=== PATIENT | male | born 1975 | race African-American/Black ===

== ENCOUNTER 2020-11-25 22:20 | Inpatient (IN) ==
[2020-11-25] MEDS ORDERED: ZOFRAN INJ 4 MG VIAL IVP ONE (23:13)
[2020-11-25] MEDS ORDERED: ZOFRAN INJ 4 MG VIAL ONE (23:30)
[2020-11-25] MEDS ORDERED: NS 1000 ML 1,000 ML ONE (23:31)
[2020-11-25 23:39] LABS: BASOPHILS # (AUTO) 0.1 X10^3/uL (0.0-0.1); BASOPHILS % (AUTO) 0.4 % (0.2-1.0); HEMATOCRIT 33.8 % (42.0-54.0); LYMPHOCYTES # (AUTO) 1.9 X10^3/uL (1.3-2.9); LYMPHOCYTES % (AUTO) 16.3 % (21.0-51.0); MEAN CORPUSCULAR HEMOGLOBIN 29.9 pg (27.0-34.0); MEAN CORPUSCULAR HGB CONC 35.5 g/dL (33.0-35.0); MEAN PLATELET VOLUME 9.1 fL (7.4-11.0); MONOCYTES # (AUTO) 0.7 x10^3/uL (0.3-0.8); MONOCYTES % (AUTO) 5.7 % (0.0-13.0); NEUTROPHILS # (AUTO) 8.9 x10^3/uL (2.2-4.8); NEUTROPHILS % (AUTO) 77.6 % (42.0-75.0); PLATELET COUNT 267 X10^3/uL (150.0-450.0); RED BLOOD COUNT 4.03 X10^6/uL (4.7-6.0); RED CELL DISTRIBUTION WIDTH 12.6 % (11.6-16.5); WHITE BLOOD COUNT 11.4 X10^3/uL (3.6-10.0)
[2020-11-25] MEDS: NS 1000 ML 1,000 ML IV ONE ×2 (23:48→23:52)
[2020-11-26 00:18] LABS: ALBUMIN 3.1 g/dL (3.4-5.0); CALCIUM 9.3 mg/dL (8.5-10.1); CARBON DIOXIDE 33.3 mmol/L (21-32); CREATININE 2.42 mg/dL (0.70-1.30); TOTAL PROTEIN 7.8 g/dL (6.4-8.2)
[2020-11-26] MEDS ORDERED: NS 1000 ML 1,000 ML IV ONE (00:58)
[2020-11-26] MEDS ORDERED: NS 1000 ML 1,000 ML ONE (00:59)
--- NOTE | 2020-11-26 03:02 | DR.N/VMALE ---
HPI Time Seen Time Seen by Provider: 11/25/20 23:11 HPI Comment HPI Comment: Patient presents with the complaint of N/V. Notes that this has been an issue for over 6 months. Notes that he sees GI in [place] and has had workup including endoscopy that has been unrevealing. Patient denies any bad food or known sick contact exposure. Complaints Chief Complaint:: vomiting, since yesterday Source History Provided: Patient Timing Onset of Chief Complaint: 11/24/20 PMH PMH Past Medical History: Yes Past Medical History: Diabetes and Hypertension Past Surgical History: Yes Past Surgical History Comment: stent in Rt leg Family History History of Family Medical Conditions: Yes Family Medical History: Diabetes Mellitus Social History Alcohol Use: None Do you use any recreational Drugs:: No Lives With: Alone Lives Where: Home Infectious screening In the last 2 months have you had wt loss of >10#?: NO Have you had fever, night sweats or hemotysis?: No Have you traveled outside the country in the last 6 months?: No Isolation: Standard ROS Review of Systems Constitutional: See HPI and Malaise Gastrointestinal/Abdominal: See HPI, Abdominal Pain, Nausea and Vomiting All Other Systems: Reviewed and Negative PE Vital Signs Vitals: Temperature 98.9 F Pulse Rate [Apical] 102 Pulse Rate [Standing] 90 Pulse Rate [Sitting] 84 Pulse Rate [Lying] 85 Pulse Rate 100 Respiratory Rate 18 Blood Pressure [Left Arm] 117/76 Blood Pressure [Standing] 93/62 Blood Pressure [Sitting] 97/57 Blood Pressure [Lying] 105/67 Blood Pressure 162/95 O2 Sat by Pulse Oximetry 100 General Limitations: No Limitations General Appearance: Alert and In No Apparent Distress Head Head Exam: Normal Inspection, Atraumatic and Normocephalic Eyes Eye exam: Normal Appearance and EOMI ENT ENT Exam: Normal Exam Neck Neck Exam: Normal Inspection and Trachea Midline Chest Chest Inspection: Normal Inspection and Symmetric Chest Wall Rise Respiratory Respiratory Exam: Normal Lung Sounds Bilat Respiratory Exam: Bilateral: Clear to Auscultation Cardiovascular Cardiovascular Exam: Regular Rate, Normal Rhythm and Normal Heart Sounds Abdominal Exam Abdominal Exam: Normal Inspection, Normal Bowel Sounds and Soft Neurologic Neurological Exam: Alert and Oriented X3 Psychiatric Psychiatric Exam: Normal Affect and Normal Mood Skin Skin Exam: Warm, Dry and Intact COURSE Treatment Treatment: patient found to be orthostatic after 1st bolus of IVF. Will repeat and reassess. Patient continues to have nausea despite intervention in the ED Reevaluation 1st: Unchanged 2nd: Improved 3rd: Improved Consultation Called: 03:09 Consultation Comments: paged Dr. Wolf about admission. ROR Labs Reviewed Laboratory Results Reviewed?: Yes Result Diagrams: 11/25/20 23:25 11/25/20 23:25 Laboratory: WBC 11.4 X10^3/uL (3.6-10.0) H 11/25/20 23: RBC 4.03 X10^6/uL (4.7-6.0) L 11/25/20 23: Hgb 12.0 g/dL (13.5-18.0) L 11/25/20 23: Hct 33.8 % (42.0-54.0) L 11/25/20: MCV 84.0 fL (80.0-100.0) 11/25/20: MCH 29.9 pg (27.0-34.0) 11/25/20: MCHC 35.5 g/dL (33.0-35.0) H 11/25/20 23: RDW 12.6 % (11.6-16.5) 11/25/20: Plt Count 267 X10^3/uL (150.0-450.0) 11/25/20: MPV 9.1 fL (7.4-11.0) 11/25/20 23: Neut % (Auto) 77.6 % (42.0-75.0) H 11/25/20: Lymph % (Auto) 16.3 % (21.0-51.0) L 11/25/20: [place] % (Auto) 5.7 % (0.0-13.0) 11/25/20: Eos % (Auto) 0.0 % (0.9-2.9) L 11/25/20: Baso % (Auto) 0.4 % (0.2-1.0) 11/25/20 23: Neut # (Auto) 8.9 x10^3/uL (2.2-4.8) H 11/25/20 23: Lymph # (Auto) 1.9 X10^3/uL (1.3-2.9) 11/25/20 23:25 [place] # (Auto) 0.7 x10^3/uL (0.3-0.8) 11/25/20 23:25 Eos # (Auto) 0.0 x10^3/uL (0.0-0.2) 11/25/20 23:25 Baso # (Auto) 0.1 X10^3/uL (0.0-0.1) 11/25/20 23:25 Absolute Nucleated RBC 0.0 /100WBC 11/25/20 23:25 Sodium 144 mmol/L (136-145) 11/25/20 23:25 Corrected Sodium 147 mmol/L (136-145) H 11/25/20 23:25 Potassium 3.9 mmol/L (3.5-5.1) 11/25/20 23:25 Chloride 103 mmol/L (98-107) 11/25/20 23:25 Carbon Dioxide 33.3 mmol/L (21-32) H 11/25/20 23:25 BUN 30 mg/dL (7-18) H 11/25/20 23:25 Creatinine 2.42 mg/dL (0.70-1.30) H 11/25/20 23:25 Est GFR (MDRD) Af Amer 38 (>60) L 11/25/20 23:25 Est GFR (MDRD) Non-Af 31 (>60) L 11/25/20 23:25 Glucose 234 mg/dL (65-99) H 11/25/20 23:25 Calcium 9.3 mg/dL (8.5-10.1) 11/25/20 23:25 Corrected Calcium 10.0 mg/dL (8.5-10.1) 11/25/20 23:25 Total Bilirubin 0.30 mg/dL (0.2-1.0) 11/25/20 23:25 AST 25 Units/L (15-37) 11/25/20 23:25 ALT 22 Units/L (12-78) 11/25/20 23:25 Alkaline Phosphatase 128 Units/L (46-116) H 11/25/20 23:25 Total Protein 7.8 g/dL (6.4-8.2) 11/25/20 23:25 Albumin 3.1 g/dL (3.4-5.0) L 11/25/20 23:25 Globulin 4.7 g/dL (2.5-4.5) H 11/25/20 23:25 Albumin/Globulin Ratio 0.7 Ratio (1.1-2.1) L 11/25/20 23:25 Amylase 44 Units/L (25-115) 11/25/20 23:25 Lipase 117 Units/L (73-393) 11/25/20 23:25 Specimen Type Clean catch urine 11/26/20 05:00 Urine Color Dark yellow (YELLOW) 11/26/20 05:00 Urine Appearance Slightly hazy (CLEAR) 11/26/20 05:00 Urine pH 6.5 (5.0 - 8.0) 11/26/20 05:00 Ur Specific [place] 1.015 (1.000-1.030) 11/26/20 05:00 Urine Protein 4+ (NEGATIVE) 11/26/20 05:00 Urine Glucose (UA) 4+ (NEGATIVE) 11/26/20 05:00 Urine Ketones 1+ (NEGATIVE) 11/26/20 05:00 Urine Occult Blood 1+ (NEGATIVE) 11/26/20 05:00 Urine Nitrite Negative (NEGATIVE) 11/26/20 05:00 Urine Bilirubin Negative (NEGATIVE) 11/26/20 05:00 Urine Urobilinogen 1+ (NORMAL) 11/26/20 05:00 Ur Leukocyte Esterase Negative (NEGATIVE) 11/26/20 05:00 Urine RBC 3-5 /HPF (0-3) A 11/26/20 05:00 Urine WBC 0-2 /HPF (0-5) 11/26/20 05:00 Ur Squamous Epith Cells Few /HPF (NEGATIVE) 11/26/20 05:00 Urine Bacteria Trace /HPF (NEGATIVE) 11/26/20 05:00 Hyaline Casts Moderate /LPF (NEGATIVE) 11/26/20 05:00 Urine Mucus Few /HPF (NEGATIVE) 11/26/20 05:00 Ur Culture Indicated? No/not indicated 11/26/20 05:00 SARS-CoV-2 (PCR) Negative (NEGATIVE) 11/26/20 03:42 Influenza Type A (PCR) Negative (NEGATIVE) 11/26/20 03:42 Influenza Type B (PCR) Negative (NEGATIVE) 11/26/20 03:42 RSV (PCR) Negative (NEGATIVE) 11/26/20 03:42 XRAY X-ray Results: abd series: no acute infiltrate or effusion. no free air or air fluid level. Opioid Opioid Risk Tool Age (Ramiro box if 16-45): No History of Preadolescent Sexual Abuse: No Total: 0 Total Score Risk Category: Low Risk Copyright: Jace ROMEO predicting aberrant behaviors Diagnosis Discharge Problem: Nausea and vomiting in adult patient, Orthostatic hypotension Acute renal failure Qualifiers: Acute renal failure type: unspecified Qualified Code(s): N17.9 - Acute kidney failure, unspecified
[2020-11-26 05:20] LABS: BILIRUBIN,URINE NEGATIVE (NEGATIVE); BLOOD/HEMOGLOBIN,URINE 1+ (NEGATIVE); GLUCOSE, URINE 4+ (NEGATIVE); KETONES,URINE 1+ (NEGATIVE); LEUKOCYTE ESTERASE ,URINE NEGATIVE (NEGATIVE); NITRITES,URINE NEGATIVE (NEGATIVE); PH,URINE 6.5 (5.0 - 8.0); PROTEIN,URINE 4+ (NEGATIVE); UROBILINOGEN,URINE 1+ (NORMAL)
[2020-11-26 05:28] LABS: APPEARANCE,URINE SLIGHTLY HAZY (CLEAR); COLOR,URINE DARK YELLOW (YELLOW)
[2020-11-26 05:29] LABS: BACTERIA,URINE TRACE /HPF (NEGATIVE); HYALINE CASTS, URINE MODERATE /LPF (NEGATIVE); MUCUS,URINE FEW /HPF (NEGATIVE); SQUAMOUS EPITHELIAL CELL,UR FEW /HPF (NEGATIVE)
--- NOTE | 2020-11-26 06:30 | RAD ---
HISTORYabdominal pain DM, HTN, STENT IN RT LEGSTUDYACUTE ABDOMEN [id number]/21/2020FINDINGSThe trachea is midline. The cardiac silhouette is [unremarkable]. [The lungs are clear without focal mass or consolidation. There is no effusion or pneumothorax.] [The bony thorax is unremarkable].Flat plate and upright evaluation of the abdomen demonstrates a [normal bowel gas pattern]. There is a moderate amount of fecal material throughout the colon. There is no pneumoperitoneum. No pathological soft tissue mass or calcification can be observed. The bony structures are grossly intact. There is vascular graft overlying the right lumbosacral region.IMPRESSION1. [No acute cardiopulmonary disease.]2. [No evidence for acute abdominal pathology identified.]Electronically signed by: Michele Núñez (Nov 26, 2020 06:28:26)
[2020-11-26] MEDS ORDERED: ZOFRAN INJ 4 MG VIAL ONE (08:13)
[2020-11-26] MEDS: ZOFRAN INJ 4 MG VIAL IVP PRN ×2 (08:21→16:31)
[2020-11-26] MEDS: NS 1000 ML 1,000 ML IV SCH ×2 (08:50→16:36)
[2020-11-26] MEDS ORDERED: PROTONIX INJ 40 MG VIAL IVP SCH (09:00)
[2020-11-26 09:12] LABS: CARBON DIOXIDE 34.6 mmol/L (21-32); COR CA(FOR HYPOALB) 9.8 mg/dL (8.5-10.1); CREATININE 2.11 mg/dL (0.70-1.30); TOTAL PROTEIN 7.6 g/dL (6.4-8.2)
--- NOTE | 2020-11-26 11:05 | DR.H&P ---
H&P - History & Physical for Day of: H&P Date: 11/26/20 - Chief Complaint Chief Complaint: EPIGASTRIC PAIN, N/V - History of Present Illness History of Present Illness: PT IS 45 BM ER ADMISSION WITH CO EPIGASTRIC PAIN, N/V. PT STATES HE HAS BEEN SEEING GI AT [facility] FOR "STOMACH PROBLEMS" PT STATES HE RECENTLY HAD EGD. PT HAS PMH OF DM. PT ADMITTED FOR TREATMENT OF ACUTE ILLNESS, DEHYDRATION. - Past Medical History Past Medical History: Hypertension, Diabetes - Past Surgical History Surgical History: denies: Ortho Surgery - Family History Family Medical History: Diabetes Mellitus - Social History Does patient currently use any type of tobacco product: No Have you used tobacco products in the last 12 months: No Type of Tobacco Use: None Does any household member use tobacco: No Alcohol Use: None Risks, benefits, and alternatives of opioids discussed: No - Medications Home Medications: No Known Drug Allergies Allergy (Verified 01/23/18 21:59) CONTINUE taking the following medications cetirizine 10 mg PO DAILY 11/26/20 [History] clopidogrel [Plavix] 75 mg PO DAILY 11/26/20 [History] gabapentin 600 mg PO TID 11/26/20 [History] glimepiride 4 mg PO BID 11/26/20 [History] metoclopramide HCl 10 mg PO QID 11/26/20 [History] pantoprazole 40 mg PO DAILY 11/26/20 [History] - Review of Systems Constitutional: denies: Fever, Chills Eyes: No Symptoms Reported ENT: No Symptoms Reported Respiratory: denies: Cough, Shortness of Breath Cardiovascular: No Symptoms Reported Gastrointestinal: Nausea, Vomiting, Abdominal Pain, Diarrhea Genitourinary: No Symptoms Reported Musculoskeletal: No Symptoms Reported Skin: Wound Neurological: No Symptoms Reported - Physical Exam Vital Signs: Temperature 99.2 F Pulse Rate [Apical] 94 Pulse Rate [Standing] 90 Pulse Rate [Sitting] 84 Pulse Rate [Lying] 85 Pulse Rate 87 Respiratory Rate 18 Blood Pressure [Right Arm] 142/89 Blood Pressure [Left Arm] 117/76 Blood Pressure [Standing] 93/62 Blood Pressure [Sitting] 97/57 Blood Pressure [Lying] 105/67 Blood Pressure 167/100 O2 Sat by Pulse Oximetry 100 Oriented: Normal Eyes: Normal Ear: Normal Nose: Normal Throat: Normal Respiratory: Clear Throughout Cardiovascular: Normal : Normal Auscultation: Bowel Sounds: Normal Palpation: Normal Tenderness: RUQ, LUQ, Epigastric Skin: Decreased [place]urg[place], Wound (FEW SCATTERED LESIONS TO BILATERAL LOWER LEGS) Musculoskeletal: Normal Psychiatric: Normal Mood Description: Calm Speech Pattern: Clear, Appropriate - Assessment/Plan (1) Acute renal failure Qualifiers: Acute renal failure type: unspecified Qualified Code(s): N17.9 - Acute kidney failure, unspecified Status: Acute Plan: ADMIT, GENTLE IV HYDRATION. STRICT I&OS, BS CONTROL. NPO EXCEPT ICE CHIPS. CT ABD/PELVIS WITHOUT CONTRAST DUE TO RENAL FUNCTION. CONFIRM HOME MEDICATION. BP CONTROL, PPI THERAPY (2) Acute gastritis Status: Acute (3) Dehydration Status: Acute (4) Diabetes Status: Acute - Allergies Allergies/Adverse Reactions: Allergies Allergy/AdvReac Type Severity Reaction Status Date / Time No Known Drug Allergies Allergy Verified 01/23/18 21:59
[2020-11-26] MEDS: PHENERGAN INJ 25 MG IM PRN ×2 (13:32→19:50)
[2020-11-26 14:29] VITALS: BMI 23.1
[2020-11-26] MEDS: APRESOLINE INJ 20 MG VIAL IVP PRN (17:33)
[2020-11-26] MEDS: PROTONIX INJ 40 MG VIAL IVP SCH (21:15)
[2020-11-26] MEDS: CATAPRES TAB 0.1 MG PO PRN (23:28)
[2020-11-27] MEDS: NS 1000 ML 1,000 ML IV SCH ×5 (02:25→23:00)
[2020-11-27] MEDS: APRESOLINE INJ 20 MG VIAL IVP PRN ×3 (03:48→21:07)
[2020-11-27] MEDS: ZOFRAN INJ 4 MG VIAL IVP PRN ×3 (03:58→21:17)
[2020-11-27] MEDS ORDERED: GLUTOSE 15 GEL ORAL PO ONE ×2 (05:46→05:52)
[2020-11-27 06:19] LABS: BASOPHILS # (AUTO) 0.1 X10^3/uL (0.0-0.1); BASOPHILS % (AUTO) 0.5 % (0.2-1.0); EOSINOPHILS % (AUTO) 0.1 % (0.9-2.9); HEMATOCRIT 31.8 % (42.0-54.0); HEMOGLOBIN 11.3 g/dL (13.5-18.0); LYMPHOCYTES # (AUTO) 2.4 X10^3/uL (1.3-2.9); LYMPHOCYTES % (AUTO) 21.9 % (21.0-51.0); MEAN CORPUSCULAR HEMOGLOBIN 30.2 pg (27.0-34.0); MEAN CORPUSCULAR HGB CONC 35.5 g/dL (33.0-35.0); MEAN CORPUSCULAR VOLUME 85.1 fL (80.0-100.0); MONOCYTES # (AUTO) 0.5 x10^3/uL (0.3-0.8); MONOCYTES % (AUTO) 4.7 % (0.0-13.0); NEUTROPHILS % (AUTO) 72.8 % (42.0-75.0); PLATELET COUNT 240 X10^3/uL (150.0-450.0); RED BLOOD COUNT 3.73 X10^6/uL (4.7-6.0); RED CELL DISTRIBUTION WIDTH 12.9 % (11.6-16.5)
[2020-11-27 06:25] LABS: ALANINE AMINOTRANSFERASE 23 Units/L (12-78); ALBUMIN 2.9 g/dL (3.4-5.0); ALKALINE PHOSPHATASE 111 Units/L (46-116); ASPARTATE AMINO TRANSFERASE 37 Units/L (15-37); BLOOD UREA NITROGEN 27 mg/dL (7-18); CALCIUM 8.7 mg/dL (8.5-10.1); CHLORIDE 111 mmol/L (98-107); COR CA(FOR HYPOALB) 9.6 mg/dL (8.5-10.1); CREATININE 1.48 mg/dL (0.70-1.30); SODIUM 149 mmol/L (136-145); TOTAL PROTEIN 7.2 g/dL (6.4-8.2); eGFR NON BLACK RACES 55 (>60)
[2020-11-27] MEDS ORDERED: K-DUR TAB 20 MEQ PO PRN (06:54)
[2020-11-27] MEDS ORDERED: POTASSIUM CHL 60 MEQ/NS 0.45% 500 ML IV PRN (06:54)
[2020-11-27] MEDS ORDERED: POTASSIUM CHLORIDE LIQ 20 MEQ UDC PO PRN (06:54)
[2020-11-27] MEDS ORDERED: KLOR-CON PO PRN (06:54)
[2020-11-27] MEDS ORDERED: MICRO K EXTEN CAP 10 MEQ PO PRN (06:54)
[2020-11-27] MEDS ORDERED: POTASSIUM CHL 40 MEQ/NS 0.45% 500 ML IV PRN (06:54)
--- NOTE | 2020-11-27 07:44 | CT ---
HISTORYABD PAIN, NVSTUDYABDOMEN/PELVIS W/O CONCOMPARISONCT abdomen and pelvis 05/17/2020TECHNIQUEMultiple CT axial images of the abdomen and pelvis were obtained without IV contrast. Coronal and sagittal images were reconstructed. Dose reduction techniques included Automated Exposure Control (AEC) and adjustment of mA and kV.FINDINGSThe bowel is not dilated. There is no wall thickening in the bowel or edema around the bowel. The appendix is normal in size with no inflammation around it. No evidence of appendicitis.The kidneys have normal size and shape. No abnormal calcification is present. There is no hydronephrosis or significant perirenal edema. The ureters are not dilated. The bladder is normally distended. It has no wall thickening or perivesical edema.The lung bases are clear. Heart size is normal. Liver, gallbladder, spleen, adrenal glands, and pancreas are unremarkable.Vascular stent in the right iliac vein.IMPRESSION1. No acute findingElectronically signed by: Maksim Mauricio (Nov 27, 2020 07:42:06)
[2020-11-27] MEDS: PROTONIX INJ 40 MG VIAL IVP SCH ×2 (08:14→21:07)
[2020-11-27] MEDS: K-RIDER 10 MEQ/NS 100 ML 10 MEQ/100 ML BAG IV PRN ×2 (08:30→10:00)
[2020-11-27] MEDS: ZyrTEC TAB 10 MG PO SCH (11:02)
[2020-11-27] MEDS: PHENERGAN INJ 25 MG IM PRN (11:03)
[2020-11-27] MEDS ORDERED: REGLAN INJ 10 MG VIAL IVP ONE (13:39)
[2020-11-27] MEDS ORDERED: REGLAN INJ 10 MG VIAL ONE (13:39)
[2020-11-27] MEDS: ZESTRIL TAB 5 MG PO SCH (16:38)
[2020-11-28] MEDS: NS 1000 ML 1,000 ML IV SCH ×4 (00:19→16:29)
[2020-11-28] MEDS: APRESOLINE INJ 20 MG VIAL IVP PRN ×2 (00:38→17:45)
[2020-11-28] MEDS: ZOFRAN INJ 4 MG VIAL IVP PRN (09:20)
[2020-11-28 09:52] LABS: ALANINE AMINOTRANSFERASE 21 Units/L (12-78); ALBUMIN 2.9 g/dL (3.4-5.0); ALKALINE PHOSPHATASE 107 Units/L (46-116); ASPARTATE AMINO TRANSFERASE 45 Units/L (15-37); BLOOD UREA NITROGEN 25 mg/dL (7-18); CALCIUM 8.7 mg/dL (8.5-10.1); CARBON DIOXIDE 23.5 mmol/L (21-32); CHLORIDE 112 mmol/L (98-107); COR CA(FOR HYPOALB) 9.6 mg/dL (8.5-10.1); COR NA(FOR HYPERGLY) 148 mmol/L (136-145); CREATININE 1.45 mg/dL (0.70-1.30); SODIUM 146 mmol/L (136-145); TOTAL PROTEIN 7.1 g/dL (6.4-8.2); eGFR NON BLACK RACES 56 (>60)
[2020-11-28] MEDS: ZyrTEC TAB 10 MG PO SCH (09:58)
[2020-11-28] MEDS: PROTONIX INJ 40 MG VIAL IVP SCH ×2 (09:58→21:55)
[2020-11-28] MEDS: ZESTRIL TAB 5 MG PO SCH (09:58)
--- NOTE | 2020-11-28 10:33 | US ---
HISTORYNAUSEA, VOMITING GREENISH LIQUID, ACUTE RENAL FAILURESTUDYGALL BLADDERCOMPARISONNoneTECHNIQUEMultiple de la vega scale and color flow Doppler images of the right upper quadrant were obtained.FINDINGSThe liver is normal in echotexture and size . No focal intraparenchymal mass or intrahepatic biliary ductal dilatation can be observed. The gallbladder fails to demonstrate evidence for cholelithiasis or layering sludge . The common bile duct is unremarkable measuring 3 mm in with. No pericholecystic fluid or gallbladder wall thickening can be observed .The right kidney appears normal in size without focal parenchymal mass or nephrolithiasis. The right kidney measurers 11 cm in length no hydronephrosis or perirenal fluid can be observed. The pancreatic head and body are unremarkable. The pancreatic tail is largely obscured by overlying bowel gas.IMPRESSIONUnremarkable examination of the right upper quadrant.Electronically signed by: CLEMENTINE JEFF (Nov 28, 2020 10:31:20)
[2020-11-28 10:48] LABS: BASOPHILS # (AUTO) 0.1 X10^3/uL (0.0-0.1); BASOPHILS % (AUTO) 0.6 % (0.2-1.0); HEMATOCRIT 31.3 % (42.0-54.0); HEMOGLOBIN 10.8 g/dL (13.5-18.0); LYMPHOCYTES # (AUTO) 1.9 X10^3/uL (1.3-2.9); LYMPHOCYTES % (AUTO) 19.3 % (21.0-51.0); MEAN CORPUSCULAR HEMOGLOBIN 29.7 pg (27.0-34.0); MEAN CORPUSCULAR HGB CONC 34.7 g/dL (33.0-35.0); MEAN CORPUSCULAR VOLUME 85.7 fL (80.0-100.0); MEAN PLATELET VOLUME 8.8 fL (7.4-11.0); MONOCYTES # (AUTO) 0.4 x10^3/uL (0.3-0.8); MONOCYTES % (AUTO) 4.5 % (0.0-13.0); NEUTROPHILS # (AUTO) 7.3 x10^3/uL (2.2-4.8); NEUTROPHILS % (AUTO) 75.6 % (42.0-75.0); PLATELET COUNT 224 X10^3/uL (150.0-450.0); RED BLOOD COUNT 3.65 X10^6/uL (4.7-6.0); RED CELL DISTRIBUTION WIDTH 12.7 % (11.6-16.5); WHITE BLOOD COUNT 9.7 X10^3/uL (3.6-10.0)
[2020-11-28] MEDS: LEVSIN/MAALOX/LIDOC VISC PO PRN ×2 (12:50→17:49)
[2020-11-28] MEDS: PHENERGAN INJ 25 MG IM PRN (12:51)
[2020-11-28] MEDS: HumuLIN R SC PRN (17:45)
[2020-11-29] MEDS: PHENERGAN INJ 25 MG IM PRN (00:59)
[2020-11-29] MEDS: NS 1000 ML 1,000 ML IV SCH ×2 (05:01→08:43)
[2020-11-29 07:49] LABS: BASOPHILS # (AUTO) 0.1 X10^3/uL (0.0-0.1); BASOPHILS % (AUTO) 0.8 % (0.2-1.0); EOSINOPHILS % (AUTO) 0.1 % (0.9-2.9); HEMATOCRIT 31.4 % (42.0-54.0); LYMPHOCYTES # (AUTO) 1.6 X10^3/uL (1.3-2.9); LYMPHOCYTES % (AUTO) 19.4 % (21.0-51.0); MEAN CORPUSCULAR HEMOGLOBIN 30.5 pg (27.0-34.0); MEAN CORPUSCULAR HGB CONC 35.1 g/dL (33.0-35.0); MEAN CORPUSCULAR VOLUME 86.7 fL (80.0-100.0); MEAN PLATELET VOLUME 8.6 fL (7.4-11.0); MONOCYTES # (AUTO) 0.3 x10^3/uL (0.3-0.8); MONOCYTES % (AUTO) 4.2 % (0.0-13.0); NEUTROPHILS # (AUTO) 6.2 x10^3/uL (2.2-4.8); NEUTROPHILS % (AUTO) 75.5 % (42.0-75.0); PLATELET COUNT 210 X10^3/uL (150.0-450.0); RED BLOOD COUNT 3.62 X10^6/uL (4.7-6.0); RED CELL DISTRIBUTION WIDTH 12.9 % (11.6-16.5); WHITE BLOOD COUNT 8.2 X10^3/uL (3.6-10.0)
[2020-11-29 08:00] LABS: ALANINE AMINOTRANSFERASE 22 Units/L (12-78); ALBUMIN 2.8 g/dL (3.4-5.0); ALKALINE PHOSPHATASE 98 Units/L (46-116); ASPARTATE AMINO TRANSFERASE 29 Units/L (15-37); BLOOD UREA NITROGEN 22 mg/dL (7-18); CALCIUM 8.5 mg/dL (8.5-10.1); CARBON DIOXIDE 26.7 mmol/L (21-32); CHLORIDE 114 mmol/L (98-107); COR CA(FOR HYPOALB) 9.5 mg/dL (8.5-10.1); COR NA(FOR HYPERGLY) 150 mmol/L (136-145); CREATININE 1.42 mg/dL (0.70-1.30); SODIUM 148 mmol/L (136-145); TOTAL PROTEIN 6.6 g/dL (6.4-8.2); eGFR NON BLACK RACES 58 (>60)
[2020-11-29] MEDS: PROTONIX INJ 40 MG VIAL IVP SCH ×2 (08:43→20:53)
[2020-11-29] MEDS: ZOFRAN INJ 4 MG VIAL IVP PRN (08:53)
[2020-11-29] MEDS: ZyrTEC TAB 10 MG PO SCH (08:54)
[2020-11-29] MEDS: ZESTRIL TAB 5 MG PO SCH (08:54)
[2020-11-29] MEDS ORDERED: NS 1/2 1000 ML IV 1,000 ML IV ONE ×2 (10:47→19:52)
[2020-11-29] MEDS: NS 1/2 1000 ML IV 1,000 ML IV SCH ×2 (10:54→20:49)
[2020-11-29] MEDS: REGLAN INJ 10 MG VIAL IVP SCH ×3 (10:54→20:54)
[2020-11-29 11:04] LABS: CRYPTOSPORIDIUM PARVUM ANTIGEN NEGATIVE (NEGATIVE); GIARDIA LAMBLIA ANTIGEN NEGATIVE (NEGATIVE)
[2020-11-29] MEDS ORDERED: BENTYL I.M. INJ 10 MG IM ONE (11:12)
[2020-11-29] MEDS: BENADRYL INJ 50 MG VIAL IV SCH ×2 (11:49→20:54)
[2020-11-29] MEDS ORDERED: ZITHROMAX TAB 250 MG PO SCH (13:00)
[2020-11-29] MEDS ORDERED: CONSULT PHARMACY - ANTIBIOTIC XX SCH (13:00)
[2020-11-29] MEDS: ZITHROMAX INJ 500 MG VIAL 500 MG in NS 250 ML IV 250 ML IV SCH (13:45)
[2020-11-29] MEDS: HumuLIN R SC PRN (16:13)
[2020-11-30] MEDS: CATAPRES TAB 0.1 MG PO PRN ×3 (00:15→13:14)
[2020-11-30] MEDS: BENADRYL INJ 50 MG VIAL IV SCH (03:53)
[2020-11-30] MEDS: NS 1/2 1000 ML IV 1,000 ML IV SCH ×2 (03:55→11:09)
[2020-11-30 08:18] LABS: BASOPHILS # (AUTO) 0.1 X10^3/uL (0.0-0.1); BASOPHILS % (AUTO) 0.7 % (0.2-1.0); EOSINOPHILS # (AUTO) 0.1 x10^3/uL (0.0-0.2); EOSINOPHILS % (AUTO) 0.7 % (0.9-2.9); HEMATOCRIT 29.7 % (42.0-54.0); HEMOGLOBIN 10.8 g/dL (13.5-18.0); LYMPHOCYTES # (AUTO) 2.2 X10^3/uL (1.3-2.9); MEAN CORPUSCULAR HGB CONC 36.3 g/dL (33.0-35.0); MEAN CORPUSCULAR VOLUME 85.3 fL (80.0-100.0); MEAN PLATELET VOLUME 8.8 fL (7.4-11.0); MONOCYTES # (AUTO) 0.4 x10^3/uL (0.3-0.8); MONOCYTES % (AUTO) 5.3 % (0.0-13.0); NEUTROPHILS # (AUTO) 5.4 x10^3/uL (2.2-4.8); NEUTROPHILS % (AUTO) 66.3 % (42.0-75.0); PLATELET COUNT 193 X10^3/uL (150.0-450.0); RED BLOOD COUNT 3.48 X10^6/uL (4.7-6.0); RED CELL DISTRIBUTION WIDTH 12.8 % (11.6-16.5); WHITE BLOOD COUNT 8.1 X10^3/uL (3.6-10.0)
[2020-11-30] MEDS: ZESTRIL TAB 5 MG PO SCH (08:51)
[2020-11-30] MEDS: ZyrTEC TAB 10 MG PO SCH (08:51)
[2020-11-30] MEDS: ZITHROMAX INJ 500 MG VIAL 500 MG in NS 250 ML IV 250 ML IV SCH (08:52)
[2020-11-30] MEDS: PROTONIX INJ 40 MG VIAL IVP SCH (08:52)
[2020-11-30 09:15] LABS: ALANINE AMINOTRANSFERASE 23 Units/L (12-78); ALBUMIN 2.6 g/dL (3.4-5.0); ALKALINE PHOSPHATASE 88 Units/L (46-116); ASPARTATE AMINO TRANSFERASE 30 Units/L (15-37); BLOOD UREA NITROGEN 14 mg/dL (7-18); CALCIUM 8.3 mg/dL (8.5-10.1); CARBON DIOXIDE 27.9 mmol/L (21-32); CHLORIDE 110 mmol/L (98-107); COR CA(FOR HYPOALB) 9.4 mg/dL (8.5-10.1); COR NA(FOR HYPERGLY) 146 mmol/L (136-145); SODIUM 145 mmol/L (136-145); TOTAL PROTEIN 6.1 g/dL (6.4-8.2); eGFR NON BLACK RACES > 60 (>60)
--- NOTE | 2020-11-30 10:51 | RAD ---
HISTORYFEVER, CHEST CONGESTIONSTUDYCHEST x-ray, 1 VIEWCOMPARISONX-ray 11/25/2020FINDINGSThe trachea is midline. The cardiac silhouette is unremarkable .Several very tiny nodules seen in the right midlung that are not identified previously. These may be from granulomatous infection. Correlation with CT chest is recommended. No pneumothorax or pleural effusion is seen.No acute bony abnormality is seen.IMPRESSIONSeveral tiny nodules in the right midlung may be from granulomatous infection but do appear new since prior chest x-ray. Follow-up chest CT is recommended to document size and extent of nodules.Electronically signed by: Joseph Garces (Nov 30, 2020 10:48:46)
[2020-11-30] MEDS ORDERED: BENTYL I.M. INJ 10 MG IM ONE (11:22)
[2020-11-30] MEDS: APRESOLINE INJ 20 MG VIAL IVP PRN (12:04)
[2020-11-30] MEDS ORDERED: PEPTO-BISMOL ORAL SUSP BTL PO SCH (13:00)
[2020-11-30 14:20] VITALS: BP 159/92
[2020-11-30] MEDS ORDERED: FLAGYL TAB 500 MG PO SCH (17:00)
[2020-11-30] MEDS ORDERED: PATIENT'S HOME MEDICATION PO SCH (17:00)
== END 2020-11-30 16:20 | disposition home or self-care (01) | DRG 74 ==
LOC: ER 22:38 → MED/SURG 22:38
PROVIDERS: ADMIT Internal Medicine; ATTEND Internal Medicine
DX: I10 Essential (primary) hypertension; K29.00 Acute gastritis without bleeding; A04.5 Campylobacter enteritis; B96.81 Helicobacter pylori [H. pylori] as the cause of diseases classified elsewhere; N17.8 Other acute kidney failure; Z20.822 Contact with and (suspected) exposure to COVID-19; E86.0 Dehydration; R26.89 Other abnormalities of gait and mobility; R11.2 Nausea with vomiting, unspecified; E11.43 Type 2 diabetes mellitus with diabetic autonomic (poly)neuropathy; E11.65 Type 2 diabetes mellitus with hyperglycemia; R10.13 Epigastric pain; K31.84 Gastroparesis; E87.0 Hyperosmolality and hypernatremia

== ENCOUNTER 2021-03-17 12:39 | Observation (INO) ==
[2021-03-17 12:43] VITALS: BMI 23.1
[2021-03-17] MEDS ORDERED: ZOFRAN INJ 4 MG VIAL IVP ONE ×2 (12:49→15:12)
[2021-03-17] MEDS ORDERED: NS 1,000 ML IV 1,000 ML IV ONE (12:49)
[2021-03-17] MEDS ORDERED: NS 1,000 ML IV 1,000 ML ONE ×2 (13:02→19:17)
[2021-03-17] MEDS ORDERED: ZOFRAN INJ 4 MG VIAL ONE ×3 (13:02→19:31)
[2021-03-17 13:09] LABS: BASOPHILS # (AUTO) 0.1 X10^3/uL (0.0-0.1); BASOPHILS % (AUTO) 0.7 % (0.2-1.0); EOSINOPHILS % (AUTO) 0.1 % (0.9-2.9); HEMOGLOBIN 11.7 g/dL (13.5-18.0); LYMPHOCYTES # (AUTO) 1.8 X10^3/uL (1.3-2.9); LYMPHOCYTES % (AUTO) 14.4 % (21.0-51.0); MEAN CORPUSCULAR HEMOGLOBIN 29.2 pg (27.0-34.0); MEAN CORPUSCULAR HGB CONC 34.4 g/dL (33.0-35.0); MEAN CORPUSCULAR VOLUME 84.8 fL (80.0-100.0); MEAN PLATELET VOLUME 9.1 fL (7.4-11.0); MONOCYTES # (AUTO) 0.8 x10^3/uL (0.3-0.8); MONOCYTES % (AUTO) 6.3 % (0.0-13.0); NEUTROPHILS # (AUTO) 9.9 x10^3/uL (2.2-4.8); NEUTROPHILS % (AUTO) 78.5 % (42.0-75.0); PLATELET COUNT 244 X10^3/uL (150.0-450.0); RED BLOOD COUNT 4.01 X10^6/uL (4.7-6.0); RED CELL DISTRIBUTION WIDTH 12.8 % (11.6-16.5); WHITE BLOOD COUNT 12.6 X10^3/uL (3.6-10.0)
--- NOTE | 2021-03-17 13:11 | DR.N/VMALE ---
HPI Time Seen Time Seen by Provider: 03/17/21 12:49 Primary Care Physician Primary Care Physician: Ximena HPI Comment HPI Comment: PATIENT IS 45YR OLD MALE WITH HISTORY OF DM AND HTN IN ER COMPLAINING OF NAUSEA AND VOMITING TIMES 6 DAYS. NOT HOLDING DOWN FLUID, MEDICATION OR FOOD. DENIES DIARRHEA. LAST BM SATURDAY AND WAS OILY. FEEL WEAK AND FEVERISH. HE IS DIZZY TODAY. Complaints Chief Complaint Doctors Comments: NAUSEA AND VOMITING TIMES 6 DAYS. Chief Complaint:: Pt c/o nausea and vomiting x 6 days. He states he has been unable to eat and take daily meds. Pt reports last bm on Saturday and describes it as "real oily". COVID-19 Coronavirus risk:travel/contact w/high risk person: No Has patient experienced Coronavirus symptoms: No Reviewed Nurses Notes Reviewed: Yes Source History Provided: Patient Mode of Arrival Mode of Arrival: Wheelchair Timing Onset of Chief Complaint: 03/11/21 Context Onset: Spontaneous Recent: None History of: Diabetes Quality Quality: Food Particles Associated Signs and Symptoms Abdominal Pain Quality: Sharp Abdominal Pain Location: Diffuse Symptoms: Abdominal Pain, Anorexia and Fever Other History Other History: DM, HTN. PMH PMH Past Medical History: Yes Past Medical History: Diabetes and Hypertension Past Surgical History: Yes Surgical History: Angioplasty/Stents Family History History of Family Medical Conditions: Yes Family Medical History: Diabetes Mellitus, Cancer and Hypertension Social History Does patient currently use any type of tobacco product: No Have you used tobacco products in the last 12 months: No Type of Tobacco Use: None Does any household member use tobacco: No Alcohol Use: None Do you use any recreational Drugs:: Yes (marijuana) Lives With: Family Lives Where: Home Travel Risk Coronavirus risk:travel/contact w/high risk person: No Has patient experienced Coronavirus symptoms: No Infectious screening In the last 2 months have you had wt loss of >10#?: NO Have you had fever, night sweats or hemotysis?: No Have you traveled outside the country in the last 6 months?: No Isolation: Standard ROS Review of Systems Constitutional: See HPI, Fever, Weakness and Fatigue Eyes: No Symptoms Reported and See HPI ENTM: See HPI, Nose Discharge and Nose Congestion Respiratoy: No Symptoms Reported, See HPI, Moist Cough and Short of Breath; negative Wheezing Cardiovascular: No Symptoms Reported and See HPI; negative Chest Pain Gastrointestinal/Abdominal: See HPI, Abdominal Pain, Nausea and Vomiting Genitourinary: No Symptoms Reported and See HPI; negative Dysuria, Frequency and Hematuria Neurological: See HPI, Headache, Weakness and Dizziness Musculoskeletal: No Symptoms Reported, See HPI and Back Pain; negative Muscle Pain Integumentary: No Symptoms Reported and See HPI; negative Change in Color, Rash and Juandice Hematologic/Lymphatic: No Symptoms Reported and See HPI; negative Easy Bruising Endocrine: No Symptoms Reported and See HPI; negative Increased Thirst and Increased Urine Psychiatric: No Symptoms Reported and See HPI All Other Systems: Reviewed and Negative PE Vital Signs Vitals: Temperature 99.1 F Pulse Rate 94 Respiratory Rate 20 Blood Pressure [Right Arm] 135/91 Blood Pressure 157/88 O2 Sat by Pulse Oximetry 96 General Limitations: No Limitations General Appearance: Alert and In No Apparent Distress Head Head Exam: Normal Inspection Eyes Eye exam: Normal Appearance; negative Scleral Icterus and Conjunctival Injection ENT ENT Exam: Normal Exam, Normal Oropharynx, Normal External Ear Exam and TM's Normal Bilaterally Neck Neck Exam: Normal Inspection and Trachea Midline; negative Tenderness Chest Chest Inspection: Normal Inspection and Symmetric Chest Wall Rise; negative Tenderness Respiratory Respiratory Exam: Normal Lung Sounds Bilat; negative Accessory Muscle Use, Chest Wall Tenderness and Respiratory Distress Respiratory Exam: Bilateral: Rhonchi and Lower: Rhonchi Cardiovascular Cardiovascular Exam: Regular Rate, Normal Rhythm and Normal Heart Sounds; negative Systolic Murmur and Diastolic Murmur Abdominal Exam Abdominal Exam: Normal Bowel Sounds, Soft and Tenderness Rectal Rectal Exam: Deferred Exam: Male: Deferred Extremities Extremities Exam: Normal Inspection Back Back Exam: Normal Inspection Neurologic Neurological Exam: Alert and Oriented X3 Psychiatric Psychiatric Exam: Normal Affect and Normal Mood Skin Skin Exam: Warm, Dry, Intact and Normal Color ROR Labs Reviewed Result Diagrams: 03/17/21 12:54 03/17/21 12:54 Laboratory: WBC 12.6 X10^3/uL (3.6-10.0) H 03/17/21 12:54 RBC 4.01 X10^6/uL (4.7-6.0) L 03/17/21 12:54 Hgb 11.7 g/dL (13.5-18.0) L 03/17/21 12:54 Hct 34.0 % (42.0-54.0) L 03/17/21 12:54 MCV 84.8 fL (80.0-100.0) 03/17/21 12:54 MCH 29.2 pg (27.0-34.0) 03/17/21 12:54 MCHC 34.4 g/dL (33.0-35.0) 03/17/21 12:54 RDW 12.8 % (11.6-16.5) 03/17/21 12:54 Plt Count 244 X10^3/uL (150.0-450.0) 03/17/21 12:54 MPV 9.1 fL (7.4-11.0) 03/17/21 12:54 Neut % (Auto) 78.5 % (42.0-75.0) H 03/17/21 12:54 Lymph % (Auto) 14.4 % (21.0-51.0) L 03/17/21 12:54 [place] % (Auto) 6.3 % (0.0-13.0) 03/17/21 12:54 Eos % (Auto) 0.1 % (0.9-2.9) L 03/17/21 12:54 Baso % (Auto) 0.7 % (0.2-1.0) 03/17/21 12:54 Neut # (Auto) 9.9 x10^3/uL (2.2-4.8) H 03/17/21 12:54 Lymph # (Auto) 1.8 X10^3/uL (1.3-2.9) 03/17/21 12:54 [place] # (Auto) 0.8 x10^3/uL (0.3-0.8) 03/17/21 12:54 Eos # (Auto) 0.0 x10^3/uL (0.0-0.2) 03/17/21 12:54 Baso # (Auto) 0.1 X10^3/uL (0.0-0.1) 03/17/21 12:54 Absolute Nucleated RBC 0.0 /100WBC 03/17/21 12:54 Sodium 140 mmol/L (136-145) 03/17/21 12:54 Corrected Sodium 146 mmol/L (136-145) H 03/17/21 12:54 Potassium 2.9 mmol/L (3.5-5.1) L* 03/17/21 12:54 Chloride 97 mmol/L (98-107) L 03/17/21 12:54 Carbon Dioxide 36.3 mmol/L (21-32) H 03/17/21 12:54 BUN 19 mg/dL (7-18) H 03/17/21 12:54 Creatinine 1.64 mg/dL (0.70-1.30) H 03/17/21 12:54 Est GFR (MDRD) Af Amer 59 (>60) 03/17/21 12:54 Est GFR (MDRD) Non-Af 49 (>60) L 03/17/21 12:54 Glucose 341 mg/dL (65-99) H 03/17/21 12:54 Calcium 8.1 mg/dL (8.5-10.1) L 03/17/21 12:54 Corrected Calcium 9.5 mg/dL (8.5-10.1) 03/17/21 12:54 Total Bilirubin 0.50 mg/dL (0.2-1.0) 03/17/21 12:54 AST 39 Units/L (15-37) H 03/17/21 12:54 ALT 22 Units/L (12-78) 03/17/21 12:54 Alkaline Phosphatase 145 Units/L (46-116) H 03/17/21 12:54 Total Protein 6.4 g/dL (6.4-8.2) 03/17/21 12:54 Albumin 2.2 g/dL (3.4-5.0) L 03/17/21 12:54 Globulin 4.2 g/dL (2.5-4.5) 03/17/21 12:54 Albumin/Globulin Ratio 0.5 Ratio (1.1-2.1) L 03/17/21 12:54 Amylase 29 Units/L (25-115) 03/17/21 12:54 Lipase 110 Units/L (73-393) 03/17/21 12:54 Specimen Type Clean catch urine 03/17/21 14:55 Urine Color Yellow (YELLOW) 03/17/21 14:55 Urine Appearance Slightly hazy (CLEAR) 03/17/21 14:55 Urine pH 6.0 (5.0 - 8.0) 03/17/21 14:55 Ur Specific [place] 1.020 (1.000-1.030) 03/17/21 14:55 Urine Protein 4+ (NEGATIVE) 03/17/21 14:55 Urine Glucose (UA) 4+ (NEGATIVE) 03/17/21 14:55 Urine Ketones 3+ (NEGATIVE) 03/17/21 14:55 Urine Occult Blood 4+ (NEGATIVE) 03/17/21 14:55 Urine Nitrite Negative (NEGATIVE) 03/17/21 14:55 Urine Bilirubin Negative (NEGATIVE) 03/17/21 14:55 Urine Urobilinogen Normal (NORMAL) 03/17/21 14:55 Ur Leukocyte Esterase Negative (NEGATIVE) 03/17/21 14:55 Urine RBC 10-20 /HPF (0-3) A 03/17/21 14:55 Urine WBC 0-2 /HPF (0-5) 03/17/21 14:55 Ur Squamous Epith Cells Few /HPF (NEGATIVE) 03/17/21 14:55 Urine Bacteria Trace /HPF (NEGATIVE) 03/17/21 14:55 Hyaline Casts Moderate /LPF (NEGATIVE) 03/17/21 14:55 Fine Granular Casts Few /LPF (NEGATIVE) 03/17/21 14:55 Urine Mucus Few /HPF (NEGATIVE) 03/17/21 14:55 Ur Culture Indicated? No/not indicated 03/17/21 14:55 Acetone, Semi-Quant Small (NEGATIVE) H 03/17/21 12:54 SARS CoV-2 RNA Rapid SUE Negative (NEGATIVE) 03/17/21 16:41 Opioid Opioid Risk Tool Age (Ramiro box if 16-45): Yes History of Preadolescent Sexual Abuse: No Total: 1 Total Score Risk Category: Low Risk Copyright: Jace ROMEO predicting aberrant behaviors Instructions Forms: Precautions for COVID19 [facility] Portal Social Distancing
[2021-03-17 13:17] LABS: SERUM ACETONE SMALL (NEGATIVE)
[2021-03-17 13:23] LABS: ALANINE AMINOTRANSFERASE 22 Units/L (12-78); ALBUMIN 2.2 g/dL (3.4-5.0); ALKALINE PHOSPHATASE 145 Units/L (46-116); AMYLASE 29 Units/L (25-115); ASPARTATE AMINO TRANSFERASE 39 Units/L (15-37); BLOOD UREA NITROGEN 19 mg/dL (7-18); CALCIUM 8.1 mg/dL (8.5-10.1); CARBON DIOXIDE 36.3 mmol/L (21-32); CHLORIDE 97 mmol/L (98-107); COR CA(FOR HYPOALB) 9.5 mg/dL (8.5-10.1); COR NA(FOR HYPERGLY) 146 mmol/L (136-145); CREATININE 1.64 mg/dL (0.70-1.30); LIPASE 110 Units/L (73-393); SODIUM 140 mmol/L (136-145); TOTAL PROTEIN 6.4 g/dL (6.4-8.2); eGFR NON BLACK RACES 49 (>60)
--- NOTE | 2021-03-17 13:29 | CT ---
HISTORYABDOMINAL PAIN, VOMITING X 6 DAYSSTUDYABDOMEN/PELVIS W/O CONCOMPARISONCT stone protocol from 11/26/2020.TECHNIQUEMultiple axial images of the abdomen and pelvis were obtained from the lung bases to the pubic symphysis without the administration of IV contrast. Dose reduction techniques including Automated Exposure Control (AEC) and adjustment of mA and kV were utilized.FINDINGSLack of contrast limits evaluation.The lung bases are clear. The heart is normal in size. The liver, gallbladder, spleen, pancreas, and adrenal glands have a benign noncontrast appearance. Mild bilateral perinephric stranding. Otherwise the kidneys appear benign without calculus or hydronephrosis.The urinary bladder appears benign. The prostate is normal in size. Diverticulosis of the colon without evidence of diverticulitis. The appendix appears normal. Right iliac vein stent is present. Non-atherosclerotic normal caliber abdominal aorta. Mild mesenteric and body wall edema. 1.2 cm sclerotic lesion left iliac wing image [address] for benign sclerosis.IMPRESSIONNegative for bowel obstruction. Mild mesenteric and body wall edema. Mild perinephric stranding is nonspecific and can be idiopathic.Electronically signed by: Dewayne Taylor (Mar 17, 2021 13:27:30)
[2021-03-17] MEDS ORDERED: NS + KCL 20 MEQ/L 1,000 ML IV ONE (14:48)
[2021-03-17] MEDS ORDERED: NS + KCL 20 MEQ/L 1,000 ML IV SCH (15:00)
[2021-03-17] MEDS ORDERED: APRESOLINE INJ 20 MG VIAL IVP ONE (15:12)
[2021-03-17] MEDS ORDERED: APRESOLINE INJ 20 MG VIAL ONE (15:17)
[2021-03-17 16:58] LABS: BILIRUBIN,URINE NEGATIVE (NEGATIVE); BLOOD/HEMOGLOBIN,URINE 4+ (NEGATIVE); GLUCOSE, URINE 4+ (NEGATIVE); KETONES,URINE 3+ (NEGATIVE); LEUKOCYTE ESTERASE ,URINE NEGATIVE (NEGATIVE); NITRITES,URINE NEGATIVE (NEGATIVE); PROTEIN,URINE 4+ (NEGATIVE); UROBILINOGEN,URINE NORMAL (NORMAL)
[2021-03-17 16:59] LABS: APPEARANCE,URINE SLIGHTLY HAZY (CLEAR); COLOR,URINE YELLOW (YELLOW)
[2021-03-17 17:12] LABS: BACTERIA,URINE TRACE /HPF (NEGATIVE); FINE GRANULAR CASTS,URINE FEW /LPF (NEGATIVE); HYALINE CASTS, URINE MODERATE /LPF (NEGATIVE); MUCUS,URINE FEW /HPF (NEGATIVE); SQUAMOUS EPITHELIAL CELL,UR FEW /HPF (NEGATIVE)
[2021-03-17] MEDS ORDERED: PEPCID 20 MG IV PREMIX* 50 ML IV ONE (19:31)
[2021-03-17 19:35] LABS: CKMB % 0.9 % (<4); TROPONIN I 0.14 ng/mL (0-1.5)
[2021-03-17] MEDS ORDERED: CATAPRES-TTS-2 TD ONE (19:59)
[2021-03-17] MEDS ORDERED: CATAPRES-TTS-2 TD SCH (20:00)
[2021-03-17] MEDS: NS 1,000 ML IV 1,000 ML IV SCH (20:00)
[2021-03-17] MEDS: ZOFRAN INJ 4 MG VIAL IVP PRN (20:24)
[2021-03-17] MEDS: PEPCID 20 MG IV PREMIX* 20 MG/50 ML BAG IV PRN (20:25)
[2021-03-17] MEDS: HumuLIN R SUBCUT PRN (20:25)
[2021-03-17 20:35] LABS: TROPONIN I 0.16 ng/mL (0-1.5)
[2021-03-17] MEDS: SNACK - Diabetic Appropriate PO SCH (20:39)
[2021-03-17 21:17] LABS: CKMB % 0.8 % (<4)
[2021-03-17 21:21] LABS: CREATINE KINASE MB 7.8 ng/mL (0-4.0)
[2021-03-17] MEDS ORDERED: MAGNESIUM SULFATE 1 GRAM/100 mL PREMIX 2 G/200 ML BAG IV ONE (22:04)
[2021-03-17] MEDS ORDERED: K-DUR TAB 20 MEQ PO PRN (22:06)
[2021-03-17] MEDS: MAGNESIUM SULFATE 1 GRAM/100 mL PREMIX 1 G/100 ML BAG IV PRN ×2 (22:15→23:20)
[2021-03-18] MEDS ORDERED: K-DUR TAB 20 MEQ PO PRN (00:36)
[2021-03-18] MEDS ORDERED: K-RIDER 10 MEQ/NS 100 ML 40 MEQ/400 ML BAG IV ONE (00:37)
[2021-03-18] MEDS: K-RIDER 10 MEQ/NS 100 ML 10 MEQ/100 ML BAG IV PRN ×6 (01:01→23:42)
[2021-03-18] MEDS ORDERED: PHENERGAN INJ 25 MG IM ONE (01:31)
[2021-03-18] MEDS: PHENERGAN INJ 25 MG IM PRN ×3 (01:37→15:03)
[2021-03-18 02:01] LABS: CKMB % 0.7 % (<4); TROPONIN I 0.15 ng/mL (0-1.5)
[2021-03-18 02:06] LABS: CREATINE KINASE MB 6.3 ng/mL (0-4.0)
[2021-03-18] MEDS ORDERED: TOPROL XL PO ONE (04:15)
[2021-03-18] MEDS: TOPROL XL PO SCH ×2 (04:22→08:38)
[2021-03-18] MEDS: ZOFRAN INJ 4 MG VIAL IVP PRN ×4 (04:22→23:50)
[2021-03-18 05:12] LABS: BASOPHILS # (AUTO) 0.1 X10^3/uL (0.0-0.1); BASOPHILS % (AUTO) 0.5 % (0.2-1.0); EOSINOPHILS % (AUTO) 0.2 % (0.9-2.9); HEMATOCRIT 34.4 % (42.0-54.0); LYMPHOCYTES # (AUTO) 2.1 X10^3/uL (1.3-2.9); MEAN CORPUSCULAR HEMOGLOBIN 29.5 pg (27.0-34.0); MEAN CORPUSCULAR HGB CONC 34.9 g/dL (33.0-35.0); MEAN CORPUSCULAR VOLUME 84.5 fL (80.0-100.0); MEAN PLATELET VOLUME 8.9 fL (7.4-11.0); MONOCYTES # (AUTO) 0.8 x10^3/uL (0.3-0.8); MONOCYTES % (AUTO) 6.5 % (0.0-13.0); NEUTROPHILS % (AUTO) 76.8 % (42.0-75.0); PLATELET COUNT 230 X10^3/uL (150.0-450.0); RED BLOOD COUNT 4.07 X10^6/uL (4.7-6.0); RED CELL DISTRIBUTION WIDTH 12.5 % (11.6-16.5)
[2021-03-18 05:50] LABS: ALANINE AMINOTRANSFERASE 24 Units/L (12-78); ALBUMIN 2.1 g/dL (3.4-5.0); ALKALINE PHOSPHATASE 132 Units/L (46-116); ASPARTATE AMINO TRANSFERASE 44 Units/L (15-37); BLOOD UREA NITROGEN 19 mg/dL (7-18); CALCIUM 8.1 mg/dL (8.5-10.1); CARBON DIOXIDE 37.4 mmol/L (21-32); CHLORIDE 103 mmol/L (98-107); CKMB % 0.6 % (<4); COR CA(FOR HYPOALB) 9.6 mg/dL (8.5-10.1); CREATINE KINASE 999 Units/L (39-308); CREATININE 1.35 mg/dL (0.70-1.30); MAGNESIUM 2.5 mg/dL (1.7-2.9); SODIUM 144 mmol/L (136-145); TOTAL PROTEIN 6.1 g/dL (6.4-8.2); TROPONIN I 0.14 ng/mL (0-1.5); eGFR NON BLACK RACES > 60 (>60)
[2021-03-18] MEDS: PEPCID 20 MG IV PREMIX* 20 MG/50 ML BAG IV PRN ×2 (07:56→21:00)
[2021-03-18] MEDS: CHECK PATCH XX SCH ×2 (08:43→20:28)
[2021-03-18] MEDS ORDERED: TOPROL XL PO SCH (09:00)
[2021-03-18] MEDS ORDERED: PROTONIX TAB 40 MG PO SCH (09:00)
[2021-03-18] MEDS ORDERED: POTASSIUM CHL 40 MEQ/NS 0.45% 500 ML IV PRN (09:56)
[2021-03-18] MEDS ORDERED: POTASSIUM CHL 60 MEQ/NS 0.45% 500 ML IV PRN (09:56)
[2021-03-18] MEDS ORDERED: LOPRESSOR INJ 5 MG AMP IVP SCH (10:00)
[2021-03-18 10:08] LABS: ABG BASE EXCESS 16.7 mmol/L (-2.0-2.0)
[2021-03-18 10:10] LABS: ABG ALLEN TEST POS; ABG HCO3 42.7 mmol/L (22-26)
[2021-03-18 11:40] LABS: TROPONIN I 0.1 ng/mL (0-1.5)
[2021-03-18 11:41] LABS: CKMB % 0.5 % (<4)
[2021-03-18 11:42] LABS: CREATINE KINASE MB 5.2 ng/mL (0-4.0)
[2021-03-18] MEDS ORDERED: NORMODYNE TAB 100 MG ONE (16:28)
[2021-03-18] MEDS ORDERED: CATAPRES-TTS-3 TD ONE (16:29)
[2021-03-18] MEDS: NS 1,000 ML IV 1,000 ML IV SCH ×2 (16:42→20:30)
[2021-03-18] MEDS ORDERED: NORMODYNE TAB 200 MG PO SCH (17:00)
[2021-03-18] MEDS ORDERED: CATAPRES-TTS-3 TD SCH (17:00)
--- NOTE | 2021-03-18 17:15 | DR.H&P ---
H&P History & Physical for Day of: H&P Date: 03/17/21 Chief Complaint Chief Complaint: 45 yo bm with a 6 day history of nausea and vomiting. He feels weak and feverish. No diarrhea. No chest pain or . No melena or hematochezia. He does report feeling dizzy with standing. Allergies Allergies Allergy/AdvReac Type Severity Reaction Status Date / Time No Known Drug Allergies Allergy Verified 01/23/18 21:59 Past Medical History Past Medical History: Diabetes and Hypertension Past Surgical History Surgical History: Other Family History Family Medical History: Diabetes Mellitus, Cancer, [place], Heart Failure and Hypertension Social History Does patient currently use any type of tobacco product: No Have you used tobacco products in the last 12 months: No Type of Tobacco Use: None Does any household member use tobacco: No Alcohol Use: None Drug Use: None Medications Home Medications: No Known Drug Allergies Allergy (Verified 01/23/18 21:59) CONTINUE taking the following medications dapagliflozin [Farxiga] mg 03/18/21 [History] insulin glargine [Basaglar KwikPen U-100 Insulin] SUBCUT 03/18/21 [History] insulin glargine [Lantus Solostar U-100 Insulin] SUBCUT 03/18/21 [History] labetalol 200 mg PO BID 03/18/21 [History] Labs Result Diagrams: 03/18/21 04:32 03/18/21 16:35 Labs: 03/18/21 11:13 Stool - Final Laboratory WBC 13.0 X10^3/uL (3.6-10.0) H 03/18/21 04:32 RBC 4.07 X10^6/uL (4.7-6.0) L 03/18/21 04:32 Hgb 12.0 g/dL (13.5-18.0) L 03/18/21 04:32 Hct 34.4 % (42.0-54.0) L 03/18/21 04:32 MCV 84.5 fL (80.0-100.0) 03/18/21 04:32 MCH 29.5 pg (27.0-34.0) 03/18/21 04:32 MCHC 34.9 g/dL (33.0-35.0) 03/18/21 04:32 RDW 12.5 % (11.6-16.5) 03/18/21 04:32 Plt Count 230 X10^3/uL (150.0-450.0) 03/18/21 04:32 MPV 8.9 fL (7.4-11.0) 03/18/21 04:32 Neut % (Auto) 76.8 % (42.0-75.0) H 03/18/21 04:32 Lymph % (Auto) 16.0 % (21.0-51.0) L 03/18/21 04:32 [place] % (Auto) 6.5 % (0.0-13.0) 03/18/21 04:32 Eos % (Auto) 0.2 % (0.9-2.9) L 03/18/21 04:32 Baso % (Auto) 0.5 % (0.2-1.0) 03/18/21 04:32 Neut # (Auto) 10.0 x10^3/uL (2.2-4.8) H 03/18/21 04:32 Lymph # (Auto) 2.1 X10^3/uL (1.3-2.9) 03/18/21 04:32 [place] # (Auto) 0.8 x10^3/uL (0.3-0.8) 03/18/21 04:32 Eos # (Auto) 0.0 x10^3/uL (0.0-0.2) 03/18/21 04:32 Baso # (Auto) 0.1 X10^3/uL (0.0-0.1) 03/18/21 04:32 Absolute Nucleated RBC 0.1 /100WBC 03/18/21 04:32 PT 12.8 SECONDS (11.8-14.3) 03/18/21 04:32 INR Target Range - 03/18/21 04:32 INR 1.01 (0.8-1.3) 03/18/21 04:32 APTT 24.2 SECONDS (22.9-36.5) 03/18/21 04:32 PTT Comment - 03/18/21 04:32 Sample Site Rr 03/18/21 10:00 ABG pH 7.490 (7.35-7.45) H 03/18/21 10:00 ABG pCO2 56.0 mmHg (35.0-45.0) H* 03/18/21 10:00 ABG pO2 61.0 mmHg (80.0-100.0) L 03/18/21 10:00 ABG HCO3 42.7 mmol/L (22-26) H* 03/18/21 10:00 ABG O2 Saturation 93.0 % (90-100) 03/18/21 10:00 ABG Base Excess 16.7 mmol/L (-2.0-2.0) H 03/18/21 10:00 Adi Test Pos 03/18/21 10:00 A-a Gradient 19.0 mmHg 03/18/21 10:00 FiO2 21.0 03/18/21 10:00 Blood Gas Comments Pt jameson well. jn, boomboat operator 03/18/21 10:00 Sodium 144 mmol/L (136-145) 03/18/21 04:32 Corrected Sodium TNP 03/18/21 04:32 Potassium 3.3 mmol/L (3.5-5.1) L 03/18/21 16:35 Chloride 103 mmol/L (98-107) 03/18/21 04:32 Carbon Dioxide 37.4 mmol/L (21-32) H 03/18/21 04:32 BUN 19 mg/dL (7-18) H 03/18/21 04:32 Creatinine 1.35 mg/dL (0.70-1.30) H 03/18/21 04:32 Est GFR (MDRD) Af Amer > 60 (>60) 03/18/21 04:32 Est GFR (MDRD) Non-Af > 60 (>60) 03/18/21 04:32 Glucose 174 mg/dL (65-99) H 03/18/21 16:35 POC Glucose (mg/dL) 161 mg/dL (65-99) H 03/18/21 12:27 Calcium 8.1 mg/dL (8.5-10.1) L 03/18/21 04:32 Corrected Calcium 9.6 mg/dL (8.5-10.1) 03/18/21 04:32 Magnesium 2.5 mg/dL (1.7-2.9) 03/18/21 04:32 Total Bilirubin 0.40 mg/dL (0.2-1.0) 03/18/21 04:32 AST 44 Units/L (15-37) H 03/18/21 04:32 ALT 24 Units/L (12-78) 03/18/21 04:32 Alkaline Phosphatase 132 Units/L (46-116) H 03/18/21 04:32 Creatine Kinase 1053 Units/L (39-308) H 03/18/21 10:53 CK-MB (CK-2) 5.2 ng/mL (0-4.0) H* 03/18/21 10:53 CK/CKMB % Calc 0.5 % (<4) 03/18/21 10:53 Troponin I 0.10 ng/mL (0-1.5) 03/18/21 10:53 Total Protein 6.1 g/dL (6.4-8.2) L 03/18/21 04:32 Albumin 2.1 g/dL (3.4-5.0) L 03/18/21 04:32 Globulin 4.0 g/dL (2.5-4.5) 03/18/21 04:32 Albumin/Globulin Ratio 0.5 Ratio (1.1-2.1) L 03/18/21 04:32 Amylase 29 Units/L (25-115) 03/17/21 12:54 Lipase 110 Units/L (73-393) 03/17/21 12:54 Specimen Type Clean catch urine 03/17/21 14:55 Urine Color Yellow (YELLOW) 03/17/21 14:55 Urine Appearance Slightly hazy (CLEAR) 03/17/21 14:55 Urine pH 6.0 (5.0 - 8.0) 03/17/21 14:55 Ur Specific [place] 1.020 (1.000-1.030) 03/17/21 14:55 Urine Protein 4+ (NEGATIVE) 03/17/21 14:55 Urine Glucose (UA) 4+ (NEGATIVE) 03/17/21 14:55 Urine Ketones 3+ (NEGATIVE) 03/17/21 14:55 Urine Occult Blood 4+ (NEGATIVE) 03/17/21 14:55 Urine Nitrite Negative (NEGATIVE) 03/17/21 14:55 Urine Bilirubin Negative (NEGATIVE) 03/17/21 14:55 Urine Urobilinogen Normal (NORMAL) 03/17/21 14:55 Ur Leukocyte Esterase Negative (NEGATIVE) 03/17/21 14:55 Urine RBC 10-20 /HPF (0-3) A 03/17/21 14:55 Urine WBC 0-2 /HPF (0-5) 03/17/21 14:55 Ur Squamous Epith Cells Few /HPF (NEGATIVE) 03/17/21 14:55 Urine Bacteria Trace /HPF (NEGATIVE) 03/17/21 14:55 Hyaline Casts Moderate /LPF (NEGATIVE) 03/17/21 14:55 Fine Granular Casts Few /LPF (NEGATIVE) 03/17/21 14:55 Urine Mucus Few /HPF (NEGATIVE) 03/17/21 14:55 Ur Culture Indicated? No/not indicated 03/17/21 14:55 Stool Description 10g liq/mucus yellow 03/18/21 11:13 Stl Occult Blood (IFOB) Positive (NEGATIVE) A 03/18/21 11:13 Stool for White Cells Positive (NEGATIVE) A 03/18/21 11:13 Stl C. diff Tox B Gene Negative (NEGATIVE) 03/18/21 11:13 Stl C. diff [id number] Presumptive negative (NEGATIVE) 03/18/21 11:13 Stool H. pylori Ag Positive (NEGATIVE) A 03/18/21 11:13 Acetone, Semi-Quant Small (NEGATIVE) H 03/18/21 04:32 SARS CoV-2 RNA Rapid SUE Negative (NEGATIVE) 03/17/21 16:41 Review of Systems Constitutional: Chills and Weakness Eyes: No Symptoms Reported ENT: No Symptoms Reported Respiratory: No Symptoms Reported Cardiovascular: No Symptoms Reported Gastrointestinal: Nausea and Vomiting Genitourinary: No Symptoms Reported Musculoskeletal: No Symptoms Reported Skin: No Symptoms Reported Neurological: Weakness Physical Exam Vital Signs: Temperature 98.2 F Pulse Rate [Left] 81 Pulse Rate 94 Respiratory Rate 26 Blood Pressure [Right Arm] 185/104 Blood Pressure 172/103 O2 Sat by Pulse Oximetry 96 Oriented: Normal Eyes: Normal Ear: Normal Nose: Normal Throat: Normal Respiratory: Clear Throughout Cardiovascular: Normal : Normal Auscultation: Bowel Sounds: Increased Palpation: Normal Tenderness: Normal Skin: Normal Musculoskeletal: Normal Psychiatric: Normal Mood Description: Calm Affect: Normal Speech Pattern: Clear Assessment/Plan (1) Nausea and vomiting in adult patient: Status: Acute Plan: Continue Phenergan. (2) Dehydration: Status: Acute Plan: IVF (3) Hypokalemia: Status: Acute Plan: Potassium replacement protocol. Review H&P Reviewed: Yes Patient was examined?: Yes
[2021-03-18 17:25] LABS: CKMB % 0.5 % (<4); TROPONIN I 0.09 ng/mL (0-1.5)
[2021-03-18 17:30] LABS: CREATINE KINASE MB 4.6 ng/mL (0-4.0)
--- NOTE | 2021-03-18 17:34 | PCM.PROG ---
Progress Note Progress Note for Day of Date of Exam: 03/18/21 Subjective Subjective: Pt. is still having nausea and vomiting. Now with diarrhea. Acetone level was checked and was positive for a small amount. ABG was done which did not show any acidosis. Patient is a kknown diabetic. Past Medical Family Social History Past Med/Fam/Surg Hx: Changes noted (describe) Changes in Past Med/Fam/Surg Hx: DM2 Allergies: Allergies No Known Drug Allergies Allergy (Verified 01/23/18 21:59) Vital Signs and I&O's Vital Signs: Temperature 98.2 F Pulse Rate [Left] 81 Pulse Rate 94 Respiratory Rate 26 Blood Pressure [Right Arm] 185/104 Blood Pressure 172/103 O2 Sat by Pulse Oximetry 96 Intake and Output: Intake & Output 03/16/21 03/17/21 03/18/21 03/19/21 11:59 11:59 11:59 11:59 Intake Total 1201 / 1201 450 / 450 Balance 1201 / 1201 450 / 450 Physical Exam Oriented: Normal Eyes: Normal Ear: Normal Nose: Normal Throat: Normal Cardiovascular: Normal : Normal Auscultation: Bowel Sounds: Increased Tenderness: Normal Skin: Normal Musculoskeletal: Normal Psychiatric: Normal Mood Description: Calm Affect: Normal Speech Pattern: Clear Laboratory and Diagnostics Result Diagrams: 03/18/21 04:32 03/18/21 16:35 Labs: 03/18/21 11:13 Stool - Final Laboratory WBC 13.0 X10^3/uL (3.6-10.0) H 03/18/21 04:32 RBC 4.07 X10^6/uL (4.7-6.0) L 03/18/21 04:32 Hgb 12.0 g/dL (13.5-18.0) L 03/18/21 04:32 Hct 34.4 % (42.0-54.0) L 03/18/21 04:32 MCV 84.5 fL (80.0-100.0) 03/18/21 04:32 MCH 29.5 pg (27.0-34.0) 03/18/21 04:32 MCHC 34.9 g/dL (33.0-35.0) 03/18/21 04:32 RDW 12.5 % (11.6-16.5) 03/18/21 04:32 Plt Count 230 X10^3/uL (150.0-450.0) 03/18/21 04:32 MPV 8.9 fL (7.4-11.0) 03/18/21 04:32 Neut % (Auto) 76.8 % (42.0-75.0) H 03/18/21 04:32 Lymph % (Auto) 16.0 % (21.0-51.0) L 03/18/21 04:32 [place] % (Auto) 6.5 % (0.0-13.0) 03/18/21 04:32 Eos % (Auto) 0.2 % (0.9-2.9) L 03/18/21 04:32 Baso % (Auto) 0.5 % (0.2-1.0) 03/18/21 04:32 Neut # (Auto) 10.0 x10^3/uL (2.2-4.8) H 03/18/21 04:32 Lymph # (Auto) 2.1 X10^3/uL (1.3-2.9) 03/18/21 04:32 [place] # (Auto) 0.8 x10^3/uL (0.3-0.8) 03/18/21 04:32 Eos # (Auto) 0.0 x10^3/uL (0.0-0.2) 03/18/21 04:32 Baso # (Auto) 0.1 X10^3/uL (0.0-0.1) 03/18/21 04:32 Absolute Nucleated RBC 0.1 /100WBC 03/18/21 04:32 PT 12.8 SECONDS (11.8-14.3) 03/18/21 04:32 INR Target Range - 03/18/21 04:32 INR 1.01 (0.8-1.3) 03/18/21 04:32 APTT 24.2 SECONDS (22.9-36.5) 03/18/21 04:32 PTT Comment - 03/18/21 04:32 Sample Site Rr 03/18/21 10:00 ABG pH 7.490 (7.35-7.45) H 03/18/21 10:00 ABG pCO2 56.0 mmHg (35.0-45.0) H* 03/18/21 10:00 ABG pO2 61.0 mmHg (80.0-100.0) L 03/18/21 10:00 ABG HCO3 42.7 mmol/L (22-26) H* 03/18/21 10:00 ABG O2 Saturation 93.0 % (90-100) 03/18/21 10:00 ABG Base Excess 16.7 mmol/L (-2.0-2.0) H 03/18/21 10:00 Adi Test Pos 03/18/21 10:00 A-a Gradient 19.0 mmHg 03/18/21 10:00 FiO2 21.0 03/18/21 10:00 Blood Gas Comments Pt jameson well. jn, local coordinator 03/18/21 10:00 Sodium 144 mmol/L (136-145) 03/18/21 04:32 Corrected Sodium TNP 03/18/21 04:32 Potassium 3.3 mmol/L (3.5-5.1) L 03/18/21 16:35 Chloride 103 mmol/L (98-107) 03/18/21 04:32 Carbon Dioxide 37.4 mmol/L (21-32) H 03/18/21 04:32 BUN 19 mg/dL (7-18) H 03/18/21 04:32 Creatinine 1.35 mg/dL (0.70-1.30) H 03/18/21 04:32 Est GFR (MDRD) Af Amer > 60 (>60) 03/18/21 04:32 Est GFR (MDRD) Non-Af > 60 (>60) 03/18/21 04:32 Glucose 174 mg/dL (65-99) H 03/18/21 16:35 POC Glucose (mg/dL) 161 mg/dL (65-99) H 03/18/21 12:27 Calcium 8.1 mg/dL (8.5-10.1) L 03/18/21 04:32 Corrected Calcium 9.6 mg/dL (8.5-10.1) 03/18/21 04:32 Magnesium 2.5 mg/dL (1.7-2.9) 03/18/21 04:32 Total Bilirubin 0.40 mg/dL (0.2-1.0) 03/18/21 04:32 AST 44 Units/L (15-37) H 03/18/21 04:32 ALT 24 Units/L (12-78) 03/18/21 04:32 Alkaline Phosphatase 132 Units/L (46-116) H 03/18/21 04:32 Creatine Kinase 955 Units/L (39-308) H 03/18/21 16:35 CK-MB (CK-2) 4.6 ng/mL (0-4.0) H* 03/18/21 16:35 CK/CKMB % Calc 0.5 % (<4) 03/18/21 16:35 Troponin I 0.09 ng/mL (0-1.5) 03/18/21 16:35 Total Protein 6.1 g/dL (6.4-8.2) L 03/18/21 04:32 Albumin 2.1 g/dL (3.4-5.0) L 03/18/21 04:32 Globulin 4.0 g/dL (2.5-4.5) 03/18/21 04:32 Albumin/Globulin Ratio 0.5 Ratio (1.1-2.1) L 03/18/21 04:32 Amylase 29 Units/L (25-115) 03/17/21 12:54 Lipase 110 Units/L (73-393) 03/17/21 12:54 Specimen Type Clean catch urine 03/17/21 14:55 Urine Color Yellow (YELLOW) 03/17/21 14:55 Urine Appearance Slightly hazy (CLEAR) 03/17/21 14:55 Urine pH 6.0 (5.0 - 8.0) 03/17/21 14:55 Ur Specific [place] 1.020 (1.000-1.030) 03/17/21 14:55 Urine Protein 4+ (NEGATIVE) 03/17/21 14:55 Urine Glucose (UA) 4+ (NEGATIVE) 03/17/21 14:55 Urine Ketones 3+ (NEGATIVE) 03/17/21 14:55 Urine Occult Blood 4+ (NEGATIVE) 03/17/21 14:55 Urine Nitrite Negative (NEGATIVE) 03/17/21 14:55 Urine Bilirubin Negative (NEGATIVE) 03/17/21 14:55 Urine Urobilinogen Normal (NORMAL) 03/17/21 14:55 Ur Leukocyte Esterase Negative (NEGATIVE) 03/17/21 14:55 Urine RBC 10-20 /HPF (0-3) A 03/17/21 14:55 Urine WBC 0-2 /HPF (0-5) 03/17/21 14:55 Ur Squamous Epith Cells Few /HPF (NEGATIVE) 03/17/21 14:55 Urine Bacteria Trace /HPF (NEGATIVE) 03/17/21 14:55 Hyaline Casts Moderate /LPF (NEGATIVE) 03/17/21 14:55 Fine Granular Casts Few /LPF (NEGATIVE) 03/17/21 14:55 Urine Mucus Few /HPF (NEGATIVE) 03/17/21 14:55 Ur Culture Indicated? No/not indicated 03/17/21 14:55 Stool Description 10g liq/mucus yellow 03/18/21 11:13 Stl Occult Blood (IFOB) Positive (NEGATIVE) A 03/18/21 11:13 Stool for White Cells Positive (NEGATIVE) A 03/18/21 11:13 Stl C. diff Tox B Gene Negative (NEGATIVE) 03/18/21 11:13 Stl C. diff [id number] Presumptive negative (NEGATIVE) 03/18/21 11:13 Stool H. pylori Ag Positive (NEGATIVE) A 03/18/21 11:13 Acetone, Semi-Quant Small (NEGATIVE) H 03/18/21 04:32 SARS CoV-2 RNA Rapid SUE Negative (NEGATIVE) 03/17/21 16:41 Radiology Reviewed: Yes EKG Reviewed: Yes Plan (1) Nausea and vomiting in adult patient: Status: Acute Plan: Continue Phenergan. (2) Dehydration: Status: Acute Plan: IVF (3) Hypokalemia: Status: Acute Plan: Potassium replacement protocol. (4) Diarrhea: Status: Acute Plan: Will check stool culture and O&P. WBC's and occult blood. (5) DM2 (diabetes mellitus, type 2): Status: Acute Plan: sliding scale regular insulin per protocol.
[2021-03-18] MEDS ORDERED: CIPRO IV 200 MG PREMIX* 200 MG/100 ML BAG IV ONE (19:11)
[2021-03-18 19:52] LABS: ABG BASE EXCESS 11.3 mmol/L (-2.0-2.0)
[2021-03-18 19:53] LABS: ABG ALLEN TEST POS
[2021-03-18] MEDS: SNACK - Diabetic Appropriate PO SCH (19:58)
[2021-03-18] MEDS: BIAXIN TAB 500 MG PO SCH (20:27)
[2021-03-18] MEDS: AMOXIL CAP 500 MG PO SCH (20:27)
[2021-03-18] MEDS: NORMODYNE TAB 100 MG PO SCH ×2 (20:28→20:30)
[2021-03-18] MEDS ORDERED: NEURONTIN TAB 600 MG ONE (20:58)
[2021-03-18] MEDS: NEURONTIN TAB 600 MG PO SCH (21:01)
[2021-03-18 22:49] LABS: BILIRUBIN,URINE NEGATIVE (NEGATIVE); BLOOD/HEMOGLOBIN,URINE 4+ (NEGATIVE); GLUCOSE, URINE 1+ (NEGATIVE); KETONES,URINE 3+ (NEGATIVE); LEUKOCYTE ESTERASE ,URINE NEGATIVE (NEGATIVE); NITRITES,URINE NEGATIVE (NEGATIVE); PROTEIN,URINE 4+ (NEGATIVE); UROBILINOGEN,URINE NORMAL (NORMAL)
[2021-03-18 23:17] LABS: APPEARANCE,URINE CLEAR (CLEAR); COLOR,URINE YELLOW (YELLOW)
[2021-03-18 23:18] LABS: BACTERIA,URINE NEGATIVE /HPF (NEGATIVE); RBC,URINE NONE SEEN /HPF (0-3); SQUAMOUS EPITHELIAL CELL,UR NEGATIVE /HPF (NEGATIVE)
[2021-03-18 23:28] LABS: CKMB % 0.4 % (<4); TROPONIN I 0.06 ng/mL (0-1.5)
[2021-03-18 23:36] LABS: CREATINE KINASE MB 4.1 ng/mL (0-4.0)
[2021-03-19] MEDS: K-RIDER 10 MEQ/NS 100 ML 10 MEQ/100 ML BAG IV PRN ×10 (00:12→21:14)
[2021-03-19 05:13] LABS: BASOPHILS # (AUTO) 0.1 X10^3/uL (0.0-0.1); BASOPHILS % (AUTO) 0.8 % (0.2-1.0); EOSINOPHILS # (AUTO) 0.1 x10^3/uL (0.0-0.2); EOSINOPHILS % (AUTO) 0.9 % (0.9-2.9); HEMATOCRIT 29.1 % (42.0-54.0); HEMOGLOBIN 10.3 g/dL (13.5-18.0); LYMPHOCYTES # (AUTO) 2.7 X10^3/uL (1.3-2.9); LYMPHOCYTES % (AUTO) 25.3 % (21.0-51.0); MEAN CORPUSCULAR HEMOGLOBIN 29.9 pg (27.0-34.0); MEAN CORPUSCULAR HGB CONC 35.5 g/dL (33.0-35.0); MEAN CORPUSCULAR VOLUME 84.3 fL (80.0-100.0); MEAN PLATELET VOLUME 9.1 fL (7.4-11.0); MONOCYTES # (AUTO) 0.9 x10^3/uL (0.3-0.8); MONOCYTES % (AUTO) 7.9 % (0.0-13.0); NEUTROPHILS % (AUTO) 65.1 % (42.0-75.0); PLATELET COUNT 201 X10^3/uL (150.0-450.0); RED BLOOD COUNT 3.46 X10^6/uL (4.7-6.0); RED CELL DISTRIBUTION WIDTH 12.6 % (11.6-16.5); WHITE BLOOD COUNT 10.8 X10^3/uL (3.6-10.0)
[2021-03-19 05:17] LABS: SERUM ACETONE SMALL (NEGATIVE)
[2021-03-19 05:28] LABS: ALANINE AMINOTRANSFERASE 22 Units/L (12-78); ALBUMIN 1.8 g/dL (3.4-5.0); ALKALINE PHOSPHATASE 106 Units/L (46-116); ASPARTATE AMINO TRANSFERASE 35 Units/L (15-37); BLOOD UREA NITROGEN 17 mg/dL (7-18); CALCIUM 7.6 mg/dL (8.5-10.1); CHLORIDE 103 mmol/L (98-107); COR CA(FOR HYPOALB) 9.4 mg/dL (8.5-10.1); COR NA(FOR HYPERGLY) 142 mmol/L (136-145); CREATININE 1.45 mg/dL (0.70-1.30); MAGNESIUM 2.1 mg/dL (1.7-2.9); SODIUM 139 mmol/L (136-145); TOTAL PROTEIN 5.2 g/dL (6.4-8.2); eGFR NON BLACK RACES 56 (>60)
[2021-03-19] MEDS: NEURONTIN TAB 600 MG PO SCH ×3 (05:31→21:13)
[2021-03-19] MEDS: NS 1,000 ML IV 1,000 ML IV SCH ×2 (05:31→10:54)
[2021-03-19 05:56] LABS: ABG BASE EXCESS 11.4 mmol/L (-2.0-2.0)
[2021-03-19 05:57] LABS: ABG ALLEN TEST POS; ABG HCO3 36.5 mmol/L (22-26)
[2021-03-19] MEDS: ZOFRAN INJ 4 MG VIAL IVP PRN (06:02)
[2021-03-19] MEDS: HumuLIN R SUBCUT PRN ×3 (06:03→16:16)
[2021-03-19] MEDS: NORMODYNE TAB 100 MG PO SCH ×3 (08:46→20:05)
[2021-03-19] MEDS: AMOXIL CAP 500 MG PO SCH ×2 (08:46→20:03)
[2021-03-19] MEDS: BIAXIN TAB 500 MG PO SCH ×2 (08:46→20:03)
[2021-03-19] MEDS: CHECK PATCH XX SCH ×2 (08:49→20:03)
--- NOTE | 2021-03-19 14:30 | PCM.PROG ---
Progress Note Progress Note for Day of Date of Exam: 03/19/21 Subjective Subjective: Patient feels better today. Nausea/Vomiting are much improved. Diarrhea has slowed some. He tested positive for H. Pylori and Campylobacter yesterday. He was started on a Amoxicillin and Clarithromycin last night. He is also currently on IV Protonix as he did test positive for Occult Blood in his stool. Past Medical Family Social History Past Med/Fam/Surg Hx: Changes noted (describe) Allergies: Allergies No Known Drug Allergies Allergy (Verified 01/23/18 21:59) Review of Systems ROS: No change since H&P Vital Signs and I&O's Vital Signs: Temperature 98.5 F Pulse Rate [Left] 92 Pulse Rate 83 Respiratory Rate 20 Blood Pressure [Right Arm] 144/82 Blood Pressure 125/70 O2 Sat by Pulse Oximetry 98 Intake and Output: Intake & Output 03/17/21 03/18/21 03/19/21 03/20/21 11:59 11:59 11:59 11:59 Intake Total 1201 / 1201 3641 / 3641 Balance 1201 / 1201 3641 / 3641 Physical Exam Oriented: Normal Eyes: Normal Ear: Normal Nose: Normal Throat: Normal Cardiovascular: Normal : Normal Auscultation: Bowel Sounds: Increased Tenderness: Normal Skin: Normal Musculoskeletal: Normal Psychiatric: Normal Mood Description: Calm Affect: Normal Speech Pattern: Clear and Appropriate Laboratory and Diagnostics Result Diagrams: 03/19/21 04:42 03/19/21 14:07 Labs: 03/18/21 11:13 Stool Stool Culture - Preliminary 03/18/21 11:13 Stool - Final Laboratory WBC 10.8 X10^3/uL (3.6-10.0) H 03/19/21 04:42 RBC 3.46 X10^6/uL (4.7-6.0) L 03/19/21 04:42 Hgb 10.3 g/dL (13.5-18.0) L 03/19/21 04:42 Hct 29.1 % (42.0-54.0) L 03/19/21 04:42 MCV 84.3 fL (80.0-100.0) 03/19/21 04:42 MCH 29.9 pg (27.0-34.0) 03/19/21 04:42 MCHC 35.5 g/dL (33.0-35.0) H 03/19/21 04:42 RDW 12.6 % (11.6-16.5) 03/19/21 04:42 Plt Count 201 X10^3/uL (150.0-450.0) 03/19/21 04:42 MPV 9.1 fL (7.4-11.0) 03/19/21 04:42 Neut % (Auto) 65.1 % (42.0-75.0) 03/19/21 04:42 Lymph % (Auto) 25.3 % (21.0-51.0) 03/19/21 04:42 [place] % (Auto) 7.9 % (0.0-13.0) 03/19/21 04:42 Eos % (Auto) 0.9 % (0.9-2.9) 03/19/21 04:42 Baso % (Auto) 0.8 % (0.2-1.0) 03/19/21 04:42 Neut # (Auto) 7.0 x10^3/uL (2.2-4.8) H 03/19/21 04:42 Lymph # (Auto) 2.7 X10^3/uL (1.3-2.9) 03/19/21 04:42 [place] # (Auto) 0.9 x10^3/uL (0.3-0.8) H 03/19/21 04:42 Eos # (Auto) 0.1 x10^3/uL (0.0-0.2) 03/19/21 04:42 Baso # (Auto) 0.1 X10^3/uL (0.0-0.1) 03/19/21 04:42 Absolute Nucleated RBC 0.1 /100WBC 03/19/21 04:42 PT 12.8 SECONDS (11.8-14.3) 03/18/21 04:32 INR Target Range - 03/18/21 04:32 INR 1.01 (0.8-1.3) 03/18/21 04:32 APTT 24.2 SECONDS (22.9-36.5) 03/18/21 04:32 PTT Comment - 03/18/21 04:32 Sample Site Rr 03/19/21 06:00 ABG pH 7.480 (7.35-7.45) H 03/19/21 06:00 ABG pCO2 49.0 mmHg (35.0-45.0) H 03/19/21 06:00 ABG pO2 166.0 mmHg (80.0-100.0) H 03/19/21 06:00 ABG HCO3 36.5 mmol/L (22-26) H* 03/19/21 06:00 ABG O2 Saturation 100.0 % (90-100) 03/19/21 06:00 ABG Base Excess 11.4 mmol/L (-2.0-2.0) H 03/19/21 06:00 Adi Test Pos 03/19/21 06:00 A-a Gradient -28.0 mmHg 03/19/21 06:00 FiO2 28.0 03/19/21 06:00 Blood Gas Comments Maricel well sw 03/19/21 06:00 Sodium 139 mmol/L (136-145) 03/19/21 04:42 Corrected Sodium 142 mmol/L (136-145) 03/19/21 04:42 Potassium 3.2 mmol/L (3.5-5.1) L 03/19/21 14:07 Chloride 103 mmol/L (98-107) 03/19/21 04:42 Carbon Dioxide 33.0 mmol/L (21-32) H 03/19/21 04:42 BUN 17 mg/dL (7-18) 03/19/21 04:42 Creatinine 1.45 mg/dL (0.70-1.30) H 03/19/21 04:42 Est GFR (MDRD) Af Amer > 60 (>60) 03/19/21 04:42 Est GFR (MDRD) Non-Af 56 (>60) L 03/19/21 04:42 Glucose 220 mg/dL (65-99) H 03/19/21 04:42 POC Glucose (mg/dL) 170 mg/dL (65-99) H 03/19/21 12:08 Calcium 7.6 mg/dL (8.5-10.1) L 03/19/21 04:42 Corrected Calcium 9.4 mg/dL (8.5-10.1) 03/19/21 04:42 Magnesium 2.1 mg/dL (1.7-2.9) 03/19/21 04:42 Total Bilirubin 0.40 mg/dL (0.2-1.0) 03/19/21 04:42 AST 35 Units/L (15-37) 03/19/21 04:42 ALT 22 Units/L (12-78) 03/19/21 04:42 Alkaline Phosphatase 106 Units/L (46-116) 03/19/21 04:42 Creatine Kinase 945 Units/L (39-308) H 03/18/21 22:35 CK-MB (CK-2) 4.1 ng/mL (0-4.0) H 03/18/21 22:35 CK/CKMB % Calc 0.4 % (<4) 03/18/21 22:35 Troponin I 0.06 ng/mL (0-1.5) 03/18/21 22:35 Total Protein 5.2 g/dL (6.4-8.2) L 03/19/21 04:42 Albumin 1.8 g/dL (3.4-5.0) L 03/19/21 04:42 Globulin 3.4 g/dL (2.5-4.5) 03/19/21 04:42 Albumin/Globulin Ratio 0.5 Ratio (1.1-2.1) L 03/19/21 04:42 Amylase 29 Units/L (25-115) 03/17/21 12:54 Lipase 110 Units/L (73-393) 03/17/21 12:54 Specimen Type Random urine 03/18/21 22: Urine Color Yellow (YELLOW) 03/18/21 22: Urine Appearance Clear (CLEAR) 03/18/21 22: Urine pH 7.0 (5.0 - 8.0) 03/18/21 22: Ur Specific [place] 1.015 (1.000-1.030) 03/18/21 22: Urine Protein 4+ (NEGATIVE) 03/18/21 22: Urine Glucose (UA) 1+ (NEGATIVE) 03/18/21 22: Urine Ketones 3+ (NEGATIVE) 03/18/21 22:23 Urine Occult Blood 4+ (NEGATIVE) 03/18/21 22:23 Urine Nitrite Negative (NEGATIVE) 03/18/21 22: Urine Bilirubin Negative (NEGATIVE) 03/18/21 22:23 Urine Urobilinogen Normal (NORMAL) 03/18/21 22:23 Ur Leukocyte Esterase Negative (NEGATIVE) 03/18/21 22:23 Urine RBC None seen /HPF (0-3) 03/18/21 22:23 Urine WBC None seen /HPF (0-5) 03/18/21 22:23 Ur Squamous Epith Cells Negative /HPF (NEGATIVE) 03/18/21 22:23 Urine Bacteria Negative /HPF (NEGATIVE) 03/18/21 22:23 Hyaline Casts Moderate /LPF (NEGATIVE) 03/17/21 14:55 Fine Granular Casts Few /LPF (NEGATIVE) 03/17/21 14:55 Urine Mucus Few /HPF (NEGATIVE) 03/17/21 14:55 Ur Culture Indicated? No/not indicated 03/18/21 22:23 Stool Description 10g liq/mucus yellow 03/18/21 11:13 Stl Occult Blood (IFOB) Positive (NEGATIVE) A 03/18/21 11:13 Stool for White Cells Positive (NEGATIVE) A 03/18/21 11:13 Stl C. diff Tox B Gene Negative (NEGATIVE) 03/18/21 11:13 Stl C. diff [id number]-BI Presumptive negative (NEGATIVE) 03/18/21 11:13 Stool H. pylori Ag Positive (NEGATIVE) A 03/18/21 11:13 Urine Opiates Screen Negative (NEG=<300) 03/18/21 22:23 Urine Methadone Screen Negative (NEG=<300) 03/18/21 22:23 Ur Barbiturates Screen Negative (NEG=<200) 03/18/21 22:23 Ur Phencyclidine Scrn Negative (NEG=<25) 03/18/21 22:23 Ur Amphetamines Screen Negative (NEG=<1000) 03/18/21 22:23 U Benzodiazepines Scrn Negative (NEG=<200) 03/18/21 22: Urine Cocaine Screen Negative (NEG=<300) 03/18/21 22: U Marijuana (THC) Screen Positive (NEG=<50) A 03/18/21 22:23 Acetone, Semi-Quant Small (NEGATIVE) H 03/19/21 04:42 SARS CoV-2 RNA Rapid SUE Negative (NEGATIVE) 03/17/21 16:41 Plan (1) Nausea and vomiting in adult patient: Status: Acute Narrative Support Text: Improved since admission. Plan: Continue Phenergan and Zofran. (2) Dehydration: Status: Acute Narrative Support Text: Improved since admission. Plan: IVF (3) Hypokalemia: Status: Acute Plan: Potassium replacement protocol. (4) Diarrhea: Status: Acute (5) DM2 (diabetes mellitus, type 2): Status: Acute Plan: sliding scale regular insulin per protocol. (6) Rhabdomyolysis: Status: Acute Qualifiers: Encounter type: subsequent encounter Narrative Support Text: Continues to improve. Plan: Continue IVF hydration. (7) Food poisoning due to Campylobacter jejuni: Status: Acute Plan: Patient was started on IV Cipro last night. Continue at this time. (8) H. pylori infection: Status: Acute Plan: Continue Amoxicillin and Biaxin. (9) Anemia due to GI blood loss: Status: Acute Plan: Continue IV Protonix and Pepcid. H. Pylori is being treated. F/U CBC in am. Will Type and Cross if needed.
[2021-03-19] MEDS: SNACK - Diabetic Appropriate PO SCH (19:48)
[2021-03-20 04:53] LABS: BASOPHILS # (AUTO) 0.1 X10^3/uL (0.0-0.1); BASOPHILS % (AUTO) 0.6 % (0.2-1.0); EOSINOPHILS # (AUTO) 0.4 x10^3/uL (0.0-0.2); EOSINOPHILS % (AUTO) 4.9 % (0.9-2.9); HEMATOCRIT 31.1 % (42.0-54.0); HEMOGLOBIN 10.9 g/dL (13.5-18.0); LYMPHOCYTES # (AUTO) 2.9 X10^3/uL (1.3-2.9); LYMPHOCYTES % (AUTO) 33.9 % (21.0-51.0); MEAN CORPUSCULAR HEMOGLOBIN 29.6 pg (27.0-34.0); MEAN CORPUSCULAR HGB CONC 35.2 g/dL (33.0-35.0); MEAN CORPUSCULAR VOLUME 84.1 fL (80.0-100.0); MEAN PLATELET VOLUME 8.8 fL (7.4-11.0); MONOCYTES # (AUTO) 0.6 x10^3/uL (0.3-0.8); MONOCYTES % (AUTO) 6.5 % (0.0-13.0); NEUTROPHILS # (AUTO) 4.7 x10^3/uL (2.2-4.8); NEUTROPHILS % (AUTO) 54.1 % (42.0-75.0); PLATELET COUNT 196 X10^3/uL (150.0-450.0); RED BLOOD COUNT 3.69 X10^6/uL (4.7-6.0); RED CELL DISTRIBUTION WIDTH 12.6 % (11.6-16.5); WHITE BLOOD COUNT 8.7 X10^3/uL (3.6-10.0)
[2021-03-20] MEDS: NEURONTIN TAB 600 MG PO SCH ×3 (05:13→21:33)
[2021-03-20] MEDS: NS 1,000 ML IV 1,000 ML IV SCH ×2 (05:13→12:40)
[2021-03-20 05:16] LABS: ALANINE AMINOTRANSFERASE 28 Units/L (12-78); ALBUMIN 1.9 g/dL (3.4-5.0); ALKALINE PHOSPHATASE 109 Units/L (46-116); AMYLASE 39 Units/L (25-115); ASPARTATE AMINO TRANSFERASE 33 Units/L (15-37); BLOOD UREA NITROGEN 11 mg/dL (7-18); CALCIUM 7.8 mg/dL (8.5-10.1); CARBON DIOXIDE 31.2 mmol/L (21-32); CHLORIDE 106 mmol/L (98-107); CKMB % 0.6 % (<4); COR CA(FOR HYPOALB) 9.5 mg/dL (8.5-10.1); COR NA(FOR HYPERGLY) 143 mmol/L (136-145); CREATINE KINASE 471 Units/L (39-308); CREATINE KINASE MB 2.7 ng/mL (0-4.0); CREATININE 1.39 mg/dL (0.70-1.30); LIPASE 163 Units/L (73-393); SODIUM 141 mmol/L (136-145); TOTAL PROTEIN 5.4 g/dL (6.4-8.2); TROPONIN I < 0.02 ng/mL (0-1.5); eGFR NON BLACK RACES 59 (>60)
[2021-03-20] MEDS: K-RIDER 10 MEQ/NS 100 ML 10 MEQ/100 ML BAG IV PRN ×4 (05:34→10:34)
[2021-03-20] MEDS: NORMODYNE TAB 100 MG PO SCH ×2 (09:02→20:22)
[2021-03-20] MEDS: BIAXIN TAB 500 MG PO SCH ×2 (09:02→20:22)
[2021-03-20] MEDS: AMOXIL CAP 500 MG PO SCH ×2 (09:02→20:22)
[2021-03-20] MEDS: CIPRO IV 400 MG PREMIX* 400 MG/200 ML IV.SOLN. IV SCH ×2 (09:02→20:23)
[2021-03-20] MEDS: PROTONIX INJ 40 MG VIAL IVP SCH (09:03)
[2021-03-20] MEDS: CHECK PATCH XX SCH ×2 (09:16→20:23)
[2021-03-20] MEDS: HumuLIN R SUBCUT PRN ×2 (12:41→16:14)
[2021-03-20] MEDS: SNACK - Diabetic Appropriate PO SCH (20:22)
[2021-03-21] MEDS: NS 1,000 ML IV 1,000 ML IV SCH (01:36)
[2021-03-21 04:49] LABS: BASOPHILS # (AUTO) 0.1 X10^3/uL (0.0-0.1); BASOPHILS % (AUTO) 0.8 % (0.2-1.0); EOSINOPHILS # (AUTO) 0.5 x10^3/uL (0.0-0.2); EOSINOPHILS % (AUTO) 5.7 % (0.9-2.9); HEMATOCRIT 29.9 % (42.0-54.0); HEMOGLOBIN 10.5 g/dL (13.5-18.0); LYMPHOCYTES # (AUTO) 2.6 X10^3/uL (1.3-2.9); LYMPHOCYTES % (AUTO) 31.3 % (21.0-51.0); MEAN CORPUSCULAR HEMOGLOBIN 29.7 pg (27.0-34.0); MEAN CORPUSCULAR HGB CONC 35.1 g/dL (33.0-35.0); MEAN CORPUSCULAR VOLUME 84.4 fL (80.0-100.0); MEAN PLATELET VOLUME 8.7 fL (7.4-11.0); MONOCYTES # (AUTO) 0.4 x10^3/uL (0.3-0.8); MONOCYTES % (AUTO) 5.2 % (0.0-13.0); NEUTROPHILS # (AUTO) 4.7 x10^3/uL (2.2-4.8); PLATELET COUNT 200 X10^3/uL (150.0-450.0); RED BLOOD COUNT 3.54 X10^6/uL (4.7-6.0); RED CELL DISTRIBUTION WIDTH 13.1 % (11.6-16.5); WHITE BLOOD COUNT 8.2 X10^3/uL (3.6-10.0)
[2021-03-21 05:06] LABS: ALANINE AMINOTRANSFERASE 26 Units/L (12-78); ALBUMIN 1.9 g/dL (3.4-5.0); ALKALINE PHOSPHATASE 117 Units/L (46-116); ASPARTATE AMINO TRANSFERASE 26 Units/L (15-37); BLOOD UREA NITROGEN 7 mg/dL (7-18); CALCIUM 7.8 mg/dL (8.5-10.1); CHLORIDE 105 mmol/L (98-107); COR CA(FOR HYPOALB) 9.5 mg/dL (8.5-10.1); COR NA(FOR HYPERGLY) 140 mmol/L (136-145); CREATININE 1.26 mg/dL (0.70-1.30); SODIUM 138 mmol/L (136-145); TOTAL PROTEIN 5.6 g/dL (6.4-8.2); eGFR NON BLACK RACES > 60 (>60)
[2021-03-21] MEDS: NEURONTIN TAB 600 MG PO SCH (05:39)
[2021-03-21] MEDS: MAGNESIUM SULFATE 1 GRAM/100 mL PREMIX 1 G/100 ML BAG IV PRN ×2 (05:43→07:38)
[2021-03-21] MEDS: AMOXIL CAP 500 MG PO SCH (08:18)
[2021-03-21] MEDS: NORMODYNE TAB 100 MG PO SCH (08:18)
[2021-03-21] MEDS: CHECK PATCH XX SCH (08:19)
[2021-03-21] MEDS: CIPRO IV 400 MG PREMIX* 400 MG/200 ML IV.SOLN. IV SCH (08:20)
[2021-03-21] MEDS: PROTONIX INJ 40 MG VIAL IVP SCH (08:20)
[2021-03-21] MEDS: BIAXIN TAB 500 MG PO SCH (08:23)
--- NOTE | 2021-03-21 08:35 | PCM.PROG ---
Progress Note Progress Note for Day of Date of Exam: 03/20/21 Subjective Subjective: Patient feels better today. Nausea/Vomiting are much improved but still having lots of diarrhea. Past Medical Family Social History Past Med/Fam/Surg Hx: No changes since H&P and Changes noted (describe) Allergies: Allergies No Known Drug Allergies Allergy (Verified 01/23/18 21:59) Review of Systems ROS: No change since H&P Vital Signs and I&O's Vital Signs: Temperature 98.0 F Pulse Rate [Left] 92 Pulse Rate 94 Respiratory Rate 18 Blood Pressure [Right Arm] 144/82 Blood Pressure 153/106 O2 Sat by Pulse Oximetry 99 Intake and Output: Intake & Output 03/18/21 03/19/21 03/20/21 03/21/21 11:59 11:59 11:59 11:59 Intake Total 1201 / 1201 3641 / 3641 5902 / 5902 5171 / 5171 Balance 1201 / 1201 3641 / 3641 5902 / 5902 5171 / 5171 Physical Exam Oriented: Normal Eyes: Normal Ear: Normal Nose: Normal Throat: Normal Respiratory: Normal Cardiovascular: Normal : Normal Auscultation: Bowel Sounds: Increased Tenderness: Normal Skin: Normal Musculoskeletal: Normal Psychiatric: Normal Mood Description: Calm Affect: Normal Speech Pattern: Clear and Appropriate Laboratory and Diagnostics Result Diagrams: 03/21/21 04:25 03/21/21 04:25 Labs: 03/18/21 11:13 Stool Stool Culture - Final 03/18/21 11:13 Stool - Final Laboratory WBC 8.2 X10^3/uL (3.6-10.0) 03/21/21 04:25 RBC 3.54 X10^6/uL (4.7-6.0) L 03/21/21 04:25 Hgb 10.5 g/dL (13.5-18.0) L 03/21/21 04:25 Hct 29.9 % (42.0-54.0) L 03/21/21 04:25 MCV 84.4 fL (80.0-100.0) 03/21/21 04:25 MCH 29.7 pg (27.0-34.0) 03/21/21 04:25 MCHC 35.1 g/dL (33.0-35.0) H 03/21/21 04:25 RDW 13.1 % (11.6-16.5) 03/21/21 04:25 Plt Count 200 X10^3/uL (150.0-450.0) 03/21/21 04:25 MPV 8.7 fL (7.4-11.0) 03/21/21 04:25 Neut % (Auto) 57.0 % (42.0-75.0) 03/21/21 04:25 Lymph % (Auto) 31.3 % (21.0-51.0) 03/21/21 04:25 [place] % (Auto) 5.2 % (0.0-13.0) 03/21/21 04:25 Eos % (Auto) 5.7 % (0.9-2.9) H 03/21/21 04:25 Baso % (Auto) 0.8 % (0.2-1.0) 03/21/21 04:25 Neut # (Auto) 4.7 x10^3/uL (2.2-4.8) 03/21/21 04:25 Lymph # (Auto) 2.6 X10^3/uL (1.3-2.9) 03/21/21 04:25 [place] # (Auto) 0.4 x10^3/uL (0.3-0.8) 03/21/21 04:25 Eos # (Auto) 0.5 x10^3/uL (0.0-0.2) H 03/21/21 04:25 Baso # (Auto) 0.1 X10^3/uL (0.0-0.1) 03/21/21 04:25 Absolute Nucleated RBC 0.1 /100WBC 03/21/21 04:25 PT 12.8 SECONDS (11.8-14.3) 03/18/21 04:32 INR Target Range - 03/18/21 04:32 INR 1.01 (0.8-1.3) 03/18/21 04:32 APTT 24.2 SECONDS (22.9-36.5) 03/18/21 04:32 PTT Comment - 03/18/21 04:32 Sample Site Rr 03/19/21 06:00 ABG pH 7.480 (7.35-7.45) H 03/19/21 06:00 ABG pCO2 49.0 mmHg (35.0-45.0) H 03/19/21 06:00 ABG pO2 166.0 mmHg (80.0-100.0) H 03/19/21 06:00 ABG HCO3 36.5 mmol/L (22-26) H* 03/19/21 06:00 ABG O2 Saturation 100.0 % (90-100) 03/19/21 06:00 ABG Base Excess 11.4 mmol/L (-2.0-2.0) H 03/19/21 06:00 Adi Test Pos 03/19/21 06:00 A-a Gradient -28.0 mmHg 03/19/21 06:00 FiO2 28.0 03/19/21 06:00 Blood Gas Comments Maricel well sw 03/19/21 06:00 Sodium 138 mmol/L (136-145) 03/21/21 04:25 Corrected Sodium 140 mmol/L (136-145) 03/21/21 04:25 Potassium 3.6 mmol/L (3.5-5.1) 03/21/21 04:25 Chloride 105 mmol/L (98-107) 03/21/21 04:25 Carbon Dioxide 26.0 mmol/L (21-32) 03/21/21 04:25 BUN 7 mg/dL (7-18) 03/21/21 04:25 Creatinine 1.26 mg/dL (0.70-1.30) 03/21/21 04:25 Est GFR (MDRD) Af Amer > 60 (>60) 03/21/21 04:25 Est GFR (MDRD) Non-Af > 60 (>60) 03/21/21 04:25 Glucose 194 mg/dL (65-99) H 03/21/21 04:25 POC Glucose (mg/dL) 126 mg/dL (65-99) H 03/20/21 19:51 Calcium 7.8 mg/dL (8.5-10.1) L 03/21/21 04:25 Corrected Calcium 9.5 mg/dL (8.5-10.1) 03/21/21 04:25 Magnesium 1.8 mg/dL (1.7-2.9) 03/21/21 04:25 Total Bilirubin 0.20 mg/dL (0.2-1.0) 03/21/21 04:25 AST 26 Units/L (15-37) 03/21/21 04:25 ALT 26 Units/L (12-78) 03/21/21 04:25 Alkaline Phosphatase 117 Units/L (46-116) H 03/21/21 04:25 Creatine Kinase 471 Units/L (39-308) H 03/20/21 04:25 Creatine Kinase Cancelled 03/20/21 04:25 CK-MB (CK-2) 2.7 ng/mL (0-4.0) 03/20/21 04:25 CK/CKMB % Calc 0.6 % (<4) 03/20/21 04:25 Troponin I < 0.02 ng/mL (0-1.5) 03/20/21 04:25 Total Protein 5.6 g/dL (6.4-8.2) L 03/21/21 04:25 Albumin 1.9 g/dL (3.4-5.0) L 03/21/21 04:25 Globulin 3.7 g/dL (2.5-4.5) 03/21/21 04:25 Albumin/Globulin Ratio 0.5 Ratio (1.1-2.1) L 03/21/21 04:25 Amylase 39 Units/L (25-115) 03/20/21 04:25 Lipase 163 Units/L (73-393) 03/20/21 04:25 Specimen Type Random urine 03/18/21 22: Urine Color Yellow (YELLOW) 03/18/21 22: Urine Appearance Clear (CLEAR) 03/18/21 22: Urine pH 7.0 (5.0 - 8.0) 03/18/21 22: Ur Specific [place] 1.015 (1.000-1.030) 03/18/21 22: Urine Protein 4+ (NEGATIVE) 03/18/21 22: Urine Glucose (UA) 1+ (NEGATIVE) 03/18/21 22: Urine Ketones 3+ (NEGATIVE) 03/18/21 22:23 Urine Occult Blood 4+ (NEGATIVE) 03/18/21 22:23 Urine Nitrite Negative (NEGATIVE) 03/18/21 22: Urine Bilirubin Negative (NEGATIVE) 03/18/21 22: Urine Urobilinogen Normal (NORMAL) 03/18/21 22:23 Ur Leukocyte Esterase Negative (NEGATIVE) 03/18/21 22:23 Urine RBC None seen /HPF (0-3) 03/18/21 22:23 Urine WBC None seen /HPF (0-5) 03/18/21 22:23 Ur Squamous Epith Cells Negative /HPF (NEGATIVE) 03/18/21 22:23 Urine Bacteria Negative /HPF (NEGATIVE) 03/18/21 22:23 Hyaline Casts Moderate /LPF (NEGATIVE) 03/17/21 14:55 Fine Granular Casts Few /LPF (NEGATIVE) 03/17/21 14:55 Urine Mucus Few /HPF (NEGATIVE) 03/17/21 14:55 Ur Culture Indicated? No/not indicated 03/18/21 22:23 Stool Description 10g liq/mucus yellow 03/18/21 11:13 Stl Occult Blood (IFOB) Positive (NEGATIVE) A 03/18/21 11:13 Stool for White Cells Positive (NEGATIVE) A 03/18/21 11:13 Stl C. diff Tox B Gene Negative (NEGATIVE) 03/18/21 11:13 Stl C. diff [id number]-NAP1-BI Presumptive negative (NEGATIVE) 03/18/21 11:13 Stool H. pylori Ag Positive (NEGATIVE) A 03/18/21 11:13 Urine Opiates Screen Negative (NEG=<300) 03/18/21 22:23 Urine Methadone Screen Negative (NEG=<300) 03/18/21 22:23 Ur Barbiturates Screen Negative (NEG=<200) 03/18/21 22:23 Ur Phencyclidine Scrn Negative (NEG=<25) 03/18/21 22: Ur Amphetamines Screen Negative (NEG=<1000) 03/18/21 22: U Benzodiazepines Scrn Negative (NEG=<200) 03/18/21 22: Urine Cocaine Screen Negative (NEG=<300) 03/18/21 22: U Marijuana (THC) Screen Positive (NEG=<50) A 03/18/21 22:23 Acetone, Semi-Quant Small (NEGATIVE) H 03/19/21 04:42 SARS CoV-2 RNA Rapid SUE Negative (NEGATIVE) 03/17/21 16:41 Plan (1) Nausea and vomiting in adult patient: Status: Resolved Plan: Continue Phenergan and Zofran. (2) Dehydration: Status: Acute Narrative Support Text: Much improved. Plan: IVF (3) Hypokalemia: Status: Acute Plan: Potassium replacement protocol. (4) Diarrhea: Status: Acute Qualifiers: Diarrhea type: infectious Qualified Code(s): A09 - Infectious gastroenteritis and colitis, unspecified Plan: Will check stool culture and O&P. WBC's and occult blood. (5) DM2 (diabetes mellitus, type 2): Status: Acute Plan: sliding scale regular insulin per protocol. (6) Rhabdomyolysis: Status: Acute Qualifiers: Encounter type: subsequent encounter Plan: Continue IVF hydration. (7) Food poisoning due to Campylobacter jejuni: Status: Acute Plan: Patient was started on IV Cipro last night. Continue at this time. (8) H. pylori infection: Status: Acute Plan: Continue Amoxicillin and Biaxin. (9) Anemia due to GI blood loss: Status: Acute Narrative Support Text: Stable. Plan: Continue IV Protonix and Pepcid. H. Pylori is being treated. F/U CBC in am. Will Type and Cross if needed.
--- NOTE | 2021-03-21 08:53 | PCM.DCPLAN ---
DISCHARGE SUMMARY Admission Date Date of Admission: 03/17/21 Discharge Date Discharge Date: 03/21/21 Admission Diagnoses (1) Nausea and vomiting in adult patient: Status: Resolved (2) Dehydration: Status: Acute (3) Hypokalemia: Status: Acute (4) Diarrhea: Status: Acute (5) DM2 (diabetes mellitus, type 2): Status: Acute (6) Rhabdomyolysis: Status: Acute (7) Abnormal EKG: Status: Acute Discharge Diagnoses Discharge Diagnosis: 1. Abnormal EKG 2. H. Pylori 3. Food Poisoning due to Camphylobacter jejuni 4. Rhabdomyolysis-resolved 5. Mild Anemia 6. HTN 7. DM2 Discharge Medications Discharge Medications: Home Medication List dapagliflozin [Farxiga] 10 mg PO DAILY 03/18/21 [History] insulin glargine [Basaglar KwikPen U-100 Insulin] SUBCUT 03/18/21 [History] insulin glargine [Lantus Solostar U-100 Insulin] SUBCUT 03/18/21 [History] labetalol 200 mg PO BID 03/18/21 [History] Prescriptions: Hospital Course Vital Signs: Temperature 98.0 F Pulse Rate [Left] 92 Pulse Rate 94 Respiratory Rate 18 Blood Pressure [Right Arm] 144/82 Blood Pressure 153/106 O2 Sat by Pulse Oximetry 99 Latest Lab Results: Laboratory Last Values WBC 8.2 X10^3/uL (3.6-10.0) 03/21/21 04:25 RBC 3.54 X10^6/uL (4.7-6.0) L 03/21/21 04:25 Hgb 10.5 g/dL (13.5-18.0) L 03/21/21 04:25 Hct 29.9 % (42.0-54.0) L 03/21/21 04:25 MCV 84.4 fL (80.0-100.0) 03/21/21 04:25 MCH 29.7 pg (27.0-34.0) 03/21/21 04:25 MCHC 35.1 g/dL (33.0-35.0) H 03/21/21 04:25 RDW 13.1 % (11.6-16.5) 03/21/21 04:25 Plt Count 200 X10^3/uL (150.0-450.0) 03/21/21 04:25 MPV 8.7 fL (7.4-11.0) 03/21/21 04:25 Neut % (Auto) 57.0 % (42.0-75.0) 03/21/21 04:25 Lymph % (Auto) 31.3 % (21.0-51.0) 03/21/21 04:25 [place] % (Auto) 5.2 % (0.0-13.0) 03/21/21 04:25 Eos % (Auto) 5.7 % (0.9-2.9) H 03/21/21 04:25 Baso % (Auto) 0.8 % (0.2-1.0) 03/21/21 04:25 Neut # (Auto) 4.7 x10^3/uL (2.2-4.8) 03/21/21 04:25 Lymph # (Auto) 2.6 X10^3/uL (1.3-2.9) 03/21/21 04:25 [place] # (Auto) 0.4 x10^3/uL (0.3-0.8) 03/21/21 04:25 Eos # (Auto) 0.5 x10^3/uL (0.0-0.2) H 03/21/21 04:25 Baso # (Auto) 0.1 X10^3/uL (0.0-0.1) 03/21/21 04:25 Absolute Nucleated RBC 0.1 /100WBC 03/21/21 04:25 PT 12.8 SECONDS (11.8-14.3) 03/18/21 04:32 INR Target Range - 03/18/21 04:32 INR 1.01 (0.8-1.3) 03/18/21 04:32 APTT 24.2 SECONDS (22.9-36.5) 03/18/21 04:32 PTT Comment - 03/18/21 04:32 Sample Site Rr 03/19/21 06:00 ABG pH 7.480 (7.35-7.45) H 03/19/21 06:00 ABG pCO2 49.0 mmHg (35.0-45.0) H 03/19/21 06:00 ABG pO2 166.0 mmHg (80.0-100.0) H 03/19/21 06:00 ABG HCO3 36.5 mmol/L (22-26) H* 03/19/21 06:00 ABG O2 Saturation 100.0 % (90-100) 03/19/21 06:00 ABG Base Excess 11.4 mmol/L (-2.0-2.0) H 03/19/21 06:00 Adi Test Pos 03/19/21 06:00 A-a Gradient -28.0 mmHg 03/19/21 06:00 FiO2 28.0 03/19/21 06:00 Blood Gas Comments Maricel well sw 03/19/21 06:00 Sodium 138 mmol/L (136-145) 03/21/21 04:25 Corrected Sodium 140 mmol/L (136-145) 03/21/21 04:25 Potassium 3.6 mmol/L (3.5-5.1) 03/21/21 04:25 Chloride 105 mmol/L (98-107) 03/21/21 04:25 Carbon Dioxide 26.0 mmol/L (21-32) 03/21/21 04:25 BUN 7 mg/dL (7-18) 03/21/21 04:25 Creatinine 1.26 mg/dL (0.70-1.30) 03/21/21 04:25 Est GFR (MDRD) Af Amer > 60 (>60) 03/21/21 04:25 Est GFR (MDRD) Non-Af > 60 (>60) 03/21/21 04:25 Glucose 194 mg/dL (65-99) H 03/21/21 04:25 POC Glucose (mg/dL) 126 mg/dL (65-99) H 03/20/21 19:51 Calcium 7.8 mg/dL (8.5-10.1) L 03/21/21 04:25 Corrected Calcium 9.5 mg/dL (8.5-10.1) 03/21/21 04:25 Magnesium 1.8 mg/dL (1.7-2.9) 03/21/21 04:25 Total Bilirubin 0.20 mg/dL (0.2-1.0) 03/21/21 04:25 AST 26 Units/L (15-37) 03/21/21 04:25 ALT 26 Units/L (12-78) 03/21/21 04:25 Alkaline Phosphatase 117 Units/L (46-116) H 03/21/21 04:25 Creatine Kinase 471 Units/L (39-308) H 03/20/21 04:25 Creatine Kinase Cancelled 03/20/21 04:25 CK-MB (CK-2) 2.7 ng/mL (0-4.0) 03/20/21 04:25 CK/CKMB % Calc 0.6 % (<4) 03/20/21 04:25 Troponin I < 0.02 ng/mL (0-1.5) 03/20/21 04:25 Total Protein 5.6 g/dL (6.4-8.2) L 03/21/21 04:25 Albumin 1.9 g/dL (3.4-5.0) L 03/21/21 04:25 Globulin 3.7 g/dL (2.5-4.5) 03/21/21 04:25 Albumin/Globulin Ratio 0.5 Ratio (1.1-2.1) L 03/21/21 04:25 Amylase 39 Units/L (25-115) 03/20/21 04:25 Lipase 163 Units/L (73-393) 03/20/21 04:25 Specimen Type Random urine 03/18/21 22: Urine Color Yellow (YELLOW) 03/18/21 22: Urine Appearance Clear (CLEAR) 03/18/21 22: Urine pH 7.0 (5.0 - 8.0) 03/18/21 22: Ur Specific [place] 1.015 (1.000-1.030) 03/18/21 22: Urine Protein 4+ (NEGATIVE) 03/18/21 22: Urine Glucose (UA) 1+ (NEGATIVE) 03/18/21 22: Urine Ketones 3+ (NEGATIVE) 03/18/21 22: Urine Occult Blood 4+ (NEGATIVE) 03/18/21 22: Urine Nitrite Negative (NEGATIVE) 03/18/21 22: Urine Bilirubin Negative (NEGATIVE) 03/18/21 22: Urine Urobilinogen Normal (NORMAL) 03/18/21 22: Ur Leukocyte Esterase Negative (NEGATIVE) 03/18/21 22: Urine RBC None seen /HPF (0-3) 03/18/21 22:23 Urine WBC None seen /HPF (0-5) 03/18/21 22:23 Ur Squamous Epith Cells Negative /HPF (NEGATIVE) 03/18/21 22:23 Urine Bacteria Negative /HPF (NEGATIVE) 03/18/21 22:23 Hyaline Casts Moderate /LPF (NEGATIVE) 03/17/21 14:55 Fine Granular Casts Few /LPF (NEGATIVE) 03/17/21 14:55 Urine Mucus Few /HPF (NEGATIVE) 03/17/21 14:55 Ur Culture Indicated? No/not indicated 03/18/21 22:23 Stool Description 10g liq/mucus yellow 03/18/21 11:13 Stl Occult Blood (IFOB) Positive (NEGATIVE) A 03/18/21 11:13 Stool for White Cells Positive (NEGATIVE) A 03/18/21 11:13 Stl C. diff Tox B Gene Negative (NEGATIVE) 03/18/21 11:13 Stl C. diff [id number]-BI Presumptive negative (NEGATIVE) 03/18/21 11:13 Stool H. pylori Ag Positive (NEGATIVE) A 03/18/21 11:13 Urine Opiates Screen Negative (NEG=<300) 03/18/21 22:23 Urine Methadone Screen Negative (NEG=<300) 03/18/21 22:23 Ur Barbiturates Screen Negative (NEG=<200) 03/18/21 22:23 Ur Phencyclidine Scrn Negative (NEG=<25) 03/18/21 22:23 Ur Amphetamines Screen Negative (NEG=<1000) 03/18/21 22: U Benzodiazepines Scrn Negative (NEG=<200) 03/18/21 22: Urine Cocaine Screen Negative (NEG=<300) 03/18/21 22:23 U Marijuana (THC) Screen Positive (NEG=<50) A 03/18/21 22: Acetone, Semi-Quant Small (NEGATIVE) H 03/19/21 04:42 SARS CoV-2 RNA Rapid SUE Negative (NEGATIVE) 03/17/21 16:41 Hospital Course: The patient's N/V subsided fairly quick after admission with antiemetics. However he continued to have diarrhea and slightly elevated troponins. The Troponins were WNL but he did have some reversible ischemic changes on his EKG. Stool cultures were done and showed positive occult blood and Camphylobacter jejuni infection. He was started on Cipro. He was also noted to test positive for H. Pylori in which he was started on Amoxicillin an Biaxin along with IV pantoprzole. On the 3rd hospital day he was doing much better but still having a fair amount of diarrhea. His Troponins were normal but he still had some mild rhabdomyolysis. He was kept for 1 more day. Today he is much better and diarrhea has slowed. He is to be discharged in stable condition. Instructions Forms: Precautions for COVID19 [facility] Social Distancing
[2021-03-21 10:22] VITALS: BP 124/78
== END 2021-03-21 10:45 | disposition home or self-care (01) ==
LOC: MED/SURG 12:39 → ER 12:39 → MED/SURG 17:41 → UNDODISIN 03-21 10:45
PROVIDERS: ADMIT Family Medicine; ATTEND Family Medicine
DX: E86.0 Dehydration; A05.8 Other specified bacterial foodborne intoxications; K92.1 Melena; E11.65 Type 2 diabetes mellitus with hyperglycemia; F12.90 Cannabis use, unspecified, uncomplicated; R26.89 Other abnormalities of gait and mobility; A04.5 Campylobacter enteritis; E87.6 Hypokalemia; B96.81 Helicobacter pylori [H. pylori] as the cause of diseases classified elsewhere; R94.31 Abnormal electrocardiogram [ECG] [EKG]; Z20.822 Contact with and (suspected) exposure to COVID-19; M62.82 Rhabdomyolysis; D50.0 Iron deficiency anemia secondary to blood loss (chronic); I10 Essential (primary) hypertension

== ENCOUNTER 2021-07-04 23:30 | Inpatient (IN) ==
[2021-07-05] MEDS ORDERED: NS 1,000 ML IV 1,000 ML IV ONE (00:01)
[2021-07-05] MEDS ORDERED: ZOFRAN INJ 4 MG VIAL ONE ×3 (00:02→04:38)
[2021-07-05] MEDS ORDERED: LOPRESSOR INJ 5 MG AMP IVP ONE ×2 (00:04→02:13)
--- NOTE | 2021-07-05 00:04 | DR.N/VMALE ---
HPI Time Seen Time Seen by Provider: 07/05/21 00:01 Primary Care Physician Primary Care Physician: HAYDER ROBERTSON HPI Comment HPI Comment: Persistent vomiting for the past day with very little abd pain; no diarrhea or constipation; says he initially had no blood in it but now he's had blood for the past 30 mins or so; no fever, chills; has a hx of gastroparesis and was referred to [facility] for some type of surgery per Dr Nevarez but has yet to get an appt Complaints Chief Complaint:: SPOUSE STATES PT HAS BEEN VOMITING SINCE YESTURDAY. SPOUSE DENIES ANY OTHER SYMPTOMS AT THIS TIME. Self Treatment fo Chief Complaint: TOOK ZOFRAN 4MG BUT VOMITTED IT BACK UP COVID-19 Coronavirus risk:travel/contact w/high risk person: No Has patient experienced Coronavirus symptoms: No Source History Provided: Patient Mode of Arrival Mode of Arrival: Wheelchair Timing Onset of Chief Complaint: 07/03/21 PMH PMH Past Medical History: Yes Past Medical History: Diabetes and Hypertension Past Surgical History: No Surgical History: Other Family History History of Family Medical Conditions: Yes Family Medical History: Diabetes Mellitus, PA, Heart Failure and Hypertension Social History Does patient currently use any type of tobacco product: No Have you used tobacco products in the last 12 months: No Type of Tobacco Use: None Does any household member use tobacco: No Alcohol Use: None Do you use any recreational Drugs:: No Lives With: Spouse Lives Where: Home Travel Risk Coronavirus risk:travel/contact w/high risk person: No Has patient experienced Coronavirus symptoms: No Infectious screening In the last 2 months have you had wt loss of >10#?: NO Have you had fever, night sweats or hemotysis?: No Have you traveled outside the country in the last 6 months?: No Isolation: Standard ROS Review of Systems Eyes: No Symptoms Reported ENTM: No Symptoms Reported Respiratoy: No Symptoms Reported Cardiovascular: No Symptoms Reported Genitourinary: No Symptoms Reported Neurological: No Symptoms Reported Musculoskeletal: No Symptoms Reported Integumentary: No Symptoms Reported Hematologic/Lymphatic: No Symptoms Reported Psychiatric: No Symptoms Reported PE Vital Signs Vitals: Pulse Rate 70 Respiratory Rate 16 Blood Pressure [Right Arm] 144/82 Blood Pressure [Left Arm] 136/91 Blood Pressure [Standing] 93/62 Blood Pressure [Sitting] 97/57 Blood Pressure [Lying] 105/67 Blood Pressure 202/111 O2 Sat by Pulse Oximetry 98 General Limitations: Other (actively heaving) General Appearance: Alert and Anxious Head Head Exam: Normal Inspection Eyes Eye exam: Normal Appearance ENT ENT Exam: Normal Exam Neck Neck Exam: Normal Inspection Chest Chest Inspection: Normal Inspection Respiratory Respiratory Exam: Normal Lung Sounds Bilat Respiratory Exam: Bilateral: Clear to Auscultation Cardiovascular Cardiovascular Exam: Regular Rate and Normal Rhythm Abdominal Exam Abdominal Exam: Normal Inspection, Soft, Tenderness and Hyperactive Bowel Sounds Abdominal Tenderness: Diffuse Rectal Rectal Exam: Deferred Exam: Male: Deferred Extremities Extremities Exam: Normal Inspection Back Back Exam: Normal Inspection Neurologic Neurological Exam: Alert and Oriented X3 Psychiatric Psychiatric Exam: Anxious Skin Skin Exam: Warm, Dry, Intact and Normal Color MDM Differential Diagnosis Differential Diagnosis: Considerations may Include:: Bowel Obstruction, Cholecystitis, Diabetes/DKA, Gastritis, Gastroenteritis, Pancreatitis, PUD and Urinary Tract Infection COURSE Reevaluation 1st: Unchanged 2nd: Unchanged Consultation Call Returned: 07:46 (Dr Wolf accepts admission.) ROR Labs Reviewed Laboratory Results Reviewed?: Yes Result Diagrams: 07/05/21 06:13 07/05/21 06:13 Laboratory: WBC 9.2 X10^3/uL (3.6-10.0) 07/05/21 00:01 RBC 4.65 X10^6/uL (4.7-6.0) L 07/05/21 00:01 Hgb 13.2 g/dL (13.5-18.0) L 07/05/21 00:01 Hct 38.4 % (42.0-54.0) L 07/05/21 00:01 MCV 82.5 fL (80.0-100.0) 07/05/21 00:01 MCH 28.4 pg (27.0-34.0) 07/05/21 00:01 MCHC 34.5 g/dL (33.0-35.0) 07/05/21 00:01 RDW 13.4 % (11.6-16.5) 07/05/21 00:01 Plt Count 270 X10^3/uL (150.0-450.0) 07/05/21 00:01 MPV 9.3 fL (7.4-11.0) 07/05/21 00:01 Neut % (Auto) 80.1 % (42.0-75.0) H 07/05/21 00:01 Lymph % (Auto) 14.9 % (21.0-51.0) L 07/05/21 00:01 [place] % (Auto) 4.2 % (0.0-13.0) 07/05/21 00:01 Eos % (Auto) 0.1 % (0.9-2.9) L 07/05/21 00:01 Baso % (Auto) 0.7 % (0.2-1.0) 07/05/21 00:01 Neut # (Auto) 7.4 x10^3/uL (2.2-4.8) H 07/05/21 00:01 Lymph # (Auto) 1.4 X10^3/uL (1.3-2.9) 07/05/21 00:01 [place] # (Auto) 0.4 x10^3/uL (0.3-0.8) 07/05/21 00:01 Eos # (Auto) 0.0 x10^3/uL (0.0-0.2) 07/05/21 00:01 Baso # (Auto) 0.1 X10^3/uL (0.0-0.1) 07/05/21 00:01 Absolute Nucleated RBC 0.0 /100WBC 07/05/21 00:01 Sodium 144 mmol/L (136-145) 07/05/21 00:01 Corrected Sodium 147 mmol/L (136-145) H 07/05/21 00:01 Potassium 3.4 mmol/L (3.5-5.1) L 07/05/21 00:01 Chloride 105 mmol/L (98-107) 07/05/21 00:01 Carbon Dioxide 30.9 mmol/L (21-32) 07/05/21 00:01 BUN 14 mg/dL (7-18) 07/05/21 00:01 Creatinine 1.36 mg/dL (0.70-1.30) H 07/05/21 00:01 Est GFR (MDRD) Af Amer > 60 (>60) 07/05/21 00:01 Est GFR (MDRD) Non-Af > 60 (>60) 07/05/21 00:01 Glucose 227 mg/dL (65-99) H 07/05/21 00:01 Calcium 8.4 mg/dL (8.5-10.1) L 07/05/21 00:01 Corrected Calcium 9.6 mg/dL (8.5-10.1) 07/05/21 00:01 Magnesium 2.2 mg/dL (1.7-2.9) 07/05/21 00:01 Total Bilirubin 0.40 mg/dL (0.2-1.0) 07/05/21 00:01 AST 33 Units/L (15-37) 07/05/21 00:01 ALT 41 Units/L (12-78) 07/05/21 00:01 Alkaline Phosphatase 196 Units/L (46-116) H 07/05/21 00:01 Total Protein 7.1 g/dL (6.4-8.2) 07/05/21 00:01 Albumin 2.5 g/dL (3.4-5.0) L 07/05/21 00:01 Globulin 4.6 g/dL (2.5-4.5) H 07/05/21 00:01 Albumin/Globulin Ratio 0.5 Ratio (1.1-2.1) L 07/05/21 00:01 Lipase 129 Units/L (73-393) 07/05/21 00:01 Acetone, Semi-Quant Negative (NEGATIVE) 07/05/21 00:01 SARS CoV-2 RNA Rapid SUE Negative (NEGATIVE) 07/05/21 01:45 XRAY XRAY Interpreted by: Radiologist X-ray Results: abd series: 1. THE LUNGS ARE CLEAR AND THE HEART SIZE IS NORMAL. 2. THE BOWEL GAS PATTERN IS NONOBSTRUCTIVE. Opioid Opioid Risk Tool Age (Ramiro box if 16-45): Yes History of Preadolescent Sexual Abuse: No Total: 1 Total Score Risk Category: Low Risk Copyright: Jace ROMEO predicting aberrant behaviors Diagnosis Discharge Problem: Diabetic gastroparesis, Hypokalemia Acute gastritis Qualifiers: Gastritis type: other gastritis Gastritis bleeding: with bleeding Qualified Code(s): K29.01 - Acute gastritis with bleeding Hematemesis/vomiting blood Qualifiers: Nausea presence: with nausea Qualified Code(s): K92.0 - Hematemesis Instructions Forms: [facility] Portal Social Distancing
[2021-07-05] MEDS ORDERED: LOPRESSOR INJ 5 MG AMP ONE ×2 (00:14→03:01)
[2021-07-05 00:22] LABS: BASOPHILS # (AUTO) 0.1 X10^3/uL (0.0-0.1); BASOPHILS % (AUTO) 0.7 % (0.2-1.0); EOSINOPHILS % (AUTO) 0.1 % (0.9-2.9); HEMATOCRIT 38.4 % (42.0-54.0); HEMOGLOBIN 13.2 g/dL (13.5-18.0); LYMPHOCYTES # (AUTO) 1.4 X10^3/uL (1.3-2.9); LYMPHOCYTES % (AUTO) 14.9 % (21.0-51.0); MEAN CORPUSCULAR HEMOGLOBIN 28.4 pg (27.0-34.0); MEAN CORPUSCULAR HGB CONC 34.5 g/dL (33.0-35.0); MEAN CORPUSCULAR VOLUME 82.5 fL (80.0-100.0); MEAN PLATELET VOLUME 9.3 fL (7.4-11.0); MONOCYTES # (AUTO) 0.4 x10^3/uL (0.3-0.8); MONOCYTES % (AUTO) 4.2 % (0.0-13.0); NEUTROPHILS # (AUTO) 7.4 x10^3/uL (2.2-4.8); NEUTROPHILS % (AUTO) 80.1 % (42.0-75.0); RED BLOOD COUNT 4.65 X10^6/uL (4.7-6.0); RED CELL DISTRIBUTION WIDTH 13.4 % (11.6-16.5); WHITE BLOOD COUNT 9.2 X10^3/uL (3.6-10.0)
[2021-07-05 00:37] LABS: SERUM ACETONE NEGATIVE (NEGATIVE)
[2021-07-05 00:45] LABS: ALANINE AMINOTRANSFERASE 41 Units/L (12-78); ALBUMIN 2.5 g/dL (3.4-5.0); ALKALINE PHOSPHATASE 196 Units/L (46-116); ASPARTATE AMINO TRANSFERASE 33 Units/L (15-37); BLOOD UREA NITROGEN 14 mg/dL (7-18); CALCIUM 8.4 mg/dL (8.5-10.1); CARBON DIOXIDE 30.9 mmol/L (21-32); CHLORIDE 105 mmol/L (98-107); COR CA(FOR HYPOALB) 9.6 mg/dL (8.5-10.1); COR NA(FOR HYPERGLY) 147 mmol/L (136-145); CREATININE 1.36 mg/dL (0.70-1.30); LIPASE 129 Units/L (73-393); MAGNESIUM 2.2 mg/dL (1.7-2.9); SODIUM 144 mmol/L (136-145); TOTAL PROTEIN 7.1 g/dL (6.4-8.2); eGFR NON BLACK RACES > 60 (>60)
[2021-07-05] MEDS ORDERED: ZOFRAN INJ 4 MG VIAL IVP ONE ×2 (01:05)
[2021-07-05] MEDS ORDERED: K-RIDER 10 MEQ/NS 100 ML 10 MEQ/100 ML BAG IV ONE ×2 (01:07→01:21)
[2021-07-05] MEDS ORDERED: PROTONIX INJ 40 MG VIAL IVP ONE (01:15)
[2021-07-05] MEDS ORDERED: NS 100 ML IV 100 ML ONE (01:21)
[2021-07-05] MEDS ORDERED: PROTONIX INJ 40 MG VIAL ONE (01:21)
--- NOTE | 2021-07-05 01:38 | RAD ---
STUDY: ACUTE ABDOMEN SERIESCOMPARISON: NoneHISTORY: PT C/O PERSISTENT VOMITINGFINDINGS:CHEST:There is no focal consolidation seen.The heart size is normal.The mediastinum is unremarkable.There is no evidence of pleural effusion or gross pneumothorax.ABDOMEN:The bowel gas pattern is nonobstructive.There is no gross evidence of free air.There are no abnormal masses or calcification seen.The visualized bones are unremarkable.Graft is noted overlying the patient's right lower pelvisIMPRESSION:1. THE LUNGS ARE CLEAR AND THE HEART SIZE IS NORMAL.2. THE BOWEL GAS PATTERN IS NONOBSTRUCTIVE. Electronically signed by: Jorge Uribe (Jul 05, 2021 01:36:48)
[2021-07-05] MEDS ORDERED: APRESOLINE INJ 20 MG VIAL IVP ONE (03:40)
[2021-07-05] MEDS ORDERED: APRESOLINE INJ 20 MG VIAL ONE (03:56)
[2021-07-05] MEDS ORDERED: LOPRESSOR INJ 5 MG AMP IVP PRN (04:08)
[2021-07-05] MEDS ORDERED: ZOFRAN INJ 4 MG VIAL 16 MG, ATIVAN INJ 2 MG VIAL 1 MG, DECADRON INJ 10 MG in NS 50 ML I... IV ONE (04:33)
[2021-07-05] MEDS ORDERED: DECADRON INJ ONE (04:38)
[2021-07-05] MEDS ORDERED: ATIVAN INJ 2 MG VIAL ONE (04:38)
[2021-07-05] MEDS ORDERED: NS 50 ML IV 50 ML IV ONE (04:38)
[2021-07-05 05:45] VITALS: BMI 21.5
[2021-07-05 06:21] LABS: BASOPHILS # (AUTO) 0.1 X10^3/uL (0.0-0.1); BASOPHILS % (AUTO) 0.5 % (0.2-1.0); HEMATOCRIT 35.7 % (42.0-54.0); HEMOGLOBIN 12.1 g/dL (13.5-18.0); LYMPHOCYTES % (AUTO) 8.7 % (21.0-51.0); MEAN CORPUSCULAR HEMOGLOBIN 28.1 pg (27.0-34.0); MEAN CORPUSCULAR HGB CONC 33.8 g/dL (33.0-35.0); MEAN CORPUSCULAR VOLUME 83.1 fL (80.0-100.0); MEAN PLATELET VOLUME 8.9 fL (7.4-11.0); MONOCYTES # (AUTO) 0.2 x10^3/uL (0.3-0.8); MONOCYTES % (AUTO) 2.2 % (0.0-13.0); NEUTROPHILS # (AUTO) 9.9 x10^3/uL (2.2-4.8); NEUTROPHILS % (AUTO) 88.6 % (42.0-75.0); RED CELL DISTRIBUTION WIDTH 13.7 % (11.6-16.5); WHITE BLOOD COUNT 11.2 X10^3/uL (3.6-10.0)
[2021-07-05] MEDS: APRESOLINE INJ 20 MG VIAL IVP SCH ×3 (06:25→16:33)
[2021-07-05] MEDS: NS 1,000 ML IV 1,000 ML IV SCH ×4 (06:25→21:00)
[2021-07-05] MEDS: NovoLIN R (or HumuLIN R) SUBCUT PRN ×4 (06:26→17:00)
[2021-07-05 06:33] LABS: ALBUMIN 2.2 g/dL (3.4-5.0); CARBON DIOXIDE 27.9 mmol/L (21-32); COR CA(FOR HYPOALB) 9.4 mg/dL (8.5-10.1); CREATININE 1.65 mg/dL (0.70-1.30); TOTAL PROTEIN 6.3 g/dL (6.4-8.2)
[2021-07-05] MEDS ORDERED: PROTONIX INJ 40 MG VIAL IVP SCH (09:00)
[2021-07-05] MEDS: ZOFRAN INJ 4 MG VIAL IVP PRN ×2 (11:05→18:05)
[2021-07-05] MEDS: PROTONIX INJ 40 MG VIAL IVP SCH (16:12)
--- NOTE | 2021-07-05 16:28 | DR.H&P ---
H&P - Chief Complaint Chief Complaint: N/V - History of Present Illness History of Present Illness: Patient is a 45 year old AAM who is being admitted due to intractable nausea and vomiting. Patient reoprts symptoms began a few days ago and have progressively gotten worse. Reports abdominal tenderness. Denies any other concerns at present. PMH gastroparesis, DM, PVD. PCP Dr. Bueno in [place]. - Past Medical History Past Medical History: Hypertension, Diabetes - Past Surgical History Surgical History: Angioplasty/Stents - Family History Family Medical History: Cancer - Social History Does patient currently use any type of tobacco product: No Have you used tobacco products in the last 12 months: No Type of Tobacco Use: None Does any household member use tobacco: No Alcohol Use: None Drug Use: None - Medications Home Medications: No Known Drug Allergies Allergy (Verified 01/23/18 21:59) CONTINUE taking the following medications clonidine HCl 0.1 mg PO BID PRN 07/04/21 [History] furosemide 20 mg PO DAILY PRN 07/04/21 [History] [id number] [Creon] 1 cap PO TIDWMEAL 07/04/21 [History] - Review of Systems Constitutional: See HPI Eyes: See HPI ENT: See HPI Respiratory: See HPI Cardiovascular: See HPI Gastrointestinal: See HPI Genitourinary: See HPI Musculoskeletal: See HPI Skin: See HPI Neurological: See HPI - Physical Exam Vital Signs: Temperature 97.9 F Pulse Rate [Bilateral Radial] 116 Pulse Rate 99 Respiratory Rate 20 Blood Pressure [Right Arm] 138/75 Blood Pressure [Left Arm] 136/91 Blood Pressure [Standing] 93/62 Blood Pressure [Sitting] 97/57 Blood Pressure [Lying] 105/67 Blood Pressure 135/72 O2 Sat by Pulse Oximetry 99 Oriented: Normal, Time, Person, Place Eyes: Normal Ear: Normal Nose: Normal Respiratory: Clear Throughout Cardiovascular: Normal : Normal Auscultation: Bowel Sounds: Normal Palpation: Normal Tenderness: Diffuse, Mild Skin: Normal Musculoskeletal: Normal Psychiatric: Normal Mood Description: Calm Affect: Normal Speech Pattern: Clear, Appropriate - Assessment/Plan (1) Abdominal pain Status: Acute Plan: Admit. IV protonix. IV fluids. Clear liquids. See EMR for further orders (2) Nausea & vomiting Status: Acute (3) Hypokalemia Status: Acute Plan: Replace (4) Diabetic gastroparesis Status: Acute - Allergies Allergies/Adverse Reactions: Allergies Allergy/AdvReac Type Severity Reaction Status Date / Time No Known Drug Allergies Allergy Verified 01/23/18 21:59
[2021-07-05] MEDS: PHENERGAN INJ 25 MG IM PRN (19:28)
[2021-07-05] MEDS: SNACK - Diabetic Appropriate PO SCH (20:09)
[2021-07-06] MEDS: PHENERGAN INJ 25 MG IM PRN ×2 (00:20→14:06)
[2021-07-06] MEDS: APRESOLINE INJ 20 MG VIAL IVP SCH ×4 (00:20→17:19)
[2021-07-06] MEDS ORDERED: TUSSIONEX PENNKINETIC SUSP PO PRN (01:31)
[2021-07-06] MEDS ORDERED: TUSSIONEX PENNKINETIC SUSP ONE (01:33)
[2021-07-06] MEDS: NS 1,000 ML IV 1,000 ML IV SCH ×4 (03:35→21:18)
[2021-07-06] MEDS: ZOFRAN INJ 4 MG VIAL IVP PRN (05:14)
[2021-07-06 06:50] LABS: BASOPHILS % (AUTO) 0.3 % (0.2-1.0); HEMATOCRIT 33.7 % (42.0-54.0); HEMOGLOBIN 11.4 g/dL (13.5-18.0); LYMPHOCYTES # (AUTO) 1.7 X10^3/uL (1.3-2.9); LYMPHOCYTES % (AUTO) 11.2 % (21.0-51.0); MEAN CORPUSCULAR HEMOGLOBIN 28.3 pg (27.0-34.0); MEAN CORPUSCULAR HGB CONC 33.9 g/dL (33.0-35.0); MEAN CORPUSCULAR VOLUME 83.6 fL (80.0-100.0); MEAN PLATELET VOLUME 9.5 fL (7.4-11.0); MONOCYTES # (AUTO) 0.5 x10^3/uL (0.3-0.8); MONOCYTES % (AUTO) 3.6 % (0.0-13.0); NEUTROPHILS # (AUTO) 12.5 x10^3/uL (2.2-4.8); NEUTROPHILS % (AUTO) 84.9 % (42.0-75.0); RED BLOOD COUNT 4.03 X10^6/uL (4.7-6.0); RED CELL DISTRIBUTION WIDTH 13.5 % (11.6-16.5); WHITE BLOOD COUNT 14.7 X10^3/uL (3.6-10.0)
[2021-07-06] MEDS: NovoLIN R (or HumuLIN R) SUBCUT PRN ×3 (07:13→20:34)
[2021-07-06 07:20] LABS: ALBUMIN 2.4 g/dL (3.4-5.0); CALCIUM 7.8 mg/dL (8.5-10.1); CARBON DIOXIDE 26.4 mmol/L (21-32); COR CA(FOR HYPOALB) 9.1 mg/dL (8.5-10.1); CREATININE 2.41 mg/dL (0.70-1.30); TOTAL PROTEIN 6.3 g/dL (6.4-8.2)
[2021-07-06] MEDS ORDERED: STERILE WATER IRRIGATION IR ONE (09:01)
[2021-07-06] MEDS: PROTONIX INJ 40 MG VIAL IVP SCH ×2 (09:08→20:35)
--- NOTE | 2021-07-06 09:23 | RAD ---
HISTORYPreop EGDSTUDYChest AP [id number]/28/2021FINDINGSHear t size is normal. Trixie are normal. Lung gutierrez are clear. No pleural effusions are identified. Bony thorax is unremarkable.IMPRESSIONNo significant abnormality identifiedElectronically signed by: BRITTNY ROBB (Jul 06, 2021 09:21:45)
[2021-07-06] MEDS: ZOFRAN INJ 4 MG VIAL IVP SCH ×3 (12:15→19:06)
[2021-07-06] MEDS ORDERED: DIPRIVAN VIAL 20 ML ONE (13:51)
[2021-07-06] MEDS ORDERED: PHENERGAN INJ 25 MG IM ONE (14:07)
[2021-07-06] MEDS ORDERED: ZOFRAN INJ 4 MG VIAL ONE (14:07)
[2021-07-06] MEDS ORDERED: REGLAN INJ 10 MG VIAL ONE (14:07)
[2021-07-06] MEDS ORDERED: REGLAN INJ 10 MG VIAL IVP PRN (14:13)
[2021-07-06] MEDS: ZOSYN VIAL 2.25 GRAMS 2.25 G in NS 100 ML IV 100 ML IV SCH ×3 (14:36→21:00)
--- NOTE | 2021-07-06 15:20 | US ---
HISTORYAcute renal failureSTUDYRENAL USCOMPARISONCT 03/17/2021TECHNIQUEMultiple de la vega scale and color flow Doppler images of the kidneys were obtained. The region of the urinary bladder was evaluated as well.FINDINGSThe right kidney measures 11.5 cm in length .No focal mass, stones or hydronephrosis are seen.The left kidney measures 11.5 cm in length. [No hydronephrosis. 1.7 cm septated cyst is suspected in the lower pole.]Bladder is prominently distended measuring 18 x 10 x 10 cm. No bladder wall thickening is seen.IMPRESSION1.7 cm septated cyst is suspected in the lower pole of the left kidney.There is prominent distention of the urinary bladder without evidence of wall thickening.Electronically signed by: Joseph Garces (Jul 06, 2021 15:18:16)
[2021-07-06] MEDS ORDERED: POTASSIUM CHLORIDE LIQ 20 MEQ UDC PO PRN (18:12)
[2021-07-06] MEDS ORDERED: POTASSIUM CHL 40 MEQ/NS 0.45% 500 ML IV PRN (18:12)
[2021-07-06] MEDS ORDERED: K-DUR TAB 20 MEQ PO PRN (18:12)
[2021-07-06] MEDS ORDERED: POTASSIUM CHL 60 MEQ/NS 0.45% 500 ML IV PRN (18:12)
[2021-07-06] MEDS ORDERED: K-RIDER 10 MEQ/NS 100 ML 10 MEQ/100 ML BAG IV PRN (18:12)
[2021-07-06] MEDS ORDERED: KLOR-CON PO PRN (18:12)
[2021-07-06] MEDS ORDERED: MICRO K EXTEN CAP 10 MEQ PO PRN (18:12)
[2021-07-06] MEDS ORDERED: PROTONIX INJ 40 MG VIAL ONE (19:55)
[2021-07-06] MEDS: SNACK - Diabetic Appropriate PO SCH (21:18)
[2021-07-07] MEDS: APRESOLINE INJ 20 MG VIAL IVP SCH ×4 (00:10→14:33)
[2021-07-07] MEDS: NS 1,000 ML IV 1,000 ML IV SCH ×3 (02:43→14:34)
[2021-07-07] MEDS: ZOFRAN INJ 4 MG VIAL IVP PRN ×3 (04:07→14:23)
[2021-07-07] MEDS: ZOSYN VIAL 2.25 GRAMS 2.25 G in NS 100 ML IV 100 ML IV SCH ×2 (05:16→14:34)
[2021-07-07 07:36] VITALS: BP 118/74
[2021-07-07 07:46] LABS: BASOPHILS # (AUTO) 0.1 X10^3/uL (0.0-0.1); BASOPHILS % (AUTO) 0.6 % (0.2-1.0); EOSINOPHILS % (AUTO) 0.1 % (0.9-2.9); HEMATOCRIT 35.9 % (42.0-54.0); LYMPHOCYTES # (AUTO) 1.7 X10^3/uL (1.3-2.9); LYMPHOCYTES % (AUTO) 13.9 % (21.0-51.0); MEAN CORPUSCULAR HEMOGLOBIN 28.5 pg (27.0-34.0); MEAN CORPUSCULAR HGB CONC 33.3 g/dL (33.0-35.0); MEAN CORPUSCULAR VOLUME 85.4 fL (80.0-100.0); MEAN PLATELET VOLUME 9.3 fL (7.4-11.0); MONOCYTES # (AUTO) 0.6 x10^3/uL (0.3-0.8); MONOCYTES % (AUTO) 5.1 % (0.0-13.0); NEUTROPHILS # (AUTO) 9.9 x10^3/uL (2.2-4.8); NEUTROPHILS % (AUTO) 80.3 % (42.0-75.0); RED BLOOD COUNT 4.21 X10^6/uL (4.7-6.0); WHITE BLOOD COUNT 12.3 X10^3/uL (3.6-10.0)
[2021-07-07 07:56] LABS: ALBUMIN 2.5 g/dL (3.4-5.0); CALCIUM 7.8 mg/dL (8.5-10.1); CARBON DIOXIDE 26.1 mmol/L (21-32); CREATININE 1.77 mg/dL (0.70-1.30); TOTAL PROTEIN 6.4 g/dL (6.4-8.2)
[2021-07-07] MEDS: PROTONIX INJ 40 MG VIAL IVP SCH (08:00)
--- NOTE | 2021-07-07 11:11 | PCM.PROG ---
Progress Note - Progress Note for Day of Date of Exam: 07/06/21 - Subjective Subjective: Patient is a 45 year old AAM who was admitted as per HPI. Kidney function as worsened despite IV hydration. Patient continues to have N/V. WBC has also elevated. Cultures ordered, IV abx started. Patient is pending EGD today. - Past Medical Family Social History Past Med/Fam/Surg Hx: No changes since H&P Allergies: Allergies No Known Drug Allergies Allergy (Verified 01/23/18 21:59) - Review of Systems ROS: No change since H&P - Vital Signs and I&O's Vital Signs: Temperature 98.3 F Pulse Rate [Bilateral Radial] 100 Pulse Rate 99 Respiratory Rate 18 Blood Pressure [Right Arm] 118/74 Blood Pressure [Left Arm] 136/91 Blood Pressure [Standing] 93/62 Blood Pressure [Sitting] 97/57 Blood Pressure [Lying] 105/67 Blood Pressure 135/72 O2 Sat by Pulse Oximetry 96 Intake and Output: Intake & Output 07/04/21 07/05/21 07/06/21 07/07/21 23:59 23:59 23:59 23:59 Intake Total 1636 / 1636 1848 / 1848 1186 / 1186 Output Total 0 / 0 1000 / 1000 Balance 1636 / 1636 848 / 848 1186 / 1186 - Physical Exam Oriented: Normal, Time, Person, Place Eyes: Normal Ear: Normal Nose: Normal Throat: Normal Respiratory: Normal Cardiovascular: Normal : Normal Auscultation: Bowel Sounds: Normal Palpation: Normal Tenderness: Diffuse, Mild Skin: Normal Musculoskeletal: Normal Psychiatric: Normal Mood Description: Calm Affect: Normal Speech Pattern: Clear, Appropriate - Laboratory and Diagnostics Result Diagrams: 07/07/21 07:30 07/07/21 07:30 Labs: Laboratory WBC 12.3 X10^3/uL (3.6-10.0) H 07/07/21 07:30 RBC 4.21 X10^6/uL (4.7-6.0) L 07/07/21 07:30 Hgb 12.0 g/dL (13.5-18.0) L 07/07/21 07:30 Hct 35.9 % (42.0-54.0) L 07/07/21 07:30 MCV 85.4 fL (80.0-100.0) 07/07/21 07:30 MCH 28.5 pg (27.0-34.0) 07/07/21 07:30 MCHC 33.3 g/dL (33.0-35.0) 07/07/21 07:30 RDW 14.0 % (11.6-16.5) 07/07/21 07:30 Plt Count 253 X10^3/uL (150.0-450.0) 07/07/21 07:30 MPV 9.3 fL (7.4-11.0) 07/07/21 07:30 Neut % (Auto) 80.3 % (42.0-75.0) H 07/07/21 07:30 Lymph % (Auto) 13.9 % (21.0-51.0) L 07/07/21 07:30 [place] % (Auto) 5.1 % (0.0-13.0) 07/07/21 07:30 Eos % (Auto) 0.1 % (0.9-2.9) L 07/07/21 07:30 Baso % (Auto) 0.6 % (0.2-1.0) 07/07/21 07:30 Neut # (Auto) 9.9 x10^3/uL (2.2-4.8) H 07/07/21 07:30 Lymph # (Auto) 1.7 X10^3/uL (1.3-2.9) 07/07/21 07:30 [place] # (Auto) 0.6 x10^3/uL (0.3-0.8) 07/07/21 07:30 Eos # (Auto) 0.0 x10^3/uL (0.0-0.2) 07/07/21 07:30 Baso # (Auto) 0.1 X10^3/uL (0.0-0.1) 07/07/21 07:30 Absolute Nucleated RBC 0.1 /100WBC 07/07/21 07:30 Sodium 147 mmol/L (136-145) H 07/07/21 07:30 Corrected Sodium 149 mmol/L (136-145) H 07/07/21 07:30 Potassium 3.9 mmol/L (3.5-5.1) 07/07/21 07:30 Chloride 113 mmol/L (98-107) H 07/07/21 07:30 Carbon Dioxide 26.1 mmol/L (21-32) 07/07/21 07:30 BUN 45 mg/dL (7-18) H 07/07/21 07:30 Creatinine 1.77 mg/dL (0.70-1.30) H 07/07/21 07:30 Est GFR (MDRD) Af Amer 54 (>60) L 07/07/21 07:30 Est GFR (MDRD) Non-Af 45 (>60) L 07/07/21 07:30 Glucose 164 mg/dL (65-99) H 07/07/21 07:30 POC Glucose (mg/dL) 131 mg/dL (65-99) H 07/07/21 05:13 Calcium 7.8 mg/dL (8.5-10.1) L 07/07/21 07:30 Corrected Calcium 9.0 mg/dL (8.5-10.1) 07/07/21 07:30 Magnesium 2.2 mg/dL (1.7-2.9) 07/06/21 15:05 Iron 34 ug/dL (50-175) L 07/06/21 15:05 TIBC 199 ug/dL (250-450) L 07/06/21 15:05 % Saturation 17.1 % (11.0-46.0) 07/06/21 15:05 Total Bilirubin 0.30 mg/dL (0.2-1.0) 07/07/21 07:30 AST 80 Units/L (15-37) H 07/07/21 07:30 ALT 43 Units/L (12-78) 07/07/21 07:30 Alkaline Phosphatase 143 Units/L (46-116) H 07/07/21 07:30 Total Protein 6.4 g/dL (6.4-8.2) 07/07/21 07:30 Albumin 2.5 g/dL (3.4-5.0) L 07/07/21 07:30 Globulin 3.9 g/dL (2.5-4.5) 07/07/21 07:30 Albumin/Globulin Ratio 0.6 Ratio (1.1-2.1) L 07/07/21 07:30 Lipase 129 Units/L (73-393) 07/05/21 00:01 Acetone, Semi-Quant Negative (NEGATIVE) 07/05/21 00:01 SARS CoV-2 RNA Rapid SUE Negative (NEGATIVE) 07/05/21 01:45 Tissue Pathology To follow 07/06/21 14:08 - Plan (1) Abdominal pain Status: Acute Plan: Admit. IV protonix. IV fluids. Clear liquids. See EMR for further orders (2) Nausea & vomiting Status: Acute (3) Hypokalemia Status: Acute Plan: Replace (4) Diabetic gastroparesis Status: Acute Plan: Acetone level (5) MACI (acute kidney injury) Status: Acute Plan: IV hydration. Renal ultrasound (6) Leukocytosis Status: Acute Plan: Cultures pending. IV Zosyn initiated
[2021-07-13 07:09] LABS: ANTI-NUCLEAR ANTIBODY TEST None Detected (None Detected)
== END 2021-07-07 14:25 | disposition home or self-care (01) | DRG 74 ==
LOC: SUPCPDRO → ER 23:31 → MED/SURG 23:31
PROVIDERS: ADMIT Internal Medicine; ATTEND Internal Medicine

== ENCOUNTER 2021-12-26 17:44 | Observation (INO) ==
[2021-12-26] MEDS ORDERED: NS 1,000 ML IV 1,000 ML ONE ×2 (17:48→19:01)
--- NOTE | 2021-12-26 17:55 | DR.N/VMALE ---
HPI Time Seen Time Seen by Provider: 12/26/21 17:54 Complaints Chief Complaint Doctors Comments: 46 y/o male presents with vomiting. Started vomiting earlier today. Vomited his food from last pm. Started vomiting blood about 4 hours ago. + epigastric pain, sharp, does not radiate. + h/o gastroparesis. Seen with GI in [place], earlier this month. Had EGD, with biopsies. + h/o PUD in the past. Reviewed Nurses Notes Reviewed: Yes Source History Provided: Patient PMH PMH Past Medical History: Diabetes and Hypertension Past Surgical History: Yes Surgical History: Angioplasty/Stents Family History Family Medical History: Cancer Social History Do you use any recreational Drugs:: No ROS Review of Systems Constitutional: No Symptoms Reported Eyes: No Symptoms Reported ENTM: No Symptoms Reported Respiratoy: No Symptoms Reported Cardiovascular: No Symptoms Reported Gastrointestinal/Abdominal: Vomiting and Other (hemoptysis) Genitourinary: No Symptoms Reported Neurological: No Symptoms Reported Musculoskeletal: No Symptoms Reported Integumentary: No Symptoms Reported Hematologic/Lymphatic: No Symptoms Reported Psychiatric: No Symptoms Reported All Other Systems: Reviewed and Negative PE Vital Signs Vitals: Temperature 98.1 F Pulse Rate 93 Respiratory Rate 22 Blood Pressure [Right Arm] 149/84 Blood Pressure 140/87 O2 Sat by Pulse Oximetry 99 General General Appearance: Alert and In No Apparent Distress Eyes Eye exam: PERRL and EOMI ENT ENT Exam: Normal Exam and Mucous Membranes Moist Neck Neck Exam: Normal Inspection Chest Chest Inspection: Normal Inspection Respiratory Respiratory Exam: Normal Lung Sounds Bilat; negative Accessory Muscle Use or Respiratory Distress Cardiovascular Cardiovascular Exam: Regular Rate, Normal Rhythm and Normal Heart Sounds Abdominal Exam Abdominal Exam: Normal Inspection, Normal Bowel Sounds and Soft; negative Tenderness, Guarding or Rebound Extremities Extremities Exam: Normal Inspection and Full ROM; negative Tenderness Back Back Exam: Normal Inspection Neurologic Neurological Exam: Alert, Oriented X3 and CN II-XII Intact; negative Motor Sensory Deficit Skin Skin Exam: Warm and Dry COURSE Treatment Treatment: 46 y/o male with vomiting today, then turned into hemoptysis past several hours. W/u initiated. Given IV fluids, IV zofran , IV protonix, IV labetalol. Pt deserves for admission for hemoptysis. BP very elevated, probably unable to keep BP med down. Given IV labetalol, with some improvement. 1952 - BP 189/110, given IV hydralazine. Attempted to see about transferring to [facility], to be under care of his GI MD, but they do not have GI home economist. Discussed with Dr Echavarria, + available for EGD in the am. Discussed with Dr Lozoya, will admit to his service. ROR Labs Reviewed Result Diagrams: 12/28/21 05:58 12/28/21 05:58 Laboratory: WBC 7.7 X10^3/uL (3.6-10.0) 12/26/21 17:55 RBC 4.23 X10^6/uL (4.7-6.0) L 12/26/21 17:55 Hgb 11.8 g/dL (13.5-18.0) L 12/26/21 17:55 Hct 34.3 % (42.0-54.0) L 12/26/21 17:55 MCV 81.1 fL (80.0-100.0) 12/26/21 17:55 MCH 27.8 pg (27.0-34.0) 12/26/21 17:55 MCHC 34.3 g/dL (33.0-35.0) 12/26/21 17:55 RDW 15.4 % (11.6-16.5) 12/26/21 17:55 Plt Count 249 X10^3/uL (150.0-450.0) 12/26/21 17:55 MPV 8.8 fL (7.4-11.0) 12/26/21 17:55 Neut % (Auto) 68.9 % (42.0-75.0) 12/26/21 17:55 Lymph % (Auto) 21.6 % (21.0-51.0) 12/26/21 17:55 [place] % (Auto) 5.4 % (0.0-13.0) 12/26/21 17:55 Eos % (Auto) 1.6 % (0.9-2.9) 12/26/21 17:55 Baso % (Auto) 2.5 % (0.2-1.0) H 12/26/21 17:55 Neut # (Auto) 5.3 x10^3/uL (2.2-4.8) H 12/26/21 17:55 Lymph # (Auto) 1.7 X10^3/uL (1.3-2.9) 12/26/21 17:55 [place] # (Auto) 0.4 x10^3/uL (0.3-0.8) 12/26/21 17:55 Eos # (Auto) 0.1 x10^3/uL (0.0-0.2) 12/26/21 17:55 Baso # (Auto) 0.2 X10^3/uL (0.0-0.1) H 12/26/21 17:55 Absolute Nucleated RBC 0.1 /100WBC 12/26/21 17:55 PT 13.1 SECONDS (11.8-14.3) 12/26/21 17:55 INR Target Range - 12/26/21 17:55 INR 1.02 (0.8-1.3) 12/26/21 17:55 APTT 29.7 SECONDS (22.9-36.5) 12/26/21 17:55 PTT Comment - 12/26/21 17:55 Sodium 147 mmol/L (136-145) H 12/26/21 17:55 Corrected Sodium 148 mmol/L (136-145) H 12/26/21 17:55 Potassium 3.4 mmol/L (3.5-5.1) L 12/26/21 17:55 Chloride 107 mmol/L (98-107) 12/26/21 17:55 Carbon Dioxide 35.4 mmol/L (21-32) H 12/26/21 17:55 BUN 8 mg/dL (7-18) 12/26/21 17:55 Creatinine 1.36 mg/dL (0.70-1.30) H 12/26/21 17:55 Est GFR (MDRD) Af Amer > 60 (>60) 12/26/21 17:55 Est GFR (MDRD) Non-Af > 60 (>60) 12/26/21 17:55 Glucose 133 mg/dL (65-99) H 12/26/21 17:55 Calcium 8.2 mg/dL (8.5-10.1) L 12/26/21 17:55 Corrected Calcium 9.6 mg/dL (8.5-10.1) 12/26/21 17:55 Total Bilirubin 0.30 mg/dL (0.2-1.0) 12/26/21 17:55 AST 28 Units/L (15-37) 12/26/21 17:55 ALT 52 Units/L (12-78) 12/26/21 17:55 Alkaline Phosphatase 164 Units/L (46-116) H 12/26/21 17:55 Total Protein 6.5 g/dL (6.4-8.2) 12/26/21 17:55 Albumin 2.3 g/dL (3.4-5.0) L 12/26/21 17:55 Globulin 4.2 g/dL (2.5-4.5) 12/26/21 17:55 Albumin/Globulin Ratio 0.5 Ratio (1.1-2.1) L 12/26/21 17:55 Lipase 85 Units/L (73-393) 12/26/21 17:55 SARS CoV-2 RNA Rapid SUE Negative (NEGATIVE) 12/26/21 19:15 Blood Type B POSITIVE 12/26/21 19:30 Antibody Screen Negative 12/26/21 19:30 Opioid Opioid Risk Tool Age (Ramiro box if 16-45): Yes History of Preadolescent Sexual Abuse: No Total: 1 Total Score Risk Category: Low Risk Copyright: Jace ROMEO predicting aberrant behaviors Discharge Plan Diagnosis Discharge Problem: Acute upper GI bleed Discharge Plan Patient Disposition: ADMITTED INPATIENT Condition: Stable
[2021-12-26] MEDS ORDERED: ZOFRAN INJ 4 MG VIAL IVP ONE ×2 (17:57→18:51)
[2021-12-26] MEDS ORDERED: NS 1,000 ML IV 1,000 ML IV ONE ×2 (17:57→19:09)
[2021-12-26] MEDS ORDERED: ZOFRAN INJ 4 MG VIAL ONE ×2 (17:57→18:48)
[2021-12-26] MEDS ORDERED: PROTONIX INJ 40 MG VIAL IVP ONE (17:58)
[2021-12-26] MEDS ORDERED: PROTONIX INJ 40 MG VIAL ONE (18:00)
[2021-12-26 18:20] LABS: BASOPHILS # (AUTO) 0.2 X10^3/uL (0.0-0.1); BASOPHILS % (AUTO) 2.5 % (0.2-1.0); EOSINOPHILS # (AUTO) 0.1 x10^3/uL (0.0-0.2); EOSINOPHILS % (AUTO) 1.6 % (0.9-2.9); HEMATOCRIT 34.3 % (42.0-54.0); HEMOGLOBIN 11.8 g/dL (13.5-18.0); LYMPHOCYTES # (AUTO) 1.7 X10^3/uL (1.3-2.9); LYMPHOCYTES % (AUTO) 21.6 % (21.0-51.0); MEAN CORPUSCULAR HEMOGLOBIN 27.8 pg (27.0-34.0); MEAN CORPUSCULAR HGB CONC 34.3 g/dL (33.0-35.0); MEAN CORPUSCULAR VOLUME 81.1 fL (80.0-100.0); MEAN PLATELET VOLUME 8.8 fL (7.4-11.0); MONOCYTES # (AUTO) 0.4 x10^3/uL (0.3-0.8); MONOCYTES % (AUTO) 5.4 % (0.0-13.0); NEUTROPHILS # (AUTO) 5.3 x10^3/uL (2.2-4.8); NEUTROPHILS % (AUTO) 68.9 % (42.0-75.0); RED BLOOD COUNT 4.23 X10^6/uL (4.7-6.0); RED CELL DISTRIBUTION WIDTH 15.4 % (11.6-16.5); WHITE BLOOD COUNT 7.7 X10^3/uL (3.6-10.0)
[2021-12-26] MEDS ORDERED: NORMODYNE INJ 20 MG VIAL IVP ONE (18:35)
[2021-12-26] MEDS ORDERED: NORMODYNE INJ 20 MG VIAL ONE (18:41)
[2021-12-26 19:02] LABS: ALANINE AMINOTRANSFERASE 52 Units/L (12-78); ALBUMIN 2.3 g/dL (3.4-5.0); ALKALINE PHOSPHATASE 164 Units/L (46-116); ASPARTATE AMINO TRANSFERASE 28 Units/L (15-37); BLOOD UREA NITROGEN 8 mg/dL (7-18); CALCIUM 8.2 mg/dL (8.5-10.1); CARBON DIOXIDE 35.4 mmol/L (21-32); CHLORIDE 107 mmol/L (98-107); COR CA(FOR HYPOALB) 9.6 mg/dL (8.5-10.1); COR NA(FOR HYPERGLY) 148 mmol/L (136-145); CREATININE 1.36 mg/dL (0.70-1.30); LIPASE 85 Units/L (73-393); SODIUM 147 mmol/L (136-145); TOTAL PROTEIN 6.5 g/dL (6.4-8.2); eGFR NON BLACK RACES > 60 (>60)
[2021-12-26 19:29] LABS: INR 1.02 (0.8-1.3)
[2021-12-26] MEDS ORDERED: APRESOLINE INJ 20 MG VIAL IVP ONE (19:45)
[2021-12-26] MEDS ORDERED: APRESOLINE INJ 20 MG VIAL ONE (19:48)
[2021-12-26] MEDS ORDERED: REGLAN INJ 10 MG VIAL IVP PRN (20:15)
[2021-12-26] MEDS ORDERED: LABETALOL HCL IVP SCH (21:00)
[2021-12-26] MEDS ORDERED: NovoLIN R (or HumuLIN R) SUBCUT SCH (21:00)
[2021-12-26] MEDS: REGLAN INJ 10 MG VIAL IVP SCH (21:40)
[2021-12-26] MEDS: NS 1,000 ML IV 1,000 ML IV SCH (21:40)
[2021-12-26 22:02] VITALS: BMI 24.0
[2021-12-27] MEDS: ZOFRAN INJ 4 MG VIAL IVP PRN ×2 (04:15→19:43)
[2021-12-27] MEDS: NS 1,000 ML IV 1,000 ML IV SCH ×4 (04:15→21:21)
[2021-12-27] MEDS: REGLAN INJ 10 MG VIAL IVP SCH ×4 (04:15→20:13)
[2021-12-27 05:15] LABS: BASOPHILS # (AUTO) 0.1 X10^3/uL (0.0-0.1); BASOPHILS % (AUTO) 0.8 % (0.2-1.0); EOSINOPHILS % (AUTO) 0.2 % (0.9-2.9); HEMATOCRIT 31.1 % (42.0-54.0); HEMOGLOBIN 10.9 g/dL (13.5-18.0); LYMPHOCYTES # (AUTO) 1.6 X10^3/uL (1.3-2.9); LYMPHOCYTES % (AUTO) 20.4 % (21.0-51.0); MEAN PLATELET VOLUME 9.5 fL (7.4-11.0); MONOCYTES # (AUTO) 0.5 x10^3/uL (0.3-0.8); MONOCYTES % (AUTO) 6.2 % (0.0-13.0); NEUTROPHILS # (AUTO) 5.8 x10^3/uL (2.2-4.8); NEUTROPHILS % (AUTO) 72.4 % (42.0-75.0); RED BLOOD COUNT 3.88 X10^6/uL (4.7-6.0); RED CELL DISTRIBUTION WIDTH 15.6 % (11.6-16.5)
[2021-12-27 05:21] LABS: ALANINE AMINOTRANSFERASE 41 Units/L (12-78); ALKALINE PHOSPHATASE 139 Units/L (46-116); ASPARTATE AMINO TRANSFERASE 25 Units/L (15-37); BLOOD UREA NITROGEN 10 mg/dL (7-18); CALCIUM 7.6 mg/dL (8.5-10.1); CARBON DIOXIDE 31.6 mmol/L (21-32); CHLORIDE 109 mmol/L (98-107); COR CA(FOR HYPOALB) 9.2 mg/dL (8.5-10.1); COR NA(FOR HYPERGLY) 149 mmol/L (136-145); CREATININE 1.38 mg/dL (0.70-1.30); SODIUM 148 mmol/L (136-145); TOTAL PROTEIN 5.7 g/dL (6.4-8.2); eGFR NON BLACK RACES 59 (>60)
[2021-12-27] MEDS: PHENERGAN INJ 25 MG IM PRN (06:28)
[2021-12-27] MEDS ORDERED: K-DUR TAB 20 MEQ PO PRN (08:45)
[2021-12-27] MEDS ORDERED: POTASSIUM CHL 60 MEQ/NS 0.45% 500 ML IV PRN (08:45)
[2021-12-27] MEDS ORDERED: POTASSIUM CHL 40 MEQ/NS 0.45% 500 ML IV PRN (08:45)
[2021-12-27] MEDS ORDERED: POTASSIUM CHLORIDE LIQ 20 MEQ UDC PO PRN (08:45)
[2021-12-27] MEDS ORDERED: MICRO K EXTEN CAP 10 MEQ PO PRN (08:45)
[2021-12-27] MEDS ORDERED: KLOR-CON PO PRN (08:45)
[2021-12-27] MEDS: PROTONIX INJ 40 MG VIAL IVP SCH (08:50)
[2021-12-27] MEDS ORDERED: PROTONIX INJ 40 MG VIAL IVP SCH (09:00)
[2021-12-27] MEDS: NORMODYNE INJ 20 MG VIAL IVP SCH ×2 (09:59→20:23)
--- NOTE | 2021-12-27 10:06 | DR.H&P ---
H&P History & Physical for Day of: H&P Date: 12/27/21 Chief Complaint Chief Complaint: Pt is a 46 year old male past medical history Hypertension, DMT2, GERD, PUD, presenting with non-intractable nausea and vomiting, and hematemesis. Pt has extensive history over the past year with esophagitis, gastric ulcers, and gastritis. He has had three EGDs performed within a year. The last was in [place] at which they took biopsies. He is followed by GI-Dr Thakur in [place]. He has been vomiting blood for the past few days which prompted him to go to ED. Labs/imaging: Wbc 8.0, Hgb 10.9, Plt 231, Na 148, K 3.3, Creatinine 1.38, Glucose 124, INR 1.02, COVID-19 negative. Will start patient on IVF, keep NPO, and start on IV medication for blood pressure control, IV anti-emetics, IV protonix. Hypokalemia on labs, replete per protocol. Consult surgery-Dr Echavarria for further evaluation and likely plan for EGD. Trend H/H. Will continue to closely monitor and follow up labs. Allergies Allergies Allergy/AdvReac Type Severity Reaction Status Date / Time No Known Drug Allergies Allergy Verified 01/23/18 21:59 Past Medical History Past Medical History: Diabetes and Hypertension Past Surgical History Surgical History: Angioplasty/Stents Family History Family Medical History: Cancer Social History Does patient currently use any type of tobacco product: No Have you used tobacco products in the last 12 months: No Type of Tobacco Use: None Does any household member use tobacco: No Alcohol Use: None Medications Home Medications: No Known Drug Allergies Allergy (Verified 01/23/18 21:59) CONTINUE taking the following medications metoclopramide HCl 10 mg tablet 1 tab PO QID 12/26/21 [History] potassium chloride 10 mEq tablet,extended release 1 tab PO QDAY 12/26/21 [History] sucralfate 1 gram tablet 1 tab PO QID 12/26/21 [History] Labs Result Diagrams: 12/28/21 05:58 12/28/21 05:58 Labs: Laboratory WBC 8.0 X10^3/uL (3.6-10.0) 12/27/21 04:21 RBC 3.88 X10^6/uL (4.7-6.0) L 12/27/21 04:21 Hgb 10.9 g/dL (13.5-18.0) L 12/27/21 04:21 Hct 31.1 % (42.0-54.0) L 12/27/21 04:21 MCV 80.0 fL (80.0-100.0) 12/27/21 04:21 MCH 28.0 pg (27.0-34.0) 12/27/21 04:21 MCHC 35.0 g/dL (33.0-35.0) 12/27/21 04:21 RDW 15.6 % (11.6-16.5) 12/27/21 04:21 Plt Count 231 X10^3/uL (150.0-450.0) 12/27/21 04:21 MPV 9.5 fL (7.4-11.0) 12/27/21 04:21 Neut % (Auto) 72.4 % (42.0-75.0) 12/27/21 04:21 Lymph % (Auto) 20.4 % (21.0-51.0) L 12/27/21 04:21 [place] % (Auto) 6.2 % (0.0-13.0) 12/27/21 04:21 Eos % (Auto) 0.2 % (0.9-2.9) L 12/27/21 04:21 Baso % (Auto) 0.8 % (0.2-1.0) 12/27/21 04:21 Neut # (Auto) 5.8 x10^3/uL (2.2-4.8) H 12/27/21 04:21 Lymph # (Auto) 1.6 X10^3/uL (1.3-2.9) 12/27/21 04:21 [place] # (Auto) 0.5 x10^3/uL (0.3-0.8) 12/27/21 04:21 Eos # (Auto) 0.0 x10^3/uL (0.0-0.2) 12/27/21 04:21 Baso # (Auto) 0.1 X10^3/uL (0.0-0.1) 12/27/21 04:21 Absolute Nucleated RBC 0.0 /100WBC 12/27/21 04:21 PT 13.1 SECONDS (11.8-14.3) 12/26/21 17:55 INR Target Range - 12/26/21 17:55 INR 1.02 (0.8-1.3) 12/26/21 17:55 APTT 29.7 SECONDS (22.9-36.5) 12/26/21 17:55 PTT Comment - 12/26/21 17:55 Sodium 148 mmol/L (136-145) H 12/27/21 04:21 Corrected Sodium 149 mmol/L (136-145) H 12/27/21 04:21 Potassium 3.3 mmol/L (3.5-5.1) L 12/27/21 04:21 Chloride 109 mmol/L (98-107) H 12/27/21 04:21 Carbon Dioxide 31.6 mmol/L (21-32) 12/27/21 04:21 BUN 10 mg/dL (7-18) 12/27/21 04:21 Creatinine 1.38 mg/dL (0.70-1.30) H 12/27/21 04:21 Est GFR (MDRD) Af Amer > 60 (>60) 12/27/21 04:21 Est GFR (MDRD) Non-Af 59 (>60) 12/27/21 04:21 Glucose 124 mg/dL (65-99) H 12/27/21 04:21 POC Glucose (mg/dL) 131 mg/dL (65-99) H 12/27/21 05:19 Calcium 7.6 mg/dL (8.5-10.1) L 12/27/21 04:21 Corrected Calcium 9.2 mg/dL (8.5-10.1) 12/27/21 04:21 Magnesium 1.7 mg/dL (1.7-2.9) 12/27/21 04:21 Total Bilirubin 0.30 mg/dL (0.2-1.0) 12/27/21 04:21 AST 25 Units/L (15-37) 12/27/21 04:21 ALT 41 Units/L (12-78) 12/27/21 04:21 Alkaline Phosphatase 139 Units/L (46-116) H 12/27/21 04:21 Total Protein 5.7 g/dL (6.4-8.2) L 12/27/21 04:21 Albumin 2.0 g/dL (3.4-5.0) L 12/27/21 04:21 Globulin 3.7 g/dL (2.5-4.5) 12/27/21 04:21 Albumin/Globulin Ratio 0.5 Ratio (1.1-2.1) L 12/27/21 04:21 Lipase 85 Units/L (73-393) 12/26/21 17:55 SARS CoV-2 RNA Rapid SUE Negative (NEGATIVE) 12/26/21 19:15 Blood Type B POSITIVE 12/26/21 19:30 Antibody Screen Negative 12/26/21 19:30 Review of Systems Constitutional: Weakness Eyes: No Symptoms Reported ENT: No Symptoms Reported Respiratory: No Symptoms Reported Cardiovascular: No Symptoms Reported Gastrointestinal: Nausea, Vomiting and Abdominal Pain Genitourinary: No Symptoms Reported Musculoskeletal: No Symptoms Reported Skin: No Symptoms Reported Neurological: No Symptoms Reported Physical Exam Vital Signs: Temperature 100.0 F Pulse Rate [Brachial] 93 Pulse Rate 79 Respiratory Rate 20 Blood Pressure [Left Arm] 173/107 Blood Pressure [Right Arm] 181/106 Blood Pressure 173/108 O2 Sat by Pulse Oximetry 98 Oriented: Normal Eyes: Normal Ear: Normal Nose: Normal Throat: Normal Respiratory: Clear Throughout Cardiovascular: Normal : Normal Auscultation: Bowel Sounds: Normal Palpation: Normal Tenderness: Epigastric and Moderate Skin: Normal Musculoskeletal: Normal Psychiatric: Normal Mood Description: Calm and Appropriate Affect: Normal Speech Pattern: Clear and Appropriate Assessment/Plan (1) Abdominal pain: Status: Acute Plan: Consult surgery for further evaluation. Keep NPO IVF, (2) Nausea & vomiting: Status: Acute (3) Hematemesis/vomiting blood: Qualifiers: Nausea presence: with nausea Qualified Code(s): K92.0 - Hematemesis Status: Acute (4) Diabetic gastroparesis: Status: Acute (5) Hypokalemia: Status: Acute Review H&P Reviewed: Yes Patient was examined?: Yes
[2021-12-27] MEDS ORDERED: BARHEMSYS INJ ONE (11:21)
[2021-12-27] MEDS ORDERED: DIPRIVAN VIAL 20 ML ONE (11:27)
[2021-12-27] MEDS: APRESOLINE INJ 20 MG VIAL IVP PRN (13:36)
[2021-12-27] MEDS: K-RIDER 10 MEQ/NS 100 ML 10 MEQ/100 ML BAG IV PRN ×4 (13:37→19:43)
[2021-12-27] MEDS: SNACK - Diabetic Appropriate PO SCH (20:18)
[2021-12-27] MEDS: MAGNESIUM SULFATE 1 GRAM/100 mL PREMIX 1 G/100 ML BAG IV PRN ×2 (21:35→22:50)
[2021-12-28] MEDS: NS 1,000 ML IV 1,000 ML IV SCH ×5 (01:52→20:30)
[2021-12-28] MEDS: REGLAN INJ 10 MG VIAL IVP SCH ×4 (03:08→20:35)
[2021-12-28] MEDS: ZOFRAN INJ 4 MG VIAL IVP PRN (03:15)
[2021-12-28] MEDS: APRESOLINE INJ 20 MG VIAL IVP PRN ×3 (03:27→10:08)
[2021-12-28 06:18] LABS: BASOPHILS % (AUTO) 0.5 % (0.2-1.0); EOSINOPHILS % (AUTO) 0.4 % (0.9-2.9); HEMATOCRIT 30.9 % (42.0-54.0); HEMOGLOBIN 10.7 g/dL (13.5-18.0); LYMPHOCYTES # (AUTO) 1.8 X10^3/uL (1.3-2.9); LYMPHOCYTES % (AUTO) 22.9 % (21.0-51.0); MEAN CORPUSCULAR HGB CONC 34.6 g/dL (33.0-35.0); MEAN PLATELET VOLUME 8.6 fL (7.4-11.0); MONOCYTES # (AUTO) 0.5 x10^3/uL (0.3-0.8); MONOCYTES % (AUTO) 7.1 % (0.0-13.0); NEUTROPHILS # (AUTO) 5.3 x10^3/uL (2.2-4.8); NEUTROPHILS % (AUTO) 69.1 % (42.0-75.0); RED BLOOD COUNT 3.81 X10^6/uL (4.7-6.0); RED CELL DISTRIBUTION WIDTH 15.5 % (11.6-16.5); WHITE BLOOD COUNT 7.7 X10^3/uL (3.6-10.0)
[2021-12-28 06:32] LABS: ALANINE AMINOTRANSFERASE 30 Units/L (12-78); ALKALINE PHOSPHATASE 126 Units/L (46-116); ASPARTATE AMINO TRANSFERASE 24 Units/L (15-37); BLOOD UREA NITROGEN 16 mg/dL (7-18); CALCIUM 7.4 mg/dL (8.5-10.1); CARBON DIOXIDE 28.1 mmol/L (21-32); CHLORIDE 107 mmol/L (98-107); COR NA(FOR HYPERGLY) 144 mmol/L (136-145); CREATININE 1.34 mg/dL (0.70-1.30); MAGNESIUM 1.9 mg/dL (1.7-2.9); SODIUM 142 mmol/L (136-145); TOTAL PROTEIN 5.5 g/dL (6.4-8.2); eGFR NON BLACK RACES > 60 (>60)
[2021-12-28] MEDS: NORMODYNE INJ 20 MG VIAL IVP SCH ×2 (07:43→08:56)
[2021-12-28] MEDS: PHENERGAN INJ 25 MG IM PRN (07:45)
--- NOTE | 2021-12-28 08:28 | PCM.PROG ---
Progress Note Progress Note for Day of Date of Exam: 12/28/21 Subjective Subjective: Pt is a 46 year old male past medical history Hypertension, DMT2, GERD, PUD, admitted for non-intractable nausea and vomiting, and hematemesis. General surgery-Dr Echavarria was consulted and EGD was performed that revealed gastritis, esophagitis, and gastroparesis. This morning patient reports some improvement in his nausea and vomiting. Labs/imaging: Wbc 7.7, Hgb 10.7, Plt 222, Na 142, K 3.7, Creatinine 1.34, Glucose 204. Continue patient on IVF, start clear liquid diet and advance as tolerated. Pt is on IV medication for blood pressure control, IV anti-emetics, IV protonix. Surgery has ordered gallbladder u/s, follow up results. H/H has stabilized. Will continue to closely monitor and follow up labs. Past Medical Family Social History Allergies: Allergies No Known Drug Allergies Allergy (Verified 01/23/18 21:59) Review of Systems ROS: Changes notes (describe) Vital Signs and I&O's Vital Signs: Temperature 99.4 F Pulse Rate [Brachial] 90 Pulse Rate 79 Respiratory Rate 18 Blood Pressure [Left Arm] 144/79 Blood Pressure [Right Arm] 181/106 Blood Pressure 173/108 O2 Sat by Pulse Oximetry 98 Intake and Output: Intake & Output 12/25/21 12/26/21 12/27/21 12/28/21 23:59 23:59 23:59 23:59 Intake Total 250 / 250 3437 / 3437 864 / 864 Balance 250 / 250 3437 / 3437 864 / 864 Physical Exam Oriented: Normal Eyes: Normal Ear: Normal Nose: Normal Throat: Normal Cardiovascular: Normal : Normal Auscultation: Bowel Sounds: Normal Tenderness: Epigastric and Mild Skin: Normal Musculoskeletal: Normal Psychiatric: Normal Mood Description: Calm and Appropriate Affect: Normal Speech Pattern: Clear and Appropriate Laboratory and Diagnostics Result Diagrams: 12/29/21 04:30 12/29/21 04:30 Labs: Laboratory WBC 7.7 X10^3/uL (3.6-10.0) 12/28/21 05:58 RBC 3.81 X10^6/uL (4.7-6.0) L 12/28/21 05:58 Hgb 10.7 g/dL (13.5-18.0) L 12/28/21 05:58 Hct 30.9 % (42.0-54.0) L 12/28/21 05:58 MCV 81.0 fL (80.0-100.0) 12/28/21 05:58 MCH 28.0 pg (27.0-34.0) 12/28/21 05:58 MCHC 34.6 g/dL (33.0-35.0) 12/28/21 05:58 RDW 15.5 % (11.6-16.5) 12/28/21 05:58 Plt Count 222 X10^3/uL (150.0-450.0) 12/28/21 05:58 MPV 8.6 fL (7.4-11.0) 12/28/21 05:58 Neut % (Auto) 69.1 % (42.0-75.0) 12/28/21 05:58 Lymph % (Auto) 22.9 % (21.0-51.0) 12/28/21 05:58 [place] % (Auto) 7.1 % (0.0-13.0) 12/28/21 05:58 Eos % (Auto) 0.4 % (0.9-2.9) L 12/28/21 05:58 Baso % (Auto) 0.5 % (0.2-1.0) 12/28/21 05:58 Neut # (Auto) 5.3 x10^3/uL (2.2-4.8) H 12/28/21 05:58 Lymph # (Auto) 1.8 X10^3/uL (1.3-2.9) 12/28/21 05:58 [place] # (Auto) 0.5 x10^3/uL (0.3-0.8) 12/28/21 05:58 Eos # (Auto) 0.0 x10^3/uL (0.0-0.2) 12/28/21 05:58 Baso # (Auto) 0.0 X10^3/uL (0.0-0.1) 12/28/21 05:58 Absolute Nucleated RBC 0.0 /100WBC 12/28/21 05:58 PT 13.1 SECONDS (11.8-14.3) 12/26/21 17:55 INR Target Range - 12/26/21 17:55 INR 1.02 (0.8-1.3) 12/26/21 17:55 APTT 29.7 SECONDS (22.9-36.5) 12/26/21 17:55 PTT Comment - 12/26/21 17:55 Sodium 142 mmol/L (136-145) 12/28/21 05:58 Corrected Sodium 144 mmol/L (136-145) 12/28/21 05:58 Potassium 3.7 mmol/L (3.5-5.1) 12/28/21 05:58 Chloride 107 mmol/L (98-107) 12/28/21 05:58 Carbon Dioxide 28.1 mmol/L (21-32) 12/28/21 05:58 BUN 16 mg/dL (7-18) 12/28/21 05:58 Creatinine 1.34 mg/dL (0.70-1.30) H 12/28/21 05:58 Est GFR (MDRD) Af Amer > 60 (>60) 12/28/21 05:58 Est GFR (MDRD) Non-Af > 60 (>60) 12/28/21 05:58 Glucose 204 mg/dL (65-99) H 12/28/21 05:58 POC Glucose (mg/dL) 179 mg/dL (65-99) H 12/28/21 05:21 Calcium 7.4 mg/dL (8.5-10.1) L 12/28/21 05:58 Corrected Calcium 9.0 mg/dL (8.5-10.1) 12/28/21 05:58 Magnesium 1.9 mg/dL (1.7-2.9) 12/28/21 05:58 Total Bilirubin 0.20 mg/dL (0.2-1.0) 12/28/21 05:58 AST 24 Units/L (15-37) 12/28/21 05:58 ALT 30 Units/L (12-78) 12/28/21 05:58 Alkaline Phosphatase 126 Units/L (46-116) H 12/28/21 05:58 Total Protein 5.5 g/dL (6.4-8.2) L 12/28/21 05:58 Albumin 2.0 g/dL (3.4-5.0) L 12/28/21 05:58 Globulin 3.5 g/dL (2.5-4.5) 12/28/21 05:58 Albumin/Globulin Ratio 0.6 Ratio (1.1-2.1) L 12/28/21 05:58 Lipase 85 Units/L (73-393) 12/26/21 17:55 SARS CoV-2 RNA Rapid SUE Negative (NEGATIVE) 12/26/21 19:15 Tissue Pathology To follow 12/27/21 11:40 Blood Type B POSITIVE 12/26/21 19:30 Antibody Screen Negative 12/26/21 19:30 Plan (1) Abdominal pain: Status: Acute Plan: Consult surgery for further evaluation. Advance diet as tolerated IVF, (2) Nausea & vomiting: Status: Acute (3) Hematemesis/vomiting blood: Status: Acute Qualifiers: Nausea presence: with nausea Qualified Code(s): K92.0 - Hematemesis (4) Diabetic gastroparesis: Status: Acute (5) Hypokalemia: Status: Acute
[2021-12-28] MEDS: PROTONIX INJ 40 MG VIAL IVP SCH (08:53)
--- NOTE | 2021-12-28 09:20 | DR.PROGNOT ---
Hospital Progress Notes - Progress Note for Day of: Progress Note Date: 12/28/21 - Chief Complaint Chief Complaint: no active bleeding today .. still c/o nausea .. endoscopy showed gastritis involving the antrum and fundus .. stable H&H . - Past Medical Family Social History Past Med/Fam/Surg Hx: No changes since H&P Allergies: Allergies No Known Drug Allergies Allergy (Verified 01/23/18 21:59) - Review Of Systems ROS: No change since H&P - Vital Signs Vital Signs: Temperature 99.0 F Pulse Rate [Brachial] 96 Pulse Rate 79 Respiratory Rate 18 Blood Pressure [Left Arm] 185/77 Blood Pressure [Right Arm] 181/106 Blood Pressure 173/108 O2 Sat by Pulse Oximetry 98 - Physical Exam Oriented: Normal Eyes: Normal Ear: Normal Nose: Normal Throat: Normal Cardiovascular: Normal : Normal GI:Auscultation: Normal GI:Palpation: Normal GI: Tenderness: Epigastric (soft, flat abdomen with moderate epigastric tenderness .. BS+ ), Moderate Skin: Normal Musculoskeletal: Normal Psychiatric: Normal Mood Description: Calm, Appropriate Affect: Normal Speech Pattern: Clear, Appropriate - Laboratory and Diagnostics Result Diagrams: 12/28/21 05:58 12/28/21 05:58 Labs: Laboratory WBC 7.7 X10^3/uL (3.6-10.0) 12/28/21 05:58 RBC 3.81 X10^6/uL (4.7-6.0) L 12/28/21 05:58 Hgb 10.7 g/dL (13.5-18.0) L 12/28/21 05:58 Hct 30.9 % (42.0-54.0) L 12/28/21 05:58 MCV 81.0 fL (80.0-100.0) 12/28/21 05:58 MCH 28.0 pg (27.0-34.0) 12/28/21 05:58 MCHC 34.6 g/dL (33.0-35.0) 12/28/21 05:58 RDW 15.5 % (11.6-16.5) 12/28/21 05:58 Plt Count 222 X10^3/uL (150.0-450.0) 12/28/21 05:58 MPV 8.6 fL (7.4-11.0) 12/28/21 05:58 Neut % (Auto) 69.1 % (42.0-75.0) 12/28/21 05:58 Lymph % (Auto) 22.9 % (21.0-51.0) 12/28/21 05:58 Mcculloch % (Auto) 7.1 % (0.0-13.0) 12/28/21 05:58 Eos % (Auto) 0.4 % (0.9-2.9) L 12/28/21 05:58 Baso % (Auto) 0.5 % (0.2-1.0) 12/28/21 05:58 Neut # (Auto) 5.3 x10^3/uL (2.2-4.8) H 12/28/21 05:58 Lymph # (Auto) 1.8 X10^3/uL (1.3-2.9) 12/28/21 05:58 Mcculloch # (Auto) 0.5 x10^3/uL (0.3-0.8) 12/28/21 05:58 Eos # (Auto) 0.0 x10^3/uL (0.0-0.2) 12/28/21 05:58 Baso # (Auto) 0.0 X10^3/uL (0.0-0.1) 12/28/21 05:58 Absolute Nucleated RBC 0.0 /100WBC 12/28/21 05:58 PT 13.1 SECONDS (11.8-14.3) 12/26/21 17:55 INR Target Range - 12/26/21 17:55 INR 1.02 (0.8-1.3) 12/26/21 17:55 APTT 29.7 SECONDS (22.9-36.5) 12/26/21 17:55 PTT Comment - 12/26/21 17:55 Sodium 142 mmol/L (136-145) 12/28/21 05:58 Corrected Sodium 144 mmol/L (136-145) 12/28/21 05:58 Potassium 3.7 mmol/L (3.5-5.1) 12/28/21 05:58 Chloride 107 mmol/L (98-107) 12/28/21 05:58 Carbon Dioxide 28.1 mmol/L (21-32) 12/28/21 05:58 BUN 16 mg/dL (7-18) 12/28/21 05:58 Creatinine 1.34 mg/dL (0.70-1.30) H 12/28/21 05:58 Est GFR (MDRD) Af Amer > 60 (>60) 12/28/21 05:58 Est GFR (MDRD) Non-Af > 60 (>60) 12/28/21 05:58 Glucose 204 mg/dL (65-99) H 12/28/21 05:58 POC Glucose (mg/dL) 179 mg/dL (65-99) H 12/28/21 05:21 Calcium 7.4 mg/dL (8.5-10.1) L 12/28/21 05:58 Corrected Calcium 9.0 mg/dL (8.5-10.1) 12/28/21 05:58 Magnesium 1.9 mg/dL (1.7-2.9) 12/28/21 05:58 Total Bilirubin 0.20 mg/dL (0.2-1.0) 12/28/21 05:58 AST 24 Units/L (15-37) 12/28/21 05:58 ALT 30 Units/L (12-78) 12/28/21 05:58 Alkaline Phosphatase 126 Units/L (46-116) H 12/28/21 05:58 Total Protein 5.5 g/dL (6.4-8.2) L 12/28/21 05:58 Albumin 2.0 g/dL (3.4-5.0) L 12/28/21 05:58 Globulin 3.5 g/dL (2.5-4.5) 12/28/21 05:58 Albumin/Globulin Ratio 0.6 Ratio (1.1-2.1) L 12/28/21 05:58 Lipase 85 Units/L (73-393) 12/26/21 17:55 SARS CoV-2 RNA Rapid SUE Negative (NEGATIVE) 12/26/21 19:15 Tissue Pathology To follow 12/27/21 11:40 Blood Type B POSITIVE 12/26/21 19:30 Antibody Screen Negative 12/26/21 19:30 - Assessment and Plan 1: UGI bleeding .. gastritis and esophagitis . gastroparesis .. DM , HTN .. awaiting GB US. to advance diet .. - Problem Patient Problems: Patient Problems Acute upper GI bleed (Acute) K92.2
[2021-12-28] MEDS: MAGNESIUM SULFATE 1 GRAM/100 mL PREMIX 1 G/100 ML BAG IV PRN ×2 (09:25→10:08)
--- NOTE | 2021-12-28 10:29 | US ---
HISTORY: Right upper quadrant abdominal pain.Study: Right upper quadrant abdominal ultrasoundComparison: Gallbladder ultrasound examination dated November 28, 2020.Technique: Multiple de la vega scale and color flow Doppler images of the right upper quadrant were obtained.Findings:The liver [is normal in echotexture and size]. No focal intraparenchymal mass or intrahepatic biliary ductal dilatation can be observed. [The gallbladder fails to demonstrate evidence for cholelithiasis or layering sludge]. The common bile duct is unremarkable measuring 2 mm. [No pericholecystic fluid or gallbladder wall thickening can be observed]. The CBD measures [within normal limits]. The right kidney appears normal in size without focal parenchymal mass or nephrolithiasis. The right kidney measurers 12 x 6 cm. No hydronephrosis or perirenal fluid can be observed. The [pancreatic head and body are unremarkable. The pancreatic tail] is largely obscured by overlying bowel gas.IMPRESSION:1. Unremarkable examination of the right upper quadrant.Electronically signed by: STEPHANIE MANNING III (Dec 28, 2021 10:27:50)
[2021-12-28] MEDS ORDERED: CATAPRES TAB 0.1 MG PO PRN (11:01)
[2021-12-28] MEDS: CREON PO SCH ×2 (11:50→16:33)
[2021-12-28] MEDS: MICRO K EXTEN CAP 10 MEQ PO SCH ×2 (12:28→12:40)
[2021-12-28] MEDS: CARAFATE PO SCH ×2 (16:33→20:21)
[2021-12-28] MEDS ORDERED: SNACK - Diabetic Appropriate PO SCH (20:00)
[2021-12-28] MEDS: SNACK - Diabetic Appropriate PO SCH (20:15)
[2021-12-28] MEDS ORDERED: ZOCOR TAB 20 MG PO SCH (21:00)
[2021-12-28] MEDS ORDERED: LANTUS SC SCH (21:00)
[2021-12-28] MEDS ORDERED: NORMODYNE TAB 200 MG PO SCH (21:00)
[2021-12-29] MEDS: APRESOLINE INJ 20 MG VIAL IVP PRN (01:40)
[2021-12-29] MEDS: REGLAN INJ 10 MG VIAL IVP SCH ×2 (03:55→09:26)
[2021-12-29] MEDS: CARAFATE PO SCH (05:30)
[2021-12-29 05:48] LABS: BASOPHILS % (AUTO) 0.5 % (0.2-1.0); EOSINOPHILS # (AUTO) 0.1 x10^3/uL (0.0-0.2); HEMATOCRIT 27.7 % (42.0-54.0); HEMOGLOBIN 9.8 g/dL (13.5-18.0); LYMPHOCYTES # (AUTO) 2.1 X10^3/uL (1.3-2.9); LYMPHOCYTES % (AUTO) 28.4 % (21.0-51.0); MEAN CORPUSCULAR HEMOGLOBIN 28.2 pg (27.0-34.0); MEAN CORPUSCULAR HGB CONC 35.2 g/dL (33.0-35.0); MEAN CORPUSCULAR VOLUME 80.2 fL (80.0-100.0); MEAN PLATELET VOLUME 9.2 fL (7.4-11.0); MONOCYTES # (AUTO) 0.6 x10^3/uL (0.3-0.8); MONOCYTES % (AUTO) 8.6 % (0.0-13.0); NEUTROPHILS # (AUTO) 4.6 x10^3/uL (2.2-4.8); NEUTROPHILS % (AUTO) 61.5 % (42.0-75.0); RED BLOOD COUNT 3.46 X10^6/uL (4.7-6.0); RED CELL DISTRIBUTION WIDTH 15.4 % (11.6-16.5); WHITE BLOOD COUNT 7.5 X10^3/uL (3.6-10.0)
[2021-12-29 06:16] LABS: ALANINE AMINOTRANSFERASE 24 Units/L (12-78); ALBUMIN 1.8 g/dL (3.4-5.0); ALKALINE PHOSPHATASE 111 Units/L (46-116); ASPARTATE AMINO TRANSFERASE 20 Units/L (15-37); BLOOD UREA NITROGEN 12 mg/dL (7-18); CALCIUM 7.1 mg/dL (8.5-10.1); CARBON DIOXIDE 26.1 mmol/L (21-32); CHLORIDE 105 mmol/L (98-107); COR CA(FOR HYPOALB) 8.9 mg/dL (8.5-10.1); COR NA(FOR HYPERGLY) 141 mmol/L (136-145); CREATININE 1.14 mg/dL (0.70-1.30); SODIUM 138 mmol/L (136-145); TOTAL PROTEIN 4.9 g/dL (6.4-8.2); eGFR NON BLACK RACES > 60 (>60)
[2021-12-29] MEDS: NS 1,000 ML IV 1,000 ML IV SCH (06:31)
[2021-12-29] MEDS: CREON PO SCH (06:31)
[2021-12-29 07:45] VITALS: BP 139/75
[2021-12-29] MEDS: PROTONIX INJ 40 MG VIAL IVP SCH (09:25)
[2021-12-29] MEDS: MICRO K EXTEN CAP 10 MEQ PO SCH (09:25)
--- NOTE | 2022-01-01 08:49 | W.DIS.FURT ---
Summary of Discharge Discharge Summary of Date Date of Exam: 12/29/21 Admission Date Date of Admission: 12/26/21 Admission Diagnosis Patient Problems (Updated 12/26/21 @ 20:07 by Perry Michael) Acute upper GI bleed (Acute) K92.2 Hospital Course: Pt is a 46 year old male past medical history Hypertension, DMT2, GERD, PUD, admitted for non-intractable nausea and vomiting, and hematemesis. His hospi dwayne/treatment course included IV medication for blood pressure control, IV anti- emetics, IV protonix. General surgery consulted-Dr Echavarria, and EGD was performed that revealed gastritis, esophagitis, and gastroparesis. Labs/imaging: Wbc 7.5, Hgb 9.8, Plt 196, Na 138, K 3.4, Creatinine 1.14, Glucose 214. Gallbladder u/s revealed no acute findings. H/H has stabilized and patient did not have any hematemesis episodes while inpatient. His nausea and vomiting improved and diet was gradually advanced. Pt was discharged in stable condition. He is instructed to continue his home carafate, protonix, creon, and reglan he was been prescribed. Follow up with pcp in 1 week. Labs: Laboratory Last Values WBC 7.5 X10^3/uL (3.6-10.0) 12/29/21 04:30 RBC 3.46 X10^6/uL (4.7-6.0) L 12/29/21 04:30 Hgb 9.8 g/dL (13.5-18.0) L 12/29/21 04:30 Hct 27.7 % (42.0-54.0) L 12/29/21 04:30 MCV 80.2 fL (80.0-100.0) 12/29/21 04:30 MCH 28.2 pg (27.0-34.0) 12/29/21 04:30 MCHC 35.2 g/dL (33.0-35.0) H 12/29/21 04:30 RDW 15.4 % (11.6-16.5) 12/29/21 04:30 Plt Count 196 X10^3/uL (150.0-450.0) 12/29/21 04:30 MPV 9.2 fL (7.4-11.0) 12/29/21 04:30 Neut % (Auto) 61.5 % (42.0-75.0) 12/29/21 04:30 Lymph % (Auto) 28.4 % (21.0-51.0) 12/29/21 04:30 Dickey % (Auto) 8.6 % (0.0-13.0) 12/29/21 04:30 Eos % (Auto) 1.0 % (0.9-2.9) 12/29/21 04:30 Baso % (Auto) 0.5 % (0.2-1.0) 12/29/21 04:30 Neut # (Auto) 4.6 x10^3/uL (2.2-4.8) 12/29/21 04:30 Lymph # (Auto) 2.1 X10^3/uL (1.3-2.9) 12/29/21 04:30 Dickey # (Auto) 0.6 x10^3/uL (0.3-0.8) 12/29/21 04:30 Eos # (Auto) 0.1 x10^3/uL (0.0-0.2) 12/29/21 04:30 Baso # (Auto) 0.0 X10^3/uL (0.0-0.1) 12/29/21 04:30 Absolute Nucleated RBC 0.0 /100WBC 12/29/21 04:30 PT 13.1 SECONDS (11.8-14.3) 12/26/21 17:55 INR Target Range - 12/26/21 17:55 INR 1.02 (0.8-1.3) 12/26/21 17:55 APTT 29.7 SECONDS (22.9-36.5) 12/26/21 17:55 PTT Comment - 12/26/21 17:55 Sodium 138 mmol/L (136-145) 12/29/21 04:30 Corrected Sodium 141 mmol/L (136-145) 12/29/21 04:30 Potassium 3.4 mmol/L (3.5-5.1) L 12/29/21 04:30 Chloride 105 mmol/L (98-107) 12/29/21 04:30 Carbon Dioxide 26.1 mmol/L (21-32) 12/29/21 04:30 BUN 12 mg/dL (7-18) 12/29/21 04:30 Creatinine 1.14 mg/dL (0.70-1.30) 12/29/21 04:30 Est GFR (MDRD) Af Amer > 60 (>60) 12/29/21 04:30 Est GFR (MDRD) Non-Af > 60 (>60) 12/29/21 04:30 Glucose 214 mg/dL (65-99) H 12/29/21 04:30 POC Glucose (mg/dL) 195 mg/dL (65-99) H 12/29/21 05:20 Calcium 7.1 mg/dL (8.5-10.1) L 12/29/21 04:30 Corrected Calcium 8.9 mg/dL (8.5-10.1) 12/29/21 04:30 Magnesium 2.0 mg/dL (1.7-2.9) 12/29/21 04:30 Total Bilirubin 0.30 mg/dL (0.2-1.0) 12/29/21 04:30 AST 20 Units/L (15-37) 12/29/21 04:30 ALT 24 Units/L (12-78) 12/29/21 04:30 Alkaline Phosphatase 111 Units/L (46-116) 12/29/21 04:30 Total Protein 4.9 g/dL (6.4-8.2) L 12/29/21 04:30 Albumin 1.8 g/dL (3.4-5.0) L 12/29/21 04:30 Globulin 3.1 g/dL (2.5-4.5) 12/29/21 04:30 Albumin/Globulin Ratio 0.6 Ratio (1.1-2.1) L 12/29/21 04:30 Lipase 85 Units/L (73-393) 12/26/21 17:55 SARS CoV-2 RNA Rapid SUE Negative (NEGATIVE) 12/26/21 19:15 Tissue Pathology To follow 12/27/21 11:40 Blood Type B POSITIVE 12/26/21 19:30 Antibody Screen Negative 12/26/21 19:30 Reason For Visit: UPPER GI BLEED Discharge Diagnosis All Active Problems (Updated 12/26/21 @ 20:07 by Perry Michael) Abdominal pain (Acute) Nausea & vomiting (Acute) Hypokalemia (Acute) Acute hyperglycemia (Acute) Diabetic gastroparesis (Acute) Hematemesis/vomiting blood (Acute) MACI (acute kidney injury) (Acute) Leukocytosis (Acute) Nausea & vomiting (Acute) DM gastroparesis (Acute) Diabetic gastroparesis (Acute) Renal insufficiency (Acute) Hyperglycemia (Acute) Acute upper GI bleed (Acute) Abnormal EKG (Acute) Anemia due to GI blood loss (Acute) H. pylori infection (Acute) Food poisoning due to Campylobacter jejuni (Acute) Rhabdomyolysis (Acute) DM2 (diabetes mellitus, type 2) (Acute) Diarrhea (Acute) Hypokalemia (Acute) Lumbosacral strain (Acute) Back pain (Acute) Orthostatic hypotension (Acute) Acute renal failure (Acute) Dehydration (Acute) Diabetes (Acute) Acute gastritis (Acute) Nausea & vomiting (Acute) Plan of Treatment: Continue with present treatment and follow up plan. Pt is to keep follow up appointment as instructed and take medications as ordered. Discharge Medications Discharge Medications: No Known Drug Allergies Allergy (Verified 01/23/18 21:59) CONTINUE taking the following medications metoclopramide HCl 10 mg tablet 1 tab PO QID 12/26/21 [History] potassium chloride 10 mEq tablet,extended release 1 tab PO QDAY 12/26/21 [History] sucralfate 1 gram tablet 1 tab PO QID 12/26/21 [History] Discharge Disposition Assessment: No acute distress noted at discharge. Discharge Disposition: Home Discharge Condition: Stable Discharge Plan Discharge Plan Hospital Course: Pt is a 46 year old male past medical history Hypertension, DMT2, GERD, PUD, admitted for non-intractable nausea and vomiting, and hematemesis. His hospital/treatment course included IV medication for blood pressure control, IV anti-emetics, IV protonix. General surgery consulted-Dr Echavarria, and EGD was performed that revealed gastritis, esophagitis, and gastroparesis. Labs/imaging: Wbc 7.5, Hgb 9.8, Plt 196, Na 138, K 3.4, Creatinine 1.14, Glucose 214. Gallbladder u/s revealed no acute findings. H/H has stabilized and patient did not have any hematemesis episodes while inpatient. His nausea and vomiting improved and diet was gradually advanced. Pt was discharged in stable condition. He is instructed to continue his home carafate, protonix, creon, and reglan he was been prescribed. Follow up with pcp in 1 week. Patient Disposition: 01 HOME, SELF-CARE Condition: Stable Health Concerns: Post Hospitalization: new medications and changes needed to prevent readmission or further decline. Pt educated and given instructions on all concerns. Care Plan Goals: Problem: Pain/Alteration in Comfort Goal: Improve/ Resolve Pain; Achieve Pain Tolerance Instructions: Take pain medications as prescribed. Contact your primary care provider if your pain is unrelieved or worsens. Follow up with primary care provider as directed. Plan of Treatment: Continue with present treatment and follow up plan. Pt is to keep follow up appointment as instructed and take medications as ordered. Assessment: No acute distress noted at discharge. Prescriptions: No Action simvastatin 20 mg tablet 20 mg PO HS Label Comments: TAKE 1 TABLET BY MOUTH AT NIGHT labetalol 200 mg tablet 200 mg PO BID Farxiga 10 mg tablet 10 mg PO DAILY insulin glargine [Lantus Solostar U-100 Insulin] 100 unit/mL (3 mL) insulin pen 20 unit SUBCUT BID clonidine HCl 0.1 mg tablet 0.1 mg PO BID PRN (Reason: Hypertension) Label Comments: TAKE 1 TABLET BY MOUTH TWICE DAILY NEEDED FOR BP GREATER THAN 160/95 Creon 24,000-76,000 -120,000 unit capsule,delayed release(DR/EC) 1 cap PO TIDWMEAL Label Comments: TAKE 1 CAPSULE BY MOUTH THREE TIMES A DAY WITH MEALS AT 7AM, 2PM, AND 9PM pantoprazole 40 mg tablet,delayed release (DR/EC) 40 mg PO DAILY Qty: 30 0RF sucralfate 1 gram tablet 1 tab PO QID potassium chloride 10 mEq tablet extended release 1 tab PO QDAY metoclopramide HCl 10 mg tablet 1 tab PO QID Orders to Discharge Patient Discharge Orders: Discharge (Routine); Ordered 12/29/21 Ordered By: CHASTITY COOL Follow ups/Referrals Follow ups/Referrals: Rubin Perez [Primary Care Provider] - 3 days CHASTITY COOL [STAFF PHYSICIAN] - 01/16/22 9:00 am Instructions Instructions: Acute Kidney Injury, Adult, Nausea and Vomiting, Adult, [id number], Dehydration, Adult, Qfqk-ay-Qlqq, Abdominal Pain, Adult, Oeee-fr-Svfd, Diabetes Basics, Gastrointestinal Bleeding, Ixef-bb-Cqum, Blood Glucose Monitoring, Adult, Gastroparesis Stand Alone Forms: Precautions for [facility], Patient Portal, Social Distancing Patient Education Addl Reference Links: Hypokalemia [email or web address] =[email or web address] [email or web address]=[email or web address] [email or web address].c=en&mainSearchCriteria.v.m=[id number]&mainSearchCriteria.v.c s=[id number]&mainSearchCrite ana cristina.v.dn=Hypokalemia&mainSearchCriteria.v.r5=559.8&mainSearchCriteria.v.cs1=2.16 .[id number]&mainSearchCriteria.v.dn1=Hypokalemia&mainSearchCriteria.v.c2 =E87.6&mainSearchCriteria.v.cs2=[id number] .[id number]&mainSearchCriteria.v.dn2=Hypokalemia
== END 2021-12-29 10:55 | disposition home or self-care (01) ==
LOC: ER 17:44 → MED/SURG 17:44
PROVIDERS: ADMIT Family Medicine; ATTEND Family Medicine
DX: E11.65 Type 2 diabetes mellitus with hyperglycemia; K92.0 Hematemesis; E87.6 Hypokalemia; K29.00 Acute gastritis without bleeding; K31.84 Gastroparesis; I10 Essential (primary) hypertension; E11.43 Type 2 diabetes mellitus with diabetic autonomic (poly)neuropathy; K22.10 Ulcer of esophagus without bleeding; R10.13 Epigastric pain; R10.84 Generalized abdominal pain

== ENCOUNTER 2022-02-10 03:34 | Observation (INO) ==
[2022-02-10] MEDS ORDERED: NS 1,000 ML IV 1,000 ML IV ONE ×2 (03:52→06:03)
[2022-02-10] MEDS ORDERED: ZOFRAN INJ 4 MG VIAL ONE ×2 (03:53→06:01)
[2022-02-10] MEDS ORDERED: NS 1,000 ML IV 1,000 ML ONE ×2 (03:53→06:01)
[2022-02-10] MEDS ORDERED: ZOFRAN INJ 4 MG VIAL IVP ONE ×2 (03:56→06:04)
[2022-02-10] MEDS ORDERED: PROTONIX INJ 40 MG VIAL IVP ONE (04:12)
[2022-02-10] MEDS ORDERED: PROTONIX INJ 40 MG VIAL ONE (04:13)
[2022-02-10 04:35] LABS: BASOPHILS # (AUTO) 0.2 X10^3/uL (0.0-0.1); BASOPHILS % (AUTO) 0.9 % (0.2-1.0); HEMATOCRIT 33.4 % (42.0-54.0); HEMOGLOBIN 11.4 g/dL (13.5-18.0); LYMPHOCYTES # (AUTO) 1.8 X10^3/uL (1.3-2.9); LYMPHOCYTES % (AUTO) 9.8 % (21.0-51.0); MEAN CORPUSCULAR HEMOGLOBIN 27.9 pg (27.0-34.0); MEAN CORPUSCULAR VOLUME 82.2 fL (80.0-100.0); MEAN PLATELET VOLUME 9.3 fL (7.4-11.0); MONOCYTES # (AUTO) 1.2 x10^3/uL (0.3-0.8); MONOCYTES % (AUTO) 6.5 % (0.0-13.0); NEUTROPHILS # (AUTO) 14.8 x10^3/uL (2.2-4.8); NEUTROPHILS % (AUTO) 82.8 % (42.0-75.0); RED BLOOD COUNT 4.07 X10^6/uL (4.7-6.0); RED CELL DISTRIBUTION WIDTH 15.1 % (11.6-16.5); WHITE BLOOD COUNT 17.9 X10^3/uL (3.6-10.0)
[2022-02-10 04:43] LABS: ALBUMIN 2.4 g/dL (3.4-5.0); CALCIUM 7.9 mg/dL (8.5-10.1); CARBON DIOXIDE 36.8 mmol/L (21-32); COR CA(FOR HYPOALB) 9.2 mg/dL (8.5-10.1); CREATININE 2.19 mg/dL (0.70-1.30); TOTAL PROTEIN 6.6 g/dL (6.4-8.2)
--- NOTE | 2022-02-10 05:54 | DR.N/VMALE ---
HPI Time Seen Time Seen by Provider: 02/10/22 05:00 Primary Care Physician Primary Care Physician: Complaints Chief Complaint Doctors Comments: PATIENT STATES THAT HE HAS BEEN VOMITING BLOOD FOR 3 DAYS. Chief Complaint:: PT STATED THAT HE HAS BEEN VOMITING BLOOD FOR THREE DAYS . Self Treatment fo Chief Complaint: PHENERGAN 25MG Q4H COVID-19 Coronavirus risk:travel/contact w/high risk person: No Has patient experienced Coronavirus symptoms: No Source History Provided: Patient Mode of Arrival Mode of Arrival: Ambulatory Timing Onset of Chief Complaint: 02/08/22 PMH PMH Past Medical History: Yes Past Medical History: Diabetes and Hypertension Past Medical History Comment: Gastroparesis Past Surgical History: Yes Surgical History: Angioplasty/Stents Family History History of Family Medical Conditions: Yes Family Medical History: Cancer Social History Does patient currently use any type of tobacco product: No Do you use any recreational Drugs:: No Lives With: Family Lives Where: Home Travel Risk Coronavirus risk:travel/contact w/high risk person: No Has patient experienced Coronavirus symptoms: No Infectious screening In the last 2 months have you had wt loss of >10#?: NO Have you had fever, night sweats or hemotysis?: No Have you traveled outside the country in the last 6 months?: No Isolation: Standard ROS Review of Systems Constitutional: Other (EPIGASTRIC PAIN WITH NAUSEA AND VOMITING) Eyes: No Symptoms Reported ENTM: No Symptoms Reported Respiratoy: No Symptoms Reported Cardiovascular: No Symptoms Reported Gastrointestinal/Abdominal: Abdominal Pain, Nausea and Vomiting Genitourinary: No Symptoms Reported Neurological: No Symptoms Reported Musculoskeletal: No Symptoms Reported Integumentary: No Symptoms Reported Hematologic/Lymphatic: No Symptoms Reported Endocrine: No Symptoms Reported Psychiatric: No Symptoms Reported PE Vital Signs Vitals: Temperature 99.2 F Pulse Rate [Bilateral Radial] 93 Pulse Rate 93 Respiratory Rate 20 Blood Pressure [Left Arm] 181/97 Blood Pressure 133/77 O2 Sat by Pulse Oximetry 99 General Limitations: No Limitations General Appearance: Alert and In Distress (MODERATE DISTRESS) Head Head Exam: Normal Inspection, Atraumatic and Normocephalic Eyes Eye exam: Normal Appearance, PERRL and EOMI ENT ENT Exam: Normal Exam, Normal Oropharynx and Normal External Ear Exam Neck Neck Exam: Normal Inspection, Full ROM and Trachea Midline Chest Chest Inspection: Normal Inspection and Symmetric Chest Wall Rise Respiratory Respiratory Exam: Normal Lung Sounds Bilat Cardiovascular Cardiovascular Exam: Regular Rate and Normal Rhythm Abdominal Exam Abdominal Exam: Normal Inspection, Normal Bowel Sounds, Soft and Tenderness Abdominal Tenderness: Epigastrium Rectal Rectal Exam: Deferred Exam: Male: Deferred Extremities Extremities Exam: Normal Inspection and Full ROM Back Back Exam: Normal Inspection and Full ROM Psychiatric Psychiatric Exam: Depressed Skin Skin Exam: Warm, Dry and Intact MDM Differential Diagnosis Differential Diagnosis: Considerations may Include:: Gastritis, PUD and Other (GERD,UPPER GI BLEED) COURSE Treatment Treatment: THIS PATIENT CONTINUED TO HAVE NAUSEA AND VOMITING AFTER 8MG OF ZOF RAN GIVEN IV. WAS THEN GIVEN PHENERGAN 25MG IM WITH SOME RELIEF. HAD GASTROCCULT THAT WAS POSITIVE FOR BLOOD. CBC SHOWED 17,00 WBC'S. ACUTE ABDOMINAL SERIES SHOWED NO INTRATHORACIC ABNORMALITY AND ABDOMINAL EVALUATION WAS NEGATIVE FOR ABNORMALITY. DID HAVE MOERATE COLONIC STOOL. PATIENT WAS SEEN BY GI ABOUT ONE MONTH AGO AND HE WAS TOLD THAT HE NEED A PROCEDURE DONE BUT DOES NOT KNOW WHAT PROCEDURE. HE DOES HAVE H/O GASTROPARESIS AND UPPER GI BLEED. WILL CONTACT DIRECTOR OF APPLICATION DEVELOPMENT MEDICAL HOSPITALIST TO ADMIT AND HAVE DR DE LA CRUZ TO CONSULT FOR UPPER GI BLEED. SPOKE TO DR DISLA AND SHE ACCEPTED THE PATIENT TO ADMISSION AND DR DE LA CRUZ WILL BE CONSULTED FOT UPPER GI BLEED.SPOKE TO THE PATIENT AND HE IS A GREABLE TO THE PLAN TO BE ADMITTED FOR FURTHER EVALUATION. ROR Labs Reviewed Laboratory Results Reviewed?: Yes Result Diagrams: 02/10/22 04:07 02/10/22 04:07 Laboratory: WBC 17.9 X10^3/uL (3.6-10.0) H 02/10/22 04:07 RBC 4.07 X10^6/uL (4.7-6.0) L 02/10/22 04:07 Hgb 11.4 g/dL (13.5-18.0) L 02/10/22 04:07 Hct 33.4 % (42.0-54.0) L 02/10/22 04:07 MCV 82.2 fL (80.0-100.0) 02/10/22 04:07 MCH 27.9 pg (27.0-34.0) 02/10/22 04:07 MCHC 34.0 g/dL (33.0-35.0) 02/10/22 04:07 RDW 15.1 % (11.6-16.5) 02/10/22 04:07 Plt Count 265 X10^3/uL (150.0-450.0) 02/10/22 04:07 MPV 9.3 fL (7.4-11.0) 02/10/22 04:07 Neut % (Auto) 82.8 % (42.0-75.0) H 02/10/22 04:07 Lymph % (Auto) 9.8 % (21.0-51.0) L 02/10/22 04:07 [place] % (Auto) 6.5 % (0.0-13.0) 02/10/22 04:07 Eos % (Auto) 0.0 % (0.9-2.9) L 02/10/22 04:07 Baso % (Auto) 0.9 % (0.2-1.0) 02/10/22 04:07 Neut # (Auto) 14.8 x10^3/uL (2.2-4.8) H 02/10/22 04:07 Lymph # (Auto) 1.8 X10^3/uL (1.3-2.9) 02/10/22 04:07 [place] # (Auto) 1.2 x10^3/uL (0.3-0.8) H 02/10/22 04:07 Eos # (Auto) 0.0 x10^3/uL (0.0-0.2) 02/10/22 04:07 Baso # (Auto) 0.2 X10^3/uL (0.0-0.1) H 02/10/22 04:07 Absolute Nucleated RBC 0.0 /100WBC 02/10/22 04:07 Sodium 143 mmol/L (136-145) 02/10/22 04:07 Corrected Sodium 144 mmol/L (136-145) 02/10/22 04:07 Potassium 3.6 mmol/L (3.5-5.1) 02/10/22 04:07 Chloride 103 mmol/L (98-107) 02/10/22 04:07 Carbon Dioxide 36.8 mmol/L (21-32) H 02/10/22 04:07 BUN 42 mg/dL (7-18) H 02/10/22 04:07 Creatinine 2.19 mg/dL (0.70-1.30) H 02/10/22 04:07 Est GFR (MDRD) Af Amer 42 (>60) L 02/10/22 04:07 Est GFR (MDRD) Non-Af 35 (>60) L 02/10/22 04:07 Glucose 142 mg/dL (65-99) H 02/10/22 04:07 Calcium 7.9 mg/dL (8.5-10.1) L 02/10/22 04:07 Corrected Calcium 9.2 mg/dL (8.5-10.1) 02/10/22 04:07 Total Bilirubin 0.30 mg/dL (0.2-1.0) 02/10/22 04:07 AST 39 Units/L (15-37) H 02/10/22 04:07 ALT 42 Units/L (12-78) 02/10/22 04:07 Alkaline Phosphatase 150 Units/L (46-116) H 02/10/22 04:07 Total Protein 6.6 g/dL (6.4-8.2) 02/10/22 04:07 Albumin 2.4 g/dL (3.4-5.0) L 02/10/22 04:07 Globulin 4.2 g/dL (2.5-4.5) 02/10/22 04:07 Albumin/Globulin Ratio 0.6 Ratio (1.1-2.1) L 02/10/22 04:07 Amylase 42 Units/L (25-115) 02/10/22 04:07 Lipase 79 Units/L (73-393) 02/10/22 04:07 Gastric Fluid pH 3 02/10/22 06:07 Gastric Occult Blood Positive (NEGATIVE) A 02/10/22 06:07 Opioid Opioid Risk Tool Age (Ramiro box if 16-45): Yes History of Preadolescent Sexual Abuse: No Total: 1 Total Score Risk Category: Low Risk Copyright: Jace ROMEO predicting aberrant behaviors Discharge Plan Diagnosis Discharge Problem: Acute upper gastrointestinal bleeding, Leucocytosis, Intractable nausea and vomiting, Acute renal insufficiency Discharge Plan Patient Disposition: 09 ADMITTED INPATIENT Condition: Stable Prescriptions: No Action simvastatin 20 mg tablet 20 mg PO HS Label Comments: TAKE 1 TABLET BY MOUTH AT NIGHT labetalol 200 mg tablet 200 mg PO BID Farxiga 10 mg tablet 10 mg PO DAILY insulin glargine [Lantus Solostar U-100 Insulin] 100 unit/mL (3 mL) insulin pen 20 unit SUBCUT BID clonidine HCl 0.1 mg tablet 0.1 mg PO BID PRN (Reason: Hypertension) Label Comments: TAKE 1 TABLET BY MOUTH TWICE DAILY NEEDED FOR BP GREATER THAN 160/95 Creon 24,000-76,000 -120,000 unit capsule,delayed release(DR/EC) 1 cap PO TIDWMEAL Label Comments: TAKE 1 CAPSULE BY MOUTH THREE TIMES A DAY WITH MEALS AT 7AM, 2PM, AND 9PM pantoprazole 40 mg tablet,delayed release (DR/EC) 40 mg PO DAILY Qty: 30 0RF sucralfate 1 gram tablet 1 tab PO QID potassium chloride 10 mEq tablet extended release 1 tab PO QDAY metoclopramide HCl 10 mg tablet 1 tab PO QID Health Concerns: Post Hospitalization: new medications and changes needed to prevent readmission or further decline. Pt educated and given instructions on all concerns. Plan of Treatment: Continue with present treatment and follow up plan. Pt is to keep follow up appointment as instructed and take medications as ordered. Orders to Discharge Patient Discharge Orders: Transfer (Routine); Ordered 02/10/22 Ordered By: Wisam Varghese Follow ups/Referrals Follow ups/Referrals: Rubin Perez [Primary Care Provider] - 3 days Instructions Stand Alone Forms: Precautions for COVID19, [facility], Patient Portal, Social Distancing
[2022-02-10 06:45] LABS: GASTRIC OCCULT BLOOD POSITIVE (NEGATIVE); PH,GASTRIC FLUID 3
[2022-02-10] MEDS ORDERED: PHENERGAN INJ 25 MG IM ONE ×2 (07:01→07:04)
--- NOTE | 2022-02-10 07:01 | RAD ---
HISTORYepigastric pain, nausea and vomitingSTUDYACUTE ABDOMEN [id number] cardiomediastinal silhouette is unremarkable. The lungs are clear without evidence of airspace disease or effusion. No pneumothorax. The bony thorax appears intact.Evaluation of the abdomen demonstrates a nonobstructive bowel gas pattern. Moderate colonic stool. No evidence of pneumoperitoneum. No pathologic soft tissue calcification. The bony structures of the abdomen are intact. Vascular stent overlying the lower abdomen.IMPRESSION1. No acute cardiopulmonary process.2. No acute abdominal process.Electronically signed by: BRITTNY ROBB (Feb 10, 2022 06:59:17)
[2022-02-10 07:06] LABS: AMYLASE 42 Units/L (25-115); LIPASE 79 Units/L (73-393)
[2022-02-10] MEDS ORDERED: ZOFRAN INJ 4 MG VIAL IVP PRN (07:52)
[2022-02-10] MEDS ORDERED: NS 100 ML IV 100 ML ONE (07:53)
[2022-02-10] MEDS ORDERED: ZOSYN VIAL 3.375 GRAMS IV ONE (07:53)
[2022-02-10] MEDS ORDERED: APRESOLINE INJ 20 MG VIAL IVP ONE (08:07)
[2022-02-10] MEDS ORDERED: APRESOLINE INJ 20 MG VIAL ONE (08:10)
--- NOTE | 2022-02-10 08:10 | DR.N/VMALE ---
HPI Time Seen Time Seen by Provider: 02/10/22 05:00 Primary Care Physician Primary Care Physician: Complaints Chief Complaint:: PT STATED THAT HE HAS BEEN VOMITING BLOOD FOR THREE DAYS . Self Treatment fo Chief Complaint: PHENERGAN 25MG Q4H COVID-19 Coronavirus risk:travel/contact w/high risk person: No Has patient experienced Coronavirus symptoms: No Source History Provided: Patient Mode of Arrival Mode of Arrival: Ambulatory Timing Onset of Chief Complaint: 02/08/22 PMH PMH Past Medical History: Yes Past Medical History: Diabetes and Hypertension Past Medical History Comment: Gastroparesis Past Surgical History: Yes Surgical History: Angioplasty/Stents Family History History of Family Medical Conditions: Yes Family Medical History: Cancer Social History Does patient currently use any type of tobacco product: No Do you use any recreational Drugs:: No Lives With: Family Lives Where: Home Travel Risk Coronavirus risk:travel/contact w/high risk person: No Has patient experienced Coronavirus symptoms: No Infectious screening In the last 2 months have you had wt loss of >10#?: NO Have you had fever, night sweats or hemotysis?: No Have you traveled outside the country in the last 6 months?: No Isolation: Standard PE Vital Signs Vitals: Temperature 99.2 F Pulse Rate [Bilateral Radial] 93 Pulse Rate 93 Respiratory Rate 20 Blood Pressure [Left Arm] 181/97 Blood Pressure 133/77 O2 Sat by Pulse Oximetry 99 ROR Labs Reviewed Result Diagrams: 02/11/22 05:24 02/11/22 05:24 Laboratory: WBC 17.9 X10^3/uL (3.6-10.0) H 02/10/22 04:07 RBC 4.07 X10^6/uL (4.7-6.0) L 02/10/22 04:07 Hgb 11.4 g/dL (13.5-18.0) L 02/10/22 04:07 Hct 33.4 % (42.0-54.0) L 02/10/22 04:07 MCV 82.2 fL (80.0-100.0) 02/10/22 04:07 MCH 27.9 pg (27.0-34.0) 02/10/22 04:07 MCHC 34.0 g/dL (33.0-35.0) 02/10/22 04:07 RDW 15.1 % (11.6-16.5) 02/10/22 04:07 Plt Count 265 X10^3/uL (150.0-450.0) 02/10/22 04:07 MPV 9.3 fL (7.4-11.0) 02/10/22 04:07 Neut % (Auto) 82.8 % (42.0-75.0) H 02/10/22 04:07 Lymph % (Auto) 9.8 % (21.0-51.0) L 02/10/22 04:07 [place] % (Auto) 6.5 % (0.0-13.0) 02/10/22 04:07 Eos % (Auto) 0.0 % (0.9-2.9) L 02/10/22 04:07 Baso % (Auto) 0.9 % (0.2-1.0) 02/10/22 04:07 Neut # (Auto) 14.8 x10^3/uL (2.2-4.8) H 02/10/22 04:07 Lymph # (Auto) 1.8 X10^3/uL (1.3-2.9) 02/10/22 04:07 [place] # (Auto) 1.2 x10^3/uL (0.3-0.8) H 02/10/22 04:07 Eos # (Auto) 0.0 x10^3/uL (0.0-0.2) 02/10/22 04:07 Baso # (Auto) 0.2 X10^3/uL (0.0-0.1) H 02/10/22 04:07 Absolute Nucleated RBC 0.0 /100WBC 02/10/22 04:07 Sodium 143 mmol/L (136-145) 02/10/22 04:07 Corrected Sodium 144 mmol/L (136-145) 02/10/22 04:07 Potassium 3.6 mmol/L (3.5-5.1) 02/10/22 04:07 Chloride 103 mmol/L (98-107) 02/10/22 04:07 Carbon Dioxide 36.8 mmol/L (21-32) H 02/10/22 04:07 BUN 42 mg/dL (7-18) H 02/10/22 04:07 Creatinine 2.19 mg/dL (0.70-1.30) H 02/10/22 04:07 Est GFR (MDRD) Af Amer 42 (>60) L 02/10/22 04:07 Est GFR (MDRD) Non-Af 35 (>60) L 02/10/22 04:07 Glucose 142 mg/dL (65-99) H 02/10/22 04:07 Calcium 7.9 mg/dL (8.5-10.1) L 02/10/22 04:07 Corrected Calcium 9.2 mg/dL (8.5-10.1) 02/10/22 04:07 Total Bilirubin 0.30 mg/dL (0.2-1.0) 02/10/22 04:07 AST 39 Units/L (15-37) H 02/10/22 04:07 ALT 42 Units/L (12-78) 02/10/22 04:07 Alkaline Phosphatase 150 Units/L (46-116) H 02/10/22 04:07 Total Protein 6.6 g/dL (6.4-8.2) 02/10/22 04:07 Albumin 2.4 g/dL (3.4-5.0) L 02/10/22 04:07 Globulin 4.2 g/dL (2.5-4.5) 02/10/22 04:07 Albumin/Globulin Ratio 0.6 Ratio (1.1-2.1) L 02/10/22 04:07 Amylase 42 Units/L (25-115) 02/10/22 04:07 Lipase 79 Units/L (73-393) 02/10/22 04:07 Gastric Fluid pH 3 02/10/22 06:07 Gastric Occult Blood Positive (NEGATIVE) A 02/10/22 06:07 Opioid Opioid Risk Tool Age (Ramiro box if 16-45): Yes History of Preadolescent Sexual Abuse: No Total: 1 Total Score Risk Category: Low Risk Copyright: Jace ROMEO predicting aberrant behaviors Discharge Plan Diagnosis Discharge Problem: Acute upper gastrointestinal bleeding, Leucocytosis, Intractable nausea and vomiting, Acute renal insufficiency Discharge Plan Patient Disposition: ADMITTED INPATIENT Condition: Stable
[2022-02-10] MEDS: ZOSYN VIAL 3.375 GRAMS 3.375 G in NS 100 ML IV 100 ML IV SCH ×3 (08:17→21:45)
[2022-02-10] MEDS ORDERED: PROTONIX INJ 40 MG VIAL IVP SCH (09:00)
[2022-02-10 09:39] VITALS: BMI 22.3
[2022-02-10] MEDS: NS 1,000 ML IV 1,000 ML IV SCH ×3 (10:45→19:07)
[2022-02-10] MEDS: PROTONIX INJ 40 MG VIAL IVP SCH ×2 (10:46→20:32)
[2022-02-10] MEDS ORDERED: PHENERGAN INJ 25 MG IM PRN (11:26)
--- NOTE | 2022-02-10 11:35 | DR.H&P ---
H&P History & Physical for Day of: H&P Date: 02/10/22 Chief Complaint Chief Complaint: intractable nausea and vomiting Allergies Allergies Allergy/AdvReac Type Severity Reaction Status Date / Time No Known Drug Allergies Allergy Verified 01/23/18 21:59 History of Present Illness History of Present Illness: Patient is a 46y/o male with a PMH of PUD, HTN, diabetes, HLD and anemia presents with increased nausea and vomiting for the past 3 days. Patient reports vomiting brown liquid, denies bright red blood. No diarrhea or melena. He has had recurrent episodes and admissions for similar complaints. Patient was admitted in Dec and had EGD done by Dr Haley. He was sup pose to have further work up in . In the ER, he was started on hydration with NS, KUB (-), gastric occult was positive. He had elevated WBC and worsening renal function. He was started on IV protonix, kept NPO and Dr Haley is consulted. Labs: WBC 17.9 Hgb 11.4 K: 3.6 BUN/Cr: 42/2.19 KUB (02/10/22): no acute process 12/28/21 Gallbladder U/S: normal 12/27/21 EGD:Moderate distal esophagitis. No active bleeding, varices, or neoplasm. Gastritis involving the part of the fundus and gastric hayward without active bleeding. Antral gastritis with some thickening mucosa. Duodenum was normal. Plan: Continue hydration, change Zofran to q4 hrs prn, add Phenergan. Change Protonix to 40 mg IV BID. Add carafate. Patient is NPO, can have ice chips. Dr Haley consult pending. Monitor AM labs. Past Medical History Past Medical History: Diabetes and Hypertension Past Surgical History Surgical History: Angioplasty/Stents Family History Family Medical History: Diabetes Mellitus, Cancer and Hypertension Social History Does patient currently use any type of tobacco product: No Alcohol Use: None Drug Use: Marijuana Medications Home Medications: No Known Drug Allergies Allergy (Verified 01/23/18 21:59) Labs Result Diagrams: 02/10/22 04:07 02/10/22 04:07 Labs: Laboratory WBC 17.9 X10^3/uL (3.6-10.0) H 02/10/22 04:07 RBC 4.07 X10^6/uL (4.7-6.0) L 02/10/22 04:07 Hgb 11.4 g/dL (13.5-18.0) L 02/10/22 04:07 Hct 33.4 % (42.0-54.0) L 02/10/22 04:07 MCV 82.2 fL (80.0-100.0) 02/10/22 04:07 MCH 27.9 pg (27.0-34.0) 02/10/22 04:07 MCHC 34.0 g/dL (33.0-35.0) 02/10/22 04:07 RDW 15.1 % (11.6-16.5) 02/10/22 04:07 Plt Count 265 X10^3/uL (150.0-450.0) 02/10/22 04:07 MPV 9.3 fL (7.4-11.0) 02/10/22 04:07 Neut % (Auto) 82.8 % (42.0-75.0) H 02/10/22 04:07 Lymph % (Auto) 9.8 % (21.0-51.0) L 02/10/22 04:07 [place] % (Auto) 6.5 % (0.0-13.0) 02/10/22 04:07 Eos % (Auto) 0.0 % (0.9-2.9) L 02/10/22 04:07 Baso % (Auto) 0.9 % (0.2-1.0) 02/10/22 04:07 Neut # (Auto) 14.8 x10^3/uL (2.2-4.8) H 02/10/22 04:07 Lymph # (Auto) 1.8 X10^3/uL (1.3-2.9) 02/10/22 04:07 [place] # (Auto) 1.2 x10^3/uL (0.3-0.8) H 02/10/22 04:07 Eos # (Auto) 0.0 x10^3/uL (0.0-0.2) 02/10/22 04:07 Baso # (Auto) 0.2 X10^3/uL (0.0-0.1) H 02/10/22 04:07 Absolute Nucleated RBC 0.0 /100WBC 02/10/22 04:07 Sodium 143 mmol/L (136-145) 02/10/22 04:07 Corrected Sodium 144 mmol/L (136-145) 02/10/22 04:07 Potassium 3.6 mmol/L (3.5-5.1) 02/10/22 04:07 Chloride 103 mmol/L (98-107) 02/10/22 04:07 Carbon Dioxide 36.8 mmol/L (21-32) H 02/10/22 04:07 BUN 42 mg/dL (7-18) H 02/10/22 04:07 Creatinine 2.19 mg/dL (0.70-1.30) H 02/10/22 04:07 Est GFR (MDRD) Af Amer 42 (>60) L 02/10/22 04:07 Est GFR (MDRD) Non-Af 35 (>60) L 02/10/22 04:07 Glucose 142 mg/dL (65-99) H 02/10/22 04:07 Calcium 7.9 mg/dL (8.5-10.1) L 02/10/22 04:07 Corrected Calcium 9.2 mg/dL (8.5-10.1) 02/10/22 04:07 Total Bilirubin 0.30 mg/dL (0.2-1.0) 02/10/22 04:07 AST 39 Units/L (15-37) H 02/10/22 04:07 ALT 42 Units/L (12-78) 02/10/22 04:07 Alkaline Phosphatase 150 Units/L (46-116) H 02/10/22 04:07 Total Protein 6.6 g/dL (6.4-8.2) 02/10/22 04:07 Albumin 2.4 g/dL (3.4-5.0) L 02/10/22 04:07 Globulin 4.2 g/dL (2.5-4.5) 02/10/22 04:07 Albumin/Globulin Ratio 0.6 Ratio (1.1-2.1) L 02/10/22 04:07 Amylase 42 Units/L (25-115) 02/10/22 04:07 Lipase 79 Units/L (73-393) 02/10/22 04:07 Gastric Fluid pH 3 02/10/22 06:07 Gastric Occult Blood Positive (NEGATIVE) A 02/10/22 06:07 SARS-CoV-2 (PCR) Negative (NEGATIVE) 02/10/22 08:01 Review of Systems Constitutional: Weakness Eyes: No Symptoms Reported ENT: No Symptoms Reported Respiratory: No Symptoms Reported Cardiovascular: No Symptoms Reported Gastrointestinal: Nausea, Vomiting and Abdominal Pain Musculoskeletal: No Symptoms Reported Skin: No Symptoms Reported Neurological: No Symptoms Reported Physical Exam Vital Signs: Temperature 99.2 F Pulse Rate [Bilateral Radial] 93 Pulse Rate 93 Respiratory Rate 20 Blood Pressure [Left Arm] 181/97 Blood Pressure 180/107 O2 Sat by Pulse Oximetry 99 Oriented: Normal Eyes: Normal Ear: Normal Nose: Normal Respiratory: Clear Throughout Cardiovascular: Normal Tenderness: Epigastric, Periumbilical and Mild Skin: Normal Musculoskeletal: Normal Psychiatric: Anxiety Mood Description: Calm Affect: Anxious Speech Pattern: Clear and Appropriate Assessment/Plan (1) Acute upper gastrointestinal bleeding: Status: Acute (2) Intractable nausea and vomiting: Status: Acute (3) Acute renal insufficiency: Status: Acute (4) Abdominal pain: Status: Acute (5) Hypokalemia: Status: Acute (6) Diabetic gastroparesis: Status: Acute (7) Gastritis: Status: Acute (8) Esophageal ulcer: Status: Acute
[2022-02-10] MEDS: APRESOLINE INJ 20 MG VIAL IVP PRN ×2 (12:32→19:40)
[2022-02-10 14:09] LABS: BILIRUBIN,URINE NEGATIVE (NEGATIVE); BLOOD/HEMOGLOBIN,URINE 4+ (NEGATIVE); GLUCOSE, URINE 3+ (NEGATIVE); KETONES,URINE NEGATIVE (NEGATIVE); LEUKOCYTE ESTERASE ,URINE NEGATIVE (NEGATIVE); NITRITES,URINE NEGATIVE (NEGATIVE); PROTEIN,URINE 4+ (NEGATIVE); UROBILINOGEN,URINE NORMAL (NORMAL)
[2022-02-10 14:14] LABS: APPEARANCE,URINE CLEAR (CLEAR); COLOR,URINE YELLOW (YELLOW)
[2022-02-10 14:18] LABS: BACTERIA,URINE NEGATIVE /HPF (NEGATIVE); RBC,URINE 0-2 /HPF (0-3); SQUAMOUS EPITHELIAL CELL,UR RARE /HPF (NEGATIVE)
[2022-02-10] MEDS: CARAFATE ORAL SUSP PO SCH ×2 (16:23→20:31)
[2022-02-10] MEDS: ZOFRAN INJ 4 MG VIAL IVP PRN ×2 (16:26→21:09)
[2022-02-10] MEDS: ZyrTEC TAB 10 MG PO SCH (17:34)
[2022-02-10] MEDS: FLONASE NASAL SPRAY ENOSTRIL SCH ×2 (17:35→23:12)
[2022-02-11] MEDS: NS 1,000 ML IV 1,000 ML IV SCH ×3 (01:04→09:08)
[2022-02-11] MEDS: APRESOLINE INJ 20 MG VIAL IVP PRN ×3 (03:47→14:21)
[2022-02-11] MEDS: ZOSYN VIAL 3.375 GRAMS 3.375 G in NS 100 ML IV 100 ML IV SCH ×3 (05:10→21:08)
[2022-02-11] MEDS: CARAFATE ORAL SUSP PO SCH ×4 (05:30→20:44)
[2022-02-11 06:08] LABS: BASOPHILS # (AUTO) 0.1 X10^3/uL (0.0-0.1); BASOPHILS % (AUTO) 0.5 % (0.2-1.0); HEMATOCRIT 32.4 % (42.0-54.0); LYMPHOCYTES # (AUTO) 1.5 X10^3/uL (1.3-2.9); LYMPHOCYTES % (AUTO) 12.5 % (21.0-51.0); MEAN CORPUSCULAR HEMOGLOBIN 28.4 pg (27.0-34.0); MEAN CORPUSCULAR HGB CONC 34.1 g/dL (33.0-35.0); MEAN CORPUSCULAR VOLUME 83.5 fL (80.0-100.0); MEAN PLATELET VOLUME 9.4 fL (7.4-11.0); MONOCYTES # (AUTO) 0.7 x10^3/uL (0.3-0.8); MONOCYTES % (AUTO) 5.6 % (0.0-13.0); NEUTROPHILS # (AUTO) 9.5 x10^3/uL (2.2-4.8); NEUTROPHILS % (AUTO) 81.4 % (42.0-75.0); RED BLOOD COUNT 3.88 X10^6/uL (4.7-6.0); RED CELL DISTRIBUTION WIDTH 14.8 % (11.6-16.5); WHITE BLOOD COUNT 11.7 X10^3/uL (3.6-10.0)
[2022-02-11] MEDS ORDERED: D50W ABBOJECT SYR IV ONE (06:11)
[2022-02-11 06:19] LABS: ALANINE AMINOTRANSFERASE 37 Units/L (12-78); ALBUMIN 2.2 g/dL (3.4-5.0); ALKALINE PHOSPHATASE 123 Units/L (46-116); ASPARTATE AMINO TRANSFERASE 54 Units/L (15-37); BLOOD UREA NITROGEN 30 mg/dL (7-18); CALCIUM 7.4 mg/dL (8.5-10.1); CARBON DIOXIDE 30.4 mmol/L (21-32); CHLORIDE 111 mmol/L (98-107); COR CA(FOR HYPOALB) 8.8 mg/dL (8.5-10.1); CREATININE 1.59 mg/dL (0.70-1.30); MAGNESIUM 1.8 mg/dL (1.7-2.9); SODIUM 147 mmol/L (136-145); TOTAL PROTEIN 5.9 g/dL (6.4-8.2); eGFR NON BLACK RACES 50 (>60)
[2022-02-11] MEDS ORDERED: D5 1/2 NS 1,000 ML 1,000 ML IV SCH (07:00)
[2022-02-11] MEDS: FLONASE NASAL SPRAY ENOSTRIL SCH (08:14)
[2022-02-11] MEDS: ZyrTEC TAB 10 MG PO SCH (08:14)
[2022-02-11] MEDS: PROTONIX INJ 40 MG VIAL IVP SCH ×2 (08:14→20:45)
[2022-02-11] MEDS: ZOFRAN INJ 4 MG VIAL IVP PRN ×2 (09:49→14:39)
[2022-02-11] MEDS ORDERED: CATAPRES-TTS-1 TD SCH (11:00)
[2022-02-11] MEDS ORDERED: D5 NS + KCL 20 MEQ/L 1,000 ML IV SCH (11:00)
--- NOTE | 2022-02-11 11:20 | PCM.PROG ---
Progress Note Progress Note for Day of Date of Exam: 02/11/22 Subjective Subjective: Patient seen at bedside, early this morning, patient was noted to have increased nausea and vomiting. His glucose was 39. He drank some juice and it came up to 50s. His fluids were switched to D5NS. He states he is feeling a little better. He was able to tolerate the full liquids yesterday. He reports having some diarrhea. He was not able to take his PO medications. His BP has been elevated. He has been getting IV hydralazine. Labs/imaging reviewed: K: 3.0 Mg 1.8 BUN/Cr: 30/1.59 Plan: change IVF to D5+NS+KCl, continue hydrated, anti-emetics. Diet as per Dr Haley. Continue IV hydralazine, will add Clonidine patch. Continue IV Zosyn. Patient did have a temp of 100.8 this morning, covid (-), will swab for flu. Follow surgery recommendations. Monitor AM labs/imaging. Past Medical Family Social History Allergies: Allergies No Known Drug Allergies Allergy (Verified 01/23/18 21:59) Vital Signs and I&O's Vital Signs: Temperature 100.8 F Pulse Rate [Bilateral Radial] 103 Pulse Rate 93 Respiratory Rate 20 Blood Pressure [Left Arm] 150/82 Blood Pressure 180/107 O2 Sat by Pulse Oximetry 98 Intake and Output: Intake & Output 02/08/22 02/09/22 02/10/22 02/11/22 23:59 23:59 23:59 23:59 Intake Total 2132 / 2132 1360 / 1360 Output Total 750 / 750 Balance 1382 / 1382 1360 / 1360 Physical Exam Oriented: Normal Eyes: Normal Ear: Normal Nose: Normal Respiratory: Normal Cardiovascular: Normal Tenderness: Epigastric, Periumbilical and Mild Skin: Normal Musculoskeletal: Normal Psychiatric: Normal Mood Description: Calm Affect: Normal Speech Pattern: Clear and Appropriate Laboratory and Diagnostics Result Diagrams: 02/11/22 05:24 02/11/22 05:24 Labs: Laboratory WBC 11.7 X10^3/uL (3.6-10.0) H 02/11/22 05:24 RBC 3.88 X10^6/uL (4.7-6.0) L 02/11/22 05:24 Hgb 11.0 g/dL (13.5-18.0) L 02/11/22 05:24 Hct 32.4 % (42.0-54.0) L 02/11/22 05:24 MCV 83.5 fL (80.0-100.0) 02/11/22 05:24 MCH 28.4 pg (27.0-34.0) 02/11/22 05:24 MCHC 34.1 g/dL (33.0-35.0) 02/11/22 05:24 RDW 14.8 % (11.6-16.5) 02/11/22 05:24 Plt Count 230 X10^3/uL (150.0-450.0) 02/11/22 05:24 MPV 9.4 fL (7.4-11.0) 02/11/22 05:24 Neut % (Auto) 81.4 % (42.0-75.0) H 02/11/22 05:24 Lymph % (Auto) 12.5 % (21.0-51.0) L 02/11/22 05:24 [place] % (Auto) 5.6 % (0.0-13.0) 02/11/22 05:24 Eos % (Auto) 0.0 % (0.9-2.9) L 02/11/22 05:24 Baso % (Auto) 0.5 % (0.2-1.0) 02/11/22 05:24 Neut # (Auto) 9.5 x10^3/uL (2.2-4.8) H 02/11/22 05:24 Lymph # (Auto) 1.5 X10^3/uL (1.3-2.9) 02/11/22 05:24 [place] # (Auto) 0.7 x10^3/uL (0.3-0.8) 02/11/22 05:24 Eos # (Auto) 0.0 x10^3/uL (0.0-0.2) 02/11/22 05:24 Baso # (Auto) 0.1 X10^3/uL (0.0-0.1) 02/11/22 05:24 Absolute Nucleated RBC 0.0 /100WBC 02/11/22 05:24 Sodium 147 mmol/L (136-145) H 02/11/22 05:24 Corrected Sodium TNP 02/11/22 05:24 Potassium 3.0 mmol/L (3.5-5.1) L 02/11/22 05:24 Chloride 111 mmol/L (98-107) H 02/11/22 05:24 Carbon Dioxide 30.4 mmol/L (21-32) 02/11/22 05:24 BUN 30 mg/dL (7-18) H 02/11/22 05:24 Creatinine 1.59 mg/dL (0.70-1.30) H 02/11/22 05:24 Est GFR (MDRD) Af Amer > 60 (>60) 02/11/22 05:24 Est GFR (MDRD) Non-Af 50 (>60) L 02/11/22 05:24 Glucose 44 mg/dL (65-99) L* 02/11/22 05:24 POC Glucose (mg/dL) 136 mg/dL (65-99) H 02/11/22 09:34 Calcium 7.4 mg/dL (8.5-10.1) L 02/11/22 05:24 Corrected Calcium 8.8 mg/dL (8.5-10.1) 02/11/22 05:24 Magnesium 1.8 mg/dL (1.7-2.9) 02/11/22 05:24 Total Bilirubin 0.30 mg/dL (0.2-1.0) 02/11/22 05:24 AST 54 Units/L (15-37) H 02/11/22 05:24 ALT 37 Units/L (12-78) 02/11/22 05:24 Alkaline Phosphatase 123 Units/L (46-116) H 02/11/22 05:24 Total Protein 5.9 g/dL (6.4-8.2) L 02/11/22 05:24 Albumin 2.2 g/dL (3.4-5.0) L 02/11/22 05:24 Globulin 3.7 g/dL (2.5-4.5) 02/11/22 05:24 Albumin/Globulin Ratio 0.6 Ratio (1.1-2.1) L 02/11/22 05:24 Amylase 42 Units/L (25-115) 02/10/22 04:07 Lipase 79 Units/L (73-393) 02/10/22 04:07 Specimen Type Random urine 02/10/22 13:55 Urine Color Yellow (YELLOW) 02/10/22 13:55 Urine Appearance Clear (CLEAR) 02/10/22 13:55 Urine pH 6.0 (5.0 - 8.0) 02/10/22 13:55 Ur Specific [place] 1.025 (1.000-1.030) 02/10/22 13:55 Urine Protein 4+ (NEGATIVE) 02/10/22 13:55 Urine Glucose (UA) 3+ (NEGATIVE) 02/10/22 13:55 Urine Ketones Negative (NEGATIVE) 02/10/22 13:55 Urine Blood 4+ (NEGATIVE) 02/10/22 13:55 Urine Nitrite Negative (NEGATIVE) 02/10/22 13:55 Urine Bilirubin Negative (NEGATIVE) 02/10/22 13:55 Urine Urobilinogen Normal (NORMAL) 02/10/22 13:55 Ur Leukocyte Esterase Negative (NEGATIVE) 02/10/22 13:55 Urine RBC 0-2 /HPF (0-3) 02/10/22 13:55 Urine WBC None seen /HPF (0-5) 02/10/22 13:55 Ur Squamous Epith Cells Rare /HPF (NEGATIVE) 02/10/22 13:55 Urine Bacteria Negative /HPF (NEGATIVE) 02/10/22 13:55 Urine Mucus Rare /HPF (NEGATIVE) 02/10/22 13:55 Ur Culture Indicated? No/not indicated 02/10/22 13:55 Gastric Fluid pH 3 02/10/22 06:07 Gastric Occult Blood Positive (NEGATIVE) A 02/10/22 06:07 Urine Opiates Screen Negative (NEG=<300) 02/10/22 13:55 Urine Methadone Screen Negative (NEG=<300) 02/10/22 13:55 Ur Barbiturates Screen Negative (NEG=<200) 02/10/22 13:55 Ur Phencyclidine Scrn Negative (NEG=<25) 02/10/22 13:55 Ur Amphetamines Screen Negative (NEG=<1000) 02/10/22 13:55 U Benzodiazepines Scrn Negative (NEG=<200) 02/10/22 13:55 Urine Cocaine Screen Negative (NEG=<300) 02/10/22 13:55 U Marijuana (THC) Screen Positive (NEG=<50) A 02/10/22 13:55 SARS-CoV-2 (PCR) Negative (NEGATIVE) 02/10/22 08:01 Plan (1) Acute upper gastrointestinal bleeding: Status: Acute (2) Intractable nausea and vomiting: Status: Acute (3) Acute renal insufficiency: Status: Acute (4) Abdominal pain: Status: Acute (5) Hypokalemia: Status: Acute (6) Diabetic gastroparesis: Status: Acute (7) Gastritis: Status: Acute (8) Esophageal ulcer: Status: Acute (9) Hypoglycemia: Status: Acute
[2022-02-11] MEDS ORDERED: REGLAN TAB 5 MG PO SCH (14:00)
[2022-02-11] MEDS: D5 1/2 NS + KCL 20 MEQ/L 1,000 ML IV SCH ×2 (15:36→22:15)
[2022-02-11] MEDS: REGLAN INJ 10 MG VIAL IVP SCH (21:07)
[2022-02-12] MEDS: APRESOLINE INJ 20 MG VIAL IVP PRN ×2 (00:06→12:17)
[2022-02-12] MEDS: ZOSYN VIAL 3.375 GRAMS 3.375 G in NS 100 ML IV 100 ML IV SCH ×2 (05:06→14:30)
[2022-02-12] MEDS: REGLAN INJ 10 MG VIAL IVP SCH ×2 (05:06→14:30)
[2022-02-12] MEDS: CARAFATE ORAL SUSP PO SCH ×2 (05:34→12:27)
[2022-02-12] MEDS: D5 1/2 NS + KCL 20 MEQ/L 1,000 ML IV SCH ×2 (05:35→06:02)
[2022-02-12 05:50] LABS: BASOPHILS # (AUTO) 0.1 X10^3/uL (0.0-0.1); BASOPHILS % (AUTO) 0.8 % (0.2-1.0); EOSINOPHILS % (AUTO) 0.2 % (0.9-2.9); HEMATOCRIT 29.3 % (42.0-54.0); HEMOGLOBIN 10.2 g/dL (13.5-18.0); LYMPHOCYTES # (AUTO) 1.8 X10^3/uL (1.3-2.9); LYMPHOCYTES % (AUTO) 22.2 % (21.0-51.0); MEAN CORPUSCULAR HEMOGLOBIN 28.8 pg (27.0-34.0); MEAN CORPUSCULAR HGB CONC 34.8 g/dL (33.0-35.0); MEAN CORPUSCULAR VOLUME 82.9 fL (80.0-100.0); MEAN PLATELET VOLUME 8.7 fL (7.4-11.0); MONOCYTES # (AUTO) 0.6 x10^3/uL (0.3-0.8); MONOCYTES % (AUTO) 7.5 % (0.0-13.0); NEUTROPHILS # (AUTO) 5.8 x10^3/uL (2.2-4.8); NEUTROPHILS % (AUTO) 69.3 % (42.0-75.0); RED BLOOD COUNT 3.54 X10^6/uL (4.7-6.0); RED CELL DISTRIBUTION WIDTH 14.3 % (11.6-16.5); WHITE BLOOD COUNT 8.3 X10^3/uL (3.6-10.0)
[2022-02-12 06:03] LABS: ALANINE AMINOTRANSFERASE 29 Units/L (12-78); ALBUMIN 1.9 g/dL (3.4-5.0); ALKALINE PHOSPHATASE 103 Units/L (46-116); ASPARTATE AMINO TRANSFERASE 35 Units/L (15-37); BLOOD UREA NITROGEN 20 mg/dL (7-18); CALCIUM 7.1 mg/dL (8.5-10.1); CARBON DIOXIDE 32.2 mmol/L (21-32); CHLORIDE 106 mmol/L (98-107); COR CA(FOR HYPOALB) 8.8 mg/dL (8.5-10.1); COR NA(FOR HYPERGLY) 144 mmol/L (136-145); CREATININE 1.53 mg/dL (0.70-1.30); SODIUM 141 mmol/L (136-145); TOTAL PROTEIN 5.2 g/dL (6.4-8.2); eGFR NON BLACK RACES 53 (>60)
[2022-02-12] MEDS: FLONASE NASAL SPRAY ENOSTRIL SCH (08:54)
[2022-02-12] MEDS: PROTONIX INJ 40 MG VIAL IVP SCH (08:54)
[2022-02-12] MEDS: ZyrTEC TAB 10 MG PO SCH (08:55)
[2022-02-12] MEDS ORDERED: D5 1/2 NS + KCL 20 MEQ/L 1,000 ML IV SCH (09:00)
--- NOTE | 2022-02-12 10:25 | PCM.PROG ---
Progress Note Progress Note for Day of Date of Exam: 02/12/22 Subjective Subjective: Patient seen at bedside, feeling slightly better this morning. He states N/V is better. He is scheduled to have EGD this morning. He has been NPO since midnight. He states abdominal pain has improved. Labs/imaging reviewed: K: 3.3 BUN/Cr: 20/1.53 Glucose 200+ FLu (-) Hgb 10.2 Plan: Decrease IVF to 75cc/hr, continue anti-emetics. Follow EGD results. Continue IV hydralazine and Clonidine patch. Continue IV Zosyn. Follow surgery recommendations. Replace K as per protocol. Monitor AM labs/imaging. Past Medical Family Social History Allergies: Allergies No Known Drug Allergies Allergy (Verified 01/23/18 21:59) Vital Signs and I&O's Vital Signs: Temperature 99.0 F Pulse Rate [Bilateral Radial] 103 Pulse Rate 93 Respiratory Rate 18 Blood Pressure [Left Arm] 156/91 Blood Pressure 180/107 O2 Sat by Pulse Oximetry 97 Intake and Output: Intake & Output 02/09/22 02/10/22 02/11/22 02/12/22 23:59 23:59 23:59 23:59 Intake Total 2132 / 2132 5260 / 5260 900 / 900 Output Total 750 / 750 Balance 1382 / 1382 5260 / 5260 900 / 900 Physical Exam Oriented: Normal Eyes: Normal Ear: Normal Nose: Normal Respiratory: Normal Cardiovascular: Normal Tenderness: Epigastric and Mild Skin: Normal Musculoskeletal: Normal Psychiatric: Normal Mood Description: Calm Affect: Normal Speech Pattern: Clear and Appropriate Laboratory and Diagnostics Result Diagrams: 02/12/22 05:38 02/12/22 05:38 Labs: Laboratory WBC 8.3 X10^3/uL (3.6-10.0) 02/12/22 05:38 RBC 3.54 X10^6/uL (4.7-6.0) L 02/12/22 05:38 Hgb 10.2 g/dL (13.5-18.0) L 02/12/22 05:38 Hct 29.3 % (42.0-54.0) L 02/12/22 05:38 MCV 82.9 fL (80.0-100.0) 02/12/22 05:38 MCH 28.8 pg (27.0-34.0) 02/12/22 05:38 MCHC 34.8 g/dL (33.0-35.0) 02/12/22 05:38 RDW 14.3 % (11.6-16.5) 02/12/22 05:38 Plt Count 204 X10^3/uL (150.0-450.0) 02/12/22 05:38 MPV 8.7 fL (7.4-11.0) 02/12/22 05:38 Neut % (Auto) 69.3 % (42.0-75.0) 02/12/22 05:38 Lymph % (Auto) 22.2 % (21.0-51.0) 02/12/22 05:38 [place] % (Auto) 7.5 % (0.0-13.0) 02/12/22 05:38 Eos % (Auto) 0.2 % (0.9-2.9) L 02/12/22 05:38 Baso % (Auto) 0.8 % (0.2-1.0) 02/12/22 05:38 Neut # (Auto) 5.8 x10^3/uL (2.2-4.8) H 02/12/22 05:38 Lymph # (Auto) 1.8 X10^3/uL (1.3-2.9) 02/12/22 05:38 [place] # (Auto) 0.6 x10^3/uL (0.3-0.8) 02/12/22 05:38 Eos # (Auto) 0.0 x10^3/uL (0.0-0.2) 02/12/22 05:38 Baso # (Auto) 0.1 X10^3/uL (0.0-0.1) 02/12/22 05:38 Absolute Nucleated RBC 0.0 /100WBC 02/12/22 05:38 Sodium 141 mmol/L (136-145) 02/12/22 05:38 Corrected Sodium 144 mmol/L (136-145) 02/12/22 05:38 Potassium 3.3 mmol/L (3.5-5.1) L 02/12/22 05:38 Chloride 106 mmol/L (98-107) 02/12/22 05:38 Carbon Dioxide 32.2 mmol/L (21-32) H 02/12/22 05:38 BUN 20 mg/dL (7-18) H 02/12/22 05:38 Creatinine 1.53 mg/dL (0.70-1.30) H 02/12/22 05:38 Est GFR (MDRD) Af Amer > 60 (>60) 02/12/22 05:38 Est GFR (MDRD) Non-Af 53 (>60) L 02/12/22 05:38 Glucose 243 mg/dL (65-99) H 02/12/22 05:38 POC Glucose (mg/dL) 238 mg/dL (65-99) H 02/12/22 05:27 Calcium 7.1 mg/dL (8.5-10.1) L 02/12/22 05:38 Corrected Calcium 8.8 mg/dL (8.5-10.1) 02/12/22 05:38 Magnesium 1.8 mg/dL (1.7-2.9) 02/11/22 05:24 Total Bilirubin 0.40 mg/dL (0.2-1.0) 02/12/22 05:38 AST 35 Units/L (15-37) 02/12/22 05:38 ALT 29 Units/L (12-78) 02/12/22 05:38 Alkaline Phosphatase 103 Units/L (46-116) 02/12/22 05:38 Total Protein 5.2 g/dL (6.4-8.2) L 02/12/22 05:38 Albumin 1.9 g/dL (3.4-5.0) L 02/12/22 05:38 Globulin 3.3 g/dL (2.5-4.5) 02/12/22 05:38 Albumin/Globulin Ratio 0.6 Ratio (1.1-2.1) L 02/12/22 05:38 Amylase 42 Units/L (25-115) 02/10/22 04:07 Lipase 79 Units/L (73-393) 02/10/22 04:07 Specimen Type Random urine 02/10/22 13:55 Urine Color Yellow (YELLOW) 02/10/22 13:55 Urine Appearance Clear (CLEAR) 02/10/22 13:55 Urine pH 6.0 (5.0 - 8.0) 02/10/22 13:55 Ur Specific [place] 1.025 (1.000-1.030) 02/10/22 13:55 Urine Protein 4+ (NEGATIVE) 02/10/22 13:55 Urine Glucose (UA) 3+ (NEGATIVE) 02/10/22 13:55 Urine Ketones Negative (NEGATIVE) 02/10/22 13:55 Urine Blood 4+ (NEGATIVE) 02/10/22 13:55 Urine Nitrite Negative (NEGATIVE) 02/10/22 13:55 Urine Bilirubin Negative (NEGATIVE) 02/10/22 13:55 Urine Urobilinogen Normal (NORMAL) 02/10/22 13:55 Ur Leukocyte Esterase Negative (NEGATIVE) 02/10/22 13:55 Urine RBC 0-2 /HPF (0-3) 02/10/22 13:55 Urine WBC None seen /HPF (0-5) 02/10/22 13:55 Ur Squamous Epith Cells Rare /HPF (NEGATIVE) 02/10/22 13:55 Urine Bacteria Negative /HPF (NEGATIVE) 02/10/22 13:55 Urine Mucus Rare /HPF (NEGATIVE) 02/10/22 13:55 Ur Culture Indicated? No/not indicated 02/10/22 13:55 Gastric Fluid pH 3 02/10/22 06:07 Gastric Occult Blood Positive (NEGATIVE) A 02/10/22 06:07 Urine Opiates Screen Negative (NEG=<300) 02/10/22 13:55 Urine Methadone Screen Negative (NEG=<300) 02/10/22 13:55 Ur Barbiturates Screen Negative (NEG=<200) 02/10/22 13:55 Ur Phencyclidine Scrn Negative (NEG=<25) 02/10/22 13:55 Ur Amphetamines Screen Negative (NEG=<1000) 02/10/22 13:55 U Benzodiazepines Scrn Negative (NEG=<200) 02/10/22 13:55 Urine Cocaine Screen Negative (NEG=<300) 02/10/22 13:55 U Marijuana (THC) Screen Positive (NEG=<50) A 02/10/22 13:55 SARS-CoV-2 (PCR) Negative (NEGATIVE) 02/10/22 08:01 Influenza Type A Ag Negative-presumptive (NEGATIVE) 02/11/22 11:44 Influenza Type B Ag Negative-presumptive (NEGATIVE) 02/11/22 11:44 Plan (1) Acute upper gastrointestinal bleeding: Status: Acute (2) Intractable nausea and vomiting: Status: Acute (3) Acute renal insufficiency: Status: Acute (4) Abdominal pain: Status: Acute (5) Hypokalemia: Status: Acute (6) Diabetic gastroparesis: Status: Acute (7) Gastritis: Status: Acute (8) Esophageal ulcer: Status: Acute
[2022-02-12] MEDS ORDERED: DIPRIVAN VIAL 20 ML ONE (10:43)
[2022-02-12] MEDS ORDERED: XYLOCAINE 2 % (PLAIN) ONE (10:44)
[2022-02-12] MEDS ORDERED: NS 500 ML IV 500 ML IV ONE (11:14)
[2022-02-12] MEDS ORDERED: BREVIBLOC ONE (11:27)
[2022-02-12 13:41] VITALS: BP 156/89
[2022-02-12] MEDS ORDERED: NovoLIN R (or HumuLIN R) SUBCUT PRN (13:56)
[2022-02-12] MEDS ORDERED: NS 1,000 ML IV 1,000 ML IV SCH (14:00)
--- NOTE | 2022-02-12 14:37 | W.DIS.FURT ---
Summary of Discharge Discharge Summary of Date Date of Exam: 02/12/22 Admission Date Date of Admission: 02/10/22 Admission Diagnosis Patient Problems (Updated 02/11/22 @ 11:20 by Alea Tenorio) Acute upper gastrointestinal bleeding (Acute) K92.2 Leucocytosis (Acute) D72.829 Intractable nausea and vomiting (Acute) R11.2 Acute renal insufficiency (Acute) N28.9 Hospital Course: Patient is a 46y/o male with a PMH of PUD, HTN, diabetes, HLD and anemia presents with increased nausea and vomiting for the past 3 days. Patient reports vomiting brown liquid, denies bright red blood. No diarrhea or melena. He has had recurrent episodes and admissions for similar complaints. Patient was admitted in Dec and had EGD done by Dr Haley. He was suppose to have further work up in . In the ER, he was started on hydration with NS, KUB (-), gastric occult was positive. He had elevated WBC and worsening renal function. He was started on hydration, IV protonix, kept NPO and Dr Haley was consulted.Patient rec ently had EGD in December 2021 which showed esophagitis and gastritis. Patient's labs were monitored daily and electrolytes replaced as needed. Dr Haley did another EGD which showed similar findings. Patient's nausea/vomiting improved and he was tolerating PO intake. He will f/u with PCP and Dr Haley as scheduled. Vital Signs: Vital Signs (72 hours) 02/10/22 03:40 02/10/22 07:38 02/10/22 08:01 Temperature 99.2 F Pulse Rate 93 H Pulse Rate [Bilateral Radial] 93 H Respiratory Rate 20 20 Blood Pressure 133/77 211/122 Blood Pressure [Left Arm] 181/97 O2 Sat by Pulse Oximetry 100 99 Oxygen Delivery Method Room Air Room Air 02/10/22 08:05 02/10/22 08:06 02/10/22 08:07 Temperature Pulse Rate Pulse Rate [Bilateral Radial] Respiratory Rate Blood Pressure 200/116 205/120 198/112 Blood Pressure [Left Arm] O2 Sat by Pulse Oximetry Oxygen Delivery Method 02/10/22 08:08 02/10/22 08:09 02/10/22 08:10 Temperature Pulse Rate Pulse Rate [Bilateral Radial] Respiratory Rate Blood Pressure 206/113 196/110 212/120 Blood Pressure [Left Arm] O2 Sat by Pulse Oximetry Oxygen Delivery Method 02/10/22 08:34 02/10/22 09:04 02/10/22 09:22 Temperature 98.9 F Pulse Rate Pulse Rate [Bilateral Radial] 87 Respiratory Rate 20 Blood Pressure 175/117 180/107 Blood Pressure [Left Arm] 130/85 O2 Sat by Pulse Oximetry 96 Oxygen Delivery Method Room Air 02/10/22 12:00 02/10/22 12:28 02/10/22 12:34 Temperature 99.7 F H Pulse Rate Pulse Rate [Bilateral Radial] 87 87 92 H Respiratory Rate 20 Blood Pressure Blood Pressure [Left Arm] 183/102 167/103 134/97 O2 Sat by Pulse Oximetry 96 Oxygen Delivery Method Room Air 02/10/22 12:38 02/10/22 13:39 02/10/22 12:55 Temperature Pulse Rate Pulse Rate [Bilateral Radial] 89 91 H Respiratory Rate Blood Pressure Blood Pressure [Left Arm] 173/95 151/76 O2 Sat by Pulse Oximetry Oxygen Delivery Method Room Air 02/10/22 13:15 02/10/22 13:25 02/10/22 13:35 Temperature Pulse Rate Pulse Rate [Bilateral Radial] 89 91 H 92 H Respiratory Rate Blood Pressure Blood Pressure [Left Arm] 123/63 122/57 140/83 O2 Sat by Pulse Oximetry Oxygen Delivery Method 02/10/22 13:40 02/10/22 16:00 02/10/22 19:00 Temperature 99.0 F Pulse Rate Pulse Rate [Bilateral Radial] 99 H 93 H Respiratory Rate 20 Blood Pressure Blood Pressure [Left Arm] 154/83 144/86 O2 Sat by Pulse Oximetry 98 Oxygen Delivery Method Room Air Room Air 02/10/22 19:40 02/10/22 19:49 02/11/22 00:00 Temperature 98.3 F 98.8 F Pulse Rate Pulse Rate [Bilateral Radial] 96 H 92 H Respiratory Rate 20 20 Blood Pressure Blood Pressure [Left Arm] 180/100 157/82 165/99 O2 Sat by Pulse Oximetry 95 98 Oxygen Delivery Method Room Air Room Air 02/11/22 04:00 02/11/22 07:00 02/11/22 08:00 Temperature 98.8 F 100.8 F H Pulse Rate Pulse Rate [Bilateral Radial] 89 103 H Respiratory Rate 20 20 Blood Pressure Blood Pressure [Left Arm] 157/82 178/92 O2 Sat by Pulse Oximetry 98 98 Oxygen Delivery Method Room Air Room Air Room Air 02/11/22 09:35 02/11/22 12:00 02/11/22 16:00 Temperature 99.7 F H 99.6 F Pulse Rate Pulse Rate [Bilateral Radial] 96 H 92 H Respiratory Rate 20 20 Blood Pressure Blood Pressure [Left Arm] 150/82 180/92 138/86 O2 Sat by Pulse Oximetry 98 97 Oxygen Delivery Method Room Air Room Air 02/11/22 18:58 02/11/22 19:36 02/12/22 00:00 Temperature 99.1 F 99.5 F Pulse Rate Pulse Rate [Bilateral Radial] 94 H 105 H Respiratory Rate 20 20 Blood Pressure Blood Pressure [Left Arm] 165/84 170/92 O2 Sat by Pulse Oximetry 98 99 Oxygen Delivery Method Room Air Room Air Room Air 02/12/22 00:41 02/12/22 03:44 02/12/22 07:00 Temperature 98.8 F Pulse Rate Pulse Rate [Bilateral Radial] 97 H Respiratory Rate 20 Blood Pressure Blood Pressure [Left Arm] 137/82 167/94 O2 Sat by Pulse Oximetry 98 Oxygen Delivery Method Room Air Room Air 02/12/22 08:00 02/12/22 11:50 02/12/22 12:05 Temperature 99.0 F 99.1 F Pulse Rate Pulse Rate [Bilateral Radial] 103 H 89 96 H Respiratory Rate 18 20 20 Blood Pressure Blood Pressure [Left Arm] 156/91 158/98 190/98 O2 Sat by Pulse Oximetry 97 100 100 Oxygen Delivery Method Room Air Room Air Room Air 02/12/22 12:20 02/12/22 12:35 02/12/22 12:50 Temperature Pulse Rate Pulse Rate [Bilateral Radial] 104 H 103 H 102 H Respiratory Rate 20 20 20 Blood Pressure Blood Pressure [Left Arm] 188/89 167/96 156/89 O2 Sat by Pulse Oximetry 99 95 95 Oxygen Delivery Method Room Air Room Air Room Air Labs: Laboratory Last Values WBC 8.3 X10^3/uL (3.6-10.0) 02/12/22 05:38 RBC 3.54 X10^6/uL (4.7-6.0) L 02/12/22 05:38 Hgb 10.2 g/dL (13.5-18.0) L 02/12/22 05:38 Hct 29.3 % (42.0-54.0) L 02/12/22 05:38 MCV 82.9 fL (80.0-100.0) 02/12/22 05:38 MCH 28.8 pg (27.0-34.0) 02/12/22 05:38 MCHC 34.8 g/dL (33.0-35.0) 02/12/22 05:38 RDW 14.3 % (11.6-16.5) 02/12/22 05:38 Plt Count 204 X10^3/uL (150.0-450.0) 02/12/22 05:38 MPV 8.7 fL (7.4-11.0) 02/12/22 05:38 Neut % (Auto) 69.3 % (42.0-75.0) 02/12/22 05:38 Lymph % (Auto) 22.2 % (21.0-51.0) 02/12/22 05:38 [place] % (Auto) 7.5 % (0.0-13.0) 02/12/22 05:38 Eos % (Auto) 0.2 % (0.9-2.9) L 02/12/22 05:38 Baso % (Auto) 0.8 % (0.2-1.0) 02/12/22 05:38 Neut # (Auto) 5.8 x10^3/uL (2.2-4.8) H 02/12/22 05:38 Lymph # (Auto) 1.8 X10^3/uL (1.3-2.9) 02/12/22 05:38 [place] # (Auto) 0.6 x10^3/uL (0.3-0.8) 02/12/22 05:38 Eos # (Auto) 0.0 x10^3/uL (0.0-0.2) 02/12/22 05:38 Baso # (Auto) 0.1 X10^3/uL (0.0-0.1) 02/12/22 05:38 Absolute Nucleated RBC 0.0 /100WBC 02/12/22 05:38 Sodium 141 mmol/L (136-145) 02/12/22 05:38 Corrected Sodium 144 mmol/L (136-145) 02/12/22 05:38 Potassium 3.3 mmol/L (3.5-5.1) L 02/12/22 05:38 Chloride 106 mmol/L (98-107) 02/12/22 05:38 Carbon Dioxide 32.2 mmol/L (21-32) H 02/12/22 05:38 BUN 20 mg/dL (7-18) H 02/12/22 05:38 Creatinine 1.53 mg/dL (0.70-1.30) H 02/12/22 05:38 Est GFR (MDRD) Af Amer > 60 (>60) 02/12/22 05:38 Est GFR (MDRD) Non-Af 53 (>60) L 02/12/22 05:38 Glucose 243 mg/dL (65-99) H 02/12/22 05:38 POC Glucose (mg/dL) 242 mg/dL (65-99) H 02/12/22 13:32 Calcium 7.1 mg/dL (8.5-10.1) L 02/12/22 05:38 Corrected Calcium 8.8 mg/dL (8.5-10.1) 02/12/22 05:38 Magnesium 1.8 mg/dL (1.7-2.9) 02/11/22 05:24 Total Bilirubin 0.40 mg/dL (0.2-1.0) 02/12/22 05:38 AST 35 Units/L (15-37) 02/12/22 05:38 ALT 29 Units/L (12-78) 02/12/22 05:38 Alkaline Phosphatase 103 Units/L (46-116) 02/12/22 05:38 Total Protein 5.2 g/dL (6.4-8.2) L 02/12/22 05:38 Albumin 1.9 g/dL (3.4-5.0) L 02/12/22 05:38 Globulin 3.3 g/dL (2.5-4.5) 02/12/22 05:38 Albumin/Globulin Ratio 0.6 Ratio (1.1-2.1) L 02/12/22 05:38 Amylase 42 Units/L (25-115) 02/10/22 04:07 Lipase 79 Units/L (73-393) 02/10/22 04:07 Specimen Type Random urine 02/10/22 13:55 Urine Color Yellow (YELLOW) 02/10/22 13:55 Urine Appearance Clear (CLEAR) 02/10/22 13:55 Urine pH 6.0 (5.0 - 8.0) 02/10/22 13:55 Ur Specific [place] 1.025 (1.000-1.030) 02/10/22 13:55 Urine Protein 4+ (NEGATIVE) 02/10/22 13:55 Urine Glucose (UA) 3+ (NEGATIVE) 02/10/22 13:55 Urine Ketones Negative (NEGATIVE) 02/10/22 13:55 Urine Blood 4+ (NEGATIVE) 02/10/22 13:55 Urine Nitrite Negative (NEGATIVE) 02/10/22 13:55 Urine Bilirubin Negative (NEGATIVE) 02/10/22 13:55 Urine Urobilinogen Normal (NORMAL) 02/10/22 13:55 Ur Leukocyte Esterase Negative (NEGATIVE) 02/10/22 13:55 Urine RBC 0-2 /HPF (0-3) 02/10/22 13:55 Urine WBC None seen /HPF (0-5) 02/10/22 13:55 Ur Squamous Epith Cells Rare /HPF (NEGATIVE) 02/10/22 13:55 Urine Bacteria Negative /HPF (NEGATIVE) 02/10/22 13:55 Urine Mucus Rare /HPF (NEGATIVE) 02/10/22 13:55 Ur Culture Indicated? No/not indicated 02/10/22 13:55 Gastric Fluid pH 3 02/10/22 06:07 Gastric Occult Blood Positive (NEGATIVE) A 02/10/22 06:07 Urine Opiates Screen Negative (NEG=<300) 02/10/22 13:55 Urine Methadone Screen Negative (NEG=<300) 02/10/22 13:55 Ur Barbiturates Screen Negative (NEG=<200) 02/10/22 13:55 Ur Phencyclidine Scrn Negative (NEG=<25) 02/10/22 13:55 Ur Amphetamines Screen Negative (NEG=<1000) 02/10/22 13:55 U Benzodiazepines Scrn Negative (NEG=<200) 02/10/22 13:55 Urine Cocaine Screen Negative (NEG=<300) 02/10/22 13:55 U Marijuana (THC) Screen Positive (NEG=<50) A 02/10/22 13:55 SARS-CoV-2 (PCR) Negative (NEGATIVE) 02/10/22 08:01 Influenza Type A Ag Negative-presumptive (NEGATIVE) 02/11/22 11:44 Influenza Type B Ag Negative-presumptive (NEGATIVE) 02/11/22 11:44 Tissue Pathology To follow 02/12/22 10:32 Reason For Visit: UPPER GI BLEED, LEUCOCYTOSIS, INTRACTABLE NAUSEA Discharge Diagnosis All Active Problems (Updated 02/11/22 @ 11:20 by Alea Tenorio) Hypoglycemia (Acute) Esophageal ulcer (Acute) Gastritis (Acute) Acute upper gastrointestinal bleeding (Acute) Leucocytosis (Acute) Intractable nausea and vomiting (Acute) Acute renal insufficiency (Acute) Abdominal pain (Acute) Nausea & vomiting (Acute) Hypokalemia (Acute) Acute hyperglycemia (Acute) Diabetic gastroparesis (Acute) Hematemesis/vomiting blood (Acute) MACI (acute kidney injury) (Acute) Leukocytosis (Acute) Nausea & vomiting (Acute) DM gastroparesis (Acute) Diabetic gastroparesis (Acute) Renal insufficiency (Acute) Hyperglycemia (Acute) Acute upper GI bleed (Acute) Abnormal EKG (Acute) Anemia due to GI blood loss (Acute) H. pylori infection (Acute) Food poisoning due to Campylobacter jejuni (Acute) Rhabdomyolysis (Acute) DM2 (diabetes mellitus, type 2) (Acute) Diarrhea (Acute) Hypokalemia (Acute) Lumbosacral strain (Acute) Back pain (Acute) Orthostatic hypotension (Acute) Acute renal failure (Acute) Dehydration (Acute) Diabetes (Acute) Acute gastritis (Acute) Nausea & vomiting (Acute) Plan of Treatment: Continue with present treatment and follow up plan. Pt is to keep follow up appointment as instructed and take medications as ordered. Discharge Medications Discharge Medications: No Known Drug Allergies Allergy (Verified 01/23/18 21:59) CONTINUE taking the following medications hydrochlorothiazide 12.5 mg capsule 12.5 mg PO DAILY PRN Swelling 02/10/22 [History] metoclopramide HCl 5 mg tablet 5 mg PO TID 02/10/22 [History] pregabalin 75 mg capsule 1 cap PO BID PRN 02/10/22 [History] sildenafil 100 mg tablet 1 tab PO QDAY PRN 02/10/22 [History] New Prescriptions ondansetron 4 mg disintegrating tablet 4 mg PO Q6H PRN nausea and vomiting #20 tabs 02/12/22 [Rx] Discharge Disposition Discharge Disposition: Home Discharge Condition: Stable Discharge Plan Discharge Plan Hospital Course: Patient is a 46y/o male with a PMH of PUD, HTN, diabetes, HLD and anemia presents with increased nausea and vomiting for the past 3 days. Patient reports vomiting brown liquid, denies bright red blood. No diarrhea or melena. He has had recurrent episodes and admissions for similar complaints. Patient was admitted in Dec and had EGD done by Dr Haley. He was suppose to have further work up in . In the ER, he was started on hydration with NS, KUB (-), gastric occult was positive. He had elevated WBC and worsening renal function. He was started on hydration, IV protonix, kept NPO and Dr Haley was consulted.Patient recently had EGD in December 2021 which showed esophagitis and gastritis. Patient's labs were monitored daily and electrolytes replaced as needed. Dr Haley did another EGD which showed similar findings. Patient's nausea/vomiting improved and he was tolerating PO intake. He will f/u with PCP and Dr Haley as scheduled. Patient Disposition: 01 HOME, SELF-CARE Condition: Stable Health Concerns: Post Hospitalization: new medications and changes needed to prevent readmission or further decline. Pt educated and given instructions on all concerns. Plan of Treatment: Continue with present treatment and follow up plan. Pt is to keep follow up appointment as instructed and take medications as ordered. Prescription drug monitoring program results: PDMP reviewed and no concerns identified Prescriptions: New ondansetron 4 mg tablet,disintegrating 4 mg PO Q6H PRN (Reason: nausea and vomiting) Qty: 20 0RF Continued simvastatin 20 mg tablet 20 mg PO HS Label Comments: TAKE 1 TABLET BY MOUTH AT NIGHT labetalol 200 mg tablet 200 mg PO BID Farxiga 10 mg tablet 10 mg PO DAILY insulin glargine [Lantus Solostar U-100 Insulin] 100 unit/mL (3 mL) insulin pen 20 unit SUBCUT BID clonidine HCl 0.1 mg tablet 0.1 mg PO BID PRN (Reason: Hypertension) Label Comments: TAKE 1 TABLET BY MOUTH TWICE DAILY NEEDED FOR BP GREATER THAN 160/95 Cre[place] 24,000-76,000 -120,000 unit capsule,delayed release(DR/EC) 1 cap PO TIDWMEAL Label Comments: TAKE 1 CAPSULE BY MOUTH THREE TIMES A DAY WITH MEALS AT 7AM, 2PM, AND 9PM pantoprazole 40 mg tablet,delayed release (DR/EC) 40 mg PO DAILY Qty: 30 0RF sucralfate 1 gram tablet 1 tab PO QID potassium chloride 10 mEq tablet extended release 1 tab PO QDAY metoclopramide HCl 5 mg Tablet 5 mg PO TID hydrochlorothiazide 12.5 mg Capsule 12.5 mg PO DAILY PRN (Reason: Swelling) sildenafil 100 mg tablet 1 tab PO QDAY PRN pregabalin 75 mg capsule 1 cap PO BID PRN Orders to Discharge Patient Discharge Orders: Discharge (Routine); Ordered 02/12/22 Ordered By: Alea Tenorio Follow ups/Referrals Follow ups/Referrals: Rubin Perez [Primary Care Provider] - 02/22/22 2:45 pm CHASTITY COOL [STAFF PHYSICIAN] - 03/01/22 9:30 am Instructions Instructions: Cannabis Use Disorder, Upper Endoscopy, Care After, Diabetes Mellitus and Sick Day Management, Gastrointestinal Bleeding, Nausea and Vomiting, Adult, Managing Your Hypertension Stand Alone Forms: Excuse From Work or School, Excuse From Work, Precautions for COVID19, [facility], Patient Portal, Social Distancing
[2022-02-12] MEDS ORDERED: SNACK - Diabetic Appropriate PO SCH (20:00)
== END 2022-02-12 15:25 | disposition home or self-care (01) ==
LOC: ER 03:37 → MED/SURG 03:37
PROVIDERS: ADMIT Internal Medicine; ATTEND Internal Medicine
DX: R11.2 Nausea with vomiting, unspecified; K92.2 Gastrointestinal hemorrhage, unspecified; N28.9 Disorder of kidney and ureter, unspecified; R10.13 Epigastric pain; E86.0 Dehydration; K31.84 Gastroparesis; E87.6 Hypokalemia; Z20.822 Contact with and (suspected) exposure to COVID-19; R10.84 Generalized abdominal pain; F12.90 Cannabis use, unspecified, uncomplicated; K22.10 Ulcer of esophagus without bleeding; E11.649 Type 2 diabetes mellitus with hypoglycemia without coma; E11.43 Type 2 diabetes mellitus with diabetic autonomic (poly)neuropathy; Z87.11 Personal history of peptic ulcer disease

== ENCOUNTER 2022-03-19 05:06 | Observation (INO) ==
[2022-03-19 05:34] VITALS: BMI 23.7
[2022-03-19 05:51] LABS: BASOPHILS # (AUTO) 0.1 X10^3/uL (0.0-0.1); BASOPHILS % (AUTO) 0.7 % (0.2-1.0); EOSINOPHILS # (AUTO) 0.1 x10^3/uL (0.0-0.2); EOSINOPHILS % (AUTO) 0.7 % (0.9-2.9); HEMATOCRIT 30.6 % (42.0-54.0); HEMOGLOBIN 10.8 g/dL (13.5-18.0); LYMPHOCYTES # (AUTO) 2.6 X10^3/uL (1.3-2.9); LYMPHOCYTES % (AUTO) 19.7 % (21.0-51.0); MEAN CORPUSCULAR HEMOGLOBIN 29.3 pg (27.0-34.0); MEAN CORPUSCULAR HGB CONC 35.3 g/dL (33.0-35.0); MEAN PLATELET VOLUME 8.8 fL (7.4-11.0); MONOCYTES # (AUTO) 0.7 x10^3/uL (0.3-0.8); MONOCYTES % (AUTO) 5.6 % (0.0-13.0); NEUTROPHILS # (AUTO) 9.6 x10^3/uL (2.2-4.8); NEUTROPHILS % (AUTO) 73.3 % (42.0-75.0); RED BLOOD COUNT 3.68 X10^6/uL (4.7-6.0); RED CELL DISTRIBUTION WIDTH 12.9 % (11.6-16.5); WHITE BLOOD COUNT 13.1 X10^3/uL (3.6-10.0)
[2022-03-19 06:03] LABS: CALCIUM 8.1 mg/dL (8.5-10.1); CARBON DIOXIDE 39.7 mmol/L (21-32); COR CA(FOR HYPOALB) 9.7 mg/dL (8.5-10.1); CREATININE 2.08 mg/dL (0.70-1.30); TOTAL PROTEIN 5.4 g/dL (6.4-8.2)
--- NOTE | 2022-03-19 06:31 | CT ---
HISTORYSyncopeSTUDYCT head without contrastTechnique: Axial noncontrast images with coronal and sagittal reformats. Dose reduction procedures were used with mA/kv adjusted for body size.COMPARISONNoneFINDINGSThe ventricles are normal in size shape and position. There are no focal areas of abnormal attenuation to suggest recent or remote CVA, hemorrhage, contusion, mass lesion, or extra-axial fluid collection. The visualized sinuses are clear. The calvarium is intact.IMPRESSIONNo significant intracranial abnormality identifiedElectronically signed by: BRITTNY ROBB (Mar 19, 2022 06:30:06)
--- NOTE | 2022-03-19 06:38 | DR.N/VMALE ---
HPI Time Seen Time Seen by Provider: 03/19/22 06:37 Primary Care Physician Primary Care Physician: NADEGE HPI Comment HPI Comment: A 46 y/o male brought in by EMS after her passed out at home. He states that he woke up to get a drink and passedout. He states he vomited. It was later found out that "my sugar buttomed out." He was given 1/2 amp of D50 by the EMS. He is a diabetic and takes Lantus 20 units BID. Complaints Chief Complaint:: PT IN ED VIA STRETCHER PER [facility] WITH C/O PASSING OUT. PT BLOOD SUGAR 47 PER EMS. PT GIVEN SOMETHING TO EAT AND DRINK BUT VOMITIED IT UP. 1/2 AMP D50 GIVEN PER EMS. COVID-19 Coronavirus risk:travel/contact w/high risk person: No Has patient experienced Coronavirus symptoms: No Reviewed Nurses Notes Reviewed: Yes Source History Provided: Patient and EMS Mode of Arrival Mode of Arrival: Stretcher Timing Onset of Chief Complaint: 03/19/22 Context Onset: Spontaneous Possible Ingestion: Unknown History of: Diabetes PMH PMH Past Medical History: Yes Past Medical History: Anemia, Arthritis, Diabetes, Dyslipidemia, Gout, Hypertension and Renal Disease Past Medical History Comment: GASTROPARESIS H.PYLORI PAD GLAUCOMA CATARACTS Past Surgical History: Yes Surgical History: Angioplasty/Stents Past Surgical History Comment: STENT RIGHT LEG Family History History of Family Medical Conditions: Yes Family Medical History: Diabetes Mellitus, Cancer and Hypertension Social History Does patient currently use any type of tobacco product: No Have you used tobacco products in the last 12 months: No Type of Tobacco Use: None Does any household member use tobacco: No Alcohol Use: None Do you use any recreational Drugs:: No Lives With: Family Lives Where: Home Travel Risk Coronavirus risk:travel/contact w/high risk person: No Has patient experienced Coronavirus symptoms: No Infectious screening In the last 2 months have you had wt loss of >10#?: NO Have you had fever, night sweats or hemotysis?: No Have you traveled outside the country in the last 6 months?: No Isolation: Standard ROS Review of Systems Constitutional: No Symptoms Reported Eyes: No Symptoms Reported ENTM: No Symptoms Reported Respiratoy: No Symptoms Reported Cardiovascular: No Symptoms Reported Gastrointestinal/Abdominal: Vomiting Genitourinary: No Symptoms Reported Neurological: No Symptoms Reported Musculoskeletal: No Symptoms Reported Integumentary: No Symptoms Reported Hematologic/Lymphatic: No Symptoms Reported Endocrine: No Symptoms Reported Psychiatric: No Symptoms Reported All Other Systems: Reviewed and Negative PE Vital Signs Vitals: Temperature 99.3 F Pulse Rate 79 Respiratory Rate 18 Blood Pressure [Left Arm] 117/75 Blood Pressure 117/74 O2 Sat by Pulse Oximetry 100 General Limitations: No Limitations General Appearance: Alert and In No Apparent Distress Head Head Exam: Normal Inspection, Atraumatic and Normocephalic Eyes Eye exam: Normal Appearance and EOMI ENT ENT Exam: Normal Exam, Normal Oropharynx and Normal External Ear Exam Neck Neck Exam: Normal Inspection, Full ROM and Trachea Midline Chest Chest Inspection: Normal Inspection and Symmetric Chest Wall Rise Respiratory Respiratory Exam: Normal Lung Sounds Bilat Cardiovascular Cardiovascular Exam: Regular Rate, Normal Rhythm, Normal Heart Sounds, +S1 and +S2 Abdominal Exam Abdominal Exam: Normal Inspection, Normal Bowel Sounds and Soft Rectal Rectal Exam: Deferred Exam: Male: Deferred Extremities Extremities Exam: Normal Inspection and Full ROM Back Back Exam: Normal Inspection and Full ROM Neurologic Neurological Exam: Alert and Oriented X3 Psychiatric Psychiatric Exam: Normal Affect and Normal Mood Skin Skin Exam: Dry, Intact and Normal Color COURSE Treatment Treatment: his guero results were reviewed with him. I spoke to him about my rec ommendation that he be admitted and he agrees with this. This admission was okayed by Dr. DISLA. Admit orders were written. Reevaluation 1st: Improved Education/Counseling Education/Counseling: Patient, Education and Counseling Educated On: Treatment, Diagnosis, Prognosis and Needs for Follow Up ROR Labs Reviewed Result Diagrams: 03/19/22 05:47 03/19/22 05:47 Laboratory: WBC 13.1 X10^3/uL (3.6-10.0) H 03/19/22 05:47 RBC 3.68 X10^6/uL (4.7-6.0) L 03/19/22 05:47 Hgb 10.8 g/dL (13.5-18.0) L 03/19/22 05:47 Hct 30.6 % (42.0-54.0) L 03/19/22 05:47 MCV 83.0 fL (80.0-100.0) 03/19/22 05:47 MCH 29.3 pg (27.0-34.0) 03/19/22 05:47 MCHC 35.3 g/dL (33.0-35.0) H 03/19/22 05:47 RDW 12.9 % (11.6-16.5) 03/19/22 05:47 Plt Count 250 X10^3/uL (150.0-450.0) 03/19/22 05:47 MPV 8.8 fL (7.4-11.0) 03/19/22 05:47 Neut % (Auto) 73.3 % (42.0-75.0) 03/19/22 05:47 Lymph % (Auto) 19.7 % (21.0-51.0) L 03/19/22 05:47 [place] % (Auto) 5.6 % (0.0-13.0) 03/19/22 05:47 Eos % (Auto) 0.7 % (0.9-2.9) L 03/19/22 05:47 Baso % (Auto) 0.7 % (0.2-1.0) 03/19/22 05:47 Neut # (Auto) 9.6 x10^3/uL (2.2-4.8) H 03/19/22 05:47 Lymph # (Auto) 2.6 X10^3/uL (1.3-2.9) 03/19/22 05:47 [place] # (Auto) 0.7 x10^3/uL (0.3-0.8) 03/19/22 05:47 Eos # (Auto) 0.1 x10^3/uL (0.0-0.2) 03/19/22 05:47 Baso # (Auto) 0.1 X10^3/uL (0.0-0.1) 03/19/22 05:47 Absolute Nucleated RBC 0.0 /100WBC 03/19/22 05:47 Sodium 146 mmol/L (136-145) H 03/19/22 05:47 Corrected Sodium 147 mmol/L (136-145) H 03/19/22 05:47 Potassium 2.8 mmol/L (3.5-5.1) L* 03/19/22 05:47 Chloride 101 mmol/L (98-107) 03/19/22 05:47 Carbon Dioxide 39.7 mmol/L (21-32) H 03/19/22 05:47 BUN 31 mg/dL (7-18) H 03/19/22 05:47 Creatinine 2.08 mg/dL (0.70-1.30) H 03/19/22 05:47 Est GFR (MDRD) Af Amer 45 (>60) L 03/19/22 05:47 Est GFR (MDRD) Non-Af 37 (>60) L 03/19/22 05:47 Glucose 136 mg/dL (65-99) H 03/19/22 05:47 Calcium 8.1 mg/dL (8.5-10.1) L 03/19/22 05:47 Corrected Calcium 9.7 mg/dL (8.5-10.1) 03/19/22 05:47 Magnesium 2.1 mg/dL (2.0-2.9) 03/19/22 05:47 Total Bilirubin 0.50 mg/dL (0.2-1.0) 03/19/22 05:47 AST 40 Units/L (15-37) H 03/19/22 05:47 ALT 28 Units/L (12-78) 03/19/22 05:47 Alkaline Phosphatase 113 Units/L (46-116) 03/19/22 05:47 Total Protein 5.4 g/dL (6.4-8.2) L 03/19/22 05:47 Albumin 2.0 g/dL (3.4-5.0) L 03/19/22 05:47 Globulin 3.4 g/dL (2.5-4.5) 03/19/22 05:47 Albumin/Globulin Ratio 0.6 Ratio (1.1-2.1) L 03/19/22 05:47 Opioid Opioid Risk Tool Age (Ramiro box if 16-45): Yes History of Preadolescent Sexual Abuse: No Total: 1 Total Score Risk Category: Low Risk Copyright: Jace ROMEO predicting aberrant behaviors Discharge Plan Diagnosis Discharge Problem: Hypokalemia, CKD (chronic kidney disease) stage 3, GFR 30-59 ml/min, Hypoglycemia due to insulin Discharge Plan Patient Disposition: ADMITTED INPATIENT Condition: Stable Prescriptions: No Action simvastatin 20 mg tablet 20 mg PO HS Label Comments: TAKE 1 TABLET BY MOUTH AT NIGHT labetalol 200 mg tablet 200 mg PO BID Farxiga 10 mg tablet 10 mg PO DAILY insulin glargine [Lantus Solostar U-100 Insulin] 100 unit/mL (3 mL) insulin pen 20 unit SUBCUT BID ondansetron HCl 4 mg tablet 4 mg PO Q8H PRNQty: 20 0RF clonidine HCl 0.1 mg tablet 0.1 mg PO BID PRN (Reason: Hypertension) Label Comments: TAKE 1 TABLET BY MOUTH TWICE DAILY NEEDED FOR BP GREATER THAN 160/95 Creon 24,000-76,000 -120,000 unit capsule,delayed release(DR/EC) 1 cap PO TIDWMEAL Label Comments: TAKE 1 CAPSULE BY MOUTH THREE TIMES A DAY WITH MEALS AT 7AM, 2PM, AND 9PM pantoprazole 40 mg tablet,delayed release (DR/EC) 40 mg PO DAILY Qty: 30 0RF sucralfate 1 gram tablet 1 tab PO QID potassium chloride 10 mEq tablet extended release 1 tab PO QDAY metoclopramide HCl 5 mg Tablet 5 mg PO TID hydrochlorothiazide 12.5 mg Capsule 12.5 mg PO DAILY PRN (Reason: Swelling) sildenafil 100 mg tablet 1 tab PO QDAY PRN pregabalin 75 mg capsule 1 cap PO BID PRN ondansetron 4 mg tablet,disintegrating 4 mg PO Q6H PRN (Reason: nausea and vomiting) Qty: 20 0RF Health Concerns: Post Hospitalization: new medications and changes needed to prevent readmission or further decline. Pt educated and given instructions on all concerns. Plan of Treatment: Continue with present treatment and follow up plan. Pt is to keep follow up appointment as instructed and take medications as ordered. Orders to Discharge Patient Discharge Orders: Transfer (Routine); Ordered 03/19/22 Ordered By: DIVYA ACOSTA Follow ups/Referrals Follow ups/Referrals: Rubin Perez [Primary Care Provider] - 3 days ADDITIONAL NOTES Additional Notes Additional Notes: Name: HENRIK GOINS [facility]#: [id number]: [id number]: [id number]: MLocation: EROrder Number(s): [id number](s):HEAD (TRAUMA) Ordering Physician: DIVYA ACOSTA Primary Care: Rubin Perez Service Date: 03/19/22 Service Time: 05[address] head without contrast Technique: Axial noncontrast images with coronal and sagittal reformats. Dose reduction procedures were used with mA/kv adjusted for body size. COMPARISON None FINDINGS The ventricles are normal in size shape and position. There are no focal areas of abnormal attenuation to suggest recent or remote CVA, hemorrhage, contusion, mass lesion, or extra-axial fluid collection. The visualized sinuses are clear. The calvarium is intact. IMPRESSION No significant intracranial abnormality identified Electronically signed by: BRITTNY ROBB (Mar 19, 2022 06:30:06) Report Electronically signed: 03/19/22 0631 CC: Divya Acosta
[2022-03-19] MEDS ORDERED: ZOFRAN INJ 4 MG VIAL IVP PRN (07:12)
[2022-03-19] MEDS ORDERED: ZOFRAN INJ 4 MG VIAL ONE (07:14)
[2022-03-19] MEDS ORDERED: ZOFRAN INJ 4 MG VIAL IVP ONE (07:14)
--- NOTE | 2022-03-19 07:20 | RAD ---
HISTORYSyncope, fallSTUDYAP and lateral sacrum and coccyxCOMPARISONNoneFINDINGSThe visualized sacrum and coccyx appear intact and without fracture, lytic, or blastic lesion. The SI joints are intact. A vascular stent overlies the right hemipelvis.IMPRESSIONNo fracture identifiedElectronically signed by: BRITTNY ROBB (Mar 19, 2022 07:18:51)
[2022-03-19] MEDS ORDERED: POTASSIUM CHLORIDE IV ONE ×2 (08:00)
[2022-03-19] MEDS ORDERED: D5W IV ONE ×2 (08:00)
[2022-03-19] MEDS ORDERED: LYRICA CAP 75 mg PO PRN (09:22)
[2022-03-19] MEDS ORDERED: HYDROCHLOROTHIAZIDE 12.5 MG CAP PO PRN (09:22)
[2022-03-19] MEDS ORDERED: CATAPRES TAB 0.1 MG PO PRN (09:22)
[2022-03-19] MEDS: PROTONIX TAB 40 MG PO SCH (10:13)
[2022-03-19] MEDS: CARAFATE PO SCH ×4 (10:15→20:25)
[2022-03-19] MEDS: NORMODYNE TAB 200 MG PO SCH ×2 (10:18→21:06)
[2022-03-19] MEDS: LIPASE PROTEASE AMYLASE PO SCH ×2 (13:24→17:17)
[2022-03-19] MEDS: [UNRECOGNIZED DRUG - OTHER] PO SCH ×2 (13:24→17:17)
[2022-03-19] MEDS ORDERED: D5W + KCL 20 MEQ/L 1,000 ML IV SCH ×2 (14:00)
[2022-03-19] MEDS: REGLAN TAB 5 MG PO SCH ×2 (15:00→21:07)
[2022-03-19] MEDS: NovoLIN R (or HumuLIN R) SUBCUT PRN (16:57)
[2022-03-19] MEDS: NS + KCL 20 MEQ/L 1,000 ML IV SCH (17:08)
--- NOTE | 2022-03-19 18:29 | DR.H&P ---
H&P History & Physical for Day of: H&P Date: 03/19/22 Chief Complaint Chief Complaint: low blood glucose, weakness, dizziness Allergies Allergies Allergy/AdvReac Type Severity Reaction Status Date / Time No Known Drug Allergies Allergy Verified 01/23/18 21:59 History of Present Illness History of Present Illness: Mr Ledesma is a 46y/o male with a PMH of severe esophag itis/gastritis, HTN, HLD, DM and CKD presented with poor oral intake, weakness and low blood glucose. Patient states he has been sick for almost a week and not able to keep much down. He was able to drink some liquids. He was taking his insulin and monitoring glucose. He last took Lantus on Sat. His glucose dropped in the 40 yesterday and he passed out on the floor. In the ER, he was noted to be dehydrated with low K. He was started on IVF and potassium replacement. His glucose on admission was 136. He had been tolerating clears and now had full liquid. He states he feels slightly better. He did have an episode where he was found on the floor in the bathroom, BP was low at the time but improved with hydration. His last glucose was in the 400. Patient has recurrent admissions for intractable N/V and has had several EGDs. He was seeing GI in [place] and has been referred to [facility] but patient failed to keep follow ups. Labs reviewed Imaging: CT head: no acute process Sacrum XR: no fracture Plan: Will switch to NS with KCl, check potassium level. Continue anti-emetics prn. Resume home medications. Monitor BP. Continue current diet. Continue SSI. Monitor FSBG. Monitor AM labs/imaging. Past Medical History Past Medical History: Anemia, Arthritis, Diabetes, Dyslipidemia, Gout, Hypertension and Renal Disease Past Surgical History Surgical History: Angioplasty/Stents Family History Family Medical History: Diabetes Mellitus Social History Does patient currently use any type of tobacco product: No Have you used tobacco products in the last 12 months: No Type of Tobacco Use: None Does any household member use tobacco: No Alcohol Use: None Medications Home Medications: No Known Drug Allergies Allergy (Verified 01/23/18 21:59) Labs Result Diagrams: 03/19/22 05:47 03/19/22 17:09 Labs: Laboratory WBC 13.1 X10^3/uL (3.6-10.0) H 03/19/22 05:47 RBC 3.68 X10^6/uL (4.7-6.0) L 03/19/22 05:47 Hgb 10.8 g/dL (13.5-18.0) L 03/19/22 05:47 Hct 30.6 % (42.0-54.0) L 03/19/22 05:47 MCV 83.0 fL (80.0-100.0) 03/19/22 05:47 MCH 29.3 pg (27.0-34.0) 03/19/22 05:47 MCHC 35.3 g/dL (33.0-35.0) H 03/19/22 05:47 RDW 12.9 % (11.6-16.5) 03/19/22 05:47 Plt Count 250 X10^3/uL (150.0-450.0) 03/19/22 05:47 MPV 8.8 fL (7.4-11.0) 03/19/22 05:47 Neut % (Auto) 73.3 % (42.0-75.0) 03/19/22 05:47 Lymph % (Auto) 19.7 % (21.0-51.0) L 03/19/22 05:47 [place] % (Auto) 5.6 % (0.0-13.0) 03/19/22 05:47 Eos % (Auto) 0.7 % (0.9-2.9) L 03/19/22 05:47 Baso % (Auto) 0.7 % (0.2-1.0) 03/19/22 05:47 Neut # (Auto) 9.6 x10^3/uL (2.2-4.8) H 03/19/22 05:47 Lymph # (Auto) 2.6 X10^3/uL (1.3-2.9) 03/19/22 05:47 [place] # (Auto) 0.7 x10^3/uL (0.3-0.8) 03/19/22 05:47 Eos # (Auto) 0.1 x10^3/uL (0.0-0.2) 03/19/22 05:47 Baso # (Auto) 0.1 X10^3/uL (0.0-0.1) 03/19/22 05:47 Absolute Nucleated RBC 0.0 /100WBC 03/19/22 05:47 Sodium 146 mmol/L (136-145) H 03/19/22 05:47 Corrected Sodium 147 mmol/L (136-145) H 03/19/22 05:47 Potassium 3.1 mmol/L (3.5-5.1) L 03/19/22 17:09 Chloride 101 mmol/L (98-107) 03/19/22 05:47 Carbon Dioxide 39.7 mmol/L (21-32) H 03/19/22 05:47 BUN 31 mg/dL (7-18) H 03/19/22 05:47 Creatinine 2.08 mg/dL (0.70-1.30) H 03/19/22 05:47 Est GFR (MDRD) Af Amer 45 (>60) L 03/19/22 05:47 Est GFR (MDRD) Non-Af 37 (>60) L 03/19/22 05:47 Glucose 136 mg/dL (65-99) H 03/19/22 05:47 POC Glucose (mg/dL) 427 mg/dL (65-99) H 03/19/22 16:46 Calcium 8.1 mg/dL (8.5-10.1) L 03/19/22 05:47 Corrected Calcium 9.7 mg/dL (8.5-10.1) 03/19/22 05:47 Magnesium 2.1 mg/dL (2.0-2.9) 03/19/22 05:47 Total Bilirubin 0.50 mg/dL (0.2-1.0) 03/19/22 05:47 AST 40 Units/L (15-37) H 03/19/22 05:47 ALT 28 Units/L (12-78) 03/19/22 05:47 Alkaline Phosphatase 113 Units/L (46-116) 03/19/22 05:47 Total Protein 5.4 g/dL (6.4-8.2) L 03/19/22 05:47 Albumin 2.0 g/dL (3.4-5.0) L 03/19/22 05:47 Globulin 3.4 g/dL (2.5-4.5) 03/19/22 05:47 Albumin/Globulin Ratio 0.6 Ratio (1.1-2.1) L 03/19/22 05:47 Review of Systems Constitutional: Weakness Eyes: No Symptoms Reported ENT: No Symptoms Reported Respiratory: No Symptoms Reported Cardiovascular: No Symptoms Reported Gastrointestinal: Nausea, Vomiting and Abdominal Pain Genitourinary: No Symptoms Reported Musculoskeletal: No Symptoms Reported Skin: No Symptoms Reported Neurological: No Symptoms Reported Physical Exam Vital Signs: Temperature 98.2 F Pulse Rate [Left Brachial] 78 Pulse Rate 79 Respiratory Rate 20 Blood Pressure [Left Arm] 150/84 Blood Pressure 117/74 O2 Sat by Pulse Oximetry 99 Oriented: Normal Eyes: Normal Ear: Normal Nose: Normal Throat: Normal Respiratory: Clear Throughout Auscultation: Bowel Sounds: Normal Palpation: Normal Tenderness: Normal Musculoskeletal: Normal Psychiatric: Normal Mood Description: Calm Affect: Normal Speech Pattern: Clear and Appropriate Assessment/Plan (1) Hypoglycemia: Status: Acute (2) Nausea & vomiting: Status: Acute (3) Acute dehydration: Status: Acute (4) Hypokalemia: Status: Acute (5) Acute on chronic renal failure: Status: Acute (6) Gastritis: Status: Acute (7) Diabetic gastroparesis: Status: Acute (8) DM2 (diabetes mellitus, type 2): Status: Acute
[2022-03-19] MEDS: ZOCOR TAB 20 MG PO SCH (20:26)
[2022-03-20] MEDS: NS + KCL 20 MEQ/L 1,000 ML IV SCH ×2 (00:19→05:41)
[2022-03-20] MEDS: REGLAN TAB 5 MG PO SCH ×3 (05:17→21:16)
[2022-03-20 06:08] LABS: BASOPHILS # (AUTO) 0.1 X10^3/uL (0.0-0.1); BASOPHILS % (AUTO) 0.8 % (0.2-1.0); EOSINOPHILS # (AUTO) 0.2 x10^3/uL (0.0-0.2); EOSINOPHILS % (AUTO) 1.7 % (0.9-2.9); HEMATOCRIT 27.8 % (42.0-54.0); LYMPHOCYTES # (AUTO) 2.1 X10^3/uL (1.3-2.9); LYMPHOCYTES % (AUTO) 21.8 % (21.0-51.0); MEAN CORPUSCULAR HEMOGLOBIN 29.8 pg (27.0-34.0); MEAN CORPUSCULAR HGB CONC 36.1 g/dL (33.0-35.0); MEAN CORPUSCULAR VOLUME 82.7 fL (80.0-100.0); MEAN PLATELET VOLUME 9.6 fL (7.4-11.0); MONOCYTES # (AUTO) 0.7 x10^3/uL (0.3-0.8); NEUTROPHILS # (AUTO) 6.7 x10^3/uL (2.2-4.8); NEUTROPHILS % (AUTO) 68.7 % (42.0-75.0); RED BLOOD COUNT 3.37 X10^6/uL (4.7-6.0); RED CELL DISTRIBUTION WIDTH 12.8 % (11.6-16.5); WHITE BLOOD COUNT 9.8 X10^3/uL (3.6-10.0)
[2022-03-20 06:16] LABS: ALBUMIN 1.8 g/dL (3.4-5.0); CALCIUM 7.2 mg/dL (8.5-10.1); CARBON DIOXIDE 32.2 mmol/L (21-32); CREATININE 1.83 mg/dL (0.70-1.30); MAGNESIUM 1.8 mg/dL (2.0-2.9)
[2022-03-20] MEDS: LIPASE PROTEASE AMYLASE PO SCH ×3 (06:59→16:39)
[2022-03-20] MEDS: [UNRECOGNIZED DRUG - OTHER] PO SCH ×3 (06:59→16:39)
[2022-03-20] MEDS: NS + KCL 40 MEQ/L 1,000 ML IV SCH ×3 (08:42→18:57)
[2022-03-20] MEDS: K-DUR TAB 20 MEQ PO SCH ×2 (08:43→20:21)
[2022-03-20] MEDS: NORMODYNE TAB 200 MG PO SCH ×2 (08:43→20:22)
[2022-03-20] MEDS: PROTONIX TAB 40 MG PO SCH (08:44)
[2022-03-20] MEDS: CARAFATE PO SCH ×4 (08:45→20:21)
[2022-03-20] MEDS: LANTUS SC SCH ×2 (08:57→20:21)
[2022-03-20] MEDS: MAGNESIUM SULFATE 1 GRAM/100 mL PREMIX 1 G/100 ML BAG IV PRN ×2 (09:24→11:32)
[2022-03-20 11:11] LABS: CRYPTOSPORIDIUM PARVUM ANTIGEN NEGATIVE (NEGATIVE); GIARDIA LAMBLIA ANTIGEN NEGATIVE (NEGATIVE)
[2022-03-20] MEDS: NovoLIN R (or HumuLIN R) SUBCUT PRN (11:41)
--- NOTE | 2022-03-20 13:20 | PCM.PROG ---
Progress Note Progress Note for Day of Date of Exam: 03/20/22 Subjective Subjective: Patient seen at bedside, no acute events overnight. He is feeling better this morning. He has been able to tolerate full liquids. He has been having more diarrhea this morning. Denies N/V or abdominal pain. Labs reviewed: K: 2.8 Hgb 10 BUN/Cr 26/1.83 Glucose 199 Plan: will switch to NS with 40meq KCl, add PO KCl BID, monitor potassium levels. Start mag replacement protocol. Send stool studies. Continue current diet. Continue home medications. Start Lantus 10 units BID, continue SSI. Monitor AM labs/imaging. Past Medical Family Social History Allergies: Allergies No Known Drug Allergies Allergy (Verified 01/23/18 21:59) Vital Signs and I&O's Vital Signs: Temperature 99 F Pulse Rate [Left Brachial] 93 Pulse Rate 79 Respiratory Rate 18 Blood Pressure [Left Arm] 114/72 Blood Pressure 117/74 O2 Sat by Pulse Oximetry 99 Intake and Output: Intake & Output 03/17/22 03/18/22 03/19/22 03/20/22 23:59 23:59 23:59 23:59 Intake Total 2299 / 2299 1050 / 1050 Output Total 760 / 760 Balance 2299 / 2299 290 / 290 Physical Exam Oriented: Normal Eyes: Normal Ear: Normal Nose: Normal Throat: Normal Auscultation: Bowel Sounds: Normal Tenderness: Normal Musculoskeletal: Normal Psychiatric: Normal Mood Description: Calm Affect: Normal Speech Pattern: Clear and Appropriate Laboratory and Diagnostics Result Diagrams: 03/20/22 05:33 03/20/22 05:33 Labs: 03/20/22 09:30 Stool - Final Laboratory WBC 9.8 X10^3/uL (3.6-10.0) 03/20/22 05:33 RBC 3.37 X10^6/uL (4.7-6.0) L 03/20/22 05:33 Hgb 10.0 g/dL (13.5-18.0) L 03/20/22 05:33 Hct 27.8 % (42.0-54.0) L 03/20/22 05:33 MCV 82.7 fL (80.0-100.0) 03/20/22 05:33 MCH 29.8 pg (27.0-34.0) 03/20/22 05:33 MCHC 36.1 g/dL (33.0-35.0) H 03/20/22 05:33 RDW 12.8 % (11.6-16.5) 03/20/22 05:33 Plt Count 208 X10^3/uL (150.0-450.0) 03/20/22 05:33 MPV 9.6 fL (7.4-11.0) 03/20/22 05:33 Neut % (Auto) 68.7 % (42.0-75.0) 03/20/22 05:33 Lymph % (Auto) 21.8 % (21.0-51.0) 03/20/22 05:33 [place] % (Auto) 7.0 % (0.0-13.0) 03/20/22 05:33 Eos % (Auto) 1.7 % (0.9-2.9) 03/20/22 05:33 Baso % (Auto) 0.8 % (0.2-1.0) 03/20/22 05:33 Neut # (Auto) 6.7 x10^3/uL (2.2-4.8) H 03/20/22 05:33 Lymph # (Auto) 2.1 X10^3/uL (1.3-2.9) 03/20/22 05:33 [place] # (Auto) 0.7 x10^3/uL (0.3-0.8) 03/20/22 05:33 Eos # (Auto) 0.2 x10^3/uL (0.0-0.2) 03/20/22 05:33 Baso # (Auto) 0.1 X10^3/uL (0.0-0.1) 03/20/22 05:33 Absolute Nucleated RBC 0.0 /100WBC 03/20/22 05:33 Sodium 137 mmol/L (136-145) 03/20/22 05:33 Corrected Sodium 139 mmol/L (136-145) 03/20/22 05:33 Potassium 2.8 mmol/L (3.5-5.1) L* 03/20/22 05:33 Chloride 100 mmol/L (98-107) 03/20/22 05:33 Carbon Dioxide 32.2 mmol/L (21-32) H 03/20/22 05:33 BUN 26 mg/dL (7-18) H 03/20/22 05:33 Creatinine 1.83 mg/dL (0.70-1.30) H 03/20/22 05:33 Est GFR (MDRD) Af Amer 52 (>60) L 03/20/22 05:33 Est GFR (MDRD) Non-Af 43 (>60) L 03/20/22 05:33 Glucose 199 mg/dL (65-99) H 03/20/22 05:33 POC Glucose (mg/dL) 288 mg/dL (65-99) H 03/20/22 11:35 Calcium 7.2 mg/dL (8.5-10.1) L 03/20/22 05:33 Corrected Calcium 9.0 mg/dL (8.5-10.1) 03/20/22 05:33 Magnesium 1.8 mg/dL (2.0-2.9) L 03/20/22 05:33 Total Bilirubin 0.40 mg/dL (0.2-1.0) 03/20/22 05:33 AST 37 Units/L (15-37) 03/20/22 05:33 ALT 22 Units/L (12-78) 03/20/22 05:33 Alkaline Phosphatase 105 Units/L (46-116) 03/20/22 05:33 Total Protein 5.0 g/dL (6.4-8.2) L 03/20/22 05:33 Albumin 1.8 g/dL (3.4-5.0) L 03/20/22 05:33 Globulin 3.2 g/dL (2.5-4.5) 03/20/22 05:33 Albumin/Globulin Ratio 0.6 Ratio (1.1-2.1) L 03/20/22 05:33 Stl Occult Blood (IFOB) Negative (NEGATIVE) 03/20/22 09:30 Stool for White Cells Negative (NEGATIVE) 03/20/22 09:30 Stl C. diff Tox B Gene Negative (NEGATIVE) 03/20/22 09:30 Stl C. diff [id number] Presumptive negative (NEGATIVE) 03/20/22 09:30 Cryptosporid parvum Ag Negative (NEGATIVE) 03/20/22 09:30 Giardia lamblia Ag Negative (NEGATIVE) 03/20/22 09:30 Plan (1) Diarrhea: Status: Acute Qualifiers: Diarrhea type: infectious Qualified Code(s): A09 - Infectious gastroenteritis and colitis, unspecified (2) Hypoglycemia: Status: Acute (3) Nausea & vomiting: Status: Acute (4) Acute dehydration: Status: Acute (5) Hypokalemia: Status: Acute (6) Acute on chronic renal failure: Status: Acute (7) Gastritis: Status: Acute (8) Diabetic gastroparesis: Status: Acute (9) DM2 (diabetes mellitus, type 2): Status: Acute
[2022-03-20] MEDS ORDERED: BUTT CREAM (COMPOUND) TOP PRN (19:03)
[2022-03-20] MEDS ORDERED: SNACK - Diabetic Appropriate PO SCH (20:00)
[2022-03-20] MEDS: ZOCOR TAB 20 MG PO SCH (20:22)
[2022-03-21] MEDS: NS + KCL 40 MEQ/L 1,000 ML IV SCH (02:10)
[2022-03-21 05:53] LABS: BASOPHILS # (AUTO) 0.1 X10^3/uL (0.0-0.1); BASOPHILS % (AUTO) 0.8 % (0.2-1.0); EOSINOPHILS # (AUTO) 0.3 x10^3/uL (0.0-0.2); HEMATOCRIT 27.5 % (42.0-54.0); HEMOGLOBIN 9.8 g/dL (13.5-18.0); LYMPHOCYTES # (AUTO) 2.4 X10^3/uL (1.3-2.9); LYMPHOCYTES % (AUTO) 26.5 % (21.0-51.0); MEAN CORPUSCULAR HEMOGLOBIN 29.3 pg (27.0-34.0); MEAN CORPUSCULAR HGB CONC 35.6 g/dL (33.0-35.0); MEAN CORPUSCULAR VOLUME 82.4 fL (80.0-100.0); MEAN PLATELET VOLUME 9.6 fL (7.4-11.0); MONOCYTES # (AUTO) 0.7 x10^3/uL (0.3-0.8); MONOCYTES % (AUTO) 7.7 % (0.0-13.0); NEUTROPHILS # (AUTO) 5.6 x10^3/uL (2.2-4.8); RED BLOOD COUNT 3.34 X10^6/uL (4.7-6.0)
[2022-03-21] MEDS: REGLAN TAB 5 MG PO SCH (05:53)
[2022-03-21] MEDS: LIPASE PROTEASE AMYLASE PO SCH (05:59)
[2022-03-21] MEDS: [UNRECOGNIZED DRUG - OTHER] PO SCH (05:59)
[2022-03-21 06:08] LABS: ALANINE AMINOTRANSFERASE 24 Units/L (12-78); ALBUMIN 1.8 g/dL (3.4-5.0); ALKALINE PHOSPHATASE 102 Units/L (46-116); ASPARTATE AMINO TRANSFERASE 29 Units/L (15-37); BLOOD UREA NITROGEN 15 mg/dL (7-18); CALCIUM 7.3 mg/dL (8.5-10.1); CARBON DIOXIDE 31.1 mmol/L (21-32); CHLORIDE 107 mmol/L (98-107); COR CA(FOR HYPOALB) 9.1 mg/dL (8.5-10.1); COR NA(FOR HYPERGLY) 141 mmol/L (136-145); CREATININE 1.46 mg/dL (0.70-1.30); SODIUM 140 mmol/L (136-145); eGFR NON BLACK RACES 55 (>60)
[2022-03-21] MEDS: CARAFATE PO SCH (08:52)
[2022-03-21] MEDS: K-DUR TAB 20 MEQ PO SCH (08:52)
[2022-03-21] MEDS: PROTONIX TAB 40 MG PO SCH (08:53)
--- NOTE | 2022-03-21 09:49 | W.DIS.FURT ---
Summary of Discharge Admission Diagnosis Patient Problems (Updated 03/19/22 @ 18:53 by Alea Tenorio) CKD (chronic kidney disease) stage 3, GFR 30-59 ml/min (Acute) N18.30 Hypoglycemia due to insulin (Acute) E16.0, T38.3X5A Hypokalemia (Acute) E87.6 Vital Signs: Vital Signs (72 hours) 03/19/22 05:07 03/19/22 07:11 03/19/22 07:30 Temperature 99.3 F Pulse Rate 79 Pulse Rate [Left Brachial] 77 Respiratory Rate 18 17 Blood Pressure 117/74 Blood Pressure [Left Arm] 117/75 125/82 O2 Sat by Pulse Oximetry 100 97 Oxygen Delivery Method Room Air Room Air 03/19/22 07:39 03/19/22 08:30 03/19/22 08:50 Temperature 97.5 F L Pulse Rate Pulse Rate [Left Brachial] 75 75 78 Respiratory Rate 22 17 20 Blood Pressure Blood Pressure [Left Arm] 125/82 128/75 139/83 O2 Sat by Pulse Oximetry 100 100 98 Oxygen Delivery Method Room Air Room Air Room Air 03/19/22 08:50 03/19/22 12:00 03/19/22 12:00 Temperature 98.1 F 98.1 F Pulse Rate Pulse Rate [Left Brachial] 83 83 Respiratory Rate 20 20 Blood Pressure Blood Pressure [Left Arm] 129/84 129/84 O2 Sat by Pulse Oximetry 97 97 Oxygen Delivery Method Room Air Room Air Room Air 03/19/22 12:45 03/19/22 16:00 03/19/22 16:00 Temperature 98.2 F 98.2 F Pulse Rate Pulse Rate [Left Brachial] 83 78 78 Respiratory Rate 20 20 20 Blood Pressure Blood Pressure [Left Arm] 83/51 150/84 150/84 O2 Sat by Pulse Oximetry 98 99 99 Oxygen Delivery Method Room Air Room Air Room Air 03/19/22 19:00 03/19/22 19:43 03/20/22 00:00 Temperature 98.9 F 99.0 F Pulse Rate Pulse Rate [Left Brachial] 80 79 Respiratory Rate 18 21 Blood Pressure Blood Pressure [Left Arm] 131/81 128/78 O2 Sat by Pulse Oximetry 100 98 Oxygen Delivery Method Room Air Room Air Room Air 03/20/22 04:00 03/20/22 06:45 03/20/22 08:00 Temperature 99.2 F 99 F Pulse Rate Pulse Rate [Left Brachial] 86 93 H Respiratory Rate 20 18 Blood Pressure Blood Pressure [Left Arm] 133/81 114/72 O2 Sat by Pulse Oximetry 98 99 Oxygen Delivery Method Room Air Room Air Room Air 03/20/22 12:00 03/20/22 16:00 03/20/22 19:00 Temperature 98.8 F 98.1 F Pulse Rate Pulse Rate [Left Brachial] 80 82 Respiratory Rate 18 20 Blood Pressure Blood Pressure [Left Arm] 132/80 108/59 O2 Sat by Pulse Oximetry 98 100 Oxygen Delivery Method Room Air Room Air Room Air 03/20/22 20:00 03/21/22 00:00 03/21/22 00:00 Temperature 98.3 F 98.4 F 98.4 F Pulse Rate Pulse Rate [Left Brachial] 76 80 80 Respiratory Rate 20 20 20 Blood Pressure Blood Pressure [Left Arm] 138/85 122/17 122/77 O2 Sat by Pulse Oximetry 100 99 99 Oxygen Delivery Method Room Air Room Air Room Air 03/21/22 04:00 Temperature 98.5 F Pulse Rate Pulse Rate [Left Brachial] 81 Respiratory Rate 20 Blood Pressure Blood Pressure [Left Arm] 133/85 O2 Sat by Pulse Oximetry 99 Oxygen Delivery Method Room Air Labs: Laboratory Last Values WBC 9.0 X10^3/uL (3.6-10.0) 03/21/22 05:06 RBC 3.34 X10^6/uL (4.7-6.0) L 03/21/22 05:06 Hgb 9.8 g/dL (13.5-18.0) L 03/21/22 05:06 Hct 27.5 % (42.0-54.0) L 03/21/22 05:06 MCV 82.4 fL (80.0-100.0) 03/21/22 05:06 MCH 29.3 pg (27.0-34.0) 03/21/22 05:06 MCHC 35.6 g/dL (33.0-35.0) H 03/21/22 05:06 RDW 13.0 % (11.6-16.5) 03/21/22 05:06 Plt Count 219 X10^3/uL (150.0-450.0) 03/21/22 05:06 MPV 9.6 fL (7.4-11.0) 03/21/22 05:06 Neut % (Auto) 62.0 % (42.0-75.0) 03/21/22 05:06 Lymph % (Auto) 26.5 % (21.0-51.0) 03/21/22 05:06 [place] % (Auto) 7.7 % (0.0-13.0) 03/21/22 05:06 Eos % (Auto) 3.0 % (0.9-2.9) H 03/21/22 05:06 Baso % (Auto) 0.8 % (0.2-1.0) 03/21/22 05:06 Neut # (Auto) 5.6 x10^3/uL (2.2-4.8) H 03/21/22 05:06 Lymph # (Auto) 2.4 X10^3/uL (1.3-2.9) 03/21/22 05:06 [place] # (Auto) 0.7 x10^3/uL (0.3-0.8) 03/21/22 05:06 Eos # (Auto) 0.3 x10^3/uL (0.0-0.2) H 03/21/22 05:06 Baso # (Auto) 0.1 X10^3/uL (0.0-0.1) 03/21/22 05:06 Absolute Nucleated RBC 0.0 /100WBC 03/21/22 05:06 Sodium 140 mmol/L (136-145) 03/21/22 05:06 Corrected Sodium 141 mmol/L (136-145) 03/21/22 05:06 Potassium 3.9 mmol/L (3.5-5.1) 03/21/22 05:06 Chloride 107 mmol/L (98-107) 03/21/22 05:06 Carbon Dioxide 31.1 mmol/L (21-32) 03/21/22 05:06 BUN 15 mg/dL (7-18) 03/21/22 05:06 Creatinine 1.46 mg/dL (0.70-1.30) H 03/21/22 05:06 Est GFR (MDRD) Af Amer > 60 (>60) 03/21/22 05:06 Est GFR (MDRD) Non-Af 55 (>60) L 03/21/22 05:06 Glucose 125 mg/dL (65-99) H 03/21/22 05:06 POC Glucose (mg/dL) 121 mg/dL (65-99) H 03/21/22 05:07 Calcium 7.3 mg/dL (8.5-10.1) L 03/21/22 05:06 Corrected Calcium 9.1 mg/dL (8.5-10.1) 03/21/22 05:06 Magnesium 2.0 mg/dL (2.0-2.9) 03/21/22 05:06 Total Bilirubin 0.20 mg/dL (0.2-1.0) 03/21/22 05:06 AST 29 Units/L (15-37) 03/21/22 05:06 ALT 24 Units/L (12-78) 03/21/22 05:06 Alkaline Phosphatase 102 Units/L (46-116) 03/21/22 05:06 Total Protein 5.0 g/dL (6.4-8.2) L 03/21/22 05:06 Albumin 1.8 g/dL (3.4-5.0) L 03/21/22 05:06 Globulin 3.2 g/dL (2.5-4.5) 03/21/22 05:06 Albumin/Globulin Ratio 0.6 Ratio (1.1-2.1) L 03/21/22 05:06 Stl Occult Blood (IFOB) Negative (NEGATIVE) 03/20/22 09:30 Stool for White Cells Negative (NEGATIVE) 03/20/22 09:30 Stl C. diff Tox B Gene Negative (NEGATIVE) 03/20/22 09:30 Stl C. diff [id number] Presumptive negative (NEGATIVE) 03/20/22 09:30 Cryptosporid parvum Ag Negative (NEGATIVE) 03/20/22 09:30 Giardia lamblia Ag Negative (NEGATIVE) 03/20/22 09:30 Reason For Visit: HYPOGLYCEMIA DUE TO INSULIN, HYPOKALEMIA, CKD, Discharge Diagnosis All Active Problems (Updated 03/19/22 @ 18:53 by Alea Tenorio) Hypoglycemia (Acute) Acute on chronic renal failure (Acute) Nausea & vomiting (Acute) Acute renal failure (Acute) Abdominal pain, epigastric (Acute) Acute dehydration (Acute) CKD (chronic kidney disease) stage 3, GFR 30-59 ml/min (Acute) Hypoglycemia due to insulin (Acute) Hypoglycemia (Acute) Esophageal ulcer (Acute) Gastritis (Acute) Acute upper gastrointestinal bleeding (Acute) Leucocytosis (Acute) Intractable nausea and vomiting (Acute) Acute renal insufficiency (Acute) Abdominal pain (Acute) Nausea & vomiting (Acute) Hypokalemia (Acute) Acute hyperglycemia (Acute) Diabetic gastroparesis (Acute) Hematemesis/vomiting blood (Acute) MACI (acute kidney injury) (Acute) Leukocytosis (Acute) Nausea & vomiting (Acute) DM gastroparesis (Acute) Diabetic gastroparesis (Acute) Renal insufficiency (Acute) Hyperglycemia (Acute) Acute upper GI bleed (Acute) Abnormal EKG (Acute) Anemia due to GI blood loss (Acute) H. pylori infection (Acute) Food poisoning due to Campylobacter jejuni (Acute) Rhabdomyolysis (Acute) DM2 (diabetes mellitus, type 2) (Acute) Diarrhea (Acute) Hypokalemia (Acute) Lumbosacral strain (Acute) Back pain (Acute) Orthostatic hypotension (Acute) Acute renal failure (Acute) Dehydration (Acute) Diabetes (Acute) Acute gastritis (Acute) Nausea & vomiting (Acute) Plan of Treatment: Continue with present treatment and follow up plan. Pt is to keep follow up appointment as instructed and take medications as ordered. Discharge Medications Discharge Medications: No Known Drug Allergies Allergy (Verified 01/23/18 21:59) Discharge Plan Discharge Plan Patient Disposition: 01 HOME, SELF-CARE Condition: Stable Health Concerns: Post Hospitalization: new medications and changes needed to prevent readmission or further decline. Pt educated and given instructions on all concerns. Care Plan Goals: Problem: Fluid Volume Deficit Goal: Maintain/Improved Adequate hydration. Instructions: Follow provided instructions. Follow up with primary physician as directed. Contact primary care physician or report to the closest Emergency Room if condition worsens. Plan of Treatment: Continue with present treatment and follow up plan. Pt is to keep follow up appointment as instructed and take medications as ordered. Prescription drug monitoring program results: PDMP reviewed and no concerns identified Prescriptions: Continued simvastatin 20 mg tablet 20 mg PO HS Label Comments: TAKE 1 TABLET BY MOUTH AT NIGHT labetalol 200 mg tablet 200 mg PO BID Farxiga 10 mg tablet 10 mg PO DAILY ondansetron HCl 4 mg tablet 4 mg PO Q8H PRNQty: 20 0RF clonidine HCl 0.1 mg tablet 0.1 mg PO BID PRN (Reason: Hypertension) Label Comments: TAKE 1 TABLET BY MOUTH TWICE DAILY NEEDED FOR BP GREATER THAN 160/95 Creon 24,000-76,000 -120,000 unit capsule,delayed release(DR/EC) 1 cap PO TIDWMEAL Label Comments: TAKE 1 CAPSULE BY MOUTH THREE TIMES A DAY WITH MEALS AT 7AM, 2PM, AND 9PM pantoprazole 40 mg tablet,delayed release (DR/EC) 40 mg PO DAILY Qty: 30 0RF sucralfate 1 gram tablet 1 tab PO QID potassium chloride 10 mEq tablet extended release 1 tab PO QDAY metoclopramide HCl 5 mg Tablet 5 mg PO TID hydrochlorothiazide 12.5 mg Capsule 12.5 mg PO DAILY PRN (Reason: Swelling) sildenafil 100 mg tablet 1 tab PO QDAY PRN pregabalin 75 mg capsule 1 cap PO BID PRN ondansetron 4 mg tablet,disintegrating 4 mg PO Q6H PRN (Reason: nausea and vomiting) Qty: 20 0RF Discontinued insulin glargine [Lantus Solostar U-100 Insulin] 100 unit/mL (3 mL) insulin pen 20 unit SUBCUT BID Orders to Discharge Patient Discharge Orders: Discharge (Routine); Ordered 03/21/22 Ordered By: Alea Tenorio Follow ups/Referrals Follow ups/Referrals: Rubin Perez [Primary Care Provider] - 3 days Instructions Instructions: Diarrhea, Adult, Hypomagnesemia, Hypokalemia, Nausea and Vomiting, Adult, [id number], Dehydration, Adult, [id number], Type 2 Diabetes Mellitus, Self-Care, Adult, [id number], Hypoglycemia, [id number]-lm-[id number] Activity Restrictions/Additional Instructions: Take lantus 10 units twice a day, monitor glucose 3 times a day, if glucose levels start going up then increase Lantus as needed. F/U with primary care in one week, repeat BMP Follow up with GI as scheduled Stand Alone Forms: Precautions for COVID19, [facility], Patient Portal, Social Distancing
[2022-03-21 11:24] VITALS: BP 113/65
== END 2022-03-21 11:20 | disposition home or self-care (01) ==
LOC: ER 05:06 → MED/SURG 07:30 → INTOOBSV 07:30 → MED/SURG 08:48
PROVIDERS: ADMIT Internal Medicine; ATTEND Internal Medicine

== ENCOUNTER 2022-09-10 22:59 | Observation (INO) ==
[2022-09-10 23:18] VITALS: BMI 23.7
[2022-09-10] MEDS ORDERED: D5 1/2 NS + KCL 20 MEQ/L 1,000 ML IV ONE (23:27)
[2022-09-10] MEDS ORDERED: D5 1/2 NS 1,000 ML 0 ML IV ONE (23:28)
--- NOTE | 2022-09-10 23:28 | DR.AMS ---
HPI Time Seen Time Seen by Provider: 09/10/22 23:27 PCP Primary Care Physician: LARON HPI Comment HPI Comment: PATIENT IS 46YR OLD MALE IN ER WITH LOW BLOOD GLUCOSE AND AMS. PATIENT IS A DIABETIC WITH HISTORY OF GASTROPERESIS AND PUD. HE ALSO HAVE HIS TORY OF ESOPHAGITIS, HAVE HAD RECENT GI WORK UP. HE IS VOMITING WITH POOR INTAKE CAUSING HIM TO HAVE LOW GLUCOSE LEVEL. PATIENT HAVE CAD AND CARDIAC STENT IN THE PAST. HAVE HISTORY OF HTN. HE IS WEAK AND FATIGUE. AMS WITH HYPOGLYCEMIA. DENIES COUGH, CONGESTION, DYSURIA OR SOB. PATIENT IS HAVING ABDOMINAL PAIN. Complaint Cheif Complaint Doctors Comments: LOW BLOOD GLUCOSE, AMS AND VOMITING AND GENERALIZED WEAKNESS. Chief Complaint:: EMS DISPATCHED OUT FOR HYPERGYLCEMIA UPON ARRIVAL OF EMS BLOOD SUGAR ON 2 EMS GLUCOMETER WAS 48 AND 52 PT GIVEN ORAL GLUCOSE 30 G AND A JELLY SANDWICH. PT ARRIVED TO ER OTBS 167 PER OUR METER COVID-19 Coronavirus risk:travel/contact w/high risk person: No Has patient experienced Coronavirus symptoms: No Source History Provided: Patient Mode of Arrival Mode of Arrival: EMS Timing Onset of Chief Complaint: 09/10/22 PMH PMH Past Medical History: Yes Past Medical History: Diabetes and Hypertension Past Surgical History: Yes Surgical History: Angioplasty/Stents Family History History of Family Medical Conditions: Yes Family Medical History: Diabetes Mellitus Social History Alcohol Use: None Do you use any recreational Drugs:: No Lives With: Family Lives Where: Home Travel Risk Coronavirus risk:travel/contact w/high risk person: No Has patient experienced Coronavirus symptoms: No Infectious screening In the last 2 months have you had wt loss of >10#?: NO Have you had fever, night sweats or hemotysis?: No Have you traveled outside the country in the last 6 months?: No Isolation: Standard ROS Review of Systems Constitutional: Weakness and Fatigue; negative Fever Eyes: No Symptoms Reported; negative Blurred Vision ENTM: No Symptoms Reported; negative Nose Discharge or Nose Congestion Respiratoy: No Symptoms Reported; negative Moist Cough, Short of Breath or Wheezing Cardiovascular: No Symptoms Reported; negative Chest Pain Gastrointestinal/Abdominal: Abdominal Pain, Nausea and Vomiting Genitourinary: No Symptoms Reported; negative Dysuria Neurological: Weakness; negative Headache or Dizziness Musculoskeletal: No Symptoms Reported; negative Muscle Pain Integumentary: No Symptoms Reported; negative Rash or Juandice Hematologic/Lymphatic: No Symptoms Reported; negative Easy Bruising Endocrine: Increased Thirst and Decreased Appetite; negative Increased Urine Psychiatric: No Symptoms Reported All Other Systems: Reviewed and Negative PE Vitals Vital Signs: Temp Pulse Resp BP BP BP Pulse Ox 09/11/22 00:30 67 100 09/11/22 00:30 167/100 09/11/22 00:29 67 99 09/11/22 00:29 163/97 09/11/22 00:15 69 99 09/11/22 00:00 68 100 09/10/22 23:45 68 100 09/10/22 23:33 124/77 09/10/22 23:33 68 100 09/10/22 23:30 68 100 09/10/22 23:16 71 97 09/10/22 23:00 99 F 71 18 122/71 96 09/07/22 15:05 149/103 07/14/22 09:11 06/08/22 22:12 168/92 12/28/21 11:07 130/71 O2 Del Method FiO2 09/11/22 00:30 09/11/22 00:30 09/11/22 00:29 09/11/22 00:29 09/11/22 00:15 09/11/22 00:00 09/10/22 23:45 09/10/22 23:33 09/10/22 23:33 09/10/22 23:30 09/10/22 23:16 09/10/22 23:00 Room Air 09/07/22 15:05 07/14/22 09:11 32 06/08/22 22:12 12/28/21 11:07 General Limitations: No Limitations General Appearance: Alert and In No Apparent Distress Head Head Exam: Normal Inspection Head Exam Physical: Other (NONE NOTED.) Eyes Eye exam: Normal Appearance and PERRL; negative Scleral Icterus or Conjunctival Injection Pupils: Regular, Round: Bilateral and Reactive: Bilateral ENT ENT Exam: Normal Exam, Normal Oropharynx, Normal External Ear Exam and TM's Normal Bilaterally TM/Canal Exam: Bilateral: Normal Throat Exam: Normal Inspection; negative Tonsillar Erythema, Tonsillomegaly or Tonsillar Exudate Neck Neck Exam: Normal Inspection and Trachea Midline; negative Tenderness Chest Chest Inspection: Normal Inspection, Symmetric Chest Wall Rise and Tenderness Respiratory Respiratory Exam: Normal Lung Sounds Bilat; negative Accessory Muscle Use, Chest Wall Tenderness or Respiratory Distress Respiratory Exam: Bilateral: Rhonchi Cardiovascular Cardiovascular Exam: Regular Rate, Normal Rhythm and Normal Heart Sounds; negative Systolic Murmur or Diastolic Murmur Abdominal Exam Abdominal Exam: Normal Bowel Sounds, Soft and Tenderness Abdominal Tenderness: Diffuse and Moderate Extremities Extremities Exam: Normal Inspection and Normal Capillary Refill Back Back Exam: Normal Inspection; negative (R) CVA Tenderness or (L) CVA Tenderness Neurological Neurological Exam: Alert, Oriented X3 and CN II-XII Intact; negative Motor Sensory Deficit or Reflexes Normal Patient Oriented To: Person, Place and Time Speech: Fluid Speech Cranial Nerve Exam: EOM Function (II, III, IV, ): Normal, Facial Sensation (V): Normal, Facial Palsy (VII): Normal, Gag reflex (XI): Normal and Tongue Deviation: Normal Motor Strength - LUE: 5/5 Motor Strength - RUE: 5/5 Motor Strength - LLE: 5/5 Motor Strength - RLE: 5/5 Upper Motor Neuron Exam: Babinski Sign: Normal Psychological Psychiatric Exam: Normal Affect and Normal Mood Skin Skin Exam: Dry MDM Additional Information Obtained Additional Information Obtained From: Old Records and Family Differential Diagnosis Metabolic: Dehydration, Hypercalcemia, Hypernatremia, Hypoglycemia and Hyponatremia Structural: CVA and Mass Lesion Infectious: Sepsis and UTI Environmental: Hyperthermia COURSE Treatment Treatment: SEE ORDERS DONE WHILE PATIENT WAS IN ER. D51/2NS PLUS 20MEQ KCL AT 125CC/HR. GLUCOSE LOW IN ER FROM 165 ON ARRIVAL. PATIENT GIVEN SNACK ALSO. ADMITTED TO HOSPITAL FOR FURTHER MANAGEMENT. Consultation Consultation Comments: DISCUSSED PATIENT WITH DR. DUARTE. HE WILL ADMIT PATIENT. Education/Counseling Education/Counseling: Patient and Family Educated On: Diagnosis ROR Labs Reviewed Laboratory Results Reviewed?: Yes Result Diagrams: 09/12/22 05:55 09/12/22 05:55 Laboratory: WBC 10.3 X10^3/uL (3.6-10.0) H 09/10/22 23:30 RBC 3.96 X10^6/uL (4.7-6.0) L 09/10/22 23:30 Hgb 11.0 g/dL (13.5-18.0) L 09/10/22 23:30 Hct 32.0 % (42.0-54.0) L 09/10/22 23:30 MCV 80.9 fL (80.0-100.0) 09/10/22: MCH 27.9 pg (27.0-34.0) 09/10/22 MCHC 34.5 g/dL (33.0-35.0) 09/10/22 RDW 13.8 % (11.6-16.5) 09/10/22 Plt Count 221 X10^3/uL (150.0-450.0) 09/10/22 MPV 9.2 fL (7.4-11.0) 09/10/22: Neut % (Auto) 72.9 % (42.0-75.0) 09/10/22 Lymph % (Auto) 20.8 % (21.0-51.0) L 09/10/22 [place] % (Auto) 5.6 % (0.0-13.0) 09/10/22 Eos % (Auto) 0.2 % (0.9-2.9) L 09/10/22 Baso % (Auto) 0.5 % (0.2-1.0) 09/10/22 Neut # (Auto) 7.5 x10^3/uL (2.2-4.8) H 09/10/22: Lymph # (Auto) 2.1 X10^3/uL (1.3-2.9) 09/10/22: [place] # (Auto) 0.6 x10^3/uL (0.3-0.8) 09/10/22: Eos # (Auto) 0.0 x10^3/uL (0.0-0.2) 09/10/22 Baso # (Auto) 0.1 X10^3/uL (0.0-0.1) 09/10/22 Absolute Nucleated RBC 0.0 /100WBC 09/10/22 Sodium 141 mmol/L (136-145) 09/10/22: Corrected Sodium 141 mmol/L (136-145) 09/10/22 Potassium 2.7 mmol/L (3.5-5.1) L* 09/10/22 23:30 Chloride 103 mmol/L (98-107) 09/10/22 23:30 Carbon Dioxide 30.8 mmol/L (21-32) 09/10/22 23:30 BUN 29 mg/dL (7-18) H 09/10/22 23:30 Creatinine 2.07 mg/dL (0.70-1.30) H 09/10/22 23:30 Est GFR (MDRD) Af Amer 45 (>60) L 09/10/22 23:30 Est GFR (MDRD) Non-Af 37 (>60) L 09/10/22 23:30 Glucose 114 mg/dL (65-99) H 09/10/22 23:30 POC Glucose (mg/dL) 138 mg/dL (65-99) H 09/10/22 23:57 Calcium 7.4 mg/dL (8.5-10.1) L 09/10/22 23:30 Corrected Calcium 9.0 mg/dL (8.5-10.1) 09/10/22 23:30 Total Bilirubin 0.40 mg/dL (0.2-1.0) 09/10/22 23:30 AST 36 Units/L (15-37) 09/10/22 23:30 ALT 20 Units/L (12-78) 09/10/22 23:30 Alkaline Phosphatase 107 Units/L (46-116) 09/10/22 23:30 Total Protein 5.5 g/dL (6.4-8.2) L 09/10/22 23:30 Albumin 2.0 g/dL (3.4-5.0) L 09/10/22 23:30 Globulin 3.5 g/dL (2.5-4.5) 09/10/22 23:30 Albumin/Globulin Ratio 0.6 Ratio (1.1-2.1) L 09/10/22 23:30 Amylase 45 Units/L (25-115) 09/10/22 23:30 Lipase 64 Units/L (73-393) L 09/10/22 23:30 Opioid Opioid Risk Tool Age (Ramiro box if 16-45): No History of Preadolescent Sexual Abuse: No Total: 0 Total Score Risk Category: Low Risk Copyright: Jace ROMEO predicting aberrant behaviors Discharge Plan Diagnosis Discharge Problem: Hypoglycemia, Diabetic gastroparesis, Acute dehydration, Generalized weakness AMS (altered mental status) Qualifiers: Altered mental status type: transient alteration of awareness Qualified Code(s): R40.4 - Transient alteration of awareness Discharge Plan Patient Disposition: ADMITTED INPATIENT Condition: Stable Orders to Discharge Patient Discharge Orders: Discharge (Routine); Ordered 09/12/22 Ordered By: Rdorigo Duarte
[2022-09-10 23:43] LABS: MEAN CORPUSCULAR VOLUME 80.9 fL (80.0-100.0)
[2022-09-10 23:52] LABS: CALCIUM 7.4 mg/dL (8.5-10.1); CARBON DIOXIDE 30.8 mmol/L (21-32); CREATININE 2.07 mg/dL (0.70-1.30); TOTAL PROTEIN 5.5 g/dL (6.4-8.2)
[2022-09-10] MEDS: D5 1/2 NS + KCL 20 MEQ/L 1,000 ML IV SCH (23:55)
[2022-09-11] LABS: POTASSIUM 2.7 mmol/L (3.5-5.1)
[2022-09-11 00:01] LABS: BASOPHILS # (AUTO) 0.1 X10^3/uL (0.0-0.1); BASOPHILS % (AUTO) 0.5 % (0.2-1.0); EOSINOPHILS % (AUTO) 0.2 % (0.9-2.9); LYMPHOCYTES # (AUTO) 2.1 X10^3/uL (1.3-2.9); LYMPHOCYTES % (AUTO) 20.8 % (21.0-51.0); MEAN CORPUSCULAR HEMOGLOBIN 27.9 pg (27.0-34.0); MEAN CORPUSCULAR HGB CONC 34.5 g/dL (33.0-35.0); MEAN PLATELET VOLUME 9.2 fL (7.4-11.0); MONOCYTES # (AUTO) 0.6 x10^3/uL (0.3-0.8); MONOCYTES % (AUTO) 5.6 % (0.0-13.0); NEUTROPHILS # (AUTO) 7.5 x10^3/uL (2.2-4.8); NEUTROPHILS % (AUTO) 72.9 % (42.0-75.0); PLATELET COUNT 221 X10^3/uL (150.0-450.0); RED BLOOD COUNT 3.96 X10^6/uL (4.7-6.0); RED CELL DISTRIBUTION WIDTH 13.8 % (11.6-16.5); WHITE BLOOD COUNT 10.3 X10^3/uL (3.6-10.0)
[2022-09-11] MEDS ORDERED: ZOFRAN TAB 4 MG PO PRN (01:06)
[2022-09-11] MEDS ORDERED: ZOFRAN INJ 4 MG VIAL IVP PRN (01:41)
[2022-09-11] MEDS ORDERED: DILAUDID INJ IVP PRN (01:41)
[2022-09-11] MEDS ORDERED: MORPHINE SULFATE INJ 2 MG INJ IVP PRN (01:41)
[2022-09-11] MEDS ORDERED: D5 1/2 NS + KCL 20 MEQ/L 1,000 ML IV SCH (02:00)
[2022-09-11] MEDS: REGLAN TAB 5 MG PO SCH ×3 (05:50→21:31)
[2022-09-11] MEDS: [UNRECOGNIZED DRUG - OTHER] PO SCH ×3 (05:51→21:37)
[2022-09-11] MEDS: LIPASE PROTEASE AMYLASE PO SCH ×3 (05:51→21:37)
[2022-09-11 06:19] LABS: BASOPHILS % (AUTO) 0.4 % (0.2-1.0); EOSINOPHILS # (AUTO) 0.1 x10^3/uL (0.0-0.2); EOSINOPHILS % (AUTO) 0.9 % (0.9-2.9); HEMATOCRIT 31.6 % (42.0-54.0); HEMOGLOBIN 10.9 g/dL (13.5-18.0); LYMPHOCYTES # (AUTO) 3.2 X10^3/uL (1.3-2.9); LYMPHOCYTES % (AUTO) 31.4 % (21.0-51.0); MEAN CORPUSCULAR HEMOGLOBIN 28.1 pg (27.0-34.0); MEAN CORPUSCULAR HGB CONC 34.6 g/dL (33.0-35.0); MEAN CORPUSCULAR VOLUME 81.1 fL (80.0-100.0); MEAN PLATELET VOLUME 8.9 fL (7.4-11.0); MONOCYTES # (AUTO) 0.6 x10^3/uL (0.3-0.8); MONOCYTES % (AUTO) 5.9 % (0.0-13.0); NEUTROPHILS # (AUTO) 6.3 x10^3/uL (2.2-4.8); NEUTROPHILS % (AUTO) 61.4 % (42.0-75.0); PLATELET COUNT 220 X10^3/uL (150.0-450.0); RED BLOOD COUNT 3.89 X10^6/uL (4.7-6.0); RED CELL DISTRIBUTION WIDTH 14.2 % (11.6-16.5); WHITE BLOOD COUNT 10.2 X10^3/uL (3.6-10.0)
[2022-09-11] MEDS: D5 1/2 NS + KCL 20 MEQ/L 1,000 ML IV SCH ×4 (06:28→23:31)
[2022-09-11 06:32] LABS: CALCIUM 7.3 mg/dL (8.5-10.1); CARBON DIOXIDE 32.4 mmol/L (21-32); COR CA(FOR HYPOALB) 8.9 mg/dL (8.5-10.1); CREATININE 2.14 mg/dL (0.70-1.30); TOTAL PROTEIN 5.4 g/dL (6.4-8.2)
[2022-09-11 06:42] LABS: POTASSIUM 2.2 mmol/L (3.5-5.1)
[2022-09-11] MEDS ORDERED: K-DUR TAB 20 MEQ PO ONE (07:01)
[2022-09-11] MEDS ORDERED: LYRICA CAP 75 mg PO ONE (07:42)
[2022-09-11] MEDS ORDERED: MICRO K EXTEN CAP 10 MEQ PO ONE (07:42)
[2022-09-11] MEDS ORDERED: NORMODYNE TAB 100 MG ONE (07:43)
[2022-09-11] MEDS ORDERED: PROTONIX TAB 40 MG PO ONE (07:43)
[2022-09-11] MEDS: MAGNESIUM SULFATE 1 GRAM/100 mL PREMIX 1 G/100 ML BAG IV SCH ×2 (08:11→10:08)
[2022-09-11] MEDS: LYRICA CAP 75 mg PO SCH ×2 (08:12→21:31)
[2022-09-11] MEDS: MICRO K EXTEN CAP 10 MEQ PO SCH (08:12)
[2022-09-11] MEDS: PROTONIX TAB 40 MG PO SCH (08:13)
[2022-09-11] MEDS: NORMODYNE TAB 200 MG PO SCH ×2 (08:13→21:31)
[2022-09-11 13:39] LABS: BILIRUBIN,URINE NEGATIVE (NEGATIVE); BLOOD/HEMOGLOBIN,URINE 2+ (NEGATIVE); GLUCOSE, URINE 3+ (NEGATIVE); KETONES,URINE NEGATIVE (NEGATIVE); LEUKOCYTE ESTERASE ,URINE NEGATIVE (NEGATIVE); NITRITES,URINE NEGATIVE (NEGATIVE); PROTEIN,URINE 3+ (NEGATIVE); UROBILINOGEN,URINE NORMAL (NORMAL)
[2022-09-11 13:47] LABS: APPEARANCE,URINE CLEAR (CLEAR); COLOR,URINE STRAW (YELLOW)
[2022-09-11 13:48] LABS: BACTERIA,URINE NEGATIVE /HPF (NEGATIVE); RBC,URINE 0-2 /HPF (0-3); SQUAMOUS EPITHELIAL CELL,UR RARE /HPF (NEGATIVE)
[2022-09-11] MEDS ORDERED: NovoLIN R (or HumuLIN R) ONE (16:55)
[2022-09-11] MEDS: NovoLIN R (or HumuLIN R) SUBCUT PRN ×2 (17:01→21:37)
[2022-09-12] MEDS: D5 1/2 NS + KCL 20 MEQ/L 1,000 ML IV SCH ×2 (02:36→06:57)
[2022-09-12 03:24] LABS: CRYPTOSPORIDIUM PARVUM ANTIGEN NEGATIVE (NEGATIVE); GIARDIA LAMBLIA ANTIGEN NEGATIVE (NEGATIVE)
[2022-09-12] MEDS: REGLAN TAB 5 MG PO SCH (05:39)
[2022-09-12] MEDS: [UNRECOGNIZED DRUG - OTHER] PO SCH (05:40)
[2022-09-12] MEDS: LIPASE PROTEASE AMYLASE PO SCH (05:40)
[2022-09-12 06:32] LABS: BASOPHILS # (AUTO) 0.1 X10^3/uL (0.0-0.1); BASOPHILS % (AUTO) 0.6 % (0.2-1.0); EOSINOPHILS # (AUTO) 0.4 x10^3/uL (0.0-0.2); EOSINOPHILS % (AUTO) 3.7 % (0.9-2.9); HEMATOCRIT 28.5 % (42.0-54.0); HEMOGLOBIN 9.9 g/dL (13.5-18.0); LYMPHOCYTES # (AUTO) 2.9 X10^3/uL (1.3-2.9); MEAN CORPUSCULAR HEMOGLOBIN 28.3 pg (27.0-34.0); MEAN CORPUSCULAR HGB CONC 34.7 g/dL (33.0-35.0); MEAN CORPUSCULAR VOLUME 81.4 fL (80.0-100.0); MEAN PLATELET VOLUME 9.1 fL (7.4-11.0); MONOCYTES # (AUTO) 0.6 x10^3/uL (0.3-0.8); MONOCYTES % (AUTO) 6.4 % (0.0-13.0); NEUTROPHILS # (AUTO) 5.5 x10^3/uL (2.2-4.8); NEUTROPHILS % (AUTO) 58.3 % (42.0-75.0); PLATELET COUNT 209 X10^3/uL (150.0-450.0); RED CELL DISTRIBUTION WIDTH 13.8 % (11.6-16.5); WHITE BLOOD COUNT 9.5 X10^3/uL (3.6-10.0)
[2022-09-12 06:40] LABS: ALANINE AMINOTRANSFERASE 19 Units/L (12-78); ALBUMIN 1.9 g/dL (3.4-5.0); ALKALINE PHOSPHATASE 114 Units/L (46-116); ASPARTATE AMINO TRANSFERASE 29 Units/L (15-37); BLOOD UREA NITROGEN 21 mg/dL (7-18); CALCIUM 7.5 mg/dL (8.5-10.1); CARBON DIOXIDE 29.8 mmol/L (21-32); CHLORIDE 106 mmol/L (98-107); COR CA(FOR HYPOALB) 9.2 mg/dL (8.5-10.1); CREATININE 1.81 mg/dL (0.70-1.30); GLUCOSE 73 mg/dL (65-99); POTASSIUM 3.3 mmol/L (3.5-5.1); SODIUM 140 mmol/L (136-145); TOTAL PROTEIN 5.2 g/dL (6.4-8.2); eGFR NON BLACK RACES 43 (>60)
--- NOTE | 2022-09-12 07:07 | DR.H&P ---
H&P History & Physical for Day of: H&P Date: 09/11/22 Chief Complaint Chief Complaint: Diarrhea Hypoglycemia Hypokalemia Allergies Allergies Allergy/AdvReac Type Severity Reaction Status Date / Time No Known Drug Allergies Allergy Verified 07/14/22 02:32 History of Present Illness History of Present Illness: Pt is a 46 year old male past medical history DMT2, Diabetic gatroparesis, Hypertension, presenting with nausea and diarrhea for the past 2 days. He also states he took some insulin and checked his glucometer and noted in was in the 40s and when EMS came and he received oral glucose at the ED it was back up to 167. Pt has had decreased po intake. Labs/imaging: Wbc 10.2, Hgb 10.9, Plt 220, Na 140, K 2.2, Creatinine 2.14, Glucose 162, Stool culture pending. Pt was admitted for dehydration, hypokalemia, and acute on chronic renal failure. He was started on IVF D5 1/2NS+KCL @125ml/h and potassium repleted per protocol. Zofran as needed to nausea. Hold nephrotoxic agents and monitor renal function. Restart home medications. Continue treatment, closely monitor, and follow up labs in the morning. Past Medical History Past Medical History: Diabetes and Hypertension Past Surgical History Surgical History: Angioplasty/Stents Family History Family Medical History: Diabetes Mellitus Social History Type of Tobacco Use: None Does any household member use tobacco: No Alcohol Use: None Drug Use: None Medications Home Medications: No Known Drug Allergies Allergy (Verified 07/14/22 02:32) CONTINUE taking the following medications dapagliflozin 10 mg tablet (Farxiga) 1 tab PO QDAY 09/11/22 [History] insulin glargine 100 unit/mL subcutaneous solution (Lantus U-100 Insulin) 10 - 20 unit subcut QPM PRN 09/11/22 [History] pregabalin 75 mg capsule 1 cap PO BID 09/11/22 [History] Labs Result Diagrams: 09/11/22 06:04 09/11/22 06:04 Labs: 09/12/22 02:25 Stool - Final Laboratory WBC 10.2 X10^3/uL (3.6-10.0) H 09/11/22 06:04 RBC 3.89 X10^6/uL (4.7-6.0) L 09/11/22 06:04 Hgb 10.9 g/dL (13.5-18.0) L 09/11/22 06:04 Hct 31.6 % (42.0-54.0) L 09/11/22 06:04 MCV 81.1 fL (80.0-100.0) 09/11/22 06:04 MCH 28.1 pg (27.0-34.0) 09/11/22 06:04 MCHC 34.6 g/dL (33.0-35.0) 09/11/22 06:04 RDW 14.2 % (11.6-16.5) 09/11/22 06:04 Plt Count 220 X10^3/uL (150.0-450.0) 09/11/22 06:04 MPV 8.9 fL (7.4-11.0) 09/11/22 06:04 Neut % (Auto) 61.4 % (42.0-75.0) 09/11/22 06:04 Lymph % (Auto) 31.4 % (21.0-51.0) 09/11/22 06:04 [place] % (Auto) 5.9 % (0.0-13.0) 09/11/22 06:04 Eos % (Auto) 0.9 % (0.9-2.9) 09/11/22 06:04 Baso % (Auto) 0.4 % (0.2-1.0) 09/11/22 06:04 Neut # (Auto) 6.3 x10^3/uL (2.2-4.8) H 09/11/22 06:04 Lymph # (Auto) 3.2 X10^3/uL (1.3-2.9) H 09/11/22 06:04 [place] # (Auto) 0.6 x10^3/uL (0.3-0.8) 09/11/22 06:04 Eos # (Auto) 0.1 x10^3/uL (0.0-0.2) 09/11/22 06:04 Baso # (Auto) 0.0 X10^3/uL (0.0-0.1) 09/11/22 06:04 Absolute Nucleated RBC 0.0 /100WBC 09/11/22 06:04 Sodium 140 mmol/L (136-145) 09/11/22 06:04 Corrected Sodium 141 mmol/L (136-145) 09/11/22 06:04 Potassium 2.2 mmol/L (3.5-5.1) L* 09/11/22 06:04 Chloride 102 mmol/L (98-107) 09/11/22 06:04 Carbon Dioxide 32.4 mmol/L (21-32) H 09/11/22 06:04 BUN 25 mg/dL (7-18) H 09/11/22 06:04 Creatinine 2.14 mg/dL (0.70-1.30) H 09/11/22 06:04 Est GFR (MDRD) Af Amer 43 (>60) L 09/11/22 06:04 Est GFR (MDRD) Non-Af 36 (>60) L 09/11/22 06:04 Glucose 162 mg/dL (65-99) H 09/11/22 06:04 POC Glucose (mg/dL) 79 mg/dL (65-99) 09/12/22 05:38 Calcium 7.3 mg/dL (8.5-10.1) L 09/11/22 06:04 Corrected Calcium 8.9 mg/dL (8.5-10.1) 09/11/22 06:04 Magnesium 1.8 mg/dL (2.0-2.9) L 09/11/22 06:04 Total Bilirubin 0.30 mg/dL (0.2-1.0) 09/11/22 06:04 AST 35 Units/L (15-37) 09/11/22 06:04 ALT 23 Units/L (12-78) 09/11/22 06:04 Alkaline Phosphatase 104 Units/L (46-116) 09/11/22 06:04 Total Protein 5.4 g/dL (6.4-8.2) L 09/11/22 06:04 Albumin 2.0 g/dL (3.4-5.0) L 09/11/22 06:04 Globulin 3.4 g/dL (2.5-4.5) 09/11/22 06:04 Albumin/Globulin Ratio 0.6 Ratio (1.1-2.1) L 09/11/22 06:04 Amylase 47 Units/L (25-115) 09/11/22 06:04 Lipase 117 Units/L (73-393) 09/11/22 06:04 Specimen Type Clean catch urine 09/11/22 13:22 Urine Color Straw (YELLOW) 09/11/22 13:22 Urine Appearance Clear (CLEAR) 09/11/22 13:22 Urine pH 6.0 (5.0 - 8.0) 09/11/22 13:22 Ur Specific [place] 1.010 (1.000-1.030) 09/11/22 13:22 Urine Protein 3+ (NEGATIVE) 09/11/22 13:22 Urine Glucose (UA) 3+ (NEGATIVE) 09/11/22 13:22 Urine Ketones Negative (NEGATIVE) 09/11/22 13:22 Urine Blood 2+ (NEGATIVE) 09/11/22 13:22 Urine Nitrite Negative (NEGATIVE) 09/11/22 13:22 Urine Bilirubin Negative (NEGATIVE) 09/11/22 13:22 Urine Urobilinogen Normal (NORMAL) 09/11/22 13:22 Ur Leukocyte Esterase Negative (NEGATIVE) 09/11/22 13:22 Urine RBC 0-2 /HPF (0-3) 09/11/22 13:22 Urine WBC 0-2 /HPF (0-5) 09/11/22 13:22 Ur Squamous Epith Cells Rare /HPF (NEGATIVE) 09/11/22 13:22 Amorphous Sediment Trace /HPF (NEGATIVE) 09/11/22 13:22 Urine Bacteria Negative /HPF (NEGATIVE) 09/11/22 13:22 Ur Culture Indicated? No/not indicated 09/11/22 13:22 Stl Occult Blood (IFOB) Negative (NEGATIVE) 09/12/22 02:25 Stl C. diff Tox B Gene Negative (NEGATIVE) 09/12/22 02:25 Stl C. diff [id number] Presumptive negative (NEGATIVE) 09/12/22 02:25 Cryptosporid parvum Ag Negative (NEGATIVE) 09/12/22 02:25 Giardia lamblia Ag Negative (NEGATIVE) 09/12/22 02:25 Review of Systems Constitutional: Weakness Eyes: No Symptoms Reported ENT: No Symptoms Reported Respiratory: No Symptoms Reported Cardiovascular: No Symptoms Reported Gastrointestinal: No Symptoms Reported Genitourinary: No Symptoms Reported Musculoskeletal: No Symptoms Reported Skin: No Symptoms Reported Neurological: No Symptoms Reported Physical Exam Vital Signs: Temperature 99.2 F Pulse Rate [Right Radial] 83 Pulse Rate 73 Respiratory Rate 20 Blood Pressure [Left Arm] 128/70 Blood Pressure [Right Arm] 130/71 Blood Pressure 167/100 O2 Sat by Pulse Oximetry 100 Oriented: Normal Eyes: Normal Ear: Normal Nose: Normal Throat: Normal Respiratory: Clear Throughout Cardiovascular: Normal : Normal Auscultation: Bowel Sounds: Normal Palpation: Normal Tenderness: Normal Skin: Normal Musculoskeletal: Normal Psychiatric: Normal Mood Description: Calm and Appropriate Affect: Normal Speech Pattern: Clear and Appropriate Assessment/Plan (1) Acute on chronic renal failure: Status: Acute Plan: Continue IVF (2) Hypokalemia: Status: Acute Plan: replete per protocol (3) Dehydration, mild: Status: Acute (4) Diabetic gastroparesis: Status: Acute (5) Nausea & vomiting: Status: Acute (6) Acute dehydration: Status: Acute Review H&P Reviewed: Yes Patient was examined?: Yes
[2022-09-12] MEDS: PROTONIX TAB 40 MG PO SCH (08:57)
[2022-09-12] MEDS: NORMODYNE TAB 200 MG PO SCH (08:57)
[2022-09-12] MEDS: LYRICA CAP 75 mg PO SCH (08:57)
[2022-09-12] MEDS: MICRO K EXTEN CAP 10 MEQ PO SCH (08:57)
[2022-09-12 11:21] VITALS: BP 127/85
--- NOTE | 2022-09-13 09:20 | W.DIS.FURT ---
Summary of Discharge Discharge Summary of Date Date of Exam: 09/12/22 Admission Date Date of Admission: 09/10/22 Admission Diagnosis Hospital Course: Pt is a 46 year old male past medical history DMT2, Diabetic gatroparesis, Hypertension, admitted for dehydration, hypokalemia, and acute on chronic renal failure. Hospital/treatment course includes: IVF D5 1/2NS+KCL @125ml/h and potassium repleted per protocol. Zofran was given as needed to nausea. Nephrotoxic agents were held and renal function monitored with improvement. Labs/imaging: Wbc 9.5, Hgb 9.9, Plt 209, Na 140, K 3.3, Creatinine 1.81, Glucose 73, Stool culture no growth. Pt responded well to treatments. Symptoms resolved. Pt discharged in stable condition, instructed to follow up with pcp in 1 week. Vital Signs: Vital Signs (72 hours) 09/10/22 23:00 09/10/22 23:16 09/10/22 23:30 Temperature 99 F Pulse Rate 71 71 68 Pulse Rate [Right Radial] Respiratory Rate 18 Blood Pressure 122/71 Blood Pressure [Left Arm] O2 Sat by Pulse Oximetry 96 97 100 Oxygen Delivery Method Room Air 09/10/22 23:33 09/10/22 23:33 09/10/22 23:45 Temperature Pulse Rate 68 68 Pulse Rate [Right Radial] Respiratory Rate Blood Pressure 124/77 Blood Pressure [Left Arm] O2 Sat by Pulse Oximetry 100 100 Oxygen Delivery Method 09/11/22 00:00 09/11/22 00:15 09/11/22 00:29 Temperature Pulse Rate 68 69 Pulse Rate [Right Radial] Respiratory Rate Blood Pressure 163/97 Blood Pressure [Left Arm] O2 Sat by Pulse Oximetry 100 99 Oxygen Delivery Method 09/11/22 00:29 09/11/22 00:30 09/11/22 00:30 Temperature Pulse Rate 67 67 Pulse Rate [Right Radial] Respiratory Rate Blood Pressure 167/100 Blood Pressure [Left Arm] O2 Sat by Pulse Oximetry 99 100 Oxygen Delivery Method 09/11/22 01:01 09/11/22 01:05 09/11/22 04:00 Temperature 98.2 F Pulse Rate 73 Pulse Rate [Right Radial] 74 Respiratory Rate 18 Blood Pressure Blood Pressure [Left Arm] 148/82 O2 Sat by Pulse Oximetry 100 99 Oxygen Delivery Method Room Air 09/11/22 07:00 09/11/22 07:26 09/11/22 11:42 Temperature 98.1 F 97.9 F Pulse Rate Pulse Rate [Right Radial] 84 79 Respiratory Rate 18 18 Blood Pressure Blood Pressure [Left Arm] 155/91 132/81 O2 Sat by Pulse Oximetry 99 100 Oxygen Delivery Method Room Air Room Air Room Air 09/11/22 16:00 09/11/22 17:45 09/11/22 19:00 Temperature 99.2 F 98.8 F Pulse Rate Pulse Rate [Right Radial] 81 80 Respiratory Rate 18 18 Blood Pressure Blood Pressure [Left Arm] 128/86 127/74 O2 Sat by Pulse Oximetry 100 100 Oxygen Delivery Method Room Air Room Air Room Air 09/11/22 20:00 09/12/22 00:00 09/12/22 04:00 Temperature 99.5 F 99.1 F 99.2 F Pulse Rate Pulse Rate [Right Radial] 85 85 83 Respiratory Rate 20 20 20 Blood Pressure Blood Pressure [Left Arm] 155/96 113/66 128/70 O2 Sat by Pulse Oximetry 100 100 100 Oxygen Delivery Method Room Air Room Air Room Air 09/12/22 07:00 Temperature Pulse Rate Pulse Rate [Right Radial] Respiratory Rate Blood Pressure Blood Pressure [Left Arm] O2 Sat by Pulse Oximetry Oxygen Delivery Method Room Air Labs: Laboratory Last Values WBC 9.5 X10^3/uL (3.6-10.0) 09/12/22 05:55 RBC 3.50 X10^6/uL (4.7-6.0) L 09/12/22 05:55 Hgb 9.9 g/dL (13.5-18.0) L 09/12/22 05:55 Hct 28.5 % (42.0-54.0) L 09/12/22 05:55 MCV 81.4 fL (80.0-100.0) 09/12/22 05:55 MCH 28.3 pg (27.0-34.0) 09/12/22 05:55 MCHC 34.7 g/dL (33.0-35.0) 09/12/22 05:55 RDW 13.8 % (11.6-16.5) 09/12/22 05:55 Plt Count 209 X10^3/uL (150.0-450.0) 09/12/22 05:55 MPV 9.1 fL (7.4-11.0) 09/12/22 05:55 Neut % (Auto) 58.3 % (42.0-75.0) 09/12/22 05:55 Lymph % (Auto) 31.0 % (21.0-51.0) 09/12/22 05:55 [place] % (Auto) 6.4 % (0.0-13.0) 09/12/22 05:55 Eos % (Auto) 3.7 % (0.9-2.9) H 09/12/22 05:55 Baso % (Auto) 0.6 % (0.2-1.0) 09/12/22 05:55 Neut # (Auto) 5.5 x10^3/uL (2.2-4.8) H 09/12/22 05:55 Lymph # (Auto) 2.9 X10^3/uL (1.3-2.9) 09/12/22 05:55 [place] # (Auto) 0.6 x10^3/uL (0.3-0.8) 09/12/22 05:55 Eos # (Auto) 0.4 x10^3/uL (0.0-0.2) H 09/12/22 05:55 Baso # (Auto) 0.1 X10^3/uL (0.0-0.1) 09/12/22 05:55 Absolute Nucleated RBC 0.0 /100WBC 09/12/22 05:55 Sodium 140 mmol/L (136-145) 09/12/22 05:55 Corrected Sodium TNP 09/12/22 05:55 Potassium 3.3 mmol/L (3.5-5.1) L 09/12/22 05:55 Chloride 106 mmol/L (98-107) 09/12/22 05:55 Carbon Dioxide 29.8 mmol/L (21-32) 09/12/22 05:55 BUN 21 mg/dL (7-18) H 09/12/22 05:55 Creatinine 1.81 mg/dL (0.70-1.30) H 09/12/22 05:55 Est GFR (MDRD) Af Amer 52 (>60) L 09/12/22 05:55 Est GFR (MDRD) Non-Af 43 (>60) L 09/12/22 05:55 Glucose 73 mg/dL (65-99) 09/12/22 05:55 POC Glucose (mg/dL) 79 mg/dL (65-99) 09/12/22 05:38 Calcium 7.5 mg/dL (8.5-10.1) L 09/12/22 05:55 Corrected Calcium 9.2 mg/dL (8.5-10.1) 09/12/22 05:55 Magnesium 2.0 mg/dL (2.0-2.9) 09/12/22 05:55 Total Bilirubin 0.10 mg/dL (0.2-1.0) L 09/12/22 05:55 AST 29 Units/L (15-37) 09/12/22 05:55 ALT 19 Units/L (12-78) 09/12/22 05:55 Alkaline Phosphatase 114 Units/L (46-116) 09/12/22 05:55 Total Protein 5.2 g/dL (6.4-8.2) L 09/12/22 05:55 Albumin 1.9 g/dL (3.4-5.0) L 09/12/22 05:55 Globulin 3.3 g/dL (2.5-4.5) 09/12/22 05:55 Albumin/Globulin Ratio 0.6 Ratio (1.1-2.1) L 09/12/22 05:55 Amylase 47 Units/L (25-115) 09/11/22 06:04 Lipase 117 Units/L (73-393) 09/11/22 06:04 Specimen Type Clean catch urine 09/11/22 13:22 Urine Color Straw (YELLOW) 09/11/22 13:22 Urine Appearance Clear (CLEAR) 09/11/22 13:22 Urine pH 6.0 (5.0 - 8.0) 09/11/22 13:22 Ur Specific [place] 1.010 (1.000-1.030) 09/11/22 13:22 Urine Protein 3+ (NEGATIVE) 09/11/22 13:22 Urine Glucose (UA) 3+ (NEGATIVE) 09/11/22 13:22 Urine Ketones Negative (NEGATIVE) 09/11/22 13:22 Urine Blood 2+ (NEGATIVE) 09/11/22 13:22 Urine Nitrite Negative (NEGATIVE) 09/11/22 13:22 Urine Bilirubin Negative (NEGATIVE) 09/11/22 13:22 Urine Urobilinogen Normal (NORMAL) 09/11/22 13:22 Ur Leukocyte Esterase Negative (NEGATIVE) 09/11/22 13:22 Urine RBC 0-2 /HPF (0-3) 09/11/22 13:22 Urine WBC 0-2 /HPF (0-5) 09/11/22 13:22 Ur Squamous Epith Cells Rare /HPF (NEGATIVE) 09/11/22 13:22 Amorphous Sediment Trace /HPF (NEGATIVE) 09/11/22 13:22 Urine Bacteria Negative /HPF (NEGATIVE) 09/11/22 13:22 Ur Culture Indicated? No/not indicated 09/11/22 13:22 Stl Occult Blood (IFOB) Negative (NEGATIVE) 09/12/22 02:25 Stl C. diff Tox B Gene Negative (NEGATIVE) 09/12/22 02:25 Stl C. diff [id number]-BI Presumptive negative (NEGATIVE) 09/12/22 02:25 Cryptosporid parvum Ag Negative (NEGATIVE) 09/12/22 02:25 Giardia lamblia Ag Negative (NEGATIVE) 09/12/22 02:25 Reason For Visit: GASTROPARESIS, DEHYDRATION, DIARRHEA, HYPOGLYCEMIA Discharge Date Discharge Date: 09/12/22 Discharge Diagnosis All Active Problems (Updated 09/07/22 @ 22:49 by Wisam Varghese) Diabetic gastroparesis (Acute) Chronic hypokalemia (Acute) Nausea & vomiting (Acute) Diabetic gastroparesis (Acute) Nausea & vomiting (Acute) Hypertension (Acute) Chronic GERD (Acute) Diabetes mellitus with gastroparesis (Acute) Nausea & vomiting (Acute) Dehydration, mild (Acute) Esophagitis (Acute) Upper gastrointestinal bleed (Acute) Intractable nausea and vomiting (Acute) Hypoglycemia (Acute) Acute on chronic renal failure (Acute) Nausea & vomiting (Acute) Abdominal pain, epigastric (Acute) Acute dehydration (Acute) CKD (chronic kidney disease) stage 3, GFR 30-59 ml/min (Acute) Esophageal ulcer (Acute) Gastritis (Acute) Leucocytosis (Acute) Hypokalemia (Acute) Diabetic gastroparesis (Acute) Acute upper GI bleed (Acute) Anemia due to GI blood loss (Acute) DM2 (diabetes mellitus, type 2) (Acute) Diarrhea (Acute) Back pain (Acute) Diabetes (Acute) Acute gastritis (Acute) Plan of Treatment: Continue with present treatment and follow up plan. Pt is to keep follow up appointment as instructed and take medications as ordered. Discharge Medications Discharge Medications: No Known Drug Allergies Allergy (Verified 07/14/22 02:32) CONTINUE taking the following medications dapagliflozin 10 mg tablet (Farxiga) 1 tab PO QDAY 09/11/22 [History] insulin glargine 100 unit/mL subcutaneous solution (Lantus U-100 Insulin) 10 - 20 unit subcut QPM PRN 09/11/22 [History] pregabalin 75 mg capsule 1 cap PO BID 09/11/22 [History] Discharge Plan Discharge Plan Hospital Course: Pt is a 46 year old male past medical history DMT2, Diabetic gatroparesis, Hypertension, admitted for dehydration, hypokalemia, and acute on chronic renal failure. Hospital/treatment course includes: IVF D5 1/2NS+KCL @125ml/h and potassium repleted per protocol. Zofran was given as needed to nausea. Nephrotoxic agents were held and renal function monitored with improvement. Labs/imaging: Wbc 9.5, Hgb 9.9, Plt 209, Na 140, K 3.3, Creatinine 1.81, Glucose 73, Stool culture no growth. Pt responded well to treatments. Symptoms resolved. Pt discharged in stable condition, instructed to follow up with pcp in 1 week. Patient Disposition: 01 HOME, SELF-CARE Condition: Stable Health Concerns: Post Hospitalization: new medications and changes needed to prevent readmission or further decline. Pt educated and given instructions on all concerns. Care Plan Goals: Problem: Pain/Alteration in Comfort Goal: Improve/ Resolve Pain; Achieve Pain Tolerance Instructions: Take pain medications as prescribed. Contact your primary care provider if your pain is unrelieved or worsens. Follow up with primary care provider as directed. Plan of Treatment: Continue with present treatment and follow up plan. Pt is to keep follow up appointment as instructed and take medications as ordered. Prescriptions: Continued insulin glargine [Lantus U-100 Insulin] 100 unit/mL Solution 10 - 20 unit SUBCUT QPM PRN Rx Instructions: PATIENT STATES HE CHECKS HIS BLOOD SUGAR AT NIGHT AND TAKES IT HE NEEDS IT. pregabalin 75 mg capsule 1 cap PO BID Farxiga 10 mg tablet 1 tab PO QDAY labetalol 200 mg tablet 200 mg PO BID potassium chloride 10 mEq tablet extended release 10 meq PO QDAY metoclopramide HCl 5 mg tablet 5 mg PO TID pantoprazole 40 mg tablet,delayed release (DR/EC) 40 mg PO QDAY Farxiga 10 mg tablet 10 mg PO QDAY [place]on 24,000-76,000 -120,000 unit capsule,delayed release(DR/EC) 1 cap PO TID ondansetron 4 mg tablet,disintegrating 4 mg PO Q8H MDD 3 PRN (Reason: nausea and vomiting) Qty: 30 0RF Orders to Discharge Patient Discharge Orders: Discharge (Routine); Ordered 09/12/22 Ordered By: Rodrigo Lozoya Follow ups/Referrals Follow ups/Referrals: Marvel Perez [Other] - 09/17/22 1:15 pm Instructions Instructions: Hypokalemia, Nausea and Vomiting, Adult, [id number], Blood Glucose Monitoring, Adult, Gastroparesis, Hypoglycemia, [id number] Activity Restrictions/Additional Instructions: Small frequent meals. Monitor blood glucose before meals and at bedtime. Record and take to follow up appt PCP. Stand Alone Forms: Excuse From Work or School
== END 2022-09-12 12:30 | disposition home or self-care (01) ==
LOC: ER 22:59 → U 22:59 → MED/SURG 09-11 17:28
PROVIDERS: ADMIT Family Medicine; ATTEND Family Medicine
DX: E11.65 Type 2 diabetes mellitus with hyperglycemia; I12.9 Hypertensive chronic kidney disease with stage 1 through stage 4 chronic kidney disease, or unspecified chronic kidney disease; E11.22 Type 2 diabetes mellitus with diabetic chronic kidney disease; R11.2 Nausea with vomiting, unspecified; E11.43 Type 2 diabetes mellitus with diabetic autonomic (poly)neuropathy; E87.6 Hypokalemia; N17.8 Other acute kidney failure; N18.9 Chronic kidney disease, unspecified; E86.0 Dehydration; Z79.4 Long term (current) use of insulin; R19.7 Diarrhea, unspecified; K31.84 Gastroparesis

== ENCOUNTER 2022-12-26 07:58 | Inpatient (IN) ==
[2022-12-26 08:07] VITALS: BMI 23.7
--- NOTE | 2022-12-26 08:14 | DR.N/VMALE ---
HPI Time Seen Time Seen by Provider: 12/26/22 08:13 Primary Care Physician Primary Care Physician: DR. BARBER RIVERS Complaints Chief Complaint Doctors Comments: 47 y/o male presents for evaluation. Ill past few days. Having nausea and vomiting. Not moving his bowels. + generalized weakness. + h/o DM, h/o gastroparesis. Having some upper abdominal pain - dull, does not radiate. Nothing makes it better, nothing makes it worse. Chief Complaint:: H/O GASTROPARESIS; STATES HE HAS BEEN VOMITING FOR 2 DAYS, CAN'T HOLD ANYTHING DOWN, EMESIS IS NOW BLOOD TINGED, STATES HE'S EXHAUSTED AND WEAK COVID-19 Coronavirus risk:travel/contact w/high risk person: No Has patient experienced Coronavirus symptoms: No Reviewed Nurses Notes Reviewed: Yes Source History Provided: Patient and Significant Other Mode of Arrival Mode of Arrival: Wheelchair Timing Onset of Chief Complaint: 12/24/22 PMH PMH Past Medical History: Yes Past Medical History: Diabetes, GERD and Hypertension Past Medical History Comment: GASTROPARESIS Past Surgical History: Yes Surgical History: Angioplasty/Stents Family History History of Family Medical Conditions: Yes Family Medical History: Diabetes Mellitus Social History Does patient currently use any type of tobacco product: No Have you used tobacco products in the last 12 months: No Type of Tobacco Use: None Does any household member use tobacco: No Alcohol Use: None Do you use any recreational Drugs:: No Lives With: Significant Other Lives Where: Home Travel Risk Coronavirus risk:travel/contact w/high risk person: No Has patient experienced Coronavirus symptoms: No Infectious screening In the last 2 months have you had wt loss of >10#?: NO Have you had fever, night sweats or hemotysis?: No Have you traveled outside the country in the last 6 months?: No Isolation: Standard ROS Review of Systems Constitutional: Weakness Eyes: No Symptoms Reported ENTM: No Symptoms Reported Respiratoy: No Symptoms Reported Cardiovascular: No Symptoms Reported Gastrointestinal/Abdominal: Abdominal Pain, Constipation, Nausea and Vomiting Genitourinary: No Symptoms Reported Neurological: Weakness Musculoskeletal: No Symptoms Reported Integumentary: No Symptoms Reported All Other Systems: Reviewed and Negative PE Vital Signs Vitals: Vital Signs Temperature 99.7 F Pulse Rate 94 Respiratory Rate 20 Blood Pressure 114/60 O2 Sat by Pulse Oximetry 100 General General Appearance: Alert and Other (appears uncomfortable, + actively vomiting.) Eyes Eye exam: PERRL and EOMI ENT ENT Exam: Mucous Membranes Moist Neck Neck Exam: Normal Inspection Respiratory Respiratory Exam: Normal Lung Sounds Bilat; negative Accessory Muscle Use or Respiratory Distress Cardiovascular Cardiovascular Exam: Regular Rate, Normal Rhythm and Normal Heart Sounds Abdominal Exam Abdominal Exam: Normal Bowel Sounds, Soft and Tenderness (mild, epigastric region, no guarding or rebound. ) Extremities Extremities Exam: Normal Inspection; negative Edema Neurologic Neurological Exam: Alert, Oriented X3 and CN II-XII Intact; negative Motor Sensory Deficit Skin Skin Exam: Warm and Dry COURSE Treatment Treatment: 47 y/o male with N/V, abdominal pain x few days. + h/o gastroparesis. W/u initiated. Pt given IV fluids, IV zofran/protonix. Still vomiting. Given IV compazine with benadryl. 1040 - vomiting/abdominal pain better. Labs show elevated BUN 38/Cr 3.16 (Cr 2 months ago, 1.6). Recommend admission for further hydration. Presented to Dr Neumann, accepts the admission. ROR Labs Reviewed Laboratory Results Reviewed?: Yes 12/26/22 09:00 12/26/22 09:00 Laboratory: WBC 9.0 X10^3/uL (3.6-10.0) 12/26/22 09:00 RBC 4.31 X10^6/uL (4.7-6.0) L 12/26/22 09:00 Hgb 11.9 g/dL (13.5-18.0) L 12/26/22 09:00 Hct 34.9 % (42.0-54.0) L 12/26/22 09:00 MCV 81.2 fL (80.0-100.0) 12/26/22 09:00 MCH 27.5 pg (27.0-34.0) 12/26/22 09:00 MCHC 33.9 g/dL (33.0-35.0) 12/26/22 09:00 RDW 13.7 % (11.6-16.5) 12/26/22 09:00 Plt Count 198 X10^3/uL (150.0-450.0) 12/26/22 09:00 MPV 9.4 fL (7.4-11.0) 12/26/22 09:00 Neut % (Auto) 72.5 % (42.0-75.0) 12/26/22 09:00 Lymph % (Auto) 20.7 % (21.0-51.0) L 12/26/22 09:00 [place] % (Auto) 4.4 % (0.0-13.0) 12/26/22 09:00 Eos % (Auto) 0.2 % (0.9-2.9) L 12/26/22 09:00 Baso % (Auto) 2.2 % (0.2-1.0) H 12/26/22 09:00 Neut # (Auto) 6.5 x10^3/uL (2.2-4.8) H 12/26/22 09:00 Lymph # (Auto) 1.9 X10^3/uL (1.3-2.9) 12/26/22 09:00 [place] # (Auto) 0.4 x10^3/uL (0.3-0.8) 12/26/22 09:00 Eos # (Auto) 0.0 x10^3/uL (0.0-0.2) 12/26/22 09:00 Baso # (Auto) 0.2 X10^3/uL (0.0-0.1) H 12/26/22 09:00 Absolute Nucleated RBC 0.0 /100WBC 12/26/22 09:00 Sodium 142 mmol/L (136-145) 12/26/22 09:00 Corrected Sodium 146 mmol/L (136-145) H 12/26/22 09:00 Potassium 3.6 mmol/L (3.5-5.1) 12/26/22 09:00 Chloride 104 mmol/L (98-107) 12/26/22 09:00 Carbon Dioxide 28.0 mmol/L (21-32) 12/26/22 09:00 BUN 38 mg/dL (7-18) H 12/26/22 09:00 Creatinine 3.16 mg/dL (0.70-1.30) H 12/26/22 09:00 Est GFR (MDRD) Af Amer 27 (>60) L 12/26/22 09:00 Est GFR (MDRD) Non-Af 23 (>60) L 12/26/22 09:00 Glucose 250 mg/dL (65-99) H 12/26/22 09:00 Calcium 8.6 mg/dL (8.5-10.1) 12/26/22 09:00 Corrected Calcium 9.6 mg/dL (8.5-10.1) 12/26/22 09:00 Total Bilirubin 0.30 mg/dL (0.2-1.0) 12/26/22 09:00 AST 17 Units/L (15-37) 12/26/22 09:00 ALT 26 Units/L (12-78) 12/26/22 09:00 Alkaline Phosphatase 183 Units/L (46-116) H 12/26/22 09:00 Total Protein 7.4 g/dL (6.4-8.2) 12/26/22 09:00 Albumin 2.8 g/dL (3.4-5.0) L 12/26/22 09:00 Globulin 4.6 g/dL (2.5-4.5) H 12/26/22 09:00 Albumin/Globulin Ratio 0.6 Ratio (1.1-2.1) L 12/26/22 09:00 Lipase 155 Units/L (73-393) 12/26/22 09:00 Acetone, Semi-Quant Small (NEGATIVE) H 12/26/22 09:00 elevated renal numbers Opioid Opioid Risk Tool Age (Ramiro box if 16-45): No History of Preadolescent Sexual Abuse: No Total: 0 Total Score Risk Category: Low Risk Copyright: Jace ROMEO predicting aberrant behaviors Discharge Plan Diagnosis Discharge Problem: Diabetic gastroparesis, Acute kidney injury Discharge Plan Patient Disposition: ADMITTED INPATIENT Condition: Stable Prescriptions: No Action insulin glargine [Lantus U-100 Insulin] 100 unit/mL Solution 10 - 20 unit SUBCUT QPM PRN Rx Instructions: PATIENT STATES HE CHECKS HIS BLOOD SUGAR AT NIGHT AND TAKES IT HE NEEDS IT. sucralfate 1 gram tablet 1 g PO QID simvastatin 20 mg tablet 20 mg PO QPM hydrochlorothiazide 25 mg tablet 25 mg PO QDAY labetalol 200 mg tablet 200 mg PO BID potassium chloride 10 mEq tablet extended release 10 meq PO QDAY metoclopramide HCl 5 mg tablet 5 mg PO TID pantoprazole 40 mg tablet,delayed release (DR/EC) 40 mg PO QDAY Farxiga 10 mg tablet 10 mg PO QDAY Creon 24,000-76,000 -120,000 unit capsule,delayed release(DR/EC) 1 cap PO TID Health Concerns: Post Hospitalization: new medications and changes needed to prevent readmission or further decline. Pt educated and given instructions on all concerns. Plan of Treatment: Continue with present treatment and follow up plan. Pt is to keep follow up appointment as instructed and take medications as ordered. Orders to Discharge Patient Discharge Orders: Transfer (Routine); Ordered 12/26/22 Ordered By: Perry Michael Follow ups/Referrals Follow ups/Referrals: [facility],None [Primary Care Provider] - 3 days
[2022-12-26] MEDS ORDERED: NS 1,000 ML IV 1,000 ML IV ONE ×2 (08:17→09:26)
[2022-12-26] MEDS ORDERED: ZOFRAN INJ 4 MG VIAL IVP ONE (08:17)
[2022-12-26] MEDS ORDERED: PROTONIX INJ 40 MG VIAL IVP ONE (08:17)
[2022-12-26] MEDS ORDERED: PROTONIX INJ 40 MG VIAL ONE (08:20)
[2022-12-26] MEDS ORDERED: NS 1,000 ML IV 1,000 ML ONE ×2 (08:21→09:27)
[2022-12-26] MEDS ORDERED: ZOFRAN INJ 4 MG VIAL ONE (08:21)
[2022-12-26] MEDS ORDERED: COMPAZINE INJ IVP ONE (08:53)
[2022-12-26] MEDS ORDERED: BENADRYL INJ 50 MG VIAL IVP ONE (08:54)
[2022-12-26] MEDS ORDERED: COMPAZINE INJ ONE (08:55)
[2022-12-26] MEDS ORDERED: BENADRYL INJ 50 MG VIAL ONE (08:55)
[2022-12-26 09:11] LABS: BASOPHILS # (AUTO) 0.2 X10^3/uL (0.0-0.1); BASOPHILS % (AUTO) 2.2 % (0.2-1.0); EOSINOPHILS % (AUTO) 0.2 % (0.9-2.9); HEMATOCRIT 34.9 % (42.0-54.0); HEMOGLOBIN 11.9 g/dL (13.5-18.0); LYMPHOCYTES # (AUTO) 1.9 X10^3/uL (1.3-2.9); LYMPHOCYTES % (AUTO) 20.7 % (21.0-51.0); MEAN CORPUSCULAR HEMOGLOBIN 27.5 pg (27.0-34.0); MEAN CORPUSCULAR HGB CONC 33.9 g/dL (33.0-35.0); MEAN CORPUSCULAR VOLUME 81.2 fL (80.0-100.0); MEAN PLATELET VOLUME 9.4 fL (7.4-11.0); MONOCYTES # (AUTO) 0.4 x10^3/uL (0.3-0.8); MONOCYTES % (AUTO) 4.4 % (0.0-13.0); NEUTROPHILS # (AUTO) 6.5 x10^3/uL (2.2-4.8); NEUTROPHILS % (AUTO) 72.5 % (42.0-75.0); PLATELET COUNT 198 X10^3/uL (150.0-450.0); RED BLOOD COUNT 4.31 X10^6/uL (4.7-6.0); RED CELL DISTRIBUTION WIDTH 13.7 % (11.6-16.5)
[2022-12-26 09:20] LABS: SERUM ACETONE SMALL (NEGATIVE)
[2022-12-26 09:37] LABS: ALANINE AMINOTRANSFERASE 26 Units/L (12-78); ALBUMIN 2.8 g/dL (3.4-5.0); ALKALINE PHOSPHATASE 183 Units/L (46-116); ASPARTATE AMINO TRANSFERASE 17 Units/L (15-37); BLOOD UREA NITROGEN 38 mg/dL (7-18); CALCIUM 8.6 mg/dL (8.5-10.1); CHLORIDE 104 mmol/L (98-107); COR CA(FOR HYPOALB) 9.6 mg/dL (8.5-10.1); COR NA(FOR HYPERGLY) 146 mmol/L (136-145); CREATININE 3.16 mg/dL (0.70-1.30); GLUCOSE 250 mg/dL (65-99); LIPASE 155 Units/L (73-393); POTASSIUM 3.6 mmol/L (3.5-5.1); SODIUM 142 mmol/L (136-145); TOTAL PROTEIN 7.4 g/dL (6.4-8.2); eGFR NON BLACK RACES 23 (>60)
[2022-12-26] MEDS ORDERED: NS 1,000 ML IV 1,000 ML IV SCH (12:26)
[2022-12-26] MEDS ORDERED: LANTUS SC PRN (12:26)
[2022-12-26] MEDS ORDERED: CONSULT PHARMACY - POTASSIUM & MAGNESIUM XX SCH (12:26)
[2022-12-26] MEDS ORDERED: CARAFATE PO SCH (13:00)
[2022-12-26] MEDS ORDERED: NS + KCL 20 MEQ/L 1,000 ML IV SCH (13:00)
[2022-12-26] MEDS ORDERED: K-DUR TAB 20 MEQ PO SCH (13:00)
[2022-12-26] MEDS ORDERED: NS + KCL 20 MEQ/L 1,000 ML IV ONE (13:10)
[2022-12-26] MEDS: ZOFRAN INJ 4 MG VIAL IVP PRN ×2 (15:16→20:30)
[2022-12-26] MEDS ORDERED: PHENERGAN INJ 25 MG IM ONE (16:56)
[2022-12-26] MEDS ORDERED: LOPRESSOR INJ 5 MG AMP ONE (16:56)
[2022-12-26] MEDS ORDERED: NovoLIN R (or HumuLIN R) ONE (17:01)
[2022-12-26 17:06] LABS: ABG BASE EXCESS -0.8 mmol/L (-2.0-2.0); ABG HCO3 25.4 mmol/L (22-26)
[2022-12-26] MEDS: LOPRESSOR INJ 5 MG AMP IVP SCH (17:08)
[2022-12-26] MEDS: PHENERGAN INJ 25 MG IM PRN ×2 (17:08→22:43)
[2022-12-26] MEDS: NovoLIN R (or HumuLIN R) SUBCUT PRN ×2 (17:11→21:00)
[2022-12-26] MEDS: SODIUM BICARBONATE 8.4% IV SCH ×2 (18:45)
[2022-12-26] MEDS: KCL IV SCH ×2 (18:45)
[2022-12-26] MEDS: NS IV SCH ×2 (18:45)
[2022-12-26] MEDS ORDERED: CATAPRES-TTS-3 TD SCH (19:00)
[2022-12-26] MEDS ORDERED: SNACK - Diabetic Appropriate PO SCH (20:00)
[2022-12-26] MEDS: SNACK - Diabetic Appropriate PO SCH (20:14)
[2022-12-26 20:44] LABS: ABG ALLEN TEST POS; ABG BASE EXCESS 3.1 mmol/L (-2.0-2.0); ABG HCO3 28.5 mmol/L (22-26)
--- NOTE | 2022-12-26 20:48 | DR.H&P ---
H&P History & Physical for Day of: H&P Date: 12/26/22 Chief Complaint Chief Complaint: Nausea and vomiting Allergies Allergies Allergy/AdvReac Type Severity Reaction Status Date / Time No Known Drug Allergies Allergy Verified 07/14/22 02:32 History of Present Illness History of Present Illness: This is a 47-year-old black male with diabetes mellitus type 2. He reports over the last few days, he has been having intractable nausea and vomiting, and he has been vomiting so much that he now has some blood in it. He reports he is not able to take anything by mouth because he does it up. He is not even able to take his medication as he also throws it up. He also has significantly elevated malignant hypertension and he normally takes labetalol at home along with HCTZ. Patient is dehydrated on admission and he will need IV fluid. He will also need IV Protonix as he reports vomiting up some blood in his vomitus. Past Medical History Past Medical History: Diabetes, GERD and Hypertension Past Surgical History Surgical History: Angioplasty/Stents Family History Family Medical History: Diabetes Mellitus Social History Does patient currently use any type of tobacco product: No Have you used tobacco products in the last 12 months: No Type of Tobacco Use: None Does any household member use tobacco: No Alcohol Use: None Drug Use: None Medications Home Medications: Home Medications Medication Instructions Recorded Confirmed Type dapagliflozin propanediol 10 mg 10 mg PO QDAY 07/13/22 12/26/22 History tablet (Farxiga) labetalol 200 mg tablet 200 mg PO BID 07/13/22 12/26/22 History metoclopramide HCl 5 mg tablet 5 mg PO TID 07/13/22 12/26/22 History pantoprazole 40 mg tablet,delayed 40 mg PO QDAY 07/13/22 12/26/22 History release potassium chloride 10 mEq 10 meq PO QDAY 07/13/22 12/26/22 History tablet,extended release [id number] 1 cap PO TID 07/14/22 12/26/22 History 24,000-76,000-120,000 unit capsule,delayed rel (Creon) insulin glargine 100 unit/mL 10 - 20 unit subcut QPM PRN 09/11/22 12/26/22 History subcutaneous solution (Lantus U-100 Insulin) hydrochlorothiazide 25 mg tablet 25 mg PO QDAY 12/26/22 12/26/22 History simvastatin 20 mg tablet 20 mg PO QPM 12/26/22 12/26/22 History sucralfate 1 gram tablet 1 g PO QID 12/26/22 12/26/22 History Labs 12/26/22 09:00 12/26/22 09:00 Labs: Laboratory WBC 9.0 X10^3/uL (3.6-10.0) 12/26/22 09:00 RBC 4.31 X10^6/uL (4.7-6.0) L 12/26/22 09:00 Hgb 11.9 g/dL (13.5-18.0) L 12/26/22 09:00 Hct 34.9 % (42.0-54.0) L 12/26/22 09:00 MCV 81.2 fL (80.0-100.0) 12/26/22 09:00 MCH 27.5 pg (27.0-34.0) 12/26/22 09:00 MCHC 33.9 g/dL (33.0-35.0) 12/26/22 09:00 RDW 13.7 % (11.6-16.5) 12/26/22 09:00 Plt Count 198 X10^3/uL (150.0-450.0) 12/26/22 09:00 MPV 9.4 fL (7.4-11.0) 12/26/22 09:00 Neut % (Auto) 72.5 % (42.0-75.0) 12/26/22 09:00 Lymph % (Auto) 20.7 % (21.0-51.0) L 12/26/22 09:00 [place] % (Auto) 4.4 % (0.0-13.0) 12/26/22 09:00 Eos % (Auto) 0.2 % (0.9-2.9) L 12/26/22 09:00 Baso % (Auto) 2.2 % (0.2-1.0) H 12/26/22 09:00 Neut # (Auto) 6.5 x10^3/uL (2.2-4.8) H 12/26/22 09:00 Lymph # (Auto) 1.9 X10^3/uL (1.3-2.9) 12/26/22 09:00 [place] # (Auto) 0.4 x10^3/uL (0.3-0.8) 12/26/22 09:00 Eos # (Auto) 0.0 x10^3/uL (0.0-0.2) 12/26/22 09:00 Baso # (Auto) 0.2 X10^3/uL (0.0-0.1) H 12/26/22 09:00 Absolute Nucleated RBC 0.0 /100WBC 12/26/22 09:00 Sample Site Rb 12/26/22 16:42 ABG pH 7.340 (7.35-7.45) L 12/26/22 16:42 ABG pCO2 47.0 mmHg (35.0-45.0) H 12/26/22 16:42 ABG pO2 62.0 mmHg (80.0-100.0) L 12/26/22 16:42 ABG HCO3 25.4 mmol/L (22-26) 12/26/22 16:42 ABG O2 Saturation 90.0 % (90-100) 12/26/22 16:42 ABG Base Excess -0.8 mmol/L (-2.0-2.0) 12/26/22 16:42 Adi Test Na 12/26/22 16:42 A-a Gradient 29.0 mmHg 12/26/22 16:42 FiO2 21.0 12/26/22 16:42 Blood Gas Comments Pt jameson well [employer] 12/26/22 16:42 Sodium 142 mmol/L (136-145) 12/26/22 09:00 Corrected Sodium 146 mmol/L (136-145) H 12/26/22 09:00 Potassium 3.6 mmol/L (3.5-5.1) 12/26/22 09:00 Chloride 104 mmol/L (98-107) 12/26/22 09:00 Carbon Dioxide 28.0 mmol/L (21-32) 12/26/22 09:00 BUN 38 mg/dL (7-18) H 12/26/22 09:00 Creatinine 3.16 mg/dL (0.70-1.30) H 12/26/22 09:00 Est GFR (MDRD) Af Amer 27 (>60) L 12/26/22 09:00 Est GFR (MDRD) Non-Af 23 (>60) L 12/26/22 09:00 Glucose 250 mg/dL (65-99) H 12/26/22 09:00 POC Glucose (mg/dL) 193 mg/dL (65-99) H 12/26/22 20:06 Calcium 8.6 mg/dL (8.5-10.1) 12/26/22 09:00 Corrected Calcium 9.6 mg/dL (8.5-10.1) 12/26/22 09:00 Total Bilirubin 0.30 mg/dL (0.2-1.0) 12/26/22 09:00 AST 17 Units/L (15-37) 12/26/22 09:00 ALT 26 Units/L (12-78) 12/26/22 09:00 Alkaline Phosphatase 183 Units/L (46-116) H 12/26/22 09:00 Total Protein 7.4 g/dL (6.4-8.2) 12/26/22 09:00 Albumin 2.8 g/dL (3.4-5.0) L 12/26/22 09:00 Globulin 4.6 g/dL (2.5-4.5) H 12/26/22 09:00 Albumin/Globulin Ratio 0.6 Ratio (1.1-2.1) L 12/26/22 09:00 Lipase 155 Units/L (73-393) 12/26/22 09:00 Acetone, Semi-Quant Small (NEGATIVE) H 12/26/22 09:00 SARS CoV-2 RNA Rapid SUE Negative (NEGATIVE) 12/26/22 11:33 Review of Systems Constitutional: Sweats and Weakness Eyes: No Symptoms Reported ENT: No Symptoms Reported Respiratory: No Symptoms Reported Cardiovascular: No Symptoms Reported Gastrointestinal: Nausea, Vomiting and Abdominal Pain; denies Diarrhea, Melena or Hematochezia Genitourinary: No Symptoms Reported Musculoskeletal: No Symptoms Reported Skin: No Symptoms Reported Neurological: No Symptoms Reported Physical Exam Vital Signs: Vital Signs Temperature 98.0 F Temperature 98.4 F Pulse Rate [Brachial] 72 Pulse Rate [Brachial] 73 Pulse Rate [Brachial] 91 Pulse Rate [Brachial] 90 Respiratory Rate 18 Respiratory Rate 14 Respiratory Rate 15 Respiratory Rate 15 Blood Pressure [Right Arm] 194/110 Blood Pressure [Left Arm] 164/98 Blood Pressure [Left Arm] 186/112 Blood Pressure [Left Arm] 199/116 Blood Pressure 202/104 O2 Sat by Pulse Oximetry 98 O2 Sat by Pulse Oximetry 98 O2 Sat by Pulse Oximetry 98 O2 Sat by Pulse Oximetry 99 Oriented: Normal Eyes: Normal Ear: Normal Nose: Normal Throat: Normal Respiratory: negative Clear Throughout Cardiovascular: Normal Auscultation: Bowel Sounds: Normal Palpation: Normal Tenderness: Epigastric Skin: Normal Musculoskeletal: Normal Psychiatric: Normal Mood Description: Calm Affect: Anxious and Normal Speech Pattern: Clear and Appropriate Assessment/Plan (1) Diabetic gastroparesis: Status: Acute Plan: Start Reglan 5 mg IV every before meals and at bedtime (2) Acute dehydration: Status: Acute Plan: IV hydration with normal saline running at 150 mL an hour. (3) Generalized weakness: Status: Acute Plan: Monitor for improvement (4) Intractable nausea and vomiting: Status: Acute Plan: Patient was not stable with the Zofran alone so I added as needed intramuscular Phenergan. We can also add Compazine if needed. (5) Acute on chronic renal failure: Status: Acute Plan: IV hydration and recheck renal function tomorrow morning. (6) DM2 (diabetes mellitus, type 2): Status: Acute Plan: Start sliding scale regular insulin protocol. Review H&P Reviewed: Yes Patient was examined?: Yes
[2022-12-26 20:50] LABS: BILIRUBIN,URINE NEGATIVE (NEGATIVE); BLOOD/HEMOGLOBIN,URINE 2+ (NEGATIVE); GLUCOSE, URINE 4+ (NEGATIVE); KETONES,URINE 2+ (NEGATIVE); LEUKOCYTE ESTERASE ,URINE NEGATIVE (NEGATIVE); NITRITES,URINE NEGATIVE (NEGATIVE); PROTEIN,URINE 4+ (NEGATIVE); UROBILINOGEN,URINE NORMAL (NORMAL)
[2022-12-26 20:52] LABS: APPEARANCE,URINE CLEAR (CLEAR); COLOR,URINE YELLOW (YELLOW)
[2022-12-26 20:55] LABS: BACTERIA,URINE TRACE /HPF (NEGATIVE); RBC,URINE 0-2 /HPF (0-3)
[2022-12-26] MEDS: VASOTEC INJ 2.5 MG VIAL IVP PRN (20:55)
[2022-12-26 21:00] LABS: SQUAMOUS EPITHELIAL CELL,UR RARE /HPF (NEGATIVE)
--- NOTE | 2022-12-27 00:39 | EKG ---
Test Reason : HTN PROTOCOL Blood Pressure : */* mmHG Vent. Rate : 93 BPM Atrial Rate : 93 BPM P-R Int : 134 ms QRS Dur : 78 ms QT Int : 362 ms P-R-T Axes : 52 -6 30 degrees QTc Int : 450 ms Normal sinus rhythm Normal ECG No previous ECGs available Confirmed by Ignacio Keenan ([id number]) on 12/29/2022 12:12:58 PM Referred By: Confirmed By: Ignacio Keenan
[2022-12-27] MEDS: NORMODYNE INJ 20 MG VIAL IV PRN ×9 (00:52→23:55)
[2022-12-27] MEDS: SODIUM BICARBONATE 8.4% IV SCH ×4 (00:56→06:59)
[2022-12-27] MEDS: NS IV SCH ×4 (00:56→06:59)
[2022-12-27] MEDS: KCL IV SCH ×4 (00:56→06:59)
[2022-12-27] MEDS: ZOFRAN INJ 4 MG VIAL IVP PRN ×3 (02:00→19:25)
[2022-12-27] MEDS: VASOTEC INJ 2.5 MG VIAL IVP PRN ×3 (03:00→19:24)
[2022-12-27 06:22] LABS: BASOPHILS % (AUTO) 0.3 % (0.2-1.0); HEMATOCRIT 30.4 % (42.0-54.0); HEMOGLOBIN 10.6 g/dL (13.5-18.0); LYMPHOCYTES % (AUTO) 9.4 % (21.0-51.0); MEAN CORPUSCULAR HEMOGLOBIN 28.4 pg (27.0-34.0); MEAN CORPUSCULAR HGB CONC 34.9 g/dL (33.0-35.0); MEAN CORPUSCULAR VOLUME 81.2 fL (80.0-100.0); MEAN PLATELET VOLUME 9.3 fL (7.4-11.0); MONOCYTES # (AUTO) 0.3 x10^3/uL (0.3-0.8); MONOCYTES % (AUTO) 2.7 % (0.0-13.0); NEUTROPHILS # (AUTO) 9.5 x10^3/uL (2.2-4.8); NEUTROPHILS % (AUTO) 87.6 % (42.0-75.0); PLATELET COUNT 208 X10^3/uL (150.0-450.0); RED BLOOD COUNT 3.75 X10^6/uL (4.7-6.0); RED CELL DISTRIBUTION WIDTH 13.8 % (11.6-16.5); WHITE BLOOD COUNT 10.8 X10^3/uL (3.6-10.0)
[2022-12-27 06:32] LABS: ALBUMIN 2.5 g/dL (3.4-5.0); CARBON DIOXIDE 25.4 mmol/L (21-32); COR CA(FOR HYPOALB) 9.2 mg/dL (8.5-10.1); CREATININE 2.73 mg/dL (0.70-1.30); POTASSIUM 3.8 mmol/L (3.5-5.1); TOTAL PROTEIN 6.4 g/dL (6.4-8.2)
[2022-12-27] MEDS: PROTONIX INJ 40 MG VIAL IVP SCH (08:11)
[2022-12-27] MEDS: LOPRESSOR INJ 5 MG AMP IVP SCH (08:11)
[2022-12-27] MEDS: NORMODYNE INJ 20 MG VIAL IVP SCH ×3 (09:59→20:20)
[2022-12-27] MEDS: NS 1/2 + KCL 20 MEQ/L 1,000 ML IV SCH ×2 (09:59→17:33)
[2022-12-27] MEDS: NovoLIN R (or HumuLIN R) SUBCUT PRN ×3 (12:03→20:24)
[2022-12-27] MEDS: PHENERGAN INJ 25 MG IM PRN ×2 (12:41→20:20)
[2022-12-27] MEDS: SNACK - Diabetic Appropriate PO SCH (20:22)
--- NOTE | 2022-12-27 22:15 | PCM.PROG ---
Progress Note Progress Note for Day of Date of Exam: 12/27/22 Subjective Subjective: The patient reports his nausea has improved since yesterday but he is still vomiting some. His creatinine has improved since yesterday and he feels better overall. He has hyper natremia this morning so we will change him to half-normal saline from normal saline and continue him on flat scale regular insulin per protocol for his type 2 diabetes mellitus. We will continue current treatment this time and rechecking him again tomorrow morning and repeat his routine labs. Past Medical Family Social History Allergies: Allergies No Known Drug Allergies Allergy (Verified 07/14/22 02:32) Review of Systems ROS: No change since H&P Vital Signs and I&O's Vital Signs: Vital Signs Temperature 98.0 F Pulse Rate [Brachial] 84 Respiratory Rate 20 Blood Pressure [Right Arm] 158/95 Blood Pressure [Right Arm] 165/92 Blood Pressure [Right Arm] 203/113 O2 Sat by Pulse Oximetry 99 Intake and Output: Intake & Output 12/25/22 12/26/22 12/27/22 12/28/22 11:59 11:59 11:59 11:59 Intake Total 4382 / 4382 1565 / 1565 Output Total 700 / 700 Balance 3682 / 3682 1565 / 1565 Physical Exam Oriented: Normal Eyes: Normal Ear: Normal Nose: Normal Throat: Normal Cardiovascular: Normal Auscultation: Bowel Sounds: Normal Tenderness: Epigastric Skin: Normal Musculoskeletal: Normal Psychiatric: Normal Mood Description: Calm Affect: Anxious and Normal Speech Pattern: Clear and Appropriate Laboratory and Diagnostics 12/27/22 05:58 12/27/22 05:58 Labs: Laboratory WBC 10.8 X10^3/uL (3.6-10.0) H 12/27/22 05:58 RBC 3.75 X10^6/uL (4.7-6.0) L 12/27/22 05:58 Hgb 10.6 g/dL (13.5-18.0) L 12/27/22 05:58 Hct 30.4 % (42.0-54.0) L 12/27/22 05:58 MCV 81.2 fL (80.0-100.0) 12/27/22 05:58 MCH 28.4 pg (27.0-34.0) 12/27/22 05:58 MCHC 34.9 g/dL (33.0-35.0) 12/27/22 05:58 RDW 13.8 % (11.6-16.5) 12/27/22 05:58 Plt Count 208 X10^3/uL (150.0-450.0) 12/27/22 05:58 MPV 9.3 fL (7.4-11.0) 12/27/22 05:58 Neut % (Auto) 87.6 % (42.0-75.0) H 12/27/22 05:58 Lymph % (Auto) 9.4 % (21.0-51.0) L 12/27/22 05:58 [place] % (Auto) 2.7 % (0.0-13.0) 12/27/22 05:58 Eos % (Auto) 0.0 % (0.9-2.9) L 12/27/22 05:58 Baso % (Auto) 0.3 % (0.2-1.0) 12/27/22 05:58 Neut # (Auto) 9.5 x10^3/uL (2.2-4.8) H 12/27/22 05:58 Lymph # (Auto) 1.0 X10^3/uL (1.3-2.9) L 12/27/22 05:58 [place] # (Auto) 0.3 x10^3/uL (0.3-0.8) 12/27/22 05:58 Eos # (Auto) 0.0 x10^3/uL (0.0-0.2) 12/27/22 05:58 Baso # (Auto) 0.0 X10^3/uL (0.0-0.1) 12/27/22 05:58 Absolute Nucleated RBC 0.0 /100WBC 12/27/22 05:58 Sample Site Rr 12/26/22 21:00 ABG pH 7.400 (7.35-7.45) 12/26/22 21:00 ABG pCO2 46.0 mmHg (35.0-45.0) H 12/26/22 21:00 ABG pO2 77.0 mmHg (80.0-100.0) L 12/26/22 21:00 ABG HCO3 28.5 mmol/L (22-26) H 12/26/22 21:00 ABG O2 Saturation 95.0 % (90-100) 12/26/22 21:00 ABG Base Excess 3.1 mmol/L (-2.0-2.0) H 12/26/22 21:00 Adi Test Pos 12/26/22 21:00 A-a Gradient 15.0 mmHg 12/26/22 21:00 FiO2 21.0 12/26/22 21:00 Blood Gas Comments Maricel well sw 12/26/22 21:00 Sodium 148 mmol/L (136-145) H 12/27/22 05:58 Corrected Sodium 150 mmol/L (136-145) H 12/27/22 05:58 Potassium 3.8 mmol/L (3.5-5.1) 12/27/22 05:58 Chloride 112 mmol/L (98-107) H 12/27/22 05:58 Carbon Dioxide 25.4 mmol/L (21-32) 12/27/22 05:58 BUN 37 mg/dL (7-18) H 12/27/22 05:58 Creatinine 2.73 mg/dL (0.70-1.30) H 12/27/22 05:58 Est GFR (MDRD) Af Amer 32 (>60) L 12/27/22 05:58 Est GFR (MDRD) Non-Af 27 (>60) L 12/27/22 05:58 Glucose 170 mg/dL (65-99) H 12/27/22 05:58 POC Glucose (mg/dL) 181 mg/dL (65-99) H 12/27/22 19:38 Calcium 8.0 mg/dL (8.5-10.1) L 12/27/22 05:58 Corrected Calcium 9.2 mg/dL (8.5-10.1) 12/27/22 05:58 Magnesium 2.0 mg/dL (2.0-2.9) 12/27/22 05:58 Total Bilirubin 0.30 mg/dL (0.2-1.0) 12/27/22 05:58 AST 45 Units/L (15-37) H 12/27/22 05:58 ALT 27 Units/L (12-78) 12/27/22 05:58 Alkaline Phosphatase 150 Units/L (46-116) H 12/27/22 05:58 Total Protein 6.4 g/dL (6.4-8.2) 12/27/22 05:58 Albumin 2.5 g/dL (3.4-5.0) L 12/27/22 05:58 Globulin 3.9 g/dL (2.5-4.5) 12/27/22 05:58 Albumin/Globulin Ratio 0.6 Ratio (1.1-2.1) L 12/27/22 05:58 Lipase 155 Units/L (73-393) 12/26/22 09:00 Specimen Type Clean catch urine 12/26/22 20:34 Urine Color Yellow (YELLOW) 12/26/22 20:34 Urine Appearance Clear (CLEAR) 12/26/22 20:34 Urine pH 5.0 (5.0 - 8.0) 12/26/22 20:34 Ur Specific [place] 1.020 (1.000-1.030) 12/26/22 20:34 Urine Protein 4+ (NEGATIVE) 12/26/22 20:34 Urine Glucose (UA) 4+ (NEGATIVE) 12/26/22 20:34 Urine Ketones 2+ (NEGATIVE) 12/26/22 20:34 Urine Blood 2+ (NEGATIVE) 12/26/22 20:34 Urine Nitrite Negative (NEGATIVE) 12/26/22 20:34 Urine Bilirubin Negative (NEGATIVE) 12/26/22 20:34 Urine Urobilinogen Normal (NORMAL) 12/26/22 20:34 Ur Leukocyte Esterase Negative (NEGATIVE) 12/26/22 20:34 Urine RBC 0-2 /HPF (0-3) 12/26/22 20:34 Urine WBC 0-2 /HPF (0-5) 12/26/22 20:34 Ur Squamous Epith Cells Rare /HPF (NEGATIVE) 12/26/22 20:34 Amorphous Sediment 1+ /HPF (NEGATIVE) 12/26/22 20:34 Urine Bacteria Trace /HPF (NEGATIVE) 12/26/22 20:34 Ur Culture Indicated? No/not indicated 12/26/22 20:34 Acetone, Semi-Quant Small (NEGATIVE) H 12/27/22 05:58 SARS CoV-2 RNA Rapid SUE Negative (NEGATIVE) 12/26/22 11:33 Plan (1) Diabetic gastroparesis: Status: Acute Plan: Start Reglan 5 mg IV every before meals and at bedtime (2) Acute dehydration: Status: Acute Plan: IV hydration with normal saline running at 150 mL an hour. (3) Generalized weakness: Status: Acute Plan: Monitor for improvement (4) Intractable nausea and vomiting: Status: Acute Plan: Patient was not stable with the Zofran alone so I added as needed intramuscular Phenergan. We can also add Compazine if needed. (5) Acute on chronic renal failure: Status: Acute Plan: IV hydration and recheck renal function tomorrow morning. (6) DM2 (diabetes mellitus, type 2): Status: Acute Plan: Start sliding scale regular insulin protocol.
[2022-12-28] MEDS: NORMODYNE INJ 20 MG VIAL IV PRN (00:21)
[2022-12-28] MEDS: VASOTEC INJ 2.5 MG VIAL IVP PRN (01:08)
[2022-12-28] MEDS: ZOFRAN INJ 4 MG VIAL IVP PRN ×3 (01:12→20:18)
[2022-12-28] MEDS: NS 1/2 + KCL 20 MEQ/L 1,000 ML IV SCH ×4 (02:16→18:54)
[2022-12-28] MEDS: NORMODYNE INJ 20 MG VIAL IVP SCH ×2 (02:42→08:00)
[2022-12-28] MEDS: PHENERGAN INJ 25 MG IM PRN ×2 (02:53→16:20)
[2022-12-28 05:07] LABS: BASOPHILS % (AUTO) 0.3 % (0.2-1.0); HEMATOCRIT 31.1 % (42.0-54.0); HEMOGLOBIN 10.6 g/dL (13.5-18.0); LYMPHOCYTES # (AUTO) 1.7 X10^3/uL (1.3-2.9); LYMPHOCYTES % (AUTO) 13.7 % (21.0-51.0); MEAN CORPUSCULAR HEMOGLOBIN 27.8 pg (27.0-34.0); MEAN CORPUSCULAR HGB CONC 34.1 g/dL (33.0-35.0); MEAN CORPUSCULAR VOLUME 81.6 fL (80.0-100.0); MEAN PLATELET VOLUME 9.3 fL (7.4-11.0); MONOCYTES # (AUTO) 0.6 x10^3/uL (0.3-0.8); MONOCYTES % (AUTO) 5.2 % (0.0-13.0); NEUTROPHILS # (AUTO) 9.7 x10^3/uL (2.2-4.8); NEUTROPHILS % (AUTO) 80.8 % (42.0-75.0); PLATELET COUNT 205 X10^3/uL (150.0-450.0); RED BLOOD COUNT 3.81 X10^6/uL (4.7-6.0); WHITE BLOOD COUNT 12.1 X10^3/uL (3.6-10.0)
[2022-12-28] MEDS: NORVASC TAB 5 MG PO SCH ×2 (05:11→08:00)
[2022-12-28 05:27] LABS: ALBUMIN 2.5 g/dL (3.4-5.0); COR CA(FOR HYPOALB) 9.2 mg/dL (8.5-10.1); CREATININE 2.43 mg/dL (0.70-1.30); TOTAL PROTEIN 6.3 g/dL (6.4-8.2)
[2022-12-28] MEDS: PROTONIX INJ 40 MG VIAL IVP SCH (08:00)
[2022-12-28] MEDS: NORMODYNE TAB 200 MG PO SCH ×2 (08:51→20:16)
[2022-12-28] MEDS: NORVASC TAB 10 MG PO SCH (08:52)
[2022-12-28] MEDS ORDERED: NORVASC TAB 5 MG PO SCH (09:00)
[2022-12-28] MEDS ORDERED: CATAPRES TAB 0.1 MG PO SCH (09:00)
[2022-12-28] MEDS: CATAPRES TAB 0.1 MG PO PRN ×2 (11:03→20:16)
[2022-12-28] MEDS: NovoLIN R (or HumuLIN R) SUBCUT PRN (15:51)
[2022-12-28] MEDS: APRESOLINE INJ 20 MG VIAL IVP PRN ×2 (16:19→23:24)
[2022-12-28] MEDS: SNACK - Diabetic Appropriate PO SCH (20:22)
--- NOTE | 2022-12-28 21:31 | PCM.PROG ---
Progress Note Progress Note for Day of Date of Exam: 12/28/22 Subjective Subjective: The patient reports his nausea has improved since yesterday, but he is still vomiting some. His creatinine is continuing to improve. His serum acetone is negative this morning. Since he is not vomiting as much we we will start him on his oral antihypertensive to try to get his blood pressure under better control. We will continue the patient on IV hydration and repeat his labs again tomorrow morning. Past Medical Family Social History Allergies: Allergies No Known Drug Allergies Allergy (Verified 07/14/22 02:32) Review of Systems ROS: No change since H&P Vital Signs and I&O's Vital Signs: Vital Signs Temperature 98.8 F Temperature 97.5 F Pulse Rate [Brachial] 85 Pulse Rate [Brachial] 84 Pulse Rate [Brachial] 83 Pulse Rate [Brachial] 84 Pulse Rate 78 Respiratory Rate 18 Respiratory Rate 20 Respiratory Rate 20 Respiratory Rate 18 Respiratory Rate 20 Blood Pressure [Right Arm] 203/125 Blood Pressure [Right Arm] 152/80 Blood Pressure [Right Arm] 159/88 Blood Pressure [Right Arm] 161/96 Blood Pressure [Right Arm] 182/100 Blood Pressure [Right Arm] 145/79 Blood Pressure 159/85 O2 Sat by Pulse Oximetry 99 O2 Sat by Pulse Oximetry 99 O2 Sat by Pulse Oximetry 98 O2 Sat by Pulse Oximetry 97 O2 Sat by Pulse Oximetry 98 Intake and Output: Intake & Output 12/26/22 12/27/22 12/28/22 12/29/22 11:59 11:59 11:59 11:59 Intake Total 4382 / 4382 3082 / 3082 1363 / 1363 Output Total 700 / 700 600 / 600 Balance 3682 / 3682 2482 / 2482 1363 / 1363 Physical Exam Oriented: Normal Eyes: Normal Ear: Normal Nose: Normal Throat: Normal Respiratory: Normal Cardiovascular: Normal Auscultation: Bowel Sounds: Normal Tenderness: Epigastric Skin: Normal Musculoskeletal: Normal Psychiatric: Normal Mood Description: Calm Affect: Anxious and Normal Speech Pattern: Clear and Appropriate Laboratory and Diagnostics 12/28/22 04:50 12/28/22 04:50 Labs: Laboratory WBC 12.1 X10^3/uL (3.6-10.0) H 12/28/22 04:50 RBC 3.81 X10^6/uL (4.7-6.0) L 12/28/22 04:50 Hgb 10.6 g/dL (13.5-18.0) L 12/28/22 04:50 Hct 31.1 % (42.0-54.0) L 12/28/22 04:50 MCV 81.6 fL (80.0-100.0) 12/28/22 04:50 MCH 27.8 pg (27.0-34.0) 12/28/22 04:50 MCHC 34.1 g/dL (33.0-35.0) 12/28/22 04:50 RDW 14.0 % (11.6-16.5) 12/28/22 04:50 Plt Count 205 X10^3/uL (150.0-450.0) 12/28/22 04:50 MPV 9.3 fL (7.4-11.0) 12/28/22 04:50 Neut % (Auto) 80.8 % (42.0-75.0) H 12/28/22 04:50 Lymph % (Auto) 13.7 % (21.0-51.0) L 12/28/22 04:50 Craig % (Auto) 5.2 % (0.0-13.0) 12/28/22 04:50 Eos % (Auto) 0.0 % (0.9-2.9) L 12/28/22 04:50 Baso % (Auto) 0.3 % (0.2-1.0) 12/28/22 04:50 Neut # (Auto) 9.7 x10^3/uL (2.2-4.8) H 12/28/22 04:50 Lymph # (Auto) 1.7 X10^3/uL (1.3-2.9) 12/28/22 04:50 Craig # (Auto) 0.6 x10^3/uL (0.3-0.8) 12/28/22 04:50 Eos # (Auto) 0.0 x10^3/uL (0.0-0.2) 12/28/22 04:50 Baso # (Auto) 0.0 X10^3/uL (0.0-0.1) 12/28/22 04:50 Absolute Nucleated RBC 0.0 /100WBC 12/28/22 04:50 Sample Site Rr 12/26/22 21:00 ABG pH 7.400 (7.35-7.45) 12/26/22 21:00 ABG pCO2 46.0 mmHg (35.0-45.0) H 12/26/22 21:00 ABG pO2 77.0 mmHg (80.0-100.0) L 12/26/22 21:00 ABG HCO3 28.5 mmol/L (22-26) H 12/26/22 21:00 ABG O2 Saturation 95.0 % (90-100) 12/26/22 21:00 ABG Base Excess 3.1 mmol/L (-2.0-2.0) H 12/26/22 21:00 Adi Test Pos 12/26/22 21:00 A-a Gradient 15.0 mmHg 12/26/22 21:00 FiO2 21.0 12/26/22 21:00 Blood Gas Comments Maricel well sw 12/26/22 21:00 Sodium 147 mmol/L (136-145) H 12/28/22 04:50 Corrected Sodium 149 mmol/L (136-145) H 12/28/22 04:50 Potassium 4.0 mmol/L (3.5-5.1) 12/28/22 04:50 Chloride 113 mmol/L (98-107) H 12/28/22 04:50 Carbon Dioxide 27.0 mmol/L (21-32) 12/28/22 04:50 BUN 35 mg/dL (7-18) H 12/28/22 04:50 Creatinine 2.43 mg/dL (0.70-1.30) H 12/28/22 04:50 Est GFR (MDRD) Af Amer 37 (>60) L 12/28/22 04:50 Est GFR (MDRD) Non-Af 31 (>60) L 12/28/22 04:50 Glucose 181 mg/dL (65-99) H 12/28/22 04:50 POC Glucose (mg/dL) 175 mg/dL (65-99) H 12/28/22 19:23 Calcium 8.0 mg/dL (8.5-10.1) L 12/28/22 04:50 Corrected Calcium 9.2 mg/dL (8.5-10.1) 12/28/22 04:50 Magnesium 2.0 mg/dL (2.0-2.9) 12/28/22 04:50 Total Bilirubin 0.30 mg/dL (0.2-1.0) 12/28/22 04:50 AST 58 Units/L (15-37) H 12/28/22 04:50 ALT 31 Units/L (12-78) 12/28/22 04:50 Alkaline Phosphatase 138 Units/L (46-116) H 12/28/22 04:50 Total Protein 6.3 g/dL (6.4-8.2) L 12/28/22 04:50 Albumin 2.5 g/dL (3.4-5.0) L 12/28/22 04:50 Globulin 3.8 g/dL (2.5-4.5) 12/28/22 04:50 Albumin/Globulin Ratio 0.7 Ratio (1.1-2.1) L 12/28/22 04:50 Lipase 155 Units/L (73-393) 12/26/22 09:00 Specimen Type Clean catch urine 12/26/22 20:34 Urine Color Yellow (YELLOW) 12/26/22 20:34 Urine Appearance Clear (CLEAR) 12/26/22 20:34 Urine pH 5.0 (5.0 - 8.0) 12/26/22 20:34 Ur Specific Burton 1.020 (1.000-1.030) 12/26/22 20:34 Urine Protein 4+ (NEGATIVE) 12/26/22 20:34 Urine Glucose (UA) 4+ (NEGATIVE) 12/26/22 20:34 Urine Ketones 2+ (NEGATIVE) 12/26/22 20:34 Urine Blood 2+ (NEGATIVE) 12/26/22 20:34 Urine Nitrite Negative (NEGATIVE) 12/26/22 20:34 Urine Bilirubin Negative (NEGATIVE) 12/26/22 20:34 Urine Urobilinogen Normal (NORMAL) 12/26/22 20:34 Ur Leukocyte Esterase Negative (NEGATIVE) 12/26/22 20:34 Urine RBC 0-2 /HPF (0-3) 12/26/22 20:34 Urine WBC 0-2 /HPF (0-5) 12/26/22 20:34 Ur Squamous Epith Cells Rare /HPF (NEGATIVE) 12/26/22 20:34 Amorphous Sediment 1+ /HPF (NEGATIVE) 12/26/22 20:34 Urine Bacteria Trace /HPF (NEGATIVE) 12/26/22 20:34 Ur Culture Indicated? No/not indicated 12/26/22 20:34 Acetone, Semi-Quant Negative (NEGATIVE) 12/28/22 04:50 SARS CoV-2 RNA Rapid SUE Negative (NEGATIVE) 12/26/22 11:33 Plan (1) Diabetic gastroparesis: Status: Acute Plan: Start Reglan 5 mg IV every before meals and at bedtime (2) Acute dehydration: Status: Acute Plan: IV hydration with normal saline running at 150 mL an hour. (3) Hypernatremia: Status: Acute Plan: Discontinue normal saline and change him to one half normal saline at 125 mL/h. (4) Generalized weakness: Status: Acute Plan: Monitor for improvement (5) Intractable nausea and vomiting: Status: Acute Plan: Patient was not stable with the Zofran alone so I added as needed intramuscular Phenergan. We can also add Compazine if needed. (6) Acute on chronic renal failure: Status: Acute Plan: IV hydration and recheck renal function tomorrow morning. (7) DM2 (diabetes mellitus, type 2): Status: Acute Plan: Start sliding scale regular insulin protocol.
[2022-12-29] MEDS: NS 1/2 + KCL 20 MEQ/L 1,000 ML IV SCH ×4 (02:45→19:17)
[2022-12-29 05:50] LABS: BASOPHILS % (AUTO) 0.4 % (0.2-1.0); EOSINOPHILS % (AUTO) 0.1 % (0.9-2.9); HEMATOCRIT 29.7 % (42.0-54.0); LYMPHOCYTES # (AUTO) 2.4 X10^3/uL (1.3-2.9); LYMPHOCYTES % (AUTO) 21.3 % (21.0-51.0); MEAN CORPUSCULAR HEMOGLOBIN 27.8 pg (27.0-34.0); MEAN CORPUSCULAR HGB CONC 33.6 g/dL (33.0-35.0); MEAN CORPUSCULAR VOLUME 82.7 fL (80.0-100.0); MEAN PLATELET VOLUME 9.8 fL (7.4-11.0); MONOCYTES # (AUTO) 0.6 x10^3/uL (0.3-0.8); MONOCYTES % (AUTO) 5.2 % (0.0-13.0); NEUTROPHILS # (AUTO) 8.1 x10^3/uL (2.2-4.8); PLATELET COUNT 187 X10^3/uL (150.0-450.0); RED BLOOD COUNT 3.59 X10^6/uL (4.7-6.0); RED CELL DISTRIBUTION WIDTH 13.6 % (11.6-16.5)
[2022-12-29 06:01] LABS: ALBUMIN 2.2 g/dL (3.4-5.0); CALCIUM 7.9 mg/dL (8.5-10.1); CARBON DIOXIDE 28.2 mmol/L (21-32); COR CA(FOR HYPOALB) 9.3 mg/dL (8.5-10.1); CREATININE 2.27 mg/dL (0.70-1.30); POTASSIUM 4.3 mmol/L (3.5-5.1); TOTAL PROTEIN 5.9 g/dL (6.4-8.2)
[2022-12-29] MEDS: PROTONIX INJ 40 MG VIAL IVP SCH ×2 (08:41→20:40)
[2022-12-29] MEDS: NORMODYNE TAB 200 MG PO SCH ×2 (08:41→20:40)
[2022-12-29] MEDS: NORVASC TAB 10 MG PO SCH (08:41)
[2022-12-29] MEDS: APRESOLINE TAB 25 MG PO SCH ×3 (11:11→21:18)
[2022-12-29] MEDS: CATAPRES TAB 0.1 MG PO PRN (11:21)
[2022-12-29] MEDS ORDERED: APRESOLINE INJ 20 MG VIAL ONE (12:44)
[2022-12-29] MEDS: APRESOLINE INJ 20 MG VIAL IVP PRN (12:50)
[2022-12-29] MEDS ORDERED: REGLAN INJ 10 MG VIAL IVP PRN (13:16)
[2022-12-29] MEDS: NovoLIN R (or HumuLIN R) SUBCUT PRN (17:49)
[2022-12-29] MEDS: SNACK - Diabetic Appropriate PO SCH (21:00)
[2022-12-30] MEDS: APRESOLINE INJ 20 MG VIAL IVP PRN (01:01)
[2022-12-30] MEDS: NS 1/2 + KCL 20 MEQ/L 1,000 ML IV SCH ×2 (03:59→15:35)
[2022-12-30] MEDS: APRESOLINE TAB 25 MG PO SCH ×3 (05:12→21:00)
[2022-12-30 05:19] LABS: BASOPHILS # (AUTO) 0.1 X10^3/uL (0.0-0.1); BASOPHILS % (AUTO) 0.6 % (0.2-1.0); EOSINOPHILS % (AUTO) 0.4 % (0.9-2.9); HEMATOCRIT 28.5 % (42.0-54.0); HEMOGLOBIN 9.6 g/dL (13.5-18.0); LYMPHOCYTES # (AUTO) 2.1 X10^3/uL (1.3-2.9); LYMPHOCYTES % (AUTO) 24.7 % (21.0-51.0); MEAN CORPUSCULAR HEMOGLOBIN 27.8 pg (27.0-34.0); MEAN CORPUSCULAR HGB CONC 33.7 g/dL (33.0-35.0); MEAN CORPUSCULAR VOLUME 82.3 fL (80.0-100.0); MEAN PLATELET VOLUME 9.7 fL (7.4-11.0); MONOCYTES # (AUTO) 0.4 x10^3/uL (0.3-0.8); MONOCYTES % (AUTO) 4.8 % (0.0-13.0); NEUTROPHILS # (AUTO) 5.9 x10^3/uL (2.2-4.8); NEUTROPHILS % (AUTO) 69.5 % (42.0-75.0); PLATELET COUNT 166 X10^3/uL (150.0-450.0); RED BLOOD COUNT 3.46 X10^6/uL (4.7-6.0); RED CELL DISTRIBUTION WIDTH 13.3 % (11.6-16.5); WHITE BLOOD COUNT 8.6 X10^3/uL (3.6-10.0)
[2022-12-30 05:32] LABS: ALBUMIN 2.1 g/dL (3.4-5.0); CALCIUM 7.8 mg/dL (8.5-10.1); CARBON DIOXIDE 25.8 mmol/L (21-32); COR CA(FOR HYPOALB) 9.3 mg/dL (8.5-10.1); CREATININE 2.05 mg/dL (0.70-1.30); POTASSIUM 4.4 mmol/L (3.5-5.1); TOTAL PROTEIN 5.5 g/dL (6.4-8.2)
[2022-12-30] MEDS: NORVASC TAB 10 MG PO SCH (08:40)
[2022-12-30] MEDS: NORMODYNE TAB 200 MG PO SCH ×2 (08:40→21:00)
[2022-12-30] MEDS: PROTONIX INJ 40 MG VIAL IVP SCH ×2 (08:41→21:01)
[2022-12-30] MEDS: NS 1/2 1,000 ML IV 1,000 ML IV SCH (10:49)
[2022-12-30] MEDS: CATAPRES TAB 0.1 MG PO PRN (10:49)
[2022-12-30] MEDS ORDERED: NS 1/2 1,000 ML IV 1,000 ML IV ONE (10:50)
[2022-12-30] MEDS: ZOFRAN INJ 4 MG VIAL IVP PRN (13:32)
[2022-12-30] MEDS ORDERED: REGLAN INJ 10 MG VIAL IVP ONE (13:50)
[2022-12-30] MEDS ORDERED: FLOMAX PO SCH (21:00)
[2022-12-30] MEDS: NovoLIN R (or HumuLIN R) SUBCUT PRN (21:12)
[2022-12-31] MEDS: APRESOLINE TAB 25 MG PO SCH ×2 (05:02→14:17)
[2022-12-31 05:18] LABS: BASOPHILS % (AUTO) 0.4 % (0.2-1.0); EOSINOPHILS # (AUTO) 0.1 x10^3/uL (0.0-0.2); EOSINOPHILS % (AUTO) 1.7 % (0.9-2.9); HEMATOCRIT 28.1 % (42.0-54.0); HEMOGLOBIN 9.6 g/dL (13.5-18.0); LYMPHOCYTES # (AUTO) 2.3 X10^3/uL (1.3-2.9); LYMPHOCYTES % (AUTO) 31.6 % (21.0-51.0); MEAN CORPUSCULAR HEMOGLOBIN 28.1 pg (27.0-34.0); MEAN CORPUSCULAR HGB CONC 34.3 g/dL (33.0-35.0); MEAN CORPUSCULAR VOLUME 82.1 fL (80.0-100.0); MEAN PLATELET VOLUME 9.5 fL (7.4-11.0); MONOCYTES # (AUTO) 0.3 x10^3/uL (0.3-0.8); MONOCYTES % (AUTO) 4.6 % (0.0-13.0); NEUTROPHILS # (AUTO) 4.6 x10^3/uL (2.2-4.8); NEUTROPHILS % (AUTO) 61.7 % (42.0-75.0); PLATELET COUNT 156 X10^3/uL (150.0-450.0); RED BLOOD COUNT 3.42 X10^6/uL (4.7-6.0); RED CELL DISTRIBUTION WIDTH 13.3 % (11.6-16.5); WHITE BLOOD COUNT 7.4 X10^3/uL (3.6-10.0)
[2022-12-31 05:26] LABS: ALBUMIN 2.1 g/dL (3.4-5.0); CALCIUM 7.9 mg/dL (8.5-10.1); CARBON DIOXIDE 24.3 mmol/L (21-32); COR CA(FOR HYPOALB) 9.4 mg/dL (8.5-10.1); CREATININE 2.06 mg/dL (0.70-1.30); POTASSIUM 4.1 mmol/L (3.5-5.1); TOTAL PROTEIN 5.5 g/dL (6.4-8.2)
[2022-12-31 06:07] VITALS: TEMP 98.4
--- NOTE | 2022-12-31 06:08 | CT ---
HISTORYSevere sinus congestionSTUDYCT sinuses without contrastTechnique: Axial noncontrast images with coronal and sagittal reformats. Dose reduction procedures were used with mA/kv adjusted for body size.COMPARISONNone availableFINDINGSThe frontal sinuses are clear. Moderately severe mucosal inflammatory changes and areas of opacification throughout the ethmoid sinuses bilaterally likely sinusitis. Minimal mucosal inflammatory change in the right sphenoid sinus and bilateral maxillary sinuses. No air-fluid levels are identified. Visualized portions of the mastoid air cells are clear. Middle ear spaces are clear.IMPRESSIONModerately severe mucosal inflammatory changes and several areas of opacification in the ethmoid sinuses bilaterally likely sinusitisMinimal mucosal inflammatory change in the right sphenoid and bilateral maxillary sinusesFrontal and sphenoid sinuses are clear.Electronically signed by: BRITTNY ROBB (Dec 31, 2022 06:07:37)
[2022-12-31] MEDS: SNACK - Diabetic Appropriate PO SCH (07:15)
[2022-12-31] MEDS: NS 1/2 1,000 ML IV 1,000 ML IV SCH ×3 (08:33→13:40)
[2022-12-31] MEDS: PROTONIX INJ 40 MG VIAL IVP SCH (08:39)
[2022-12-31] MEDS: NORMODYNE TAB 200 MG PO SCH (08:39)
[2022-12-31] MEDS: NORVASC TAB 10 MG PO SCH (08:39)
[2022-12-31] MEDS ORDERED: NS 1/2 1,000 ML IV 1,000 ML IV ONE (08:55)
[2022-12-31] MEDS: NovoLIN R (or HumuLIN R) SUBCUT PRN (12:37)
[2022-12-31 14:13] VITALS: O2SAT 100
[2022-12-31 15:12] VITALS: BP 131/78; PULSE 73; RESP 15
--- NOTE | 2022-12-31 20:56 | W.DIS.FURT ---
Summary of Discharge Discharge Summary of Date Date of Exam: 12/31/22 Admission Date Date of Admission: 12/26/22 Admission Diagnosis Patient Problems (Updated 12/28/22 @ 21:30 by MICHELLE POLANCO) Diabetic gastroparesis (Acute) E11.43, K31.84 Acute kidney injury (Acute) N17.9 Hospital Course: Patient is a 47-year-old male that was admitted for gastroparesis due to diabetes mellitus, acute on chronic renal failure, and hypertensive urgency. His hospital/treatment course included Reglan for gastroparesis, IV fluids for hydration, and clear liquid diet. He was also started on a PPI that is twice a day. Labs: WBC 7.4, hemoglobin 9.6, platelets 156, sodium 143, potassium 4.1, creatinine 2.06, glucose 142. Patient was started on medications for the hypertensive urgency. His home medications were resumed. Clonidine patch and hydralazine was added to his blood pressure medications. Patient responded well to medication adjustment. His diet was gradually advanced and he was able to tolerate p.o. intake. Patient was discharged stable condition. Instructed to follow-up with PCP in 1 week. Vital Signs: Vital Signs (72 hours) 12/28/22 14:00 12/28/22 16:00 12/28/22 16:10 Temperature 97.5 F L Pulse Rate Pulse Rate [Brachial] 84 83 Respiratory Rate 20 18 Blood Pressure Blood Pressure [Right Arm] 145/79 182/100 161/96 O2 Sat by Pulse Oximetry 98 97 Oxygen Delivery Method Room Air Room Air 12/28/22 16:57 12/28/22 18:00 12/28/22 19:00 Temperature Pulse Rate Pulse Rate [Brachial] 84 Respiratory Rate 20 Blood Pressure Blood Pressure [Right Arm] 159/88 152/80 O2 Sat by Pulse Oximetry 98 Oxygen Delivery Method Room Air Room Air 12/28/22 20:00 12/28/22 21:00 12/28/22 22:00 Temperature 98.8 F Pulse Rate 78 Pulse Rate [Brachial] 85 79 Respiratory Rate 20 18 16 Blood Pressure 159/85 Blood Pressure [Right Arm] 203/125 159/84 O2 Sat by Pulse Oximetry 99 99 96 Oxygen Delivery Method Room Air Room Air 12/28/22 20:30 12/28/22 21:00 12/28/22 21:00 Temperature Pulse Rate 77 Pulse Rate [Brachial] Respiratory Rate 15 Blood Pressure 182/97 159/85 Blood Pressure [Right Arm] O2 Sat by Pulse Oximetry 97 Oxygen Delivery Method 12/28/22 21:30 12/28/22 21:30 12/28/22 22:00 Temperature Pulse Rate 79 79 Pulse Rate [Brachial] Respiratory Rate 16 17 Blood Pressure 163/88 Blood Pressure [Right Arm] O2 Sat by Pulse Oximetry 94 L 94 L Oxygen Delivery Method 12/28/22 22:00 12/28/22 22:30 12/28/22 22:30 Temperature Pulse Rate 80 Pulse Rate [Brachial] Respiratory Rate 18 Blood Pressure 159/84 164/87 Blood Pressure [Right Arm] O2 Sat by Pulse Oximetry 96 Oxygen Delivery Method 12/28/22 23:00 12/28/22 23:00 12/28/22 23:30 Temperature Pulse Rate 82 84 Pulse Rate [Brachial] Respiratory Rate 13 14 Blood Pressure 202/110 Blood Pressure [Right Arm] O2 Sat by Pulse Oximetry 94 L 94 L Oxygen Delivery Method 12/28/22 23:30 12/29/22 00:00 12/29/22 00:00 Temperature 98.1 F Pulse Rate 91 H Pulse Rate [Brachial] Respiratory Rate 18 Blood Pressure 190/113 186/102 Blood Pressure [Right Arm] O2 Sat by Pulse Oximetry 95 Oxygen Delivery Method 12/29/22 00:30 12/29/22 00:30 12/29/22 01:00 Temperature Pulse Rate 85 86 Pulse Rate [Brachial] Respiratory Rate 13 15 Blood Pressure 152/85 Blood Pressure [Right Arm] O2 Sat by Pulse Oximetry 94 L 92 L Oxygen Delivery Method 12/29/22 01:00 12/29/22 01:30 12/29/22 01:30 Temperature Pulse Rate 92 H Pulse Rate [Brachial] Respiratory Rate 14 Blood Pressure 183/90 187/97 Blood Pressure [Right Arm] O2 Sat by Pulse Oximetry 98 Oxygen Delivery Method 12/29/22 02:00 12/29/22 02:00 12/29/22 02:30 Temperature Pulse Rate 88 92 H Pulse Rate [Brachial] Respiratory Rate 16 18 Blood Pressure 162/80 Blood Pressure [Right Arm] O2 Sat by Pulse Oximetry 98 99 Oxygen Delivery Method 12/29/22 02:30 12/29/22 03:00 12/29/22 03:00 Temperature Pulse Rate 81 Pulse Rate [Brachial] Respiratory Rate 17 Blood Pressure 144/73 144/77 Blood Pressure [Right Arm] O2 Sat by Pulse Oximetry 99 Oxygen Delivery Method 12/29/22 03:30 12/29/22 03:30 12/29/22 04:00 Temperature 98.5 F Pulse Rate 82 87 Pulse Rate [Brachial] Respiratory Rate 15 11 L Blood Pressure 148/87 Blood Pressure [Right Arm] O2 Sat by Pulse Oximetry 100 98 Oxygen Delivery Method 12/29/22 04:14 12/29/22 04:14 12/29/22 05:00 Temperature Pulse Rate 92 H 86 Pulse Rate [Brachial] Respiratory Rate 9 L 10 L Blood Pressure 177/105 Blood Pressure [Right Arm] O2 Sat by Pulse Oximetry 97 Oxygen Delivery Method 12/29/22 05:32 12/29/22 05:32 12/29/22 06:00 Temperature Pulse Rate 87 Pulse Rate [Brachial] Respiratory Rate 15 Blood Pressure 192/102 174/86 Blood Pressure [Right Arm] O2 Sat by Pulse Oximetry 97 Oxygen Delivery Method 12/29/22 06:00 12/29/22 07:00 12/29/22 06:30 Temperature Pulse Rate 80 Pulse Rate [Brachial] Respiratory Rate 14 Blood Pressure 145/68 Blood Pressure [Right Arm] O2 Sat by Pulse Oximetry 98 Oxygen Delivery Method Room Air 12/29/22 06:30 12/29/22 07:00 12/29/22 07:00 Temperature Pulse Rate 79 93 H Pulse Rate [Brachial] Respiratory Rate 18 16 Blood Pressure 155/95 Blood Pressure [Right Arm] O2 Sat by Pulse Oximetry 97 Oxygen Delivery Method 12/29/22 07:30 12/29/22 07:30 12/29/22 08:00 Temperature 98.0 F Pulse Rate 90 85 Pulse Rate [Brachial] Respiratory Rate 15 12 Blood Pressure 155/95 Blood Pressure [Right Arm] O2 Sat by Pulse Oximetry 98 97 Oxygen Delivery Method 12/29/22 08:07 12/29/22 08:07 12/29/22 08:07 Temperature Pulse Rate 96 H Pulse Rate [Brachial] Respiratory Rate 14 Blood Pressure 182/96 182/96 Blood Pressure [Right Arm] O2 Sat by Pulse Oximetry 98 Oxygen Delivery Method 12/29/22 08:44 12/29/22 08:44 12/29/22 09:00 Temperature Pulse Rate 99 H 85 Pulse Rate [Brachial] Respiratory Rate 15 15 Blood Pressure 182/96 Blood Pressure [Right Arm] O2 Sat by Pulse Oximetry 99 98 Oxygen Delivery Method 12/29/22 09:09 12/29/22 09:09 12/29/22 10:00 Temperature Pulse Rate 84 83 Pulse Rate [Brachial] Respiratory Rate 17 17 Blood Pressure 180/100 168/95 Blood Pressure [Right Arm] O2 Sat by Pulse Oximetry 98 98 Oxygen Delivery Method 12/29/22 11:00 12/29/22 11:21 12/29/22 12:48 Temperature 98.8 F Pulse Rate 85 85 Pulse Rate [Brachial] Respiratory Rate 16 17 Blood Pressure 174/99 172/96 199/115 Blood Pressure [Right Arm] O2 Sat by Pulse Oximetry 99 99 Oxygen Delivery Method 12/29/22 12:55 12/29/22 13:00 12/29/22 13:05 Temperature Pulse Rate Pulse Rate [Brachial] Respiratory Rate Blood Pressure 207/115 178/98 178/96 Blood Pressure [Right Arm] O2 Sat by Pulse Oximetry Oxygen Delivery Method 12/29/22 13:30 12/29/22 14:00 12/29/22 14:52 Temperature Pulse Rate 79 Pulse Rate [Brachial] Respiratory Rate 18 Blood Pressure 160/78 142/70 174/88 Blood Pressure [Right Arm] O2 Sat by Pulse Oximetry 97 Oxygen Delivery Method 12/29/22 15:00 12/29/22 16:00 12/29/22 17:00 Temperature 98.0 F 98.0 F Pulse Rate 95 H 79 91 H Pulse Rate [Brachial] Respiratory Rate 15 16 14 Blood Pressure 176/87 156/80 182/94 Blood Pressure [Right Arm] O2 Sat by Pulse Oximetry 98 98 98 Oxygen Delivery Method 12/29/22 18:00 12/29/22 19:00 12/29/22 19:00 Temperature Pulse Rate 84 80 Pulse Rate [Brachial] Respiratory Rate 16 12 Blood Pressure 168/91 151/84 Blood Pressure [Right Arm] O2 Sat by Pulse Oximetry 97 100 Oxygen Delivery Method Room Air 12/29/22 20:00 12/29/22 21:00 12/29/22 22:00 Temperature 99.1 F Pulse Rate 86 81 76 Pulse Rate [Brachial] Respiratory Rate 11 L 11 L 15 Blood Pressure 171/97 198/115 153/87 Blood Pressure [Right Arm] O2 Sat by Pulse Oximetry 98 98 98 Oxygen Delivery Method 12/29/22 23:00 12/30/22 00:00 12/30/22 01:00 Temperature 98.7 F Pulse Rate 76 76 82 Pulse Rate [Brachial] Respiratory Rate 15 11 L 21 Blood Pressure 178/95 183/101 132/62 Blood Pressure [Right Arm] O2 Sat by Pulse Oximetry 97 99 96 Oxygen Delivery Method 12/30/22 02:00 12/30/22 03:00 12/30/22 04:00 Temperature 98.9 F Pulse Rate 84 80 92 H Pulse Rate [Brachial] Respiratory Rate 16 15 14 Blood Pressure 140/67 166/86 164/97 Blood Pressure [Right Arm] O2 Sat by Pulse Oximetry 98 98 99 Oxygen Delivery Method 12/30/22 05:00 12/30/22 06:00 12/30/22 07:00 Temperature Pulse Rate 89 82 Pulse Rate [Brachial] Respiratory Rate 13 12 Blood Pressure 175/101 164/88 Blood Pressure [Right Arm] O2 Sat by Pulse Oximetry 94 L 99 Oxygen Delivery Method Room Air 12/29/22 22:00 12/29/22 22:30 12/29/22 22:30 Temperature Pulse Rate 79 Pulse Rate [Brachial] Respiratory Rate 15 Blood Pressure 168/94 153/87 Blood Pressure [Right Arm] O2 Sat by Pulse Oximetry 99 Oxygen Delivery Method 12/29/22 23:00 12/29/22 23:00 12/29/22 23:30 Temperature Pulse Rate 82 90 Pulse Rate [Brachial] Respiratory Rate 16 16 Blood Pressure 178/95 Blood Pressure [Right Arm] O2 Sat by Pulse Oximetry 96 98 Oxygen Delivery Method 12/29/22 23:30 12/30/22 00:00 12/30/22 00:00 Temperature Pulse Rate 84 Pulse Rate [Brachial] Respiratory Rate 14 Blood Pressure 176/102 171/108 Blood Pressure [Right Arm] O2 Sat by Pulse Oximetry 100 Oxygen Delivery Method 12/30/22 00:30 12/30/22 00:30 12/30/22 01:00 Temperature Pulse Rate 78 77 Pulse Rate [Brachial] Respiratory Rate 12 12 Blood Pressure 183/101 Blood Pressure [Right Arm] O2 Sat by Pulse Oximetry 98 98 Oxygen Delivery Method 12/30/22 01:00 12/30/22 01:30 12/30/22 01:30 Temperature Pulse Rate 84 Pulse Rate [Brachial] Respiratory Rate 15 Blood Pressure 189/100 132/62 Blood Pressure [Right Arm] O2 Sat by Pulse Oximetry 97 Oxygen Delivery Method 12/30/22 02:00 12/30/22 02:00 12/30/22 02:30 Temperature Pulse Rate 81 83 Pulse Rate [Brachial] Respiratory Rate 17 12 Blood Pressure 140/67 Blood Pressure [Right Arm] O2 Sat by Pulse Oximetry 97 98 Oxygen Delivery Method 12/30/22 02:30 12/30/22 03:00 12/30/22 03:00 Temperature Pulse Rate 80 Pulse Rate [Brachial] Respiratory Rate 13 Blood Pressure 167/92 166/86 Blood Pressure [Right Arm] O2 Sat by Pulse Oximetry 98 Oxygen Delivery Method 12/30/22 03:30 12/30/22 03:30 12/30/22 04:00 Temperature Pulse Rate 81 88 Pulse Rate [Brachial] Respiratory Rate 11 L 13 Blood Pressure 167/83 Blood Pressure [Right Arm] O2 Sat by Pulse Oximetry 98 97 Oxygen Delivery Method 12/30/22 04:16 12/30/22 04:16 12/30/22 04:30 Temperature Pulse Rate 99 H Pulse Rate [Brachial] Respiratory Rate 15 Blood Pressure 164/97 158/98 Blood Pressure [Right Arm] O2 Sat by Pulse Oximetry 96 Oxygen Delivery Method 12/30/22 04:30 12/30/22 05:00 12/30/22 05:00 Temperature Pulse Rate 92 H 89 Pulse Rate [Brachial] Respiratory Rate 16 15 Blood Pressure 175/101 Blood Pressure [Right Arm] O2 Sat by Pulse Oximetry 98 98 Oxygen Delivery Method 12/30/22 05:30 12/30/22 05:30 12/30/22 06:00 Temperature Pulse Rate 102 H 80 Pulse Rate [Brachial] Respiratory Rate 18 15 Blood Pressure 151/73 Blood Pressure [Right Arm] O2 Sat by Pulse Oximetry 96 98 Oxygen Delivery Method 12/30/22 06:00 12/30/22 06:30 12/30/22 06:30 Temperature Pulse Rate 79 Pulse Rate [Brachial] Respiratory Rate 16 Blood Pressure 164/88 153/76 Blood Pressure [Right Arm] O2 Sat by Pulse Oximetry 98 Oxygen Delivery Method 12/30/22 07:00 12/30/22 07:00 12/30/22 07:30 Temperature Pulse Rate 81 95 H Pulse Rate [Brachial] Respiratory Rate 13 15 Blood Pressure 162/90 Blood Pressure [Right Arm] O2 Sat by Pulse Oximetry 99 97 Oxygen Delivery Method 12/30/22 07:30 12/30/22 08:00 12/30/22 08:00 Temperature Pulse Rate 88 Pulse Rate [Brachial] Respiratory Rate 9 L Blood Pressure 176/93 156/87 Blood Pressure [Right Arm] O2 Sat by Pulse Oximetry 96 Oxygen Delivery Method 12/30/22 08:30 12/30/22 08:30 12/30/22 09:00 Temperature Pulse Rate 80 82 Pulse Rate [Brachial] Respiratory Rate 14 13 Blood Pressure 172/92 Blood Pressure [Right Arm] O2 Sat by Pulse Oximetry 98 99 Oxygen Delivery Method 12/30/22 09:00 12/30/22 09:30 12/30/22 09:30 Temperature Pulse Rate 80 Pulse Rate [Brachial] Respiratory Rate 16 Blood Pressure 179/103 140/76 Blood Pressure [Right Arm] O2 Sat by Pulse Oximetry 99 Oxygen Delivery Method 12/30/22 10:00 12/30/22 10:00 12/30/22 10:30 Temperature Pulse Rate 81 88 Pulse Rate [Brachial] Respiratory Rate 17 14 Blood Pressure 146/83 Blood Pressure [Right Arm] O2 Sat by Pulse Oximetry 99 97 Oxygen Delivery Method 12/30/22 10:30 12/30/22 11:00 12/30/22 11:00 Temperature Pulse Rate 83 Pulse Rate [Brachial] Respiratory Rate 12 Blood Pressure 171/93 167/93 Blood Pressure [Right Arm] O2 Sat by Pulse Oximetry 98 Oxygen Delivery Method 12/30/22 11:30 12/30/22 11:30 12/30/22 12:00 Temperature Pulse Rate 81 90 Pulse Rate [Brachial] Respiratory Rate 12 12 Blood Pressure 203/109 Blood Pressure [Right Arm] O2 Sat by Pulse Oximetry 96 98 Oxygen Delivery Method 12/30/22 12:00 12/30/22 13:12 12/30/22 13:18 Temperature Pulse Rate 88 87 Pulse Rate [Brachial] Respiratory Rate Blood Pressure 173/98 Blood Pressure [Right Arm] O2 Sat by Pulse Oximetry 97 98 Oxygen Delivery Method 12/30/22 13:18 12/30/22 14:00 12/30/22 15:00 Temperature Pulse Rate 83 76 Pulse Rate [Brachial] Respiratory Rate 18 Blood Pressure 142/88 174/86 Blood Pressure [Right Arm] O2 Sat by Pulse Oximetry 98 98 Oxygen Delivery Method 12/30/22 15:31 12/30/22 15:31 12/30/22 15:44 Temperature Pulse Rate 79 Pulse Rate [Brachial] Respiratory Rate 12 Blood Pressure 174/86 174/82 Blood Pressure [Right Arm] O2 Sat by Pulse Oximetry 98 Oxygen Delivery Method 12/30/22 15:44 12/30/22 16:00 12/30/22 16:00 Temperature Pulse Rate 85 89 Pulse Rate [Brachial] Respiratory Rate 13 13 Blood Pressure 159/83 Blood Pressure [Right Arm] O2 Sat by Pulse Oximetry 99 98 Oxygen Delivery Method 12/30/22 16:30 12/30/22 16:30 12/30/22 17:00 Temperature 98.2 F Pulse Rate 78 82 Pulse Rate [Brachial] Respiratory Rate 14 13 Blood Pressure 143/71 Blood Pressure [Right Arm] O2 Sat by Pulse Oximetry 98 98 Oxygen Delivery Method 12/30/22 17:00 12/30/22 17:30 12/30/22 17:30 Temperature Pulse Rate 84 Pulse Rate [Brachial] Respiratory Rate 10 L Blood Pressure 128/64 138/80 Blood Pressure [Right Arm] O2 Sat by Pulse Oximetry 97 Oxygen Delivery Method 12/30/22 18:00 12/30/22 18:00 12/30/22 19:00 Temperature Pulse Rate 82 Pulse Rate [Brachial] Respiratory Rate 16 Blood Pressure 143/86 Blood Pressure [Right Arm] O2 Sat by Pulse Oximetry 99 Oxygen Delivery Method Room Air 12/30/22 19:00 12/30/22 20:00 12/30/22 21:00 Temperature Pulse Rate 83 84 89 Pulse Rate [Brachial] Respiratory Rate 23 15 16 Blood Pressure 142/77 158/95 136/88 Blood Pressure [Right Arm] O2 Sat by Pulse Oximetry 98 98 99 Oxygen Delivery Method 12/30/22 22:00 12/30/22 23:00 12/31/22 00:00 Temperature 98.9 F Pulse Rate 78 82 83 Pulse Rate [Brachial] Respiratory Rate 15 12 12 Blood Pressure 162/87 166/97 147/83 Blood Pressure [Right Arm] O2 Sat by Pulse Oximetry 99 100 100 Oxygen Delivery Method 12/31/22 01:00 12/31/22 02:00 12/31/22 03:00 Temperature Pulse Rate 75 77 78 Pulse Rate [Brachial] Respiratory Rate 17 21 18 Blood Pressure 145/73 140/77 154/90 Blood Pressure [Right Arm] O2 Sat by Pulse Oximetry 99 99 98 Oxygen Delivery Method 12/31/22 04:00 12/31/22 05:00 12/31/22 06:00 Temperature 98.4 F Pulse Rate 82 74 80 Pulse Rate [Brachial] Respiratory Rate 13 17 12 Blood Pressure 155/87 175/94 175/97 Blood Pressure [Right Arm] O2 Sat by Pulse Oximetry 100 99 100 Oxygen Delivery Method 12/31/22 07:00 12/30/22 22:00 12/30/22 22:30 Temperature Pulse Rate Pulse Rate [Brachial] Respiratory Rate Blood Pressure 162/87 154/87 Blood Pressure [Right Arm] O2 Sat by Pulse Oximetry Oxygen Delivery Method Room Air 12/30/22 22:30 12/30/22 23:00 12/30/22 23:00 Temperature Pulse Rate 76 82 Pulse Rate [Brachial] Respiratory Rate 15 12 Blood Pressure 166/97 Blood Pressure [Right Arm] O2 Sat by Pulse Oximetry 98 100 Oxygen Delivery Method 12/30/22 23:30 12/30/22 23:30 12/30/22 23:30 Temperature Pulse Rate 82 Pulse Rate [Brachial] Respiratory Rate 14 Blood Pressure 166/96 166/96 Blood Pressure [Right Arm] O2 Sat by Pulse Oximetry 99 Oxygen Delivery Method 12/31/22 00:00 12/31/22 00:00 12/31/22 00:30 Temperature Pulse Rate 80 Pulse Rate [Brachial] Respiratory Rate 14 Blood Pressure 147/83 157/89 Blood Pressure [Right Arm] O2 Sat by Pulse Oximetry 99 Oxygen Delivery Method 12/31/22 00:30 12/31/22 01:00 12/31/22 01:00 Temperature Pulse Rate 74 74 Pulse Rate [Brachial] Respiratory Rate 18 13 Blood Pressure 145/74 Blood Pressure [Right Arm] O2 Sat by Pulse Oximetry 99 98 Oxygen Delivery Method 12/31/22 01:30 12/31/22 01:30 12/31/22 02:00 Temperature Pulse Rate 73 Pulse Rate [Brachial] Respiratory Rate 17 Blood Pressure 145/73 148/75 Blood Pressure [Right Arm] O2 Sat by Pulse Oximetry 99 Oxygen Delivery Method 12/31/22 02:00 12/31/22 02:30 12/31/22 02:30 Temperature Pulse Rate 75 76 Pulse Rate [Brachial] Respiratory Rate 14 16 Blood Pressure 140/77 Blood Pressure [Right Arm] O2 Sat by Pulse Oximetry 100 99 Oxygen Delivery Method 12/31/22 03:00 12/31/22 03:00 12/31/22 03:30 Temperature Pulse Rate 77 77 Pulse Rate [Brachial] Respiratory Rate 12 13 Blood Pressure 154/90 Blood Pressure [Right Arm] O2 Sat by Pulse Oximetry 100 100 Oxygen Delivery Method 12/31/22 03:30 12/31/22 04:00 12/31/22 04:00 Temperature Pulse Rate 82 Pulse Rate [Brachial] Respiratory Rate 13 Blood Pressure 156/88 170/100 Blood Pressure [Right Arm] O2 Sat by Pulse Oximetry 100 Oxygen Delivery Method 12/31/22 04:30 12/31/22 04:30 12/31/22 04:49 Temperature Pulse Rate 83 82 Pulse Rate [Brachial] Respiratory Rate 14 12 Blood Pressure 193/110 Blood Pressure [Right Arm] O2 Sat by Pulse Oximetry 100 100 Oxygen Delivery Method 12/31/22 04:49 12/31/22 04:51 12/31/22 04:51 Temperature Pulse Rate 83 Pulse Rate [Brachial] Respiratory Rate 13 Blood Pressure 198/111 193/113 Blood Pressure [Right Arm] O2 Sat by Pulse Oximetry 99 Oxygen Delivery Method 12/31/22 04:55 12/31/22 04:55 12/31/22 05:00 Temperature Pulse Rate 87 80 Pulse Rate [Brachial] Respiratory Rate 15 12 Blood Pressure 155/87 Blood Pressure [Right Arm] O2 Sat by Pulse Oximetry 99 98 Oxygen Delivery Method 12/31/22 05:00 12/31/22 05:30 12/31/22 05:30 Temperature Pulse Rate 77 Pulse Rate [Brachial] Respiratory Rate 13 Blood Pressure 175/94 166/88 Blood Pressure [Right Arm] O2 Sat by Pulse Oximetry 99 Oxygen Delivery Method 12/31/22 06:00 12/31/22 06:00 12/31/22 06:30 Temperature Pulse Rate 79 Pulse Rate [Brachial] Respiratory Rate 12 Blood Pressure 175/97 179/104 Blood Pressure [Right Arm] O2 Sat by Pulse Oximetry 99 Oxygen Delivery Method 12/31/22 06:30 12/31/22 07:00 12/31/22 07:00 Temperature Pulse Rate 82 80 Pulse Rate [Brachial] Respiratory Rate 14 13 Blood Pressure 159/84 Blood Pressure [Right Arm] O2 Sat by Pulse Oximetry 100 100 Oxygen Delivery Method 12/31/22 07:30 12/31/22 07:30 12/31/22 08:00 Temperature Pulse Rate 80 Pulse Rate [Brachial] Respiratory Rate 12 Blood Pressure 147/81 158/86 Blood Pressure [Right Arm] O2 Sat by Pulse Oximetry 99 Oxygen Delivery Method 12/31/22 08:00 12/31/22 08:30 12/31/22 08:30 Temperature Pulse Rate 81 90 Pulse Rate [Brachial] Respiratory Rate 14 19 Blood Pressure 150/77 Blood Pressure [Right Arm] O2 Sat by Pulse Oximetry 100 99 Oxygen Delivery Method 12/31/22 09:00 12/31/22 09:00 12/31/22 09:00 Temperature Pulse Rate 79 Pulse Rate [Brachial] Respiratory Rate 12 Blood Pressure 136/78 136/78 Blood Pressure [Right Arm] O2 Sat by Pulse Oximetry 98 Oxygen Delivery Method 12/31/22 10:00 12/31/22 10:25 12/31/22 10:25 Temperature Pulse Rate 84 79 Pulse Rate [Brachial] Respiratory Rate 14 15 Blood Pressure 129/77 Blood Pressure [Right Arm] O2 Sat by Pulse Oximetry 98 98 Oxygen Delivery Method 12/31/22 11:00 12/31/22 12:00 Temperature Pulse Rate 75 78 Pulse Rate [Brachial] Respiratory Rate 7 L 16 Blood Pressure Blood Pressure [Right Arm] O2 Sat by Pulse Oximetry 100 99 Oxygen Delivery Method Labs: Laboratory Last Values WBC 7.4 X10^3/uL (3.6-10.0) 12/31/22 04:46 RBC 3.42 X10^6/uL (4.7-6.0) L 12/31/22 04:46 Hgb 9.6 g/dL (13.5-18.0) L 12/31/22 04:46 Hct 28.1 % (42.0-54.0) L 12/31/22 04:46 MCV 82.1 fL (80.0-100.0) 12/31/22 04:46 MCH 28.1 pg (27.0-34.0) 12/31/22 04:46 MCHC 34.3 g/dL (33.0-35.0) 12/31/22 04:46 RDW 13.3 % (11.6-16.5) 12/31/22 04:46 Plt Count 156 X10^3/uL (150.0-450.0) 12/31/22 04:46 MPV 9.5 fL (7.4-11.0) 12/31/22 04:46 Neut % (Auto) 61.7 % (42.0-75.0) 12/31/22 04:46 Lymph % (Auto) 31.6 % (21.0-51.0) 12/31/22 04:46 [place] % (Auto) 4.6 % (0.0-13.0) 12/31/22 04:46 Eos % (Auto) 1.7 % (0.9-2.9) 12/31/22 04:46 Baso % (Auto) 0.4 % (0.2-1.0) 12/31/22 04:46 Neut # (Auto) 4.6 x10^3/uL (2.2-4.8) 12/31/22 04:46 Lymph # (Auto) 2.3 X10^3/uL (1.3-2.9) 12/31/22 04:46 [place] # (Auto) 0.3 x10^3/uL (0.3-0.8) 12/31/22 04:46 Eos # (Auto) 0.1 x10^3/uL (0.0-0.2) 12/31/22 04:46 Baso # (Auto) 0.0 X10^3/uL (0.0-0.1) 12/31/22 04:46 Absolute Nucleated RBC 0.1 /100WBC 12/31/22 04:46 Sample Site Rr 12/26/22 21:00 ABG pH 7.400 (7.35-7.45) 12/26/22 21:00 ABG pCO2 46.0 mmHg (35.0-45.0) H 12/26/22 21:00 ABG pO2 77.0 mmHg (80.0-100.0) L 12/26/22 21:00 ABG HCO3 28.5 mmol/L (22-26) H 12/26/22 21:00 ABG O2 Saturation 95.0 % (90-100) 12/26/22 21:00 ABG Base Excess 3.1 mmol/L (-2.0-2.0) H 12/26/22 21:00 Adi Test Pos 12/26/22 21:00 A-a Gradient 15.0 mmHg 12/26/22 21:00 FiO2 21.0 12/26/22 21:00 Blood Gas Comments [place] well 12/26/22 21:00 Sodium 143 mmol/L (136-145) 12/31/22 04:46 Corrected Sodium 144 mmol/L (136-145) 12/31/22 04:46 Potassium 4.1 mmol/L (3.5-5.1) 12/31/22 04:46 Chloride 109 mmol/L (98-107) H 12/31/22 04:46 Carbon Dioxide 24.3 mmol/L (21-32) 12/31/22 04:46 BUN 31 mg/dL (7-18) H 12/31/22 04:46 Creatinine 2.06 mg/dL (0.70-1.30) H 12/31/22 04:46 Est GFR (MDRD) Af Amer 45 (>60) L 12/31/22 04:46 Est GFR (MDRD) Non-Af 37 (>60) L 12/31/22 04:46 Glucose 142 mg/dL (65-99) H 12/31/22 04:46 POC Glucose (mg/dL) 282 mg/dL (65-99) H 12/31/22 12:33 Hemoglobin A1c 11.1 % 12/30/22 04:03 Calcium 7.9 mg/dL (8.5-10.1) L 12/31/22 04:46 Corrected Calcium 9.4 mg/dL (8.5-10.1) 12/31/22 04:46 Magnesium 2.0 mg/dL (2.0-2.9) 12/28/22 04:50 Total Bilirubin 0.40 mg/dL (0.2-1.0) 12/31/22 04:46 AST 34 Units/L (15-37) 12/31/22 04:46 ALT 26 Units/L (12-78) 12/31/22 04:46 Alkaline Phosphatase 107 Units/L (46-116) 12/31/22 04:46 Total Protein 5.5 g/dL (6.4-8.2) L 12/31/22 04:46 Albumin 2.1 g/dL (3.4-5.0) L 12/31/22 04:46 Globulin 3.4 g/dL (2.5-4.5) 12/31/22 04:46 Albumin/Globulin Ratio 0.6 Ratio (1.1-2.1) L 12/31/22 04:46 Lipase 155 Units/L (73-393) 12/26/22 09:00 Specimen Type Clean catch urine 12/26/22 20:34 Urine Color Yellow (YELLOW) 12/26/22 20:34 Urine Appearance Clear (CLEAR) 12/26/22 20:34 Urine pH 5.0 (5.0 - 8.0) 12/26/22 20:34 Ur Specific [place] 1.020 (1.000-1.030) 12/26/22 20:34 Urine Protein 4+ (NEGATIVE) 12/26/22 20:34 Urine Glucose (UA) 4+ (NEGATIVE) 12/26/22 20:34 Urine Ketones 2+ (NEGATIVE) 12/26/22 20:34 Urine Blood 2+ (NEGATIVE) 12/26/22 20:34 Urine Nitrite Negative (NEGATIVE) 12/26/22 20:34 Urine Bilirubin Negative (NEGATIVE) 12/26/22 20:34 Urine Urobilinogen Normal (NORMAL) 12/26/22 20:34 Ur Leukocyte Esterase Negative (NEGATIVE) 12/26/22 20:34 Urine RBC 0-2 /HPF (0-3) 12/26/22 20:34 Urine WBC 0-2 /HPF (0-5) 12/26/22 20:34 Ur Squamous Epith Cells Rare /HPF (NEGATIVE) 12/26/22 20:34 Amorphous Sediment 1+ /HPF (NEGATIVE) 12/26/22 20:34 Urine Bacteria Trace /HPF (NEGATIVE) 12/26/22 20:34 Ur Culture Indicated? No/not indicated 12/26/22 20:34 Acetone, Semi-Quant Negative (NEGATIVE) 12/28/22 04:50 SARS CoV-2 RNA Rapid SUE Negative (NEGATIVE) 12/26/22 11:33 Reason For Visit: GASTROPARESIS, MACI, HYPERTENSION Discharge Date Discharge Date: 12/31/22 Discharge Diagnosis All Active Problems (Updated 12/28/22 @ 21:30 by MICHELLE POLANCO) Hypernatremia (Acute) Hypoglycemia (Acute) Diabetic gastroparesis (Acute) Acute dehydration (Acute) AMS (altered mental status) (Acute) Generalized weakness (Acute) Diabetic gastroparesis (Acute) Acute kidney injury (Acute) Diabetic gastroparesis (Acute) Chronic hypokalemia (Acute) Nausea & vomiting (Acute) Diabetic gastroparesis (Acute) Nausea & vomiting (Acute) Hypertension (Acute) Chronic GERD (Acute) Diabetes mellitus with gastroparesis (Acute) Nausea & vomiting (Acute) Dehydration, mild (Acute) Esophagitis (Acute) Upper gastrointestinal bleed (Acute) Intractable nausea and vomiting (Acute) Hypoglycemia (Acute) Acute on chronic renal failure (Acute) Nausea & vomiting (Acute) Abdominal pain, epigastric (Acute) Acute dehydration (Acute) CKD (chronic kidney disease) stage 3, GFR 30-59 ml/min (Acute) Esophageal ulcer (Acute) Gastritis (Acute) Leucocytosis (Acute) Hypokalemia (Acute) Diabetic gastroparesis (Acute) Acute upper GI bleed (Acute) Anemia due to GI blood loss (Acute) DM2 (diabetes mellitus, type 2) (Acute) Diarrhea (Acute) Back pain (Acute) Diabetes (Acute) Acute gastritis (Acute) Plan of Treatment: Continue with present treatment and follow up plan. Pt is to keep follow up appointment as instructed and take medications as ordered. Discharge Medications Discharge Medications: No Known Drug Allergies Allergy (Verified 07/14/22 02:32) CONTINUE taking the following medications hydrochlorothiazide 25 mg tablet 25 mg PO QDAY 12/26/22 [History] simvastatin 20 mg tablet 20 mg PO QPM 12/26/22 [History] sucralfate 1 gram tablet 1 g PO QID 12/26/22 [History] Discharge Disposition Discharge Disposition: Home Discharge Condition: Stable Discharge Plan Discharge Plan Hospital Course: Patient is a 47-year-old male that was admitted for gastroparesis due to diabetes mellitus, acute on chronic renal failure, and hypertensive urgency. His hospital/treatment course included Reglan for gastroparesis, IV fluids for hydration, and clear liquid diet. He was also started on a PPI that is twice a day. Labs: WBC 7.4, hemoglobin 9.6, platelets 156, sodium 143, potassium 4.1, creatinine 2.06, glucose 142. Patient was started on medications for the hypertensive urgency. His home medications were resumed. Clonidine patch and hydralazine was added to his blood pressure medications. Patient responded well to medication adjustment. His diet was gradually advanced and he was able to tolerate p.o. intake. Patient was discharged stable condition. Instructed to follow-up with PCP in 1 week. Patient Disposition: HOME, SELF-CARE Condition: Stable Health Concerns: Post Hospitalization: new medications and changes needed to prevent readmission or further decline. Pt educated and given instructions on all concerns. Care Plan Goals: Problem: Fluid Volume Deficit Goal: Maintain/Improved Adequate hydration. Instructions: Follow provided instructions. Follow up with primary physician as directed. Contact primary care physician or report to the closest Emergency Room if condition worsens. Plan of Treatment: Continue with present treatment and follow up plan. Pt is to keep follow up appointment as instructed and take medications as ordered. Prescriptions: New hydralazine 25 mg Tablet 25 mg PO TID 30 Days Qty: 90 0RF amlodipine 10 mg Tablet 10 mg PO DAILY 30 Days Qty: 30 0RF clonidine 0.3 mg/24 hr Patch Weekly 0.3 mg TD Q7D 30 Days Qty: 4 0RF Continued insulin glargine [Lantus U-100 Insulin] 100 unit/mL Solution 10 - 20 unit SUBCUT QPM PRN Rx Instructions: PATIENT STATES HE CHECKS HIS BLOOD SUGAR AT NIGHT AND TAKES IT HE NEEDS IT. sucralfate 1 gram tablet 1 g PO QID simvastatin 20 mg tablet 20 mg PO QPM hydrochlorothiazide 25 mg tablet 25 mg PO QDAY labetalol 200 mg tablet 200 mg PO BID potassium chloride 10 mEq tablet extended release 10 meq PO QDAY metoclopramide HCl 5 mg tablet 5 mg PO TID pantoprazole 40 mg tablet,delayed release (DR/EC) 40 mg PO QDAY Farxiga 10 mg tablet 10 mg PO QDAY Creon 24,000-76,000 -120,000 unit capsule,delayed release(DR/EC) 1 cap PO TID Follow ups/Referrals Follow ups/Referrals: Marvel Perez [REFERRING] - 01/04/23 11:00 am [facility] [CONSULTING PHYSICIAN] - (Referral sent on 12/31/22 - Office will call you with an appointment.) Instructions Instructions: Acute Kidney Injury, Adult, Type 2 Diabetes Mellitus, Diagnosis, Adult, Nausea and Vomiting, Adult, [id number], Hypertension, Adult, [id number], Managing Your Hypertension, Gastroparesis Activity Restrictions/Additional Instructions: FU WITH DR SOLIMAN [facility] Stand Alone Forms: Post Hospital Follow Up Care
== END 2022-12-31 15:45 | disposition home or self-care (01) | DRG 392 ==
LOC: ER 07:58 → U 07:58 → MED/SURG 14:52 → ICU 15:07
PROVIDERS: ADMIT Family Medicine; ATTEND Family Medicine
DX: E11.43 Type 2 diabetes mellitus with diabetic autonomic (poly)neuropathy; K31.84 Gastroparesis; E11.65 Type 2 diabetes mellitus with hyperglycemia; E86.0 Dehydration; R11.2 Nausea with vomiting, unspecified; Z20.822 Contact with and (suspected) exposure to COVID-19; N17.8 Other acute kidney failure; I10 Essential (primary) hypertension; R53.1 Weakness; I16.0 Hypertensive urgency; E87.0 Hyperosmolality and hypernatremia; K21.9 Gastro-esophageal reflux disease without esophagitis; N18.9 Chronic kidney disease, unspecified